=== PATIENT | female | born 1955 | race Caucasian/White ===

== ENCOUNTER 2017-10-13 14:44 | Emergency (ER) | payer MEDICARE, SELFPAY ==
[2017-10-13 14:57] VITALS: BP 151/83; PULSE 70; RESP 18; TEMP 36.2; O2SAT 100
--- NOTE | 2017-10-13 15:14 | ED.GENADUL ---
Disposition Clinical Impression: Left long finger cellulitis Disposition: HOME Condition: Good Additional Instructions: Take the Keflex that was previously prescribed to you for its entire course. Soak the left long finger in Epsom salts or kosher salt with warm water 4 times daily for the next week. Return to the emergency department for any acute concerns Medical Decision Making - Medical Decision Making 62-year-old female with early cellulitis of her left long finger. Will ask her to begin the previously prescribed Keflex. She stable for outpatient management. Discussed home management as well as return precautions with her prior to discharge per History of Present Illness - General Chief complaint: Cellulitis Stated complaint: UNKNOWN Time Seen by Provider: 10/13/17 14:58 Source: patient Mode of arrival: ambulatory Limitations: no limitations - History of Present Illness Initial comments: Left long finger infection: 62-year-old female with 3 days of achy discomfort and trace of redness at her left long fingertip where she feels she may have had a small splinter enter under the nail. She was seen in clinic yesterday and prescribed Keflex which she has not yet started. She presents for repeat evaluation. - Related Data Atorvastatin [Lipitor] 80 mg PO HS 06/04/12 Clonazepam [Klonopin] 0.5 mg PO PRN PRN 06/04/12 Levothyroxine Sodium [Synthroid] 88 mcg PO DAILY 06/04/12 Losartan [Cozaar] 100 mg PO DAILY 06/04/12 Pantoprazole [Protonix] 40 mg PO BID 06/04/12 Warfarin [Coumadin] 3 mg PO DAILY 06/04/12 Metoprolol CR [Toprol Xl] 25 mg PO DAILY 07/14/12 Aspirin [Aspir 81] 1 tab PO DAILY 12/12/13 Glipizide 1 tab PO DAILY 12/12/13 Acetaminophen [Tylenol] 1 tab PO PRN PRN 05/01/14 Sucralfate 1 gm PO QID PRN 09/22/15 Ferrous Sulfate 325 mg PO DAILY 10/04/15 Sitagliptin Phosphate [Januvia] 100 mg PO DAILY 06/26/16 Ondansetron ODT [Zofran Odt] 4 mg PO TID PRN PRN #8 tabef 12/03/16 Allergies Allergy/AdvReac Type Severity Reaction Status Date / Time metformin AdvReac Intermediate Diarrhea Unverified 10/13/17 15:02 fosinopril sodium AdvReac Unknown Coughing Unverified 10/13/17 15:02 [From Monopril] pollen Allergy Mild congestion Uncoded 10/13/17 15:02 Past Medical History - Past Medical History Medical history: cancer (Adrenal carcinoma), COPD, diabetes, GERD, hyperlipidemia, hypertension DVT Surgical history: bilateral tubal ligation, other (thyroid adrenal ca) Family history: CAD/ND (father), cancer (sister), diabetes (sister) - Social History Alcohol use: none Drug use: none General Exam - General Limitations: no limitations General appearance: alert, in no apparent distress - Respiratory Respiratory exam: Absent: respiratory distress - Extremities Exam Extremities exam: Present: normal capillary refill, other (Trace erythema at distal tip of left long finger. No foreign body seen. No fluctuance. No ascending erythema. Sensation and motor intact) - Neurological Exam Neurological exam: Present: alert - Psychiatric Psychiatric exam: Present: normal affect, normal mood - Skin Skin exam: Present: warm, dry Course Vital Signs - 24 hr 10/13/17 14:57 Temperature 36.2 C L Pulse 70 Respiratory 18 Rate Blood Pressure 151/83 Pulse Oximetry 100
== END 2017-10-13 15:18 | disposition home or self-care (01) ==
PROVIDERS: Emergency Provider Emergency Medicine; PCP Family Medicine
DX: L03.012 Cellulitis of left finger (principal); I10 Essential (primary) hypertension; J44.9 Chronic obstructive pulmonary disease, unspecified; E11.9 Type 2 diabetes mellitus without complications; Z79.84 Long term (current) use of oral hypoglycemic drugs
CPT/HCPCS: 99281 ×2

== ENCOUNTER 2017-10-19 10:48 | Emergency (ER) | payer MEDICARE, SELFPAY ==
[2017-10-19 10:54] VITALS: BP 143/90; PULSE 78; RESP 24; TEMP 36.5; O2SAT 95
--- NOTE | 2017-10-19 11:12 | ED.GENADUL ---
Disposition Clinical Impression: Compression fracture of body of thoracic vertebra Disposition: HOME Condition: Fair Additional Instructions: Your CT scan today showed compression fracture of T12. This was quite mild. However, does not fit with where your pain is today. I am concerned that this fracture may be old. Please discuss this further with her primary care physician. Please continue with physical therapy. Encourage hydration. Gentle stretching and frequent ambulation to help with discomfort. Tylenol as needed for discomfort. You may try topical patches such as Salonpas or Lidoderm patches to help with discomfort. Referrals: Jolly Wren MD [Primary Care Provider] - Medical Decision Making - Medical Decision Making Patient presents today with chief complaint of abdominal back pain after fall yesterday. Patient is anticoagulated on Coumadin for history of DVT. On exam, patient has diffuse abdominal pain. She does have a small area of ecchymosis along the right side of the abdomen. Patient has diffuse back pain is well. No AP or lateral chest wall tenderness. Lungs are clear in all [place]. Good air movement. Neuro exam is intact. I am concerned for possible bleeding. Patient does not appear in any discomfort when at rest. She appears nontoxic. Vital signs are within normal limits. Will obtain laboratory evaluation and T2 evaluate for possible bleeding. INR is 2.3. Kidney function appropriate to allow for CT with contrast Spoke with radiologist regarding CT findings. She advised that there is a mild compression fracture. Unknown age. She does report that it was not present when she had imaging completed last December. No other acute pathology noted. I reassessed the patient and discussed the findings of the CT. I reassess her back and she does not have any midline or paraspinal tenderness. She does report that she has had multiple falls which she associates with her vision difficulty. Does not believe that this is an acute fracture. States she did slip on the ice this past winter is questioning if it may be from that fall. I advised that she will follow-up with her primary care regarding her old compression fracture. We discussed new/worsening symptoms when to seek care urgently once again. Patient is currently in physical therapy to help with general weakness. I advised that she continue with this. She will contact primary care for follow-up this week. All of her questions and concerns were addressed and she is in agreement with this plan peer History of Present Illness - General Chief complaint: Orthopedic Stated complaint: BACK INJURY Time Seen by Provider: 10/19/17 10:56 Source: patient, RN notes reviewed Mode of arrival: ambulatory Limitations: no limitations - History of Present Illness Initial comments: Patient is 62-year-old female with history of DVT, presenting today with chief complaint of fall. Patient is anticoagulated on Coumadin. Has not had her INR checked in the past few weeks. States that it has been normal he takes Coumadin nightly. Has not had dosing as of yet today. Patient reports that last night she was walking out of her camper when she misstepped and fell down the 2 steps to the ground landing directly on the ground. Is endorsing low left back pain and abdominal pain. Reports the abdominal pain has increased since the fall. Denies any nausea or vomiting. Denies any change in bowel habits. Feels that her abdomen is more distended than typical. Patient is legally blind which she associates with the source of her fall. She denies striking her head. No loss of consciousness. Denies any headache. Denies any sensory deficit. Is not noted any weakness. Denies any midline tenderness, reports the pain is primarily on left side of her back. - Related Data Atorvastatin [Lipitor] 80 mg PO HS 06/04/12 Clonazepam [Klonopin] 0.5 mg PO PRN PRN 06/04/12 Levothyroxine Sodium [Synthroid] 88 mcg PO DAILY 06/04/12 Losartan [Cozaar] 100 mg PO DAILY 06/04/12 Pantoprazole [Protonix] 40 mg PO BID 06/04/12 Warfarin [Coumadin] 3 mg PO DAILY 06/04/12 Metoprolol CR [Toprol Xl] 25 mg PO DAILY 07/14/12 Aspirin [Aspir 81] 1 tab PO DAILY 12/12/13 Glipizide 1 tab PO DAILY 12/12/13 Acetaminophen [Tylenol] 2 tab PO PRN PRN 05/01/14 Sucralfate 1 gm PO QID PRN 09/22/15 Ferrous Sulfate 325 mg PO DAILY 10/04/15 Sitagliptin Phosphate [Januvia] 100 mg PO DAILY 06/26/16 Allergies Allergy/AdvReac Type Severity Reaction Status Date / Time metformin AdvReac Intermediate Diarrhea Unverified 10/19/17 11:06 fosinopril sodium AdvReac Unknown Coughing Unverified 10/19/17 11:08 [From Monopril] pollen Allergy Mild congestion Uncoded 10/19/17 11:08 Review of Systems Constitutional: no symptoms reported Eyes: as per HPI Respiratory: no symptoms reported. denies: cough, shortness of breath Cardiovascular: denies: chest pain, palpitations Gastrointestinal: as per HPI, abdominal pain. denies: nausea, vomiting, diarrhea, constipation Genitourinary: denies: urgency (Denies incontinence) Musculoskeletal: as per HPI Skin: as per HPI, change in color (Ecchymosis in the right side of the abdomen) Neurological: denies: headache, weakness, numbness, paresthesias Past Medical History - Past Medical History Medical history: cancer (Adrenal carcinoma), COPD, diabetes, GERD, hyperlipidemia, hypertension DVT Surgical history: bilateral tubal ligation, other (thyroid adrenal ca) Family history: CAD/PR (father), cancer (sister), diabetes (sister) - Social History Alcohol use: none Drug use: none General Exam - General Limitations: no limitations General appearance: alert, in no apparent distress - Eye Eye exam: Absent: normal apperance (Pupils are sluggish to respond. Patient is blind. There are equal bilaterally) - Neck Neck exam: Present: normal inspection, full ROM. Absent: tenderness - Respiratory Respiratory exam: Present: normal lung sounds bilaterally. Absent: respiratory distress, chest wall tenderness - Cardiovascular Cardiovascular Exam: Present: regular rate, normal rhythm, normal heart sounds - GI/Abdominal GI/Abdominal exam: Present: soft, tenderness (Diffuse discomfort. Patient does have an area of ecchymosis along the right side of the abdomen. It is approximately 3 cm in diameter.), normal bowel sounds. Absent: distended, guarding, rebound, organomegaly, mass - Rectal Rectal exam: Present: deferred - Extremities Exam Extremities exam: Present: normal inspection - Back Exam Back exam: Present: tenderness (Patient has discomfort fairly diffuse across the back, worse in the left side than the right. No discoloration. No palpable step-off.) - Neurological Exam Neurological exam: Present: alert. Absent: motor sensory deficit - Psychiatric Psychiatric exam: Present: normal affect, normal mood - Skin Skin exam: Present: warm, dry, normal color Course Vital Signs - 24 hr 10/19/17 10:54 Temperature 36.5 C Pulse 78 Respiratory 24 Rate Blood Pressure 143/90 Pulse Oximetry 95
[2017-10-19 11:36] LABS: Abs Immature Grans 0.03 k/cumm (0.0-0.09); Absolute Basophil Count 0.02 k/cumm (0.0-0.2); Absolute Eosinophil Count 0.11 k/cumm (0.0-0.7); Absolute Lymphocyte Count 1.52 k/cumm (1.2-3.4); Absolute Monocyte Count 0.66 k/cumm (0.11-0.7); Absolute Neutrophil Count 7.99 k/cumm (1.2-6.7); Basophils % 0.2; Eosinophils % 1.1; HCT 39.6 % (36.0-46.0); HGB 12.9 g/dL (12.0-15.5); Immature Grans % 0.3; Lymphocytes % 14.7; Mean Corp. HGB Concentration 32.6 g/dL (32.0-36.0); Mean Corpuscular Hemoglobin 26.8 pg (27.0-33.0); Mean Corpuscular Volume 82.2 fL (80-95); Mean Platelet Volume 9.5 fL (8.0-11.0); Monocytes % 6.4; Neutrophils % 77.3; Platelet Count 283 x1000/uL (130-400); RBC 4.82 m/cumm (4.00-5.20); White Blood Cell Count 10.33 k/cumm (4.4-10.8)
[2017-10-19 11:50] LABS: PTT Activated 33.3 sec (21.0-31.4); Prothrombin Time 22.2 sec (9.3-10.8)
[2017-10-19 11:54] LABS: INR 2.3 (1.0-3.5)
[2017-10-19 11:57] LABS: ALT 31 U/L (12-78); AST 18 U/L (15-37); Albumin 3.6 g/dL (3.4-5.0); Alkaline Phosphatase 100 U/L (46-116); Anion Gap 9.2 mmol/L (3-11); BUN 7 mg/dL (7-18); Bilirubin, Total 0.5 mg/dL (0.2-1.0); CO2 27.8 mmol/L (21.0-32.0); CREATININE 0.81 mg/dL (0.55-1.02); Calcium 8.7 mg/dL (8.5-10.1); Chloride 100 mmol/L (98-107); Glucose 220 mg/dL (70-100); Potassium 3.6 mmol/L (3.5-5.1); Sodium 137 mmol/L (136-145); Total Protein 8.2 g/dL (6.4-8.2)
--- NOTE | 2017-10-19 12:27 | DI.RPTCT_ITS ---
SYMPTOMS/DIAGNOSIS: ABDOMINAL PAIN AND LEFT FLANK PAIN S/P FALL, BACK INJURY, ANTICOAGULATED CT OF THE CHEST, ABDOMEN AND PELVIS: Comparison is made with abdominal and pelvic CT of December,. Images were performed from the clavicles through the ischial tuberosities after IV contrast. CHEST: The heart and great vessels appear intact. There is mild respiratory motion and mild basilar atelectasis versus scarring. There is no evidence of pneumothorax, infiltrate or effusion. There is no evidence of pneumothorax. Scoliosis is noted in the thoracic spine. No spinal fracture or rib fracture is identified. IMPRESSION: No acute abnormality. ABDOMINAL AND PELVIC CT: The liver, gallbladder, spleen and left kidney are unremarkable. Fatty density lesions are again noted in the lower pole of the right kidney. There is a retroaortic left renal vein. No free air or free fluid is seen. There is no bowel dilatation or inflammatory change. The appendix appears normal. The uterus is retroverted. The ovaries are unremarkable. The bladder appears intact. There is a mild compression fracture of the inferior endplate of T12, which was not seen on the previous exam. A hemangioma is also noted in the T12 and L5 vertebral bodies. Degenerative disc changes are seen at L5-S1. There are also degenerative changes of the right hip. There is a tiny fat-containing umbilical hernia. IMPRESSION: Mild compression fracture of the inferior endplate of T12 of indeterminate age. No other acute abnormality is seen in the abdomen or pelvis.
[2017-10-19] MEDS: Omnipaque 350 MG/ML 100 ML BTL IV (13:06)
--- NOTE | 2017-10-19 13:14 | NUR.NOTE ---
Nursing Note: 1315: Pt returns from DI and pain in her low back continues as on admission.
[2017-10-19 13:18] VITALS: BP 142/68; PULSE 71; RESP 20; TEMP 36.2; O2SAT 100
== END 2017-10-19 14:47 | disposition home or self-care (01) ==
PROVIDERS: Physician Assistant; Emergency Provider Student in an Organized Health Care Education/Training Program; PCP Family Medicine
DX: S22.080A Wedge compression fracture of T11-T12 vertebra, initial encounter for closed fracture (principal); X58.XXXA Exposure to other specified factors, initial encounter; Z79.01 Long term (current) use of anticoagulants; I10 Essential (primary) hypertension; E11.9 Type 2 diabetes mellitus without complications; Z79.84 Long term (current) use of oral hypoglycemic drugs; J44.9 Chronic obstructive pulmonary disease, unspecified
CPT/HCPCS: 71260; 74177; 99284; 99285; 80053; 83735; 84484; 85025; 85610; 85730; J3490

== ENCOUNTER 2017-11-10 13:19 | Outpatient (CLI) | payer MEDICARE, SELFPAY ==
[2017-11-10 14:08] LABS: INR 1.8 (1.0-3.5); Prothrombin Time 17.4 sec (9.3-10.8)
== END 2017-11-10 13:39 ==
PROVIDERS: PCP Family Medicine; Visit Provider Family Medicine
DX: I82.890 Acute embolism and thrombosis of other specified veins (principal); Z79.01 Long term (current) use of anticoagulants
CPT/HCPCS: 36415; 85610

== ENCOUNTER 2017-11-14 23:32 | Emergency (ER) | payer MEDICARE, SELFPAY ==
[2017-11-14 23:39] VITALS: BP 149/72; PULSE 68; RESP 16; TEMP 36.6; O2SAT 99
--- NOTE | 2017-11-14 23:49 | ED.GENADUL_ITS ---
Discharge Plan Disposition Patient Disposition: HOME Condition: Good Discharge Details Chief Complaint: Urinary Clinical Impression: Urinary tract infection Primary Care Provider: Jolly Wren V ED Provider: Seven Bradley Home Meds and New Rx's Prescriptions: New cephalexin 500 mg tablet 500 mg PO TID 7 Days Qty: 21 RF: 0 Continue atorvastatin [Lipitor] 10 MG tablet 80 mg PO HS RF: 0 clonazepam [Klonopin] 0.5 MG tablet 0.5 mg PO PRN PRNRF: 0 pantoprazole [Protonix] 20 MG tablet,delayed release (DR/EC) 40 mg PO BID RF: 0 levothyroxine [Synthroid] 88 MCG tablet 88 mcg PO DAILY RF: 0 warfarin [Coumadin] 5 MG tablet 3 mg PO DAILY RF: 0 losartan 100 MG tablet 100 mg PO DAILY RF: 0 metoprolol succinate 25 MG tablet extended release 24 hr 25 mg PO DAILY RF: 0 glipizide 10 MG tablet 1 tab PO DAILY RF: 0 aspirin [Aspir-81] 81 MG tablet,delayed release (DR/EC) 1 tab PO DAILY RF: 0 acetaminophen [Mapap Extra Strength] 500 MG tablet 2 tab PO PRN PRNRF: 0 ferrous sulfate 325 MG tablet 325 mg PO DAILY RF: 0 sucralfate 1 GM tablet 1 gm PO QID PRNRF: 0 sitagliptin [Januvia] 100 MG tablet 100 mg PO DAILY RF: 0 Discharge Instructions Instructions: Urinary Tract Infection in Women (ED) Additional Instructions: Follow-up with regular doctor if not improving in 3-5 days time. Return to the emergency department for worsening discomfort, the development of fever, abdominal pain, or any other acute concerns Medical Decision Making MDM Narrative Medical decision making narrative: This is a delightful 62-year-old female with a history of diabetes who presents with urinary urgency and burning over day and has time. She is afebrile, well-appearing, in no significant distress. Her exam is essentially reassuring. Differential diagnosis would include urinary tract infection, cystitis, a sending UTI/pyelonephritis. Patient referred for urinalysis which is consistent with acute urinary tract infection. I reviewed previous urine cultures which show gram negatives that have been prior dominantly pansensitive. I will place her on a course of Keflex. She will follow up with primary care for recheck if not improving in 3-5 days time Lab Data Lab results reviewed: Yes I reviewed the patient's lab results. HPI - General Adult General Mode of arrival: ambulatory . Date/Time Provider Initiated Documentation: 11/14/17 23:37 . Limitations to Documentation: no limitations . Information obtained by: patient . History of Present Illness 62 year old F presents to the emergency department with the chief complaint of Urinary complaint, described as moderate, Quality is described as burning and aching, and is localized to the abdomen and pelvis. Patient reports no radiation. Patient started experiencing this day(s) and it has been constant. No relieving factors improve symptom(s), No exacerbating factors reported . HPI Narrative: This is a 62-year-old female who presents from home complaining of a day and a half of the gradual onset of urinary urgency, frequency, and aching back pain.No fever or chills. She is been tolerating liquids and solids by mouth without difficulty. She states that she has otherwise been well. Related Data Home Medications Medication Instructions Recorded Confirmed atorvastatin [Lipitor] 80 mg PO HS 06/04/12 11/14/17 clonazepam [Klonopin] 0.5 mg PO PRN PRN 06/04/12 11/14/17 levothyroxine [Synthroid] 88 mcg PO DAILY 06/04/12 11/14/17 losartan 100 mg PO DAILY 06/04/12 11/14/17 pantoprazole [Protonix] 40 mg PO BID 06/04/12 11/14/17 warfarin [Coumadin] 3 mg PO DAILY 06/04/12 11/14/17 metoprolol succinate 25 mg PO DAILY 07/14/12 11/14/17 aspirin [Aspir-81] 1 tab PO DAILY 12/12/13 11/14/17 glipizide 1 tab PO DAILY 12/12/13 11/14/17 acetaminophen [Mapap Extra 2 tab PO PRN PRN 05/01/14 11/14/17 Strength] sucralfate 1 gm PO QID PRN 09/22/15 11/14/17 ferrous sulfate 325 mg PO DAILY 10/04/15 11/14/17 sitagliptin [Januvia] 100 mg PO DAILY 06/26/16 11/14/17 Previous Rx's Medication Instructions Recorded cephalexin 500 mg PO TID 7 Days #21 tab 11/14/17 Allergies Allergy/AdvReac Type Severity Reaction Status Date / Time metformin AdvReac Intermediate Diarrhea Unverified 11/14/17 23:49 fosinopril sodium AdvReac Unknown Coughing Unverified 11/14/17 23:49 [From Monopril] pollen Allergy Mild congestion Uncoded 11/14/17 23:49 General Stated Complaint: Urinary CYNTHIA: 4 Review of Systems Review of Systems 8 systems reviewed and otherwise negative PFS Medical History Anxiety Diabetes mellitus type II, non insulin dependent GERD (gastroesophageal reflux disease) Hx of deep venous thrombosis Hyperlipidemia Hypertension Peripheral vascular disease Retinitis pigmentosa of both eyes Social History Smoking/Tobacco Use Status: Never Surgical History Ligation of fallopian tube Thyroid Vascular Surgery Exam Narrative Exam Narrative: GEN: awake, alert, oriented 3. Pleasant, well groomed, interactive. HEAD: Normocephalic, atraumatic ENT: Mucous membranes moist, oropharynx unremarkable, External ear exam unremarkable EYES: PERRL, EOMI NECK: Full ROM, no FAITH, no menigismus CHEST/RESP: Nontender, clear to auscultation bilateral, no wheeze/rhonchi/rales CARDIOVASCULAR: RRR, no murmur, rub stephenie. 2+ Rad pulse bilateral ABDOMEN: Soft, minimal suprapubic tenderness, no mass. +Bowel sounds EXT: Full ROM, no edema, no rash Neuro: Grossly normal neurologic exam, conversant, interactive. Psych: Speech fluent, thoughts congruent, affect normal
[2017-11-14 23:50] LABS: Bilirubin Negative (Negative); Blood Trace-intact (Negative); Clarity Clear; Glucose Negative (Negative); Ketones Negative (Negative); Leukocyte Esterase Small (Negative); Nitrite Negative (Negative); Urobilinogen 0.2 EU/dL (Up TO 0.2); pH 6.5 (5-8)
[2017-11-15 00:03] LABS: Bacteria Moderate HPF (Negative); C & S Indicated? No/Sq. Contamination; Casts Negative LPF (Negative); Crystals Negative HPF (Negative); Epithelial Cells Many HPF (Negative); Mucus Negative (Negative); Other Cells Moderate Renal (Negative); WBC 20-50 HPF (0-5)
[2017-11-15] MEDS: Cephalexin 500 MG CAP PO ×2 (00:06→00:15)
== END 2017-11-15 00:20 | disposition home or self-care (01) ==
LOC: ER 11-15 00:28
PROVIDERS: Emergency Provider Emergency Medicine; PCP Family Medicine
DX: N39.0 Urinary tract infection, site not specified (principal); E11.9 Type 2 diabetes mellitus without complications; Z79.84 Long term (current) use of oral hypoglycemic drugs; I10 Essential (primary) hypertension
CPT/HCPCS: 99283; 81003; 81015

== ENCOUNTER 2017-11-20 13:13 | Emergency (ER) | payer MEDICARE, SELFPAY ==
[2017-11-20 13:32] VITALS: BP 148/93; PULSE 80; RESP 16; TEMP 36.9; O2SAT 100
[2017-11-20 13:40] VITALS: RESP 16
--- NOTE | 2017-11-20 13:46 | DI.US_ITS ---
SYMPTOMS/DIAGNOSIS: LEFT LEG PAIN LEFT LOWER EXTREMITY ULTRASOUND: Venous varicosities are seen in the distal thigh and calf. The femoral and popliteal veins and saphenous vein appear free of thrombus. The saphenous vein is somewhat dilated. No hematoma or Landeros's cyst is seen. IMPRESSION: Venous varicosities. No evidence of superficial or deep venous thrombosis.
--- NOTE | 2017-11-20 15:16 | ED.GENADUL_ITS ---
Discharge Plan Disposition Patient Disposition: HOME Condition: Good Discharge Details Chief Complaint: GenMedical Clinical Impression: Back pain due to injury, Varicose vein of leg Primary Care Provider: Jolly Wren V ED Provider: Quinton Gunderson Home Meds and New Rx's Prescriptions: Continue atorvastatin [Lipitor] 10 MG tablet 80 mg PO HS RF: 0 clonazepam [Klonopin] 0.5 MG tablet 0.5 mg PO PRN PRNRF: 0 pantoprazole [Protonix] 20 MG tablet,delayed release (DR/EC) 40 mg PO BID RF: 0 levothyroxine [Synthroid] 88 MCG tablet 88 mcg PO DAILY RF: 0 warfarin [Coumadin] 5 MG tablet 3 mg PO DAILY RF: 0 losartan 100 MG tablet 100 mg PO DAILY RF: 0 metoprolol succinate 25 MG tablet extended release 24 hr 25 mg PO DAILY RF: 0 glipizide 10 MG tablet 1 tab PO DAILY RF: 0 aspirin [Aspir-81] 81 MG tablet,delayed release (DR/EC) 1 tab PO DAILY RF: 0 acetaminophen [Mapap Extra Strength] 500 MG tablet 2 tab PO PRN PRNRF: 0 ferrous sulfate 325 MG tablet 325 mg PO DAILY RF: 0 sucralfate 1 GM tablet 1 gm PO QID PRNRF: 0 sitagliptin [Januvia] 100 MG tablet 100 mg PO DAILY RF: 0 Discharge Instructions Instructions: Back Pain (ED) Additional Instructions: Feel free to return to the emergency department for any new or worsening symptoms otherwise follow-up with your primary care provider for reassessment if not improving next week. Continue to use acetaminophen as needed for pain control. Also continue to take your antibiotics as you are urinary tract infection seems to be improving. Referrals: Jolly Wren MD [Primary Care Provider] - (As needed for reassessment and if not improving) Discharge Data Discharge Date/Time-TO BE ENTERED AT DEPARTURE: 11/20/17 16:38 Medical Decision Making MDM Narrative Medical decision making narrative: Patient presenting to the emergency department for complaint of back pain and left lower leg pain. Patient is legally blind and states that she did bump into something but her back pain persisted which she was seen for recently in the emergency department and they found a urinary tract infection which they thought was causing some of her flank pain. Patient states that she has not had any urinary symptoms and is taking her antibiotic as prescribed but not had any improvement in her back discomfort. Patient does state that her pain does worsen with movement. Patient also states that she has history of varicose veins and over the past couple days has noted some significant calf and posterior knee tenderness with movement and palpation. Patient denies any chest pain, syncope, shortness of breath or difficulty breathing. Physical exam for cardiac or respiratory is unremarkable and patient does have soft tissue tenderness to her back so I suspect more of a musculoskeletal nature to her discomfort but plan to check urinalysis for repeat testing to ensure clearance of previous urinary tract infection. Patient does have some significant varicose veins in the left lower extremity in areas of discomfort but with popliteal pain and calf tenderness I do feel that rule out of DVT is warranted with ultrasound. Any results patient given lidocaine patch for her back. Review of ultrasound imaging shows no DVT so I feel that patient has discomfort in her varicose veins but no signs of thrombophlebitis noted on exam or ultrasound imaging. Patient encouraged to take her medications as prescribed and follow-up with her primary care provider as needed or return to the emergency department for any new or worsening symptoms. After discussion of diagnosis and plan of care patient states no further needs, questions, or concerns at this Medical Records Medical records reviewed: Yes I reviewed the patient's medical records. Imaging Data Radiologic Study: Imaging: Ultrasound Radiologist's impression: Varicosities noted in lower extremity but no thrombus deep or superficial. Lab Data Lab results reviewed: Yes I reviewed the patient's lab results. HPI - General Adult General Date/Time Provider Initiated Documentation: 11/20/17 13:25 . Limitations to Documentation: other (Legally blind) . Information obtained by: patient . History of Present Illness 62 year old F presents to the emergency department with the chief complaint of Back pain and leg pain, described as moderate, with intensity rated at 6. Quality is described as aching, and is localized to the back and lower extremity. Patient reports no radiation. Patient started experiencing this day(s) (6) and it has been constant. No relieving factors improve symptom(s) , Movement worsens symptoms . Patient notes denies chest pain, cough, fever/ chills, syncope and weakness. Related Data Home Medications Medication Instructions Recorded Confirmed atorvastatin [Lipitor] 80 mg PO HS 06/04/12 11/14/17 clonazepam [Klonopin] 0.5 mg PO PRN PRN 06/04/12 11/14/17 levothyroxine [Synthroid] 88 mcg PO DAILY 06/04/12 11/14/17 losartan 100 mg PO DAILY 06/04/12 11/14/17 pantoprazole [Protonix] 40 mg PO BID 06/04/12 11/14/17 warfarin [Coumadin] 3 mg PO DAILY 06/04/12 11/14/17 metoprolol succinate 25 mg PO DAILY 07/14/12 11/14/17 aspirin [Aspir-81] 1 tab PO DAILY 12/12/13 11/14/17 glipizide 1 tab PO DAILY 12/12/13 11/14/17 acetaminophen [Mapap Extra 2 tab PO PRN PRN 05/01/14 11/14/17 Strength] sucralfate 1 gm PO QID PRN 09/22/15 11/14/17 ferrous sulfate 325 mg PO DAILY 10/04/15 11/14/17 sitagliptin [Januvia] 100 mg PO DAILY 06/26/16 11/14/17 Allergies Allergy/AdvReac Type Severity Reaction Status Date / Time metformin AdvReac Intermediate Diarrhea Unverified 11/14/17 23:49 fosinopril sodium AdvReac Unknown Coughing Unverified 11/14/17 23:49 [From Monopril] pollen Allergy Mild congestion Uncoded 11/14/17 23:49 General Stated Complaint: GenMedical CYNTHIA: 3 Review of Systems Constitutional Denies chills and Denies fever(s) Cardiovascular Denies chest pain and Denies dyspnea Respiratory Denies dyspnea Gastrointestinal Denies abdominal pain, Denies nausea and Denies vomiting Musculoskeletal Reports as per HPI, Reports back pain and Reports myalgias Integumentary/Breasts Denies rash Neurologic Denies confusion and Denies sensory deficit Psychiatric Denies confusion PFSH Medical History Anxiety Diabetes mellitus type II, non insulin dependent GERD (gastroesophageal reflux disease) Hx of deep venous thrombosis Hyperlipidemia Hypertension Peripheral vascular disease Retinitis pigmentosa of both eyes Social History Smoking/Tobacco Use Status: Never Surgical History Ligation of fallopian tube Thyroid Vascular Surgery Exam Const General: cooperative, no acute distress and not ill appearing Orientation: alert, awake and oriented x3 HENMT Mouth: moist mucous membranes Resp Effort & Inspection: normal respiratory effort, able to speak in complete sentences, no cough, not labored and no respiratory distress Auscultation: clear to auscultation bilaterally Cardio Rate: regular rate Rhythm: regular rhythm Heart Sounds: S1 normal and S2 normal Back/Spine/Pelvis Thoracic/Lumbar Spine: paraspinal tenderness (left lumbar) Skin General skin exam: no rashes or lesions noted Neuro General: alert, awake, oriented x3, moves all extremities and no focal motor deficits Sensory Exam: no sensory deficits noted Extrem Left lower extremity: full ROM, normal capillary refill, no joint enlargement, knee Details: tenderness Location: of the popliteal fossa; no swelling, lower leg Details: tenderness Location: of the posterior calf, no edema and other ( enlarged superfical veins); no localized swelling, ankle Details: normal to inspection and foot Details: normal capillary refill; no edema Course Vital Signs Temperature 36.9 C 11/20/17 13:32 Pulse 80 11/20/17 13:32 Respiratory Rate 16 11/20/17 13:32 Blood Pressure 148/93 H 11/20/17 13:32 Pulse Oximetry 100 11/20/17 13:32 Temperature 36.9 C 11/20/17 13:32 Pulse 80 11/20/17 13:32 Respiratory Rate 16 11/20/17 13:40 Blood Pressure 148/93 H 11/20/17 13:32 Pulse Oximetry 100 11/20/17 13:32
[2017-11-20] MEDS: Lidocaine 5% Patch 1 PATCH TP (16:07)
[2017-11-20 16:13] LABS: Bilirubin Negative (Negative); Blood Negative (Negative); Clarity Clear; Glucose Negative (Negative); Ketones Negative (Negative); Leukocyte Esterase Negative (Negative); Nitrite Negative (Negative); Urobilinogen 0.2 EU/dL (Up TO 0.2); pH 6.5 (5-8)
== END 2017-11-20 16:38 | disposition home or self-care (01) ==
LOC: ER 16:45
PROVIDERS: Emergency Provider Nurse Practitioner Family; PCP Family Medicine
DX: S39.82XA Other specified injuries of lower back, initial encounter (principal); I83.812 Varicose veins of left lower extremity with pain; X58.XXXA Exposure to other specified factors, initial encounter; I10 Essential (primary) hypertension; E11.9 Type 2 diabetes mellitus without complications; Z79.84 Long term (current) use of oral hypoglycemic drugs
CPT/HCPCS: 99284; 81003; 93971

== ENCOUNTER 2017-12-01 00:40 | Outpatient (CLI) | payer MEDICARE, SELFPAY ==
--- NOTE | 2017-12-01 15:27 | DI.DEXA_ITS ---
SYMPTOM/DIAGNOSIS: COMPRESSION FX, SPINE T14.8, POSTMENOPAUSAL Z78.0 DEXA SCAN: Routine examination. The lateral spine shows no compression deformities. Evaluation of the left hip shows a total T-score of -0.4 and a Z-score of 0.8. This is within normal limits. Evaluation of the lumbar spine shows a total T-score of -1.5 and a Z-score of 0.2. IMPRESSION: Osteopenia in the lumbar spine.
== END 2017-12-01 01:00 ==
PROVIDERS: PCP Family Medicine; Visit Provider Family Medicine
DX: M85.88 Other specified disorders of bone density and structure, other site (principal); Z78.0 Asymptomatic menopausal state; Z87.311 Personal history of (healed) other pathological fracture
CPT/HCPCS: 77080

== ENCOUNTER 2017-12-05 11:50 | Emergency (ER) | payer MEDICARE, SELFPAY ==
[2017-12-05 11:54] VITALS: BP 160/96; PULSE 82; RESP 16; TEMP 37.1; O2SAT 98
--- NOTE | 2017-12-05 12:33 | ED.GENADUL_ITS ---
Discharge Plan Disposition Patient Disposition: HOME Condition: Stable Discharge Details Chief Complaint: Orthopedic Clinical Impression: Left ankle sprain Primary Care Provider: Jolly Wren V ED Provider: Cathy Lambert Home Meds and New Rx's Prescriptions: Continue atorvastatin [Lipitor] 10 MG tablet 80 mg PO HS RF: 0 clonazepam [Klonopin] 0.5 MG tablet 0.5 mg PO PRN PRNRF: 0 pantoprazole [Protonix] 20 MG tablet,delayed release (DR/EC) 40 mg PO BID RF: 0 levothyroxine [Synthroid] 88 MCG tablet 88 mcg PO DAILY RF: 0 warfarin [Coumadin] 5 MG tablet 3 mg PO DAILY RF: 0 losartan 100 MG tablet 100 mg PO DAILY RF: 0 metoprolol succinate 25 MG tablet extended release 24 hr 25 mg PO DAILY RF: 0 glipizide 10 MG tablet 1 tab PO DAILY RF: 0 aspirin [Aspir-81] 81 MG tablet,delayed release (DR/EC) 1 tab PO DAILY RF: 0 acetaminophen [Mapap Extra Strength] 500 MG tablet 2 tab PO PRN PRNRF: 0 ferrous sulfate 325 MG tablet 325 mg PO DAILY RF: 0 sucralfate 1 GM tablet 1 gm PO QID PRNRF: 0 sitagliptin [Januvia] 100 MG tablet 100 mg PO DAILY RF: 0 Discharge Instructions Instructions: Ankle Sprain (ED) Additional Instructions: Rest, ice, elevate left lower extremity as much as possible. Use crutches for ambulation. Take Tylenol as needed and directed for pain. Take the oxycodone as needed and directed for pain not relieved with Tylenol. You should receive a call from orthopedics regarding follow-up. Return to the emergency department any worsening or new concerning symptoms. Referrals: Mc Harding MD [ [facility]FF [facility]YSICIAN] - ([phone]) Discharge Data Discharge Physician: Cathy Lambert Medical Decision Making 62-year-old female presents with left hip, left foot and left wrist pain after mechanical fall yesterday. Minimal head injury, no headache no LOC no vomiting. Chest and abdomen nontender. No C-spine/T-spine/L-spine tenderness. Patient appears in no acute distress. She has an area of ecchymosis in the left hip but states there is no pain in this region other than superficial, and has been weightbearing and range of motion without pain and declines x-ray of the left hip. Normal left wrist exam without snuffbox tenderness and she declines x-ray of the left wrist. There is moderate edema and ecchymosis to the left lateral malleolus and left dorsal foot. Will obtain left foot and ankle x-ray. No relief with Tylenol prior to arrival. We will give a dose of oxycodone. Patient cannot take NSAIDs due to Coumadin. 1330 --x-rays note soft tissue swelling over the medial lateral malleolus with mild distention of the ankle joint consistent with posttraumatic joint effusion and/or ligamentous disruption. There is a possible fracture involving the proximal shaft of the fifth toe proximal phalanx. Patient has no tenderness, trauma, ecchymosis or edema near the toes or distal foot so this is likely not a fracture. She admits to minimal relief with oxycodone here. Case discussed with orthopedics and recommend Aircast and crutches. Patient states she has chronic vision problems and cannot use crutches. She uses a cane at times but not usually at home. She does have a walker at home which she is instructed to use for ambulation to minimize weightbearing on her left lower extremity. She is instructed to rest, ice and elevate as much as possible. Will place patient on orthopedic follow-up list for reevaluation. Will send home with a few tabs of oxycodone to take as needed. Otherwise she is instructed to use Tylenol as needed and directed HPI General Mode of arrival: wheelchair . Date/Time Provider Initiated Documentation: 12/05/17 11:55 . Limitations to Documentation: no limitations . Information obtained by: patient . HPI Narrative: Patient is a 62-year-old female with multiple medical problems who presents with left foot, left hip, left wrist pain after fall at home last night. Patient states she was attempting to avoid tripping over her dog, and slipped and fell hitting her left side on a whiskey barrel as well as the ground. Patient states her left hip pain mainly hurts in the area of her bruise but otherwise does not hurt with range of motion or weightbearing she states she does not think she broke anything. She is mainly complaining of left foot pain. She has been taking Tylenol without relief, last dose prior to arrival. She does admit to a head injury but denies any loss of consciousness or vomiting, headache or dizziness. She also denies chest pain, abdominal pain , neck or back pain. Past medical history: Anxiety, hypertension, diabetes, GERD, hyperlipidemia, peripheral vascular disease, DVT, and obesity. Surgical history: Tubal ligation, thyroid surgery, cataract surgery Social history: Denies tobacco, alcohol, drugs Medications: Coumadin, see list Allergies: See list Related Data Home Medications Medication Instructions Recorded Confirmed atorvastatin [Lipitor] 80 mg PO HS 06/04/12 12/05/17 clonazepam [Klonopin] 0.5 mg PO PRN PRN 06/04/12 12/05/17 levothyroxine [Synthroid] 88 mcg PO DAILY 06/04/12 12/05/17 losartan 100 mg PO DAILY 06/04/12 12/05/17 pantoprazole [Protonix] 40 mg PO BID 06/04/12 12/05/17 warfarin [Coumadin] 3 mg PO DAILY 06/04/12 12/05/17 metoprolol succinate 25 mg PO DAILY 07/14/12 12/05/17 aspirin [Aspir-81] 1 tab PO DAILY 12/12/13 12/05/17 glipizide 1 tab PO DAILY 12/12/13 12/05/17 acetaminophen [Mapap Extra 2 tab PO PRN PRN 05/01/14 12/05/17 Strength] sucralfate 1 gm PO QID PRN 09/22/15 12/05/17 ferrous sulfate 325 mg PO DAILY 10/04/15 12/05/17 sitagliptin [Januvia] 100 mg PO DAILY 06/26/16 12/05/17 Allergies Allergy/AdvReac Type Severity Reaction Status Date / Time metformin AdvReac Intermediate Diarrhea Unverified 12/05/17 12:49 fosinopril sodium AdvReac Unknown Coughing Unverified 12/05/17 12:49 [From Monopril] pollen Allergy Mild congestion Uncoded 12/05/17 12:49 General Stated Complaint: Orthopedic CYNTHIA: 4 Review of Systems Review of Systems All systems reviewed & are unremarkable except as noted in HPI and below Constitutional Denies chills, Denies excessive sweating, Denies fatigue, Denies fever(s), Denies weakness and Denies weight loss Eyes Reports system reviewed and no additional complaints, except as docu and Denies blurry vision ENT Denies vertigo, Denies dizziness, Denies otalgia, Denies nasal congestion, Denies sore throat and Denies throat swelling Cardiovascular Denies chest pain, Denies syncope, Denies rapid heart rate and Denies dyspnea Respiratory Denies dyspnea Gastrointestinal Denies abdominal pain, Denies diarrhea and Denies vomiting Genitourinary Denies hematuria, Denies dysuria and Denies flank pain Musculoskeletal Denies back pain and Reports other (Left foot and ankle pain, left hip bruising and mild pain, left wrist pain) Integumentary/Breasts Denies lesions and Denies rash Neurologic Denies behavioral changes, Denies confusion, Denies vertigo, Denies dizziness, Denies syncope and Denies weakness Psychiatric Denies behavioral changes, Denies confusion and Denies depression Endocrine Denies excessive sweating and Denies fatigue Hematologic/Lymphatic Denies easy bruising and Denies lymphadenopathy Allergic/Immunologic Denies throat swelling PFSH Medical History Anxiety Diabetes mellitus type II, non insulin dependent GERD (gastroesophageal reflux disease) Hx of deep venous thrombosis Hyperlipidemia Hypertension Peripheral vascular disease Retinitis pigmentosa of both eyes Social History Smoking/Tobacco Use Status: Never Surgical History Ligation of fallopian tube Thyroid Vascular Surgery Exam Const General: cooperative and healthy appearing Orientation: alert and awake HENMT Head: normal to inspection Ears: hearing grossly normal bilaterally, external ears normal and TM's normal bilaterally General nose exam: external nose normal Face and sinus: normal facial exam Mouth: oral mucosae normal Teeth and gingiva: dentition normal Throat: posterior oropharynx normal Eyes General: appearance normal, both eyes and all related structures Eyelids: eyelids normal Pupils: PERRL EOM: EOM intact bilaterally Neck Neck: normal visual inspection Lymphatic: no lymphadenopathy noted Chest Chest: normal inspection of the chest, normal palpation of entire chest wall, no crepitus, no tenderness and other (No evidence of trauma noted) Resp Effort & Inspection: normal respiratory effort and able to speak in complete sentences Auscultation: clear to auscultation bilaterally Cardio Rate: regular rate Rhythm: regular rhythm GI Inspection: normal to inspection Palpation: soft, not firm, no guarding, no hepatosplenomegaly, no masses and nontender Auscultation: normal bowel sounds Back/Spine/Pelvis Cervical Spine: No cervical spinal tenderness Thoracic/Lumbar Spine: No thoracic spinal tenderness and No lumbar spinal tenderness Pelvis: no pain with anterior-posterior compression and other (There is an approximate 5 x 6 area of ecchymosis to the left lateral hip. There is no tenderness palpation of the anterior or lateral hip bone. Full range of motion of hips bilaterally without pain) Coccyx: other (There is an approximate 5 x 6 area of ecchymosis to the left lateral hip. There is no tenderness palpation of the anterior or lateral hip bone. Full range of motion of hips bilaterally without pain) Skin General skin exam: no rashes or lesions noted Neuro General: alert and awake Cognition: normal cognition Speech: speech normal Gait: normal gait Motor: muscle tone normal throughout Sensory Exam: no sensory deficits noted Extrem General: normal to inspection, full ROM and normal capillary refill Left upper extremity: wrist Left lower extremity: ankle (Moderate edema, ecchymosis noted to left posterior and inferior lateral malleolus.) and foot (Moderate edema noted to proximal dorsal foot near lateral malleolus. Left DP/PT pulse intact.) Other: Right upper extremity exam normal. Remainder of left upper extremity exam normal. Full range of motion at bilateral hips, knees and right ankle. Psych Appearance: grossly normal Mental Status: mental status grossly normal Speech and Movement: speech and movement normal Affect: normal affect Thought Process: normal Course Vital Signs Temperature 98.8 F 12/05/17 11:54 Pulse 82 12/05/17 11:54 Respiratory Rate 16 12/05/17 11:54 Blood Pressure 160/96 H 12/05/17 11:54 Pulse Oximetry 98 12/05/17 11:54 Temperature 98.8 F 12/05/17 11:54 Temperature Source Temporal Artery Scan 12/05/17 11:54 Pulse 82 12/05/17 11:54 Respiratory Rate 16 12/05/17 11:54 Respiratory Effort Non-Labored 12/05/17 11:57 Blood Pressure 160/96 H 12/05/17 11:54 Blood Pressure Position Sitting 12/05/17 11:54 Pulse Oximetry 98 12/05/17 11:54 Oxygen Delivery Method Blow by 12/05/17 11:54 Oxygen Flow Rate 0 12/05/17 11:54 Pain Level 4 12/05/17 12:05
[2017-12-05] MEDS: oxyCODONE 5 MG TAB PO ×2 (12:34→14:06)
--- NOTE | 2017-12-05 12:40 | DI.COMBO_ITS ---
SYMPTOM/DIAGNOSIS: S/P FALL, R/O ACUTE FRACTURE LEFT ANKLE, LEFT FOOT: 12/05 Three views of the ankle and 3 views of the foot were obtained. Ankle mortise appears well maintained and no fractures are identified. There is marked soft tissue swelling of the ankle. No definite fracture seen involving the bones of the foot. Question of cortical deformity of proximal phalanx of the 5th toe noted on a single view, correlation requested regarding any injury to this site but there is no additional finding to suggest an acute fracture.
--- NOTE | 2017-12-05 12:52 | DI.VRAD_ITS ---
EXAM: XR Left Ankle Complete, 3 or more Views EXAM DATE/TIME: 12/05/2017 12:25 PM CLINICAL HISTORY: 62 years old, female; Pain; Ankle; Left; Patient HX: Fall left ankle pain TECHNIQUE: XR Left ankle 3 or more views. COMPARISON: No relevant prior studies available. FINDINGS: Bones/joints: Calcaneal spur. Mild distention of the ankle joint capsule consistent with posttraumatic joint effusion and/or ligamentous disruption. Soft tissues: Soft tissue swelling over the medial and lateral malleolus. IMPRESSION: 1. Soft tissue swelling over the medial and lateral malleolus. 2. Mild distention of the ankle joint capsule consistent with posttraumatic joint effusion and/or ligamentous disruption. Dictated and Authenticated by: Otis Cabrera MD. Ordering:KIKO URIAS MD
--- NOTE | 2017-12-05 12:53 | DI.VRAD_ITS ---
EXAM: XR Left Foot Complete, 3 or more Views EXAM DATE/TIME: 12/05/2017 12:25 PM CLINICAL HISTORY: 62 years old, female; Pain; Foot; Left; Patient HX: Fall left foot pain. TECHNIQUE: XR Left foot 3 or more views. COMPARISON: No relevant prior studies available. FINDINGS: Bones/joints: Calcaneal spur. Possible fracture involving the proximal shaft of the little toe proximal phalanx. Image 1001. Soft tissues: Normal. IMPRESSION: Possible fracture involving the proximal shaft of the little toe proximal phalanx. Image 1001. Dictated and Authenticated by: Otis Cabrera MD. Ordering:KIKO URIAS MD
[2017-12-05] MEDS: oxyCODONE 5 MG TAB 10 MG (14:07)
== END 2017-12-05 14:26 | disposition home or self-care (01) ==
PROVIDERS: Emergency Provider Physician Assistant; PCP Family Medicine
DX: S93.402A Sprain of unspecified ligament of left ankle, initial encounter (principal); S70.02XA Contusion of left hip, initial encounter; M25.532 Pain in left wrist; W01.198A Fall on same level from slipping, tripping and stumbling with subsequent striking against other object, initial encounter; Z79.01 Long term (current) use of anticoagulants; Z86.718 Personal history of other venous thrombosis and embolism; E11.9 Type 2 diabetes mellitus without complications; Z79.84 Long term (current) use of oral hypoglycemic drugs; I10 Essential (primary) hypertension
CPT/HCPCS: 29515; 99284; 73610; 73630; 99285; L4350

== ENCOUNTER 2017-12-16 14:47 | Outpatient (CLI) | payer MEDICARE, SELFPAY ==
--- NOTE | 2017-12-16 14:40 | DI.RAD_ITS ---
SYMPTOM/DIAGNOSIS: LT ANKLE PAIN, SWELLING LEFT ANKLE: Three views. No acute or healing fracture or dislocation is identified. There is a small lucency at the lateral aspect of the talar dome which may represent an osteochondral injury. The articular surfaces are otherwise well maintained. There is a small calcaneal spur at the plantar surface and an enthesophyte at the insertion site of the Achilles. Mild degenerative changes are seen at the talonavicular joint. There is generalized soft tissue swelling. No radiopaque foreign bodies are seen in the soft tissues. IMPRESSION: Generalized soft tissue swelling. No evidence of an acute or healing fracture or dislocation. Tiny lucency in the talar dome. This may represent an osteochondral injury.
== END 2017-12-16 15:07 ==
PROVIDERS: PCP Family Medicine; Referring Provider Family Medicine; Visit Provider Student in an Organized Health Care Education/Training Program
DX: M25.572 Pain in left ankle and joints of left foot (principal); M79.89 Other specified soft tissue disorders; S92.155A Nondisplaced avulsion fracture (chip fracture) of left talus, initial encounter for closed fracture; W19.XXXA Unspecified fall, initial encounter
CPT/HCPCS: 99203; 99214; L4361; 73610

== ENCOUNTER 2017-12-25 15:01 | Outpatient (REF) | payer MEDICARE, SELFPAY | END 2017-12-25 15:21 | LOC: NCHCN 15:01 | PROVIDERS: PCP Family Medicine; Visit Provider Family Medicine | DX: N39.0 Urinary tract infection, site not specified (principal) | CPT/HCPCS: 87086 ==

== ENCOUNTER → 2018-01-06 13:42 | Outpatient (BNVA) | payer MEDICARE, SELFPAY | PROVIDERS: PCP Family Medicine; Visit Provider Student in an Organized Health Care Education/Training Program | DX: S92.155D Nondisplaced avulsion fracture (chip fracture) of left talus, subsequent encounter for fracture with routine healing (principal); W01.0XXD Fall on same level from slipping, tripping and stumbling without subsequent striking against object, subsequent encounter | CPT/HCPCS: 99213 ==

== ENCOUNTER 2018-01-21 15:23 | Outpatient (CLI) | payer MEDICARE, SELFPAY ==
[2018-01-21 16:05] LABS: INR 2.6 (1.0-3.5); Prothrombin Time 24.6 sec (9.3-10.8)
== END 2018-01-21 15:43 ==
PROVIDERS: PCP Family Medicine; Visit Provider Family Medicine
DX: I82.890 Acute embolism and thrombosis of other specified veins (principal); Z79.01 Long term (current) use of anticoagulants
CPT/HCPCS: 36415; 85610

== ENCOUNTER 2018-02-05 10:27 | Outpatient (CLI) | payer MEDICARE, SELFPAY ==
[2018-02-05 11:08] LABS: INR 2.7 (1.0-3.5); Prothrombin Time 25.6 sec (9.3-10.8)
== END 2018-02-05 10:47 ==
PROVIDERS: PCP Family Medicine; Visit Provider Family Medicine
DX: I82.890 Acute embolism and thrombosis of other specified veins (principal); Z79.01 Long term (current) use of anticoagulants
CPT/HCPCS: 36415; 99211; 85610

== ENCOUNTER 2018-02-05 11:30 | Outpatient (CLI) | payer MEDICARE, SELFPAY ==
--- NOTE | 2018-02-05 11:25 | DI.RAD_ITS ---
SYMPTOM/DIAGNOSIS: LT ANKLE PAIN LEFT ANKLE: Three views were obtained. The ankle mortise appears fairly well maintained. There are mild degenerative changes of the joints of the ankle. No other abnormality is seen.
== END 2018-02-05 11:50 ==
PROVIDERS: PCP Family Medicine; Visit Provider Physician Assistant
DX: M25.572 Pain in left ankle and joints of left foot (principal); M19.072 Primary osteoarthritis, left ankle and foot
CPT/HCPCS: 99213; 73610; L1902

== ENCOUNTER 2018-02-05 17:55 | Emergency (ER) | payer MEDICARE, SELFPAY ==
[2018-02-05 18:02] VITALS: BP 145/85; PULSE 72; RESP 18; TEMP 36.6; O2SAT 97
--- NOTE | 2018-02-05 18:34 | DI.CT_ITS ---
SYMPTOMS/DIAGNOSIS: HEADACHE S/P TRAUMA, HIT HEAD ON COUNTER IN FALL, ON COUMADIN CT BRAIN, NONCONTRAST: Comparison is 08/22/16. No intracranial hemorrhage, midline shift or mass effect is identified. The ventricles and sulci are consistent with the patient' s age. There is no evidence of a calvarial fracture. The visualized paranasal sinuses are clear. The mastoid air cells are well pneumatized. IMPRESSION: No acute intracranial process. MAXILLOFACIAL CT: Multiple contiguous axial images of the face were obtained. Sagittal and coronal reformatted images were reviewed on the Siemens workstation. There is slight patient motion artifact. There is also artifact from the patient's dental amalgam. No acute fracture or dislocation is seen. No significant soft tissue swelling is present. The visualized paranasal sinuses are clear. No fluid levels are present. The orbits and retroorbital soft tissues are unremarkable. IMPRESSION: No acute facial fracture.
--- NOTE | 2018-02-05 18:38 | W.ED.GENAD ---
Discharge Plan Disposition Patient Disposition: HOME Condition: Improving Discharge Details Chief Complaint: Headache Clinical Impression: Tension headache Primary Care Provider: Jolly Wren V ED Provider: Quinton Gunderson Home Meds and New Rx's Prescriptions: Continue atorvastatin [Lipitor] 10 MG tablet 80 mg PO HS RF: 0 clonazepam [Klonopin] 0.5 MG tablet 0.5 mg PO PRN PRNRF: 0 pantoprazole [Protonix] 20 MG tablet,delayed release (DR/EC) 40 mg PO BID RF: 0 levothyroxine [Synthroid] 88 MCG tablet 88 mcg PO DAILY RF: 0 warfarin [Coumadin] 5 MG tablet 3 mg PO DAILY RF: 0 losartan 100 MG tablet 100 mg PO DAILY RF: 0 metoprolol succinate 25 MG tablet extended release 24 hr 25 mg PO DAILY RF: 0 glipizide 10 MG tablet 1 tab PO DAILY RF: 0 aspirin [Aspir-81] 81 MG tablet,delayed release (DR/EC) 1 tab PO DAILY RF: 0 acetaminophen [Mapap Extra Strength] 500 MG tablet 2 tab PO PRN PRNRF: 0 ferrous sulfate 325 MG tablet 325 mg PO DAILY RF: 0 sucralfate 1 GM tablet 1 gm PO QID PRNRF: 0 sitagliptin [Januvia] 100 MG tablet 100 mg PO DAILY RF: 0 Discharge Instructions Instructions: Tension Headache (ED) Additional Instructions: For continued head pain you may take [id number] Excedrin Migraine. Return immediately to the emergency department for any new or significant worsening of your symptoms or follow-up with your primary care provider as needed for reassessment. Referrals: Jolly Wren MD [Primary Care Provider] - (As needed for reassessment or if your symptoms continue) Discharge Data Discharge Date/Time-TO BE ENTERED AT DEPARTURE: 02/05/18 20:23 Medical Decision Making Patient presenting to the emergency department for chief complaint of headache. Patient does state approximately 10 days ago she did have a minor fall where she struck her forehead against a dry sink but denies any loss of consciousness, or focal neurological deficits. Patient states intermittent mild headache since the event occurred but over the past couple days she has noticed some worsening of symptoms. Patient also does state some nasal congestion that is occurred and some increased stress causing some neck tension. Patient denies any fever chills, sore throat, difficulty breathing, or chest pain. Physical exam is unremarkable except for some mild soft tissue tenderness to the neck and to the scalp otherwise no other acute findings are noted. Given that patient is on Coumadin for history of DVT and stating head injury I do feel that head CT is warranted given headache has persisted. Pending results patient given Compazine and ibuprofen After review of imaging that shows no acute findings patient reassessed and stated improvement of symptoms. Given increased stress and muscular tension to the neck there is concern for tension migraine headache. Patient was encouraged to utilize Excedrin Migraine to see if this is more effective than her normal acetaminophen but ibuprofen was not recommended given the patient is on Coumadin but I do feel that one single dose is appropriate and has helped patient's discomfort. Patient encouraged to return for any new or significant worsening of symptoms otherwise to follow-up with primary care as needed for reassessment. After discussion of diagnosis and plan of care patient is no further needs, questions, or concerns and states clear understanding to return to the emergency department for any worsening symptoms. HPI General Mode of arrival: ambulatory. Date/Time Provider Initiated Documentation: 02/05/18 17:57. Limitations to Documentation: no limitations. Information obtained by: patient and RN notes reviewed. History of Present Illness 62 year old F presents to the emergency department with the chief complaint of headache, described as moderate, with intensity rated at 6. Quality is described as aching, and is localized to the head. Related Data Home Medications Medication Instructions Recorded Confirmed atorvastatin [Lipitor] 80 mg PO HS 06/04/12 02/05/18 clonazepam [Klonopin] 0.5 mg PO PRN PRN 06/04/12 02/05/18 levothyroxine [Synthroid] 88 mcg PO DAILY 06/04/12 02/05/18 losartan 100 mg PO DAILY 06/04/12 02/05/18 pantoprazole [Protonix] 40 mg PO BID 06/04/12 02/05/18 warfarin [Coumadin] 3 mg PO DAILY 06/04/12 02/05/18 metoprolol succinate 25 mg PO DAILY 07/14/12 02/05/18 aspirin [Aspir-81] 1 tab PO DAILY 12/12/13 02/05/18 glipizide 1 tab PO DAILY 12/12/13 02/05/18 acetaminophen [Mapap Extra 2 tab PO PRN PRN 05/01/14 02/05/18 Strength] sucralfate 1 gm PO QID PRN 09/22/15 02/05/18 ferrous sulfate 325 mg PO DAILY 10/04/15 02/05/18 sitagliptin [Januvia] 100 mg PO DAILY 06/26/16 02/05/18 Allergies Allergy/AdvReac Type Severity Reaction Status Date / Time metformin AdvReac Intermediate Diarrhea Unverified 02/05/18 18:13 fosinopril sodium AdvReac Unknown Coughing Unverified 02/05/18 18:13 [From Monopril] pollen Allergy Mild congestion Uncoded 02/05/18 18:13 General Stated Complaint: Headache CYNTHIA: 3 Review of Systems Constitutional Denies body ache(s), Denies chills, Denies fever(s) and Reports headache(s) Eyes Denies change in vision ENT Reports headache(s) Cardiovascular Denies chest pain and Denies syncope Gastrointestinal Reports nausea and Reports vomiting Neurologic Denies syncope and Reports headache(s) [facility] Social History Smoking/Tobacco Use Status: Never Exam Const General: cooperative, healthy appearing, no acute distress and well groomed Orientation: alert, awake and oriented x3 HENMT Head: normal to inspection, no palpable skull fracture, normocephalic, atraumatic and no temporal artery tenderness Ears: hearing grossly normal bilaterally and TM's normal bilaterally General nose exam: external nose normal Face and sinus: normal facial exam, sinuses nontender and face symmetric Mouth: oral mucosae normal and moist mucous membranes Throat: posterior oropharynx normal Eyes Alignment and Position: alignment normal Neck Neck: normal visual inspection, full ROM, no lymphadenopathy and no meningeal signs Resp Effort & Inspection: normal respiratory effort and able to speak in complete sentences Auscultation: clear to auscultation bilaterally Cardio Rate: regular rate Rhythm: regular rhythm Heart Sounds: S1 normal and S2 normal Back/Spine/Pelvis Cervical Spine: normal cervical lordosis, cervical ROM normal, No cervical spinal tenderness and other (Cervical muscular tension bilateral with mild tenderness to palpation of soft tissue) Neuro General: alert, awake, oriented x3, gait normal, tone normal, moves all extremities, CN's II-XI intact bilaterally and not confused Cognition: normal cognition Speech: speech normal Motor: muscle tone normal throughout, strength 5/5 throughout, no pronator drift, no movement abnormalities noted and no fasciculations Sensory Exam: no sensory deficits noted Coordination: Romberg test normal and Does not sway with eyes open Course Vital Signs Temperature 36.6 C 02/05/18 18:02 Pulse 72 02/05/18 18:02 Respiratory Rate 18 02/05/18 18:02 Blood Pressure 145/85 H 02/05/18 18:02 Pulse Oximetry 97 02/05/18 18:02 Temperature 36.6 C 02/05/18 18:02 Temperature Source Skin 02/05/18 18:02 Pulse 72 02/05/18 18:02 Respiratory Rate 18 02/05/18 18:02 Respiratory Effort 02/05/18 18:10 Blood Pressure 145/85 H 02/05/18 18:02 Blood Pressure Position Sitting 02/05/18 18:02 Pulse Oximetry 97 02/05/18 18:02 Oxygen Delivery Method Room Air 02/05/18 18:02 Oxygen Flow Rate 0 02/05/18 18:02 Pain Level 6 02/05/18 18:02 Comment 02/05/18 18:02
--- NOTE | 2018-02-05 18:41 | ED.GENADUL_ITS ---
Discharge Plan Disposition Patient Disposition: HOME Condition: Improving Discharge Details Chief Complaint: Headache Clinical Impression: Tension headache Primary Care Provider: Jolly Wren V ED Provider: Quinton Gunderson Home Meds and New Rx's Prescriptions: Continue atorvastatin [Lipitor] 10 MG tablet 80 mg PO HS RF: 0 clonazepam [Klonopin] 0.5 MG tablet 0.5 mg PO PRN PRNRF: 0 pantoprazole [Protonix] 20 MG tablet,delayed release (DR/EC) 40 mg PO BID RF: 0 levothyroxine [Synthroid] 88 MCG tablet 88 mcg PO DAILY RF: 0 warfarin [Coumadin] 5 MG tablet 3 mg PO DAILY RF: 0 losartan 100 MG tablet 100 mg PO DAILY RF: 0 metoprolol succinate 25 MG tablet extended release 24 hr 25 mg PO DAILY RF: 0 glipizide 10 MG tablet 1 tab PO DAILY RF: 0 aspirin [Aspir-81] 81 MG tablet,delayed release (DR/EC) 1 tab PO DAILY RF: 0 acetaminophen [Mapap Extra Strength] 500 MG tablet 2 tab PO PRN PRNRF: 0 ferrous sulfate 325 MG tablet 325 mg PO DAILY RF: 0 sucralfate 1 GM tablet 1 gm PO QID PRNRF: 0 sitagliptin [Januvia] 100 MG tablet 100 mg PO DAILY RF: 0 Discharge Instructions Instructions: Tension Headache (ED) Additional Instructions: For continued head pain you may take [id number] Excedrin Migraine. Return immediately to the emergency department for any new or significant worsening of your symptoms or follow-up with your primary care provider as needed for reassessment. Referrals: Jolly Wren MD [Primary Care Provider] - (As needed for reassessment or if your symptoms continue) Discharge Data Discharge Date/Time-TO BE ENTERED AT DEPARTURE: 02/05/18 20:23 Medical Decision Making Patient presenting to the emergency department for chief complaint of headache. Patient does state approximately 10 days ago she did have a minor fall where she struck her forehead against a dry sink but denies any loss of consciousness , or focal neurological deficits. Patient states intermittent mild headache since the event occurred but over the past couple days she has noticed some worsening of symptoms. Patient also does state some nasal congestion that is occurred and some increased stress causing some neck tension. Patient denies any fever chills, sore throat, difficulty breathing, or chest pain. Physical exam is unremarkable except for some mild soft tissue tenderness to the neck and to the scalp otherwise no other acute findings are noted. Given that patient is on Coumadin for history of DVT and stating head injury I do feel that head CT is warranted given headache has persisted. Pending results patient given Compazine and ibuprofen After review of imaging that shows no acute findings patient reassessed and stated improvement of symptoms. Given increased stress and muscular tension to the neck there is concern for tension migraine headache. Patient was encouraged to utilize Excedrin Migraine to see if this is more effective than her normal acetaminophen but ibuprofen was not recommended given the patient is on Coumadin but I do feel that one single dose is appropriate and has helped patient's discomfort. Patient encouraged to return for any new or significant worsening of symptoms otherwise to follow-up with primary care as needed for reassessment. After discussion of diagnosis and plan of care patient is no further needs, questions, or concerns and states clear understanding to return to the emergency department for any worsening symptoms. HPI General Mode of arrival: ambulatory . Date/Time Provider Initiated Documentation: 02/05/18 17:57 . Limitations to Documentation: no limitations . Information obtained by: patient and RN notes reviewed . History of Present Illness 62 year old F presents to the emergency department with the chief complaint of headache, described as moderate, with intensity rated at 6. Quality is described as aching, and is localized to the head. Related Data Home Medications Medication Instructions Recorded Confirmed atorvastatin [Lipitor] 80 mg PO HS 06/04/12 02/05/18 clonazepam [Klonopin] 0.5 mg PO PRN PRN 06/04/12 02/05/18 levothyroxine [Synthroid] 88 mcg PO DAILY 06/04/12 02/05/18 losartan 100 mg PO DAILY 06/04/12 02/05/18 pantoprazole [Protonix] 40 mg PO BID 06/04/12 02/05/18 warfarin [Coumadin] 3 mg PO DAILY 06/04/12 02/05/18 metoprolol succinate 25 mg PO DAILY 07/14/12 02/05/18 aspirin [Aspir-81] 1 tab PO DAILY 12/12/13 02/05/18 glipizide 1 tab PO DAILY 12/12/13 02/05/18 acetaminophen [Mapap Extra 2 tab PO PRN PRN 05/01/14 02/05/18 Strength] sucralfate 1 gm PO QID PRN 09/22/15 02/05/18 ferrous sulfate 325 mg PO DAILY 10/04/15 02/05/18 sitagliptin [Januvia] 100 mg PO DAILY 06/26/16 02/05/18 Allergies Allergy/AdvReac Type Severity Reaction Status Date / Time metformin AdvReac Intermediate Diarrhea Unverified 02/05/18 18:13 fosinopril sodium AdvReac Unknown Coughing Unverified 02/05/18 18:13 [From Monopril] pollen Allergy Mild congestion Uncoded 02/05/18 18:13 General Stated Complaint: Headache CYNTHIA: 3 Review of Systems Constitutional Denies body ache(s), Denies chills, Denies fever(s) and Reports headache(s) Eyes Denies change in vision ENT Reports headache(s) Cardiovascular Denies chest pain and Denies syncope Gastrointestinal Reports nausea and Reports vomiting Neurologic Denies syncope and Reports headache(s) [facility] Social History Smoking/Tobacco Use Status: Never Exam Const General: cooperative, healthy appearing, no acute distress and well groomed Orientation: alert, awake and oriented x3 HENMT Head: normal to inspection, no palpable skull fracture, normocephalic, atraumatic and no temporal artery tenderness Ears: hearing grossly normal bilaterally and TM's normal bilaterally General nose exam: external nose normal Face and sinus: normal facial exam, sinuses nontender and face symmetric Mouth: oral mucosae normal and moist mucous membranes Throat: posterior oropharynx normal Eyes Alignment and Position: alignment normal Neck Neck: normal visual inspection, full ROM, no lymphadenopathy and no meningeal signs Resp Effort & Inspection: normal respiratory effort and able to speak in complete sentences Auscultation: clear to auscultation bilaterally Cardio Rate: regular rate Rhythm: regular rhythm Heart Sounds: S1 normal and S2 normal Back/Spine/Pelvis Cervical Spine: normal cervical lordosis, cervical ROM normal, No cervical spinal tenderness and other (Cervical muscular tension bilateral with mild tenderness to palpation of soft tissue) Neuro General: alert, awake, oriented x3, gait normal, tone normal, moves all extremities, CN's II-XI intact bilaterally and not confused Cognition: normal cognition Speech: speech normal Motor: muscle tone normal throughout, strength 5/5 throughout, no pronator drift , no movement abnormalities noted and no fasciculations Sensory Exam: no sensory deficits noted Coordination: Romberg test normal and Does not sway with eyes open Course Vital Signs Temperature 36.6 C 02/05/18 18:02 Pulse 72 02/05/18 18:02 Respiratory Rate 18 02/05/18 18:02 Blood Pressure 145/85 H 02/05/18 18:02 Pulse Oximetry 97 02/05/18 18:02 Temperature 36.6 C 02/05/18 18:02 Temperature Source Skin 02/05/18 18:02 Pulse 72 02/05/18 18:02 Respiratory Rate 18 02/05/18 18:02 Respiratory Effort 02/05/18 18:10 Blood Pressure 145/85 H 02/05/18 18:02 Blood Pressure Position Sitting 02/05/18 18:02 Pulse Oximetry 97 02/05/18 18:02 Oxygen Delivery Method Room Air 02/05/18 18:02 Oxygen Flow Rate 0 02/05/18 18:02 Pain Level 6 02/05/18 18:02 Comment 02/05/18 18:02
[2018-02-05] MEDS: Prochlorperazine 5 MG TAB PO (19:24)
--- NOTE | 2018-02-05 19:25 | DI.VRAD_ITS ---
EXAM: CT Maxillofacial Without Intravenous Contrast EXAM DATE/TIME: 02/05/2018 6:36 PM CLINICAL HISTORY: 62 years old, female; Injury or trauma; Fall; Initial encounter; Blunt trauma (contusions or hematomas); Forehead TECHNIQUE: Axial computed tomography images of the face without intravenous contrast. Coronal and sagittal reformatted images were created and reviewed. COMPARISON: No relevant prior studies available. 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 Soft tissues: No significant facial soft tissue swelling. Orbits: No acute intraorbital abnormality. Globes are unremarkable. Sinuses: Minimal mucosal thickening within the left frontal sinus. Clear right frontal sinus. Clear ethmoid, sphenoid and maxillary sinuses. IMPRESSION: No fracture. EXAM: CT Head Without Intravenous Contrast EXAM DATE/TIME: 02/05/2018 6:36 PM CLINICAL HISTORY: 62 years old, female; Injury or trauma; Fall; Initial encounter; Blunt trauma (contusions or hematomas); Forehead TECHNIQUE: Axial computed tomography images of the head/brain without intravenous contrast. Coronal and sagittal reformatted images were created and reviewed. COMPARISON: No relevant prior studies available. FINDINGS: Brain: Mild global cerebral atrophy consistent with patient's age. Ventricles: Unremarkable. No ventriculomegaly. Bones/joints: Unremarkable. No acute fracture. Sinuses: Normal as visualized. No acute sinusitis. Mastoid air cells: Normal as visualized. No mastoid effusion. Soft tissues: Unremarkable. IMPRESSION: No acute intracranial abnormality. Dictated and Authenticated by: Dayo Pisano MD. Ordering:ROSEANN REBOLLAR MD
[2018-02-05] MEDS: Ibuprofen 600 MG TAB PO (19:59)
== END 2018-02-05 20:23 | disposition home or self-care (01) ==
PROVIDERS: Emergency Provider Nurse Practitioner Family; PCP Family Medicine
DX: G44.209 Tension-type headache, unspecified, not intractable (principal); M25.572 Pain in left ankle and joints of left foot; M19.072 Primary osteoarthritis, left ankle and foot
CPT/HCPCS: 36415; 99211; 99213; 99284; 70450; 70486; 73610; 85610; L1902

== ENCOUNTER 2018-03-05 10:57 | Outpatient (CLI) | payer MEDICARE, SELFPAY ==
[2018-03-05 12:05] LABS: INR 2.1 (1.0-3.5); Prothrombin Time 21.1 sec (9.3-11.0)
== END 2018-03-05 11:17 ==
PROVIDERS: PCP Family Medicine; Visit Provider Family Medicine
DX: I82.890 Acute embolism and thrombosis of other specified veins (principal); Z79.01 Long term (current) use of anticoagulants
CPT/HCPCS: 36415; 85610

== ENCOUNTER 2018-03-16 12:18 | Outpatient (CLI) | payer MEDICARE, SELFPAY ==
[2018-03-16 13:05] LABS: INR 2.6 (0.9-1.1); Prothrombin Time 26.3 sec (9.3-11.0)
== END 2018-03-16 12:38 ==
PROVIDERS: PCP Family Medicine; Visit Provider Family Medicine
DX: I82.890 Acute embolism and thrombosis of other specified veins (principal); Z79.01 Long term (current) use of anticoagulants
CPT/HCPCS: 36415; 85610

== ENCOUNTER 2018-04-01 13:15 | Outpatient (REF) | payer MEDICARE, SELFPAY ==
[2018-04-01 22:03] LABS: Anion Gap 8.2 mmol/L (3-11); BUN 11 mg/dL (7-18); CO2 29.8 mmol/L (21.0-32.0); CREATININE 0.77 mg/dL (0.55-1.02); Calcium 8.7 mg/dL (8.5-10.1); Chloride 98 mmol/L (98-107); Glucose 214 mg/dL (70-100); Potassium 4.2 mmol/L (3.5-5.1); Sodium 136 mmol/L (136-145); TSH (W/Ref FT4) 3.12 uIU/mL (0.358-3.74)
== END 2018-04-01 13:35 ==
LOC: NCHCN 13:15
PROVIDERS: PCP Family Medicine; Visit Provider Family Medicine
DX: E11.9 Type 2 diabetes mellitus without complications (principal); N39.0 Urinary tract infection, site not specified; E89.0 Postprocedural hypothyroidism
CPT/HCPCS: 80048; 87077; 84443; 87086; 87186

== ENCOUNTER 2018-04-09 11:32 | Outpatient (CLI) | payer MEDICARE, SELFPAY ==
[2018-04-09 12:26] LABS: INR 2.6 (0.9-1.1); Prothrombin Time 26.5 sec (9.3-11.0)
== END 2018-04-09 11:52 ==
PROVIDERS: PCP Family Medicine; Visit Provider Family Medicine
DX: I82.890 Acute embolism and thrombosis of other specified veins (principal); Z79.01 Long term (current) use of anticoagulants
CPT/HCPCS: 36415; 85610

== ENCOUNTER 2018-06-10 00:31 | Outpatient (CLI) | payer MEDICARE, SELFPAY ==
--- NOTE | 2018-06-10 15:49 | DI.RAD_ITS ---
SYMPTOM/DIAGNOSIS: COUGH, R05 PA AND LATERAL CHEST: The heart is normal in size. The lungs are clear. The mediastinal structures and pleura appear intact. CONCLUSION: Normal chest.
[2018-06-10 16:37] LABS: INR 1.6 (0.9-1.1); Prothrombin Time 16.1 sec (9.3-11.0)
== END 2018-06-10 00:51 ==
PROVIDERS: PCP Family Medicine; Visit Provider Specialist/Technologist Athletic Trainer
DX: R05 Cough (principal); I82.890 Acute embolism and thrombosis of other specified veins; Z79.01 Long term (current) use of anticoagulants
CPT/HCPCS: 36415; 71046; 85610

== ENCOUNTER 2018-07-01 16:22 | Outpatient (REF) | payer MEDICARE, SELFPAY ==
[2018-07-01 21:33] LABS: Abs Immature Grans 0.04 k/cumm (0.0-0.09); Absolute Basophil Count 0.02 k/cumm (0.0-0.2); Absolute Eosinophil Count 0.11 k/cumm (0.0-0.7); Absolute Lymphocyte Count 1.48 k/cumm (1.2-3.4); Absolute Monocyte Count 0.46 k/cumm (0.11-0.7); Absolute Neutrophil Count 5.55 k/cumm (1.2-6.7); Basophils % 0.3; Eosinophils % 1.4; HCT 39.5 % (36.0-46.0); HGB 12.6 g/dL (12.0-15.5); Immature Grans % 0.5; Lymphocytes % 19.3; Mean Corp. HGB Concentration 31.9 g/dL (32.0-36.0); Mean Corpuscular Hemoglobin 26.5 pg (27.0-33.0); Mean Corpuscular Volume 83.2 fL (80-95); Mean Platelet Volume 10.4 fL (8.0-11.0); Neutrophils % 72.5; Platelet Count 300 x1000/uL (130-400); RBC 4.75 m/cumm (4.00-5.20); RBC Distribution Width 13.7 % (11.7-14.6); White Blood Cell Count 7.66 k/cumm (4.4-10.8)
[2018-07-01 21:56] LABS: ALT 37 U/L (12-78); AST 19 U/L (15-37); Albumin 3.5 g/dL (3.4-5.0); Alkaline Phosphatase 98 U/L (46-116); Anion Gap 8.7 mmol/L (3-11); BUN 8 mg/dL (7-18); Bilirubin, Total 0.3 mg/dL (0.2-1.0); CO2 27.3 mmol/L (21.0-32.0); Calcium 8.9 mg/dL (8.5-10.1); Chloride 99 mmol/L (98-107); Glucose 219 mg/dL (70-100); Potassium 4.2 mmol/L (3.5-5.1); Sodium 135 mmol/L (136-145); Total Protein 7.4 g/dL (6.4-8.2)
== END 2018-07-01 16:42 ==
LOC: NCHCN 16:22
PROVIDERS: PCP Family Medicine; Visit Provider Family Medicine
DX: R10.9 Unspecified abdominal pain (principal)
CPT/HCPCS: 80053; 85025

== ENCOUNTER 2018-07-23 18:49 | Outpatient (REF) | payer MEDICARE, SELFPAY ==
[2018-07-27 14:37] LABS: Helicobacter pylori Ag, Feces Negative (NEGAT)
== END 2018-07-23 19:09 ==
LOC: NCHCN 18:49
PROVIDERS: PCP Family Medicine; Visit Provider Family Medicine
DX: R10.9 Unspecified abdominal pain (principal)
CPT/HCPCS: 87338

== ENCOUNTER 2018-08-29 20:05 | Emergency (ER) | payer MEDICARE, SELFPAY ==
[2018-08-29 20:10] VITALS: BP 166/97; PULSE 86; RESP 18; TEMP 36.3; O2SAT 97
--- NOTE | 2018-08-29 20:40 | DI.RAD_ITS ---
SYMPTOM/DIAGNOSIS; RULE OUT DISTAL TUFT FX LEFT 4TH FINGER: There is a fracture of the tuft of the distal phalanx of the ring finger. There is no significant displacement or angulation. No foreign bodies seen. There are mild degenerative change of the interphalangeal joints. IMPRESSION: Tuft fracture
--- NOTE | 2018-08-29 20:55 | W.ED.GENAD ---
Discharge Plan Disposition Patient Disposition: HOME Condition: Good Discharge Details Chief Complaint: Laceration Clinical Impression: Closed fracture of tuft of distal phalanx of finger Primary Care Provider: Jolly Wren V ED Provider: Eleuterio Gonsales Home Meds and New Rx's Prescriptions: New cephalexin [Keflex] 500 mg capsule 500 mg PO QID 7 Days Qty: 28 RF: 0 No Action atorvastatin [Lipitor] 10 MG tablet 80 mg PO HS RF: 0 clonazepam [Klonopin] 0.5 MG tablet 0.5 mg PO PRN PRNRF: 0 pantoprazole [Protonix] 20 MG tablet,delayed release (DR/EC) 40 mg PO BID RF: 0 levothyroxine [Synthroid] 88 MCG tablet 88 mcg PO DAILY RF: 0 warfarin [Coumadin] 5 MG tablet 3 mg PO DAILY RF: 0 losartan 100 MG tablet 100 mg PO DAILY RF: 0 metoprolol succinate 25 MG tablet extended release 24 hr 25 mg PO DAILY RF: 0 glipizide 10 MG tablet 1 tab PO DAILY RF: 0 aspirin [Aspir-81] 81 MG tablet,delayed release (DR/EC) 1 tab PO DAILY RF: 0 acetaminophen [Mapap Extra Strength] 500 MG tablet 2 tab PO PRN PRNRF: 0 ferrous sulfate 325 MG tablet 325 mg PO DAILY RF: 0 sucralfate 1 GM tablet 1 gm PO QID PRNRF: 0 sitagliptin [Januvia] 100 MG tablet 100 mg PO DAILY RF: 0 Discharge Instructions Instructions: Subungual Hematoma (ED), Finger Fracture (ED) Additional Instructions: You have a small fracture at the tip of your finger. Because of the blood clot underneath your fingernail there is concern for potential infection. We will start you on antibiotics for this as a precaution. Please keep the splint on all times for the next 1 to 2 weeks, and follow-up closely with your primary care provider. If you notice any worsening of your symptoms, or any new symptoms such as vomiting, diarrhea, fever, chills, shortness of breath, chest pain, numbness, weakness, or fainting , please return immediately to the emergency department for reevaluation. Please follow up with your primary care provider as soon as possible for reassessment and reevaluation. As always, it was a pleasure participating in your medical care today. Referrals: Jolly Wren MD [Primary Care Provider] - Medical Decision Making This is a 63-year-old female with a past medical history of Coumadin use, diabetes, and retinitis pigmentosa. She presents today for pain in the distal tip of her ring finger on her nondominant left hand. 3 days ago she crushed it in a refrigerator door. She has had pain since then but notably worsened over the last 24 hours with a sensation of pressure on the distal tip. Exam demonstrates bruising over the distal tip pulp, and a notable subungual hematoma. Cautery was used to lyse the subungual hematoma and a notable amount of blood was removed. The patient had complete relief of the pressure after this. Because of the bruising, and the difficulty flexing extending the distal tip we did get an x-ray for evaluation of fracture. X-ray does show evidence of a distal tuft fracture. With the evidence of the subungual hematoma I feel that antibiotics are reasonable especially in conjunction with her diabetes. We will give a dose of Keflex here and a prescription for home use. Patient has been splinted, sensation remains intact on the distal tip, no significant deficit. Patient will be discharged home with close follow-up with her primary care provider. We discussed red flags which return. I have extensively reviewed the treatment plan and discharge instructions with the patient. I have addressed all patient concerns at this time. The patient was made aware of what symptoms to monitor for that would warrant a return to the emergency department. Discussed the plan with the patient, they demonstrate verbal understanding and agreement with our assessment and plan at this time. HPI General Date/Time Provider Initiated Documentation: 08/29/18 20:07. HPI Narrative: This is a 63-year-old female with a past medical history of diabetes, Coumadin use for history of DVTs, and severe retinitis pigmentosa. She presents today for pain in her left nondominant hand ring finger. Patient states that 2 to 3 days ago she struck it in the refrigerator. She has had notable pain since then however over the last 24 hours she has had notable pressure-like sensation. She denies any numbness or tingling, she does admit to pain at the tip of the finger, but denies any pain anywhere else. She denies any other associated complaints. She does admit to notable bruise under the nailbed itself. She denies any recent surgeries, IV or illicit drugs, or pertinent family history. Related Data Home Medications Medication Instructions Recorded Confirmed atorvastatin [Lipitor] 80 mg PO HS 06/04/12 02/05/18 clonazepam [Klonopin] 0.5 mg PO PRN PRN 06/04/12 02/05/18 levothyroxine [Synthroid] 88 mcg PO DAILY 06/04/12 02/05/18 losartan 100 mg PO DAILY 06/04/12 02/05/18 pantoprazole [Protonix] 40 mg PO BID 06/04/12 02/05/18 warfarin [Coumadin] 3 mg PO DAILY 06/04/12 02/05/18 metoprolol succinate 25 mg PO DAILY 07/14/12 02/05/18 aspirin [Aspir-81] 1 tab PO DAILY 12/12/13 02/05/18 glipizide 1 tab PO DAILY 12/12/13 02/05/18 acetaminophen [Mapap Extra 2 tab PO PRN PRN 05/01/14 02/05/18 Strength] sucralfate 1 gm PO QID PRN 09/22/15 02/05/18 ferrous sulfate 325 mg PO DAILY 10/04/15 02/05/18 sitagliptin [Januvia] 100 mg PO DAILY 06/26/16 02/05/18 cephalexin [Keflex] 500 mg PO QID 7 Days #28 cap 08/29/18 Previous Rx's Medication Instructions Recorded cephalexin [Keflex] 500 mg PO QID 7 Days #28 cap 08/29/18 Allergies Allergy/AdvReac Type Severity Reaction Status Date / Time metformin AdvReac Intermediate Diarrhea Unverified 02/05/18 18:13 fosinopril sodium AdvReac Unknown Coughing Unverified 02/05/18 18:13 [From Monopril] pollen Allergy Mild congestion Uncoded 02/05/18 18:13 General Stated Complaint: Laceration CYNTHIA: 3 Review of Systems Review of Systems All systems reviewed & are unremarkable except as noted in HPI and below PFSH Social History Smoking/Tobacco Use Status: Never Drug use: Never Do you feel safe at home: Yes Do you feel safe in your relationship?: Yes Exam Narrative Exam Narrative: 1.Const: Well-nourished, Well-developed, appearing stated age 2.Eyes: PERRL, no conjunctival injection, and symmetrical lids. 3.ENT: Atraumatic external nose and ears. Moist MM. Neck: Symmetric, trachea midline, No thyromegaly. 4.CVS: +S1/S2, No murmurs or gallops. Peripheral pulses 2+ and equal in all extremities. Brisk capillary refill in all extremities. 5.RESP: Unlabored respiratory effort. Clear to auscultation bilaterally. No wheezes rales or rhonchi 6.GI: Soft, Nontender/Nondistended, No hepatosplenomegaly. No guarding or rebound. 7.MSK: Normocephalic,No cyanosis or clubbing, patient's ring finger demonstrates notable bruising over the fingertip on the left hand, she does have slight difficulty flexing and extending the distal tip. Flexion and extension at the interphalangeal joint and MCP joint are normal otherwise though. Notable subungual hematoma is present. Notable pain and tenderness there. No other evidence of significant laceration or open fracture. Small abrasion is noted over the ventral tip of the finger. 8.Skin: Warm, Dry. No rashes or lesions. 9.Neuro: bowling ball marker II-XII grossly intact. Sensation grossly intact, no focal neurologic deficits. 10.Psych: (AAO) x3. Appropriate mood and affect Course Vital Signs Temperature 36.3 C L 08/29/18 20:10 Pulse 86 08/29/18 20:10 Respiratory Rate 18 08/29/18 20:10 Blood Pressure 166/97 H 08/29/18 20:10 Pulse Oximetry 97 08/29/18 20:10 Temperature 36.3 C L 08/29/18 20:10 Temperature Source Tympanic 08/29/18 20:10 Pulse 86 08/29/18 20:10 Respiratory Rate 18 08/29/18 20:10 Blood Pressure 166/97 H 08/29/18 20:10 Pulse Oximetry 97 08/29/18 20:10 Oxygen Delivery Method Room Air 08/29/18 20:10 Oxygen Flow Rate 0 08/29/18 20:10 Pain Level 5 08/29/18 20:10 Comment 08/29/18 20:10
[2018-08-29 21:01] VITALS: BP 166/97; PULSE 86; RESP 18; O2SAT 97
--- NOTE | 2018-08-29 21:28 | DI.VRAD_ITS ---
EXAM: XR Left Finger(s) EXAM DATE/TIME: 08/29/2018 8:21 PM CLINICAL HISTORY: 63 years old, female; Pain; Finger(s); Left; Patient HX: L distal smashed tip TECHNIQUE: Imaging protocol: XR Left fingers. Views: Minimum 2 views. COMPARISON: CR LEFT WRIST COMPLETE + NAV[facility] 08/05/2016 10:56 AM FINDINGS: Minimally displaced fracture of the distal tuft of the ring finger. No radiopaque foreign bodies. Soft tissues unremarkable. IMPRESSION: Minimally displaced fracture of the distal tuft of the ring finger. Dictated and Authenticated by: Nate Contreras MD. Ordering:KLAUS Mcclellan MD
== END 2018-08-29 21:15 | disposition home or self-care (01) ==
PROVIDERS: Emergency Provider Student in an Organized Health Care Education/Training Program; PCP Family Medicine
DX: S62.635B Displaced fracture of distal phalanx of left ring finger, initial encounter for open fracture (principal); S60.142A Contusion of left ring finger with damage to nail, initial encounter; H35.52 Pigmentary retinal dystrophy; E11.9 Type 2 diabetes mellitus without complications; Z79.01 Long term (current) use of anticoagulants; W23.0XXA Caught, crushed, jammed, or pinched between moving objects, initial encounter
CPT/HCPCS: 11740; 99283; 73140

== ENCOUNTER 2018-09-08 21:30 | Emergency (ER) | payer MEDICARE, SELFPAY ==
[2018-09-08 21:34] VITALS: BP 150/93; PULSE 90; RESP 16; TEMP 36.1; O2SAT 96
--- NOTE | 2018-09-08 22:10 | ED.GENADUL_ITS ---
Discharge Plan Disposition Patient Disposition: HOME Condition: Good Discharge Details Chief Complaint: Recheck Clinical Impression: Closed fracture of tuft of distal phalanx of finger Primary Care Provider: Jolly Wren V ED Provider: Oumar Paulino [place] Meds and New Rx's Prescriptions: Continued atorvastatin [Lipitor] 10 MG tablet 80 mg PO HS RF: 0 clonazepam [Klonopin] 0.5 MG tablet 0.5 mg PO PRN PRNRF: 0 pantoprazole [Protonix] 20 MG tablet,delayed release (DR/EC) 40 mg PO BID RF: 0 levothyroxine [Synthroid] 88 MCG tablet 88 mcg PO DAILY RF: 0 warfarin [Coumadin] 5 MG tablet 3 mg PO DAILY RF: 0 losartan 100 MG tablet 100 mg PO DAILY RF: 0 metoprolol succinate 25 MG tablet extended release 24 hr 25 mg PO DAILY RF: 0 glipizide 10 MG tablet 1 tab PO DAILY RF: 0 aspirin [Aspir-81] 81 MG tablet,delayed release (DR/EC) 1 tab PO DAILY RF: 0 acetaminophen [Mapap Extra Strength] 500 MG tablet 2 tab PO PRN PRNRF: 0 ferrous sulfate 325 MG tablet 325 mg PO DAILY RF: 0 sucralfate 1 GM tablet 1 gm PO QID PRNRF: 0 Januvia 100 MG tablet 100 mg PO DAILY RF: 0 Discharge Instructions Additional Instructions: The finger looks good. There is no sign of infection. There is still some bruising to the pad. Continue to wear the splint for protection. Follow-up with your primary care next week for recheck of your finger in your blood pressure which was a little high today. Referrals: Jolly Wren MD [Primary Care Provider] - Discharge Data Discharge Date/Time-TO BE ENTERED AT DEPARTURE: 09/08/18 22:15 Medical Decision Making No concern for infection at this time. Nail is actually looking good and is adherent still. Some residual hematoma likely present in the pad still. No significant tenderness. Continue to wear splint for protection. Follow-up with primary care in a week or 2 for reevaluation. Blood pressure noted to be elevated. She has history of hypertension. Will need blood pressure recheck with PCP. HPI General Mode of arrival: ambulatory . Date/Time Provider Initiated Documentation: 09/08/18 21:37 . Limitations to Documentation: no limitations . Information obtained by: patient and old records reviewed . HPI Narrative: Patient presents to ED for recheck of her left finger which she crushed towards the end of August. She was seen here on the and had a subungual hematoma drained. She had an x-ray which showed a tuft fracture. She was put on Keflex. She has finished this about 3 days ago. She was concerned that the finger felt warm to her as well as a family member and came in for evaluation. She states the pain is better. She has had no fever. Related Data Home Medications Medication Instructions Recorded Confirmed atorvastatin [Lipitor] 80 mg PO HS 06/04/12 09/08/18 clonazepam [Klonopin] 0.5 mg PO PRN PRN 06/04/12 09/08/18 levothyroxine [Synthroid] 88 mcg PO DAILY 06/04/12 09/08/18 losartan 100 mg PO DAILY 06/04/12 09/08/18 pantoprazole [Protonix] 40 mg PO BID 06/04/12 09/08/18 warfarin [Coumadin] 3 mg PO DAILY 06/04/12 09/08/18 metoprolol succinate 25 mg PO DAILY 07/14/12 09/08/18 aspirin [Aspir-81] 1 tab PO DAILY 12/12/13 09/08/18 glipizide 1 tab PO DAILY 12/12/13 09/08/18 acetaminophen [Mapap Extra 2 tab PO PRN PRN 05/01/14 09/08/18 Strength] sucralfate 1 gm PO QID PRN 09/22/15 02/05/18 ferrous sulfate 325 mg PO DAILY 10/04/15 09/08/18 Januvia 100 mg PO DAILY 06/26/16 09/08/18 Allergies Allergy/AdvReac Type Severity Reaction Status Date / Time metformin AdvReac Intermediate Diarrhea Unverified 09/08/18 21:41 fosinopril sodium AdvReac Unknown Coughing Unverified 09/08/18 21:41 [From Monopril] pollen Allergy Mild congestion Uncoded 09/08/18 21:41 General Stated Complaint: Recheck CYNTHIA: 4 Review of Systems Review of Systems As documented in HPI otherwise negative as below. Const: no fever, chills, weakness Resp: no cough, SOB, pleuritic pain CV: no CP, diaphoresis, edema, syncope GI: no abdominal pain, nausea, vomiting, diarrhea Neuro: no headache, numbness, focal weakness, confusion PFSH Medical History Anxiety Diabetes mellitus type II, non insulin dependent GERD (gastroesophageal reflux disease) Hx of deep venous thrombosis Hyperlipidemia Hypertension Peripheral vascular disease Retinitis pigmentosa of both eyes Surgical History Ligation of fallopian tube Thyroid Vascular Surgery Social History Smoking/Tobacco Use Status: Never Drug use: Never Do you feel safe at home: Yes Do you feel safe in your relationship?: Yes Exam Const General: cooperative and no acute distress Orientation: alert and oriented x3 Skin General skin exam: no erythema Other: The nail is still intact and appears to be adherent to the nail bed. There is no recurrent subungual hematoma. Extrem Other: Minimal swelling with slight purplish discoloration noted in the pulp of the pad of the left ring finger. No associated erythema or swelling elsewhere. Good range of motion. Course Vital Signs Temperature 97.0 F L 09/08/18 21:34 Pulse 90 09/08/18 21:34 Respiratory Rate 16 09/08/18 21:34 Blood Pressure 150/93 H 09/08/18 21:34 Pulse Oximetry 96 09/08/18 21:34 Temperature 97.0 F L 09/08/18 21:34 Temperature Source Temporal Artery Scan 09/08/18 21:34 Pulse 90 09/08/18 21:34 Respiratory Rate 16 09/08/18 21:34 Respiratory Effort 09/08/18 21:34 Blood Pressure 150/93 H 09/08/18 21:34 Pulse Oximetry 96 09/08/18 21:34 Oxygen Delivery Method Room Air 09/08/18 21:34 Oxygen Flow Rate 0 09/08/18 21:34 Pain Level 5 09/08/18 21:34
== END 2018-09-08 22:15 | disposition home or self-care (01) ==
PROVIDERS: Emergency Provider Emergency Medicine; PCP Family Medicine
DX: S62.635D Displaced fracture of distal phalanx of left ring finger, subsequent encounter for fracture with routine healing (principal); W23.0XXD Caught, crushed, jammed, or pinched between moving objects, subsequent encounter; R20.8 Other disturbances of skin sensation; I10 Essential (primary) hypertension; E11.9 Type 2 diabetes mellitus without complications; Z79.84 Long term (current) use of oral hypoglycemic drugs
CPT/HCPCS: 99281; 99282

== ENCOUNTER 2018-09-25 14:10 | Emergency (ER) | payer MEDICARE, SELFPAY ==
[2018-09-25 14:18] VITALS: BP 163/98; PULSE 86; RESP 18; TEMP 36.5; O2SAT 95
--- NOTE | 2018-09-25 14:52 | W.ED.GENAD ---
Discharge Plan Disposition Patient Disposition: HOME Discharge Details Chief Complaint: Nausea/Vomit/Diar Clinical Impression: Generalized weakness, Chest pain, Heat exposure, Acute hyponatremia, Hypomagnesemia Primary Care Provider: Jolly Wren V ED Provider: Warren Shen Home Meds and New Rx's Prescriptions: Continued atorvastatin [Lipitor] 10 MG tablet 80 mg PO HS RF: 0 clonazepam [Klonopin] 0.5 MG tablet 0.5 mg PO PRN PRNRF: 0 pantoprazole [Protonix] 20 MG tablet,delayed release (DR/EC) 40 mg PO BID RF: 0 levothyroxine [Synthroid] 88 MCG tablet 88 mcg PO DAILY RF: 0 warfarin [Coumadin] 5 MG tablet 3 mg PO DAILY RF: 0 losartan 100 MG tablet 100 mg PO DAILY RF: 0 metoprolol succinate 25 MG tablet extended release 24 hr 25 mg PO DAILY RF: 0 glipizide 10 MG tablet 1 tab PO DAILY RF: 0 aspirin [Aspir-81] 81 MG tablet,delayed release (DR/EC) 1 tab PO DAILY RF: 0 acetaminophen [Mapap Extra Strength] 500 MG tablet 2 tab PO PRN PRNRF: 0 ferrous sulfate 325 MG tablet 325 mg PO DAILY RF: 0 sucralfate 1 GM tablet 1 gm PO QID PRNRF: 0 Januvia 100 MG tablet 100 mg PO DAILY RF: 0 Discharge Instructions Instructions: Chest Pain (ED), Heat Exhaustion (ED), Hyponatremia (ED), Hypomagnesemia (ED) Additional Instructions: You should have a stress test. I sent an order request to expedite stress testing. Please schedule as soon as possible. Please contact your primary care physician to arrange follow-up. Please stay out of the heat over the next week. Try to stay in air conditioned environment as much as possible. Drink plenty of cool fluids to stay hydrated. Wear light clothing. Return to the ER for any worsening or new concerning symptoms. Referrals: Jolly Wren MD [Primary Care Provider] - Discharge Data Discharge Date/Time-TO BE ENTERED AT DEPARTURE: 09/25/18 21:24 Medical Decision Making 15:00 --63-year-old female with history of hypertension, diabetes, hyperlipidemia, GERD, anxiety, here generally not feeling well with recent prolonged heat exposure, recent brief episode of chest pain yesterday and again today. Patient has no pain at this time. She does have some nausea. Consider ACS given risk factors. Plan to obtain ECG and troponin. Suspect heat related illness. --Screening ECG reviewed and interpreted by me sinus rhythm, 87 bpm, left axis deviation, no STEMI, nondiagnostic. -- Initial labs reviewed: Hyponatremia noted, hypomagnesemia noted, troponin negative. Patient receiving IV fluid. I will give magnesium oxide 800 mg. --Patient was reassessed and noted to be much improved with IV fluid. 20:40 --repeat troponin at 3 hours negative and unchanged. --Repeat ECG reviewed and interpreted by me: Sinus 79 bpm, low voltage in precordial leads, normal axis, no STEMI, no ischemic changes. In comparing to prior ECG today, and also in comparison to prior ECG from 08/19/2016, I am concerned that earlier ECG had abnormal lead placement resulting in abnormal axis. Despite this patient has had no changes to ST segments. Patient again assessed and notes feeling much better. Eating and drinking. Patient denies having any recurrent chest pain here. Plan for discharge with outpatient follow-up. I will order an outpatient stress test to expedite outpatient work-up. Disposition decision was made weighing the risks and benefits of hospitalization versus outpatient treatment, the risk for further decompensation, and the patient's wishes. The patient was stable and requested discharge. Prior to discharge, my usual and customary return precautions were reviewed with the patient - this included follow-up instructions and reason to return to the emergency department if condition worsens, does not improve as expected, or other new concerns arise. Lab Data Lab results reviewed: Yes I reviewed the patient's lab results. Laboratory Tests Range/Units 09/25/18 09/25/18 09/25/18 15:12 15:12 18:10 WBC (4.4-10.8) k/cumm 8.61 RBC (4.00-5.20) m/cumm 4.42 Hgb (12.0-15.5) g/dL 11.7 L Hct (36.0-46.0) % 35.8 L MCV (80-95) fL 81.0 MCH (27.0-33.0) pg 26.5 L MCHC (32.0-36.0) g/dL 32.7 RDW (11.7-14.6) % 13.5 Plt Count (130-400) x1000/uL 285 MPV (8.0-11.0) fL 9.1 Immature Gran % 0.3 Neutrophils % 77.2 Lymphocytes % 14.9 Monocytes % 6.6 Eosinophils % 0.9 Basophils % 0.1 Absolute Neutrophils (1.2-6.7) k/cumm 6.64 Absolute Lymphocytes (1.2-3.4) k/cumm 1.28 Absolute Monocytes (0.11-0.7) k/cumm 0.57 Absolute Eosinophils (0.0-0.7) k/cumm 0.08 Absolute Basophils (0.0-0.2) k/cumm 0.01 Sodium (136-145) mmol/L 129 L Potassium (3.5-5.1) mmol/L 4.0 Chloride (98-107) mmol/L 95 L Carbon Dioxide (21.0-32.0) mmol/L 26.4 Anion Gap (3-11) mmol/L 7.6 BUN (7-18) mg/dL 11 Creatinine (0.55-1.02) mg/dL 0.66 Estimated GFR/1.73 m2 (mL/min/1.73m2) >= 60.00 Glucose (70-100) mg/dL 168 H Calcium (8.5-10.1) mg/dL 8.4 L Magnesium (1.8-2.4) mg/dL 1.7 L Total Bilirubin (0.2-1.0) mg/dL 0.3 AST (15-37) U/L 15 ALT (12-78) U/L 36 Alkaline Phosphatase (46-116) U/L 101 Troponin I (0.00-0.06) ng/mL < 0.05 < 0.05 Total Protein (6.4-8.2) g/dL 7.5 Albumin (3.4-5.0) g/dL 3.4 Range/Units 09/25/18 19:45 WBC (4.4-10.8) k/cumm RBC (4.00-5.20) m/cumm Hgb (12.0-15.5) g/dL Hct (36.0-46.0) % MCV (80-95) fL MCH (27.0-33.0) pg MCHC (32.0-36.0) g/dL RDW (11.7-14.6) % Plt Count (130-400) x1000/uL MPV (8.0-11.0) fL Immature Gran % Neutrophils % Lymphocytes % Monocytes % Eosinophils % Basophils % Absolute Neutrophils (1.2-6.7) k/cumm Absolute Lymphocytes (1.2-3.4) k/cumm Absolute Monocytes (0.11-0.7) k/cumm Absolute Eosinophils (0.0-0.7) k/cumm Absolute Basophils (0.0-0.2) k/cumm Sodium (136-145) mmol/L 134 L Potassium (3.5-5.1) mmol/L 3.6 Chloride (98-107) mmol/L 99 Carbon Dioxide (21.0-32.0) mmol/L 27.6 Anion Gap (3-11) mmol/L 7.4 BUN (7-18) mg/dL 9 Creatinine (0.55-1.02) mg/dL 0.59 Estimated GFR/1.73 m2 (mL/min/1.73m2) >= 60.00 Glucose (70-100) mg/dL 120 H Calcium (8.5-10.1) mg/dL 8.8 Magnesium (1.8-2.4) mg/dL Total Bilirubin (0.2-1.0) mg/dL AST (15-37) U/L ALT (12-78) U/L Alkaline Phosphatase (46-116) U/L Troponin I (0.00-0.06) ng/mL Total Protein (6.4-8.2) g/dL Albumin (3.4-5.0) g/dL HPI General Mode of arrival: ambulatory. Date/Time Provider Initiated Documentation: 09/25/18 14:17. Limitations to Documentation: no limitations. Information obtained by: patient. HPI Narrative: 63-year-old female with multiple medical problems including history of hypertension, diabetes, GERD, hyperlipidemia, here with chief complaint of generally not feeling well. Patient notes that she does not have air conditioning at home and thinks that the excessive heat over the past couple days is starting to have an effect on her. She specifically notes that she has had some nausea. Symptoms are moderate. No vomiting. She also notes some mild headache recently. She has no headache at this time. Patient also states that she had some left-sided chest discomfort yesterday that was brief and then again today. Discomfort described as a heaviness and lasted approximately 5 minutes. Last episode occurred approximately 1 to 2 hours ago. Patient has no chest pain at this time. She has no shortness of breath. Related Data Home Medications Medication Instructions Recorded Confirmed atorvastatin [Lipitor] 80 mg PO HS 06/04/12 09/25/18 clonazepam [Klonopin] 0.5 mg PO PRN PRN 06/04/12 09/25/18 levothyroxine [Synthroid] 88 mcg PO DAILY 06/04/12 09/25/18 losartan 100 mg PO DAILY 06/04/12 09/25/18 pantoprazole [Protonix] 40 mg PO BID 06/04/12 09/25/18 warfarin [Coumadin] 3 mg PO DAILY 06/04/12 09/25/18 metoprolol succinate 25 mg PO DAILY 07/14/12 09/25/18 aspirin [Aspir-81] 1 tab PO DAILY 12/12/13 09/25/18 glipizide 1 tab PO DAILY 12/12/13 09/25/18 acetaminophen [Mapap Extra 2 tab PO PRN PRN 05/01/14 09/25/18 Strength] sucralfate 1 gm PO QID PRN 09/22/15 09/25/18 ferrous sulfate 325 mg PO DAILY 10/04/15 09/25/18 Januvia 100 mg PO DAILY 06/26/16 09/25/18 Allergies Allergy/AdvReac Type Severity Reaction Status Date / Time metformin AdvReac Intermediate Diarrhea Unverified 09/25/18 14:22 fosinopril sodium AdvReac Unknown Coughing Unverified 09/25/18 14:22 [From Monopril] pollen Allergy Mild congestion Uncoded 09/25/18 14:22 General Stated Complaint: Nausea/Vomit/Diar CYNTHIA: 3 Review of Systems Review of Systems All systems reviewed & are unremarkable except as noted in HPI and below Cardiovascular Reports as per HPI, Reports chest pain, Denies diaphoresis, Denies syncope, Denies rapid heart rate, Denies irregular heart rhythm, Reports lightheadedness, Denies radiating jaw, neck or arm pain and Denies dyspnea Respiratory Denies dyspnea Gastrointestinal Denies abdominal pain Genitourinary Denies dysuria Neurologic Denies syncope [facility] Medical History Anxiety Diabetes mellitus type II, non insulin dependent GERD (gastroesophageal reflux disease) Hx of deep venous thrombosis Hyperlipidemia Hypertension Peripheral vascular disease Retinitis pigmentosa of both eyes Surgical History Ligation of fallopian tube Thyroid Vascular Surgery Social History Smoking/Tobacco Use Status: Never Alcohol Intake: never Drug use: Never Do you feel safe at home: Yes Do you feel safe in your relationship?: Yes Exam Const General: cooperative and no acute distress HENMT Head: normocephalic Mouth: moist mucous membranes Eyes Conjunctivae: normal conjunctivae Neck Neck: trachea midline and supple Resp Auscultation: clear to auscultation bilaterally, no rales, no rhonchi and no wheezes Cardio Jugular venous pressure: no JVD Rate: regular rate and not tachycardic Rhythm: regular rhythm GI Palpation: soft, not firm, no guarding, no masses, not rigid and nontender Skin General skin exam: no rashes or lesions noted Neuro General: alert, awake, oriented x3 and tone normal Extrem General: no calf tenderness and no edema Psych Appearance: grossly normal Course Vital Signs Temperature 36.5 C 09/25/18 14:18 Pulse 86 09/25/18 14:18 Respiratory Rate 18 09/25/18 14:18 Blood Pressure 163/98 H 09/25/18 14:18 Pulse Oximetry 95 09/25/18 14:18 Temperature 36.5 C 09/25/18 14:18 Temperature Source Skin 09/25/18 14:18 Pulse 86 09/25/18 14:18 Respiratory Rate 18 09/25/18 14:18 Respiratory Effort Non-Labored 09/25/18 14:20 Blood Pressure 163/98 H 09/25/18 14:18 Pulse Oximetry 95 09/25/18 14:18 Pain Level 0 09/25/18 14:18
[2018-09-25] MEDS: Normal Saline Flush 10 ML SYR IVP (15:16)
[2018-09-25] MEDS: Normal Saline 1,000 ML 150 ML IV (15:16)
[2018-09-25 15:21] LABS: Abs Immature Grans 0.03 k/cumm (0.0-0.09); Absolute Basophil Count 0.01 k/cumm (0.0-0.2); Absolute Eosinophil Count 0.08 k/cumm (0.0-0.7); Absolute Lymphocyte Count 1.28 k/cumm (1.2-3.4); Absolute Monocyte Count 0.57 k/cumm (0.11-0.7); Absolute Neutrophil Count 6.64 k/cumm (1.2-6.7); Basophils % 0.1; Eosinophils % 0.9; HCT 35.8 % (36.0-46.0); HGB 11.7 g/dL (12.0-15.5); Immature Grans % 0.3; Lymphocytes % 14.9; Mean Corp. HGB Concentration 32.7 g/dL (32.0-36.0); Mean Corpuscular Hemoglobin 26.5 pg (27.0-33.0); Mean Platelet Volume 9.1 fL (8.0-11.0); Monocytes % 6.6; Neutrophils % 77.2; Platelet Count 285 x1000/uL (130-400); RBC 4.42 m/cumm (4.00-5.20); RBC Distribution Width 13.5 % (11.7-14.6); White Blood Cell Count 8.61 k/cumm (4.4-10.8)
[2018-09-25 15:38] LABS: ALT 36 U/L (12-78); AST 15 U/L (15-37); Albumin 3.4 g/dL (3.4-5.0); Alkaline Phosphatase 101 U/L (46-116); Anion Gap 7.6 mmol/L (3-11); BUN 11 mg/dL (7-18); Bilirubin, Total 0.3 mg/dL (0.2-1.0); CO2 26.4 mmol/L (21.0-32.0); CREATININE 0.66 mg/dL (0.55-1.02); Calcium 8.4 mg/dL (8.5-10.1); Chloride 95 mmol/L (98-107); Glucose 168 mg/dL (70-100); Magnesium 1.7 mg/dL (1.8-2.4); Sodium 129 mmol/L (136-145); Total Protein 7.5 g/dL (6.4-8.2); Troponin I < 0.05 ng/mL (0.00-0.06)
[2018-09-25] MEDS: Magnesium Oxide 400 MG TAB 800 MG PO (18:04)
[2018-09-25] MEDS: Normal Saline 500 ML 1000 ML IV (18:04)
--- NOTE | 2018-09-25 18:05 | NUR.NOTE ---
pt medicated as per mdo as per mdo Nursing Note:
--- NOTE | 2018-09-25 18:10 | NUR.NOTE ---
rpt labs drawn Nursing Note:
[2018-09-25 19:10] LABS: Troponin I < 0.05 ng/mL (0.00-0.06)
[2018-09-25 20:01] LABS: Anion Gap 7.4 mmol/L (3-11); BUN 9 mg/dL (7-18); CO2 27.6 mmol/L (21.0-32.0); CREATININE 0.59 mg/dL (0.55-1.02); Calcium 8.8 mg/dL (8.5-10.1); Chloride 99 mmol/L (98-107); Glucose 120 mg/dL (70-100); Potassium 3.6 mmol/L (3.5-5.1); Sodium 134 mmol/L (136-145)
[2018-09-25 21:23] VITALS: BP 157/83; PULSE 72; RESP 16; O2SAT 98
== END 2018-09-25 21:24 | disposition home or self-care (01) ==
PROVIDERS: Emergency Provider Student in an Organized Health Care Education/Training Program; PCP Family Medicine
DX: E87.6 Hypokalemia (principal); E83.42 Hypomagnesemia; R07.9 Chest pain, unspecified; R53.1 Weakness; T67.8XXA Other effects of heat and light, initial encounter; I10 Essential (primary) hypertension; E11.9 Type 2 diabetes mellitus without complications; Z79.84 Long term (current) use of oral hypoglycemic drugs
CPT/HCPCS: 36415; 36416; 80048; 80053; 82962; 93005; 96360; 96361; 99284; 83735; 84484; 85025; 93010

== ENCOUNTER 2018-10-08 12:01 | Outpatient (REF) | payer MEDICARE, SELFPAY ==
[2018-10-08 19:39] LABS: ALT 46 U/L (12-78); AST 24 U/L (15-37); Albumin 3.6 g/dL (3.4-5.0); Alkaline Phosphatase 95 U/L (46-116); Anion Gap 6.3 mmol/L (3-11); BUN 9 mg/dL (7-18); Bilirubin, Total 0.3 mg/dL (0.2-1.0); CO2 28.7 mmol/L (21.0-32.0); CREATININE 1.24 mg/dL (0.55-1.02); Calcium 9.1 mg/dL (8.5-10.1); Chloride 99 mmol/L (98-107); Estimated GFR 43.41 (mL/min/1.73m2); Glucose 200 mg/dL (70-100); Magnesium 1.7 mg/dL (1.8-2.4); Potassium 4.7 mmol/L (3.5-5.1); Sodium 134 mmol/L (136-145); Total Protein 7.5 g/dL (6.4-8.2)
== END 2018-10-08 12:21 ==
LOC: NCHCN 12:01
PROVIDERS: PCP Family Medicine; Visit Provider Specialist/Technologist Athletic Trainer
DX: E83.42 Hypomagnesemia (principal); E87.1 Hypo-osmolality and hyponatremia; R11.2 Nausea with vomiting, unspecified
CPT/HCPCS: 80053; 83735

== ENCOUNTER 2018-10-17 11:36 | Emergency (ER) | payer MEDICARE, SELFPAY ==
[2018-10-17] VITALS (126 sets, daily range): BP systolic 94–146; BP diastolic 66–109; PULSE 62–128; RESP 13–28; TEMP 36.7; O2SAT 91–100
--- NOTE | 2018-10-17 12:24 | ED.GENADUL_ITS ---
Discharge Plan Discharge Details Chief Complaint: Dizzy/Sync Clinical Impression: Chest pain, Dyspnea Primary Care Provider: Jolly Wren V ED Provider: Arleen Shen Home Meds and New Rx's Prescriptions: No Action atorvastatin [Lipitor] 10 MG tablet 80 mg PO HS RF: 0 clonazepam [Klonopin] 0.5 MG tablet 0.5 mg PO PRN PRNRF: 0 pantoprazole [Protonix] 20 MG tablet,delayed release (DR/EC) 40 mg PO BID RF: 0 levothyroxine [Synthroid] 88 MCG tablet 88 mcg PO DAILY RF: 0 warfarin [Coumadin] 5 MG tablet 3 mg PO DAILY RF: 0 losartan 100 MG tablet 100 mg PO DAILY RF: 0 metoprolol succinate 25 MG tablet extended release 24 hr 25 mg PO DAILY RF: 0 glipizide 10 MG tablet 1 tab PO DAILY RF: 0 aspirin [Aspir-81] 81 MG tablet,delayed release (DR/EC) 1 tab PO DAILY RF: 0 acetaminophen [Mapap Extra Strength] 500 MG tablet 2 tab PO PRN PRNRF: 0 ferrous sulfate 325 MG tablet 325 mg PO DAILY RF: 0 sucralfate 1 GM tablet 1 gm PO QID PRNRF: 0 Januvia 100 MG tablet 100 mg PO DAILY RF: 0 Medical Decision Making <FRANCISCO Smith - Last Filed: 10/17/18 16:31> This is a nontoxic-appearing 63-year-old female with concerning symptoms of exertional chest pain and dyspnea over the last several weeks however acutely worse the last 24 to 48 hours. Vitals here are stable. Lab tests including troponin unremarkable. EKG shows normal sinus rhythm. Her risk for ACS is moderate based on her calculated HEART score.. No telemetry beds here. I feel she will require transfer for continued telemetry observation along with stress testing. 3-hour troponin pending. Call placed to [facility] to discuss possibility of transfer. Patient's repeat troponin pending. Will be drawn at 1700. She is remained chest pain-free. Case discussed with hospitalist at [facility] who is checking on telemetry status for possible transfer. Case signed out to [facility] at shift change. See her note for final disposition. <Eleuterio Gonsales DO - Last Filed: 10/17/18 17:11> EKG 17: 04 Rate 67, intervals normal, sinus rhythm, no significant ST elevations or depressions, there is a single inverted T wave in lead III. No Q waves. No evidence of STEMI <FRANCISCO Shearer - Last Filed: 10/17/18 23:32> Care transitioned to myself with repeat troponin and repeat EKG pending. Repeat EKG reviewed by Dr. Gonsales, patient in NSR, no ischemic changes noted. Repeat troponin remains <0.05. Will call back hospitalist at [facility] to pass along updated information and confirm transfer. [facility] reports that they are unable ot accept the patient at this time. Request for transfer for tele bed to [facility], awaiting call from hospitalist. Heart score moderate risk. [facility] declines transfer. Will see availability at [facility]. . Spoke with Dr. Garcia who advised that they do not have cardiology, do not feel she is appropriate for their faciligy. Contacted [facility] who advised no bed available at this time. Contacted [facility] who will have heel splitter call back, feel that she is appropriate for transfer to their facility. Consulted with Dr. Osei at [facility] who agrees to transfer, feels that patient should go to their facility for cardiac catheterization. They do not have bed at this time but will have availability tomorrow. Will keep patient in the ED tonight. Discussed anticoagulation. Patient is on Coumadin with an INR of 2.9, no further was recommended. At the end of my shift, care transitioned to Dr. Bradley. Repeat troponin remains <0.05. Plan for patient to go to [facility] in the AM for catheterization. <Arleen Shen MD - Last Filed: 10/18/18 09:55> Patient was signed out to me by Dr. Bradley at time of shift change with bed assignment and transport to [facility] pending. Shortly after signout, bed assignment was obtained. Patient had no complaints, there were no issues prior to transfer from the emergency department. Patient left emergency department without incident with transfer team. HPI <FRANCISCO Smith - Last Filed: 10/17/18 16:31> General Date/Time Provider Initiated Documentation: 10/17/18 11:39 . HPI Narrative: Please patient is a 63-year-old female with a significant past medical history for diabetes, GERD, history of multiple DVTs, peripheral vascular disease, hypertension, hyperlipidemia who presents to the emergency department with somewhat acute on chronic symptoms of substernal chest pain and dyspnea on exertion. She states that the chest pain became acutely severe last night and this morning. She reports some radiation into her right elbow. She has had a lump in my throat over the last several days. She does report some shortness of breath when lying flat but more notably when she exerts herself. She does report a previous history for nuclear stress testing which was negative. She has no history of coronary artery disease. She is currently anticoagulated on warfarin Related Data Home Medications Medication Instructions Recorded Confirmed atorvastatin [Lipitor] 80 mg PO HS 06/04/12 10/17/18 clonazepam [Klonopin] 0.5 mg PO PRN PRN 06/04/12 10/17/18 levothyroxine [Synthroid] 88 mcg PO DAILY 06/04/12 10/17/18 losartan 100 mg PO DAILY 06/04/12 10/17/18 pantoprazole [Protonix] 40 mg PO BID 06/04/12 10/17/18 warfarin [Coumadin] 3 mg PO DAILY 06/04/12 10/17/18 metoprolol succinate 25 mg PO DAILY 07/14/12 10/17/18 aspirin [Aspir-81] 1 tab PO DAILY 12/12/13 10/17/18 glipizide 1 tab PO DAILY 12/12/13 10/17/18 acetaminophen [Mapap Extra 2 tab PO PRN PRN 05/01/14 10/17/18 Strength] sucralfate 1 gm PO QID PRN 09/22/15 10/17/18 ferrous sulfate 325 mg PO DAILY 10/04/15 10/17/18 Januvia 100 mg PO DAILY 06/26/16 10/17/18 Allergies Allergy/AdvReac Type Severity Reaction Status Date / Time metformin AdvReac Intermediate Diarrhea Unverified 10/17/18 12:01 fosinopril sodium AdvReac Unknown Coughing Unverified 10/17/18 12:01 [From Monopril] pollen Allergy Mild congestion Uncoded 10/17/18 12:01 General Stated Complaint: Dizzy/Sync CYNTHIA: 2 Review of Systems <FRANCISCO Smith - Last Filed: 10/17/18 16:31> Constitutional Denies anorexia, Denies body ache(s), Denies chills, Denies fatigue, Denies fever(s), Denies headache(s), Denies lethargy, Denies malaise, Denies night sweats and Denies weakness Eyes Denies blurry vision and Denies change in vision ENT Denies dizziness, Denies dry mouth and Denies headache(s) Cardiovascular Denies rapid heart rate and Denies edema Neurologic Denies dizziness, Denies headache(s) and Denies weakness Endocrine Denies fatigue PFSH <FRANCISCO Smith - Last Filed: 10/17/18 16:31> Social History Smoking/Tobacco Use Status: Never Alcohol Intake: never Drug use: Never Do you feel safe at home: Yes Do you feel safe in your relationship?: Yes Course <FRANCISCO Smith - Last Filed: 10/17/18 16:31> Vital Signs Temperature 36.7 C 10/17/18 11:54 Pulse 74 10/17/18 11:54 Respiratory Rate 15 10/17/18 11:54 Blood Pressure 136/74 10/17/18 11:54 Pulse Oximetry 97 10/17/18 11:54 Temperature 36.7 C 10/17/18 11:54 Temperature Source Temporal Artery Scan 10/17/18 11:54 Pulse 74 10/17/18 11:54 Respiratory Rate 15 10/17/18 11:54 Respiratory Effort Non-Labored 10/17/18 11:59 Blood Pressure 136/74 10/17/18 11:54 Blood Pressure Position Supine 10/17/18 11:54 Pulse Oximetry 97 10/17/18 11:54 Oxygen Delivery Method Room Air 10/17/18 11:54 Oxygen Flow Rate 0 10/17/18 11:54 Pain Level 0 10/17/18 11:54 Sign Out <FRANCISCO Smith - Last Filed: 10/17/18 16:31> Sign Out Data: Sign Out Comment: Case transition to [facility] at shift change. Repeat 4-hour troponin pending along with EKG. Patient remains chest pain-free while in the ER. Case presented to hospitalist at [facility] who will be calling back for potential transfer as patient will require continued telemetry monitoring along with stress testing. Last updated by Jaswinder Salazar PA at 10/17/18 16:30 Sign Out Comment: End of shift, care transitioned to Dr. Bradley. Patient accepted to [facility] in transfer. Transfer planned for tomorrow morning. Will need to be monitored tonight. She is on Warfarin and therapeutic with INR 2.9. Last updated by Traci Gandhi PA at 10/17/18 23:48 Sign Out Comment: Remains comfortable through night, awaits transport. Will sign out to Dr Kalina Shen Last updated by Seevn Bradley MD at 10/18/18 06:54
[2018-10-17 13:07] LABS: Abs Immature Grans 0.05 k/cumm (0.0-0.09); Absolute Basophil Count 0.04 k/cumm (0.0-0.2); Absolute Lymphocyte Count 1.65 k/cumm (1.2-3.4); Absolute Neutrophil Count 5.67 k/cumm (1.2-6.7); Basophils % 0.5; Eosinophils % 1.2; HCT 39.1 % (36.0-46.0); HGB 12.9 g/dL (12.0-15.5); Immature Grans % 0.6; Lymphocytes % 20.3; Mean Corpuscular Hemoglobin 26.9 pg (27.0-33.0); Mean Corpuscular Volume 81.6 fL (80-95); Mean Platelet Volume 9.1 fL (8.0-11.0); Monocytes % 7.4; Platelet Count 281 x1000/uL (130-400); RBC 4.79 m/cumm (4.00-5.20); RBC Distribution Width 13.7 % (11.7-14.6); White Blood Cell Count 8.11 k/cumm (4.4-10.8)
[2018-10-17 13:26] LABS: INR 2.9 (0.9-1.1); PTT Activated 34.5 sec (21.0-31.4); Prothrombin Time 29.7 sec (9.3-11.0)
[2018-10-17 13:29] LABS: ALT 33 U/L (12-78); AST 16 U/L (15-37); Albumin 3.4 g/dL (3.4-5.0); Alkaline Phosphatase 90 U/L (46-116); Anion Gap 8.3 mmol/L (3-11); BUN 8 mg/dL (7-18); Bilirubin, Total 0.3 mg/dL (0.2-1.0); CO2 27.7 mmol/L (21.0-32.0); CREATININE 0.86 mg/dL (0.55-1.02); Calcium 8.5 mg/dL (8.5-10.1); Chloride 98 mmol/L (98-107); Glucose 185 mg/dL (70-100); Magnesium 1.9 mg/dL (1.8-2.4); NT-proBNP 283 pg/mL; Potassium 3.7 mmol/L (3.5-5.1); Sodium 134 mmol/L (136-145); TSH 2.26 uIU/mL (0.36-3.74); Total Protein 7.9 g/dL (6.4-8.2)
[2018-10-17 13:40] LABS: Troponin I < 0.05 ng/mL (0.00-0.06)
[2018-10-17 13:44] LABS: D-Dimer 416 ng/mlFEU (<500)
--- NOTE | 2018-10-17 13:56 | DI.RAD_ITS ---
SYMPTOM/DIAGNOSIS: CHEST PAIN, SOB, EXERTIONAL DYSPNEA PA AND LATERAL CHEST: 10/17 The heart is normal in size. The lungs are clear. The mediastinal structures and pleura appear intact. CONCLUSION: Normal chest.
--- NOTE | 2018-10-17 14:17 | DI.VRAD_ITS ---
EXAM: XR Chest, 2 Views EXAM DATE/TIME: 10/17/2018 1:56 PM CLINICAL HISTORY: 63 years old, female; Patient HX: Chest pain, SOB, exertional dyspnea TECHNIQUE: Imaging protocol: XR of the chest, 2 views. COMPARISON: CR XR CHEST 2V PA LATERAL 06/10/2018 3:41 PM FINDINGS: Lungs: Unremarkable. No consolidation. Pleural space: Unremarkable. No pleural effusion. No pneumothorax. Heart/Mediastinum: Unremarkable. No cardiomegaly. Bones/joints: Osteopenia noted. Mild kyphosis noted. IMPRESSION: No acute findings. Dictated and Authenticated by: Basilio Bonner MD. Ordering:CHLOE San MD
[2018-10-17] MEDS: Aspirin 81 MG CHEW 324 MG CH (17:19)
[2018-10-17 17:44] LABS: Troponin I < 0.05 ng/mL (0.00-0.06)
[2018-10-17] MEDS: Acetaminophen 325 MG TAB 650 MG PO (22:06)
[2018-10-17 22:38] LABS: Troponin I < 0.05 ng/mL (0.00-0.06)
[2018-10-18] VITALS (14 sets, daily range): BP systolic 94–127; BP diastolic 60–86; PULSE 62–102; RESP 16–21; TEMP 36.7; O2SAT 92–96
--- NOTE | 2018-10-18 07:36 | NUR.NOTE ---
Nursing Note: Food tray ordered for patient. Pt awake, alert, and oriented eating at the bedside. Vitals stable. Currently waiting for transfer to [facility].
== END 2018-10-18 09:00 ==
PROVIDERS: Physician Assistant; Emergency Provider Student in an Organized Health Care Education/Training Program; PCP Family Medicine
DX: R07.9 Chest pain, unspecified (principal); R06.00 Dyspnea, unspecified; Z75.1 Person awaiting admission to adequate facility elsewhere; Z79.01 Long term (current) use of anticoagulants; Z86.711 Personal history of pulmonary embolism; I10 Essential (primary) hypertension; E11.9 Type 2 diabetes mellitus without complications; Z79.84 Long term (current) use of oral hypoglycemic drugs
CPT/HCPCS: 36415; 80053; 93005; 99285; 71046; 83735; 83880; 84443; 84484; 85025; 85379; 85610; 85730; 93010; 99281

== ENCOUNTER 2018-11-25 11:55 | Outpatient (CLI) | payer MEDICARE, SELFPAY ==
[2018-11-25 12:50] LABS: INR 3.5 (0.9-1.1); Prothrombin Time 34.4 sec (9.3-11.0)
== END 2018-11-25 12:15 ==
PROVIDERS: PCP Family Medicine; Visit Provider Family Medicine
DX: I82.890 Acute embolism and thrombosis of other specified veins (principal); Z79.01 Long term (current) use of anticoagulants
CPT/HCPCS: 36415; 85610

== ENCOUNTER 2018-11-30 16:46 | Emergency (ER) | payer MEDICARE, SELFPAY ==
[2018-11-30 16:58] VITALS: BP 176/99; PULSE 92; RESP 18; TEMP 36.1; O2SAT 97
--- NOTE | 2018-11-30 18:10 | DI.CT_ITS ---
EXAM: CT HEAD CERVICAL SPINE WO CLINICAL HISTORY: fall, on blood thinners. TECHNIQUE: The exam was performed according to the usual protocol without intravenous contrast. COMPARISON: CT HEAD FACIAL WO from 02/05/2018 CT CHEST/ABD/PEL W from 11/30/2018 FINDINGS: HEAD: Generalized atrophy is demonstrated. There is evidence of small-vessel disease. There is no ev idence of an intra or extra-axial hemorrhage. The hua-white matter differentiation is well maintain ed. There is no evidence of an acute territorial infarct. The ventricles are unremarkable. There i s no skull fracture. There is partial opacification of the left frontal sinus suggesting mild chroni c inflammatory disease. As visualized, the mastoid air cells are clear. No acute abnormality involv ing the orbital contents is demonstrated. No soft tissue abnormality is identified. The capital IAC' s are grossly normal. Sella turcica appears intact. C-spine: The vertebral bodies are intact. The occipital condyles are intact. Odontoid is well maint ained. There is mild reversal of the cervical lordosis suggesting a possible element of muscular str ain/spasm. Cervical alignment is intact. Degenerate changes are noted. Note is made of osteopenia. There is no evidence of a fracture. There is no blastic or lytic lesion. Paraspinous soft tissues ar e unremarkable. The thyroid gland is unremarkable. The lung apices are clear. IMPRESSION: No acute intracranial abnormality is apparent. No evidence of a fracture or subluxation. Mild reversal of the cervical lordosis suggesting the poss ibility of muscular spasm. Moderate degenerative changes at C5-C6. Note is also made of osteopenia.
--- NOTE | 2018-11-30 18:11 | DI.CT_ITS ---
EXAM: CT CHEST/ABD/PEL W CLINICAL HISTORY: fall, chest pain, abd bruising and left sided pain. TECHNIQUE: The exam was performed according to the usual protocol with intravenous contrast material . FINDINGS: ABDOMEN/PELVIC: The lung bases are clear. The heart size is normal. The liver is intact. There is no evidence of ductal dilatation. Granulomatous calcification is noted in the liver dome. Gallbladder is normal. There are no stones or ductal dilatation. The pancreas i s normal. There is a minimal 10 x 9 mm nodule in the right adrenal gland, unchanged when compared wit h a prior study and likely representing an adenoma. Left adrenal is absent. No acute abnormalities involving the kidneys. Note is made of a 3.5 cm fatty mass lesion arising from the lower pole of the right kidney which is unchanged when compared with study of 2015 and is consistent with an angiomyoli natacha. Another 14 mm angiomyolipoma is seen in the lateral lower pole of the right kidney and is also unchanged. A 3 mm cortical cyst in the lateral midpole of the right kidney is decreased in size fro m 2015. The left kidney and left collecting system is unremarkable. The distal esophagus and stomach appear normal. The small bowel is normal. There is no evidence of o bstruction or acute colonic abnormality. Appendix is normal. There is no evidence of free air or forrest e fluid in the intraperitoneal space. Atherosclerotic changes involving the aorta without evidence o f an aneurysm. There are mildly prominent central mesenteric lymph nodes with faint stranding suspici ous for mild chronic mesenteric adenitis. There are no associated fluid collections. There is no evid ence of a bowel abnormality. The bladder is unremarkable. The uterus is retroverted. A 12 mm left o varian cyst is identified and is unchanged when compared with the 02/27/2015 examination. No acute [place] abnormality is seen. Note is made of a small fat containing umbilical hernia. 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 Thyroid lobe a nd isthmus are normal. There is no evidence of infiltrates or edema in the lungs. There is no pulmon corina contusion. No pulmonary nodules or mass lesions are identified. There is no pleural effusion or p neumothorax. The heart size is normal. Esophagus is largely contracted without evidence of a gross a bnormality. Pulmonary arteries appear intact. There is no evidence of an aortic aneurysm or dissect ion. No lymphadenopathy is identified. There is moderate inferior endplate compression involving T1 2 of approximately 40 percent loss of the anterior vertebral height. There is no evidence of retropu lsion. A 13 mm subcutaneous nodule is noted in the midline in the upper back soft tissues likely rep resenting a small sebaceous cyst. IMPRESSION: No acute intra-abdominal or intrapelvic abnormality is demonstrated. The left adrenal gland is absen t. Minimal 10 x 9 mm area of nodularity in the right adrenal gland is unchanged when compared with i mages dating back to 2014 and probably represents a small adenoma. 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 There is a 3 mm right renal cortical cyst. Uterus is retroverted. A 12 mm cyst i n the left ovary, unchanged. Small fatty umbilical hernia is identified. There are mildly prominent central mesenteric nodes with faint mesenteric stranding could represent chronic mesenteric adenitis /mesenteritis. There are no associated fluid collections or bowel wall abnormalities. Moderate anterior wedge compression deformity of T12 inferior endplate. This finding is age indetermi rosina although it is a new finding since 10/19/2017. There is no retropulsion. 13 mm subcutaneous nodu le in the posterior midline soft tissues of the upper back most likely represents a small sebaceous c yst unchanged.
[2018-11-30] MEDS: Normal Saline 1,000 ML 1000 ML IV (18:32)
[2018-11-30 18:33] LABS: Abs Immature Grans 0.06 k/cumm (0.0-0.09); Absolute Basophil Count 0.03 k/cumm (0.0-0.2); Absolute Eosinophil Count 0.11 k/cumm (0.0-0.7); Absolute Lymphocyte Count 1.76 k/cumm (1.2-3.4); Absolute Monocyte Count 0.73 k/cumm (0.11-0.7); Absolute Neutrophil Count 7.26 k/cumm (1.2-6.7); Basophils % 0.3; Eosinophils % 1.1; HCT 37.1 % (36.0-46.0); HGB 12.2 g/dL (12.0-15.5); Immature Grans % 0.6; Lymphocytes % 17.7; Mean Corp. HGB Concentration 32.9 g/dL (32.0-36.0); Mean Corpuscular Hemoglobin 26.7 pg (27.0-33.0); Mean Corpuscular Volume 81.2 fL (80-95); Mean Platelet Volume 8.8 fL (8.0-11.0); Monocytes % 7.3; Platelet Count 284 x1000/uL (130-400); RBC 4.57 m/cumm (4.00-5.20); RBC Distribution Width 13.1 % (11.7-14.6); White Blood Cell Count 9.95 k/cumm (4.4-10.8)
[2018-11-30 18:51] LABS: ALT 26 U/L (14-59); AST 13 U/L (15-37); Albumin 3.5 g/dL (3.4-5.0); Alkaline Phosphatase 93 U/L (46-116); Anion Gap 7.3 mmol/L (3-11); BUN 12 mg/dL (7-18); Bilirubin, Total 0.3 mg/dL (0.2-1.0); CO2 26.7 mmol/L (21.0-32.0); CREATININE 0.76 mg/dL (0.55-1.02); Calcium 8.7 mg/dL (8.5-10.1); Chloride 96 mmol/L (98-107); Glucose 149 mg/dL (70-100); Potassium 4.4 mmol/L (3.5-5.1); Sodium 130 mmol/L (136-145); Total Protein 7.9 g/dL (6.4-8.2)
[2018-11-30 19:01] LABS: INR 2.7 (0.9-1.1); PTT Activated 36.2 sec (21.0-31.4); Prothrombin Time 26.9 sec (9.3-11.0)
--- NOTE | 2018-11-30 19:25 | DI.RAD_ITS ---
EXAM: XR ANKLE LT COMPLETE INDICATION: fall, pain. COMPARISON: XR ANKLE LT COMPLETE from 02/05/2018 TECHNIQUE: 2D digital imaging was performed. FINDINGS: There is no evidence of an acute fracture or dislocation. Soft tissue swelling is identified.
--- NOTE | 2018-11-30 19:30 | DI.RAD_ITS ---
EXAM: XR WRIST LT COMPLETE INDICATION: pain,fell COMPARISON: No exams were available for comparison TECHNIQUE: 2D digital imaging was performed. FINDINGS: There is no evidence of a fracture or dislocation.
--- NOTE | 2018-11-30 19:34 | DI.VRAD_ITS ---
PROCEDURE INFORMATION: Exam: XR Left Wrist Exam date and time: 11/30/2018 6:13 PM Clinical history: 63 years old, female; Wrist; Left; Patient HX: Fall with pain TECHNIQUE: Imaging protocol: XR Left wrist. Views: 3 or more views. COMPARISON: CR LEFT WRIST COMPLETE + NAVICULA 08/05/2016 10:56 AM FINDINGS: Bones/joints: No fractures. Distal radioulnar alignment is normal. No blastic or lytic lesions. No periostitis or osteolysis. Soft tissues: No gross erosive changes. No gross soft tissue abnormalities. No radiopaque foreign bodies. Other findings: Carpal relationships are normal. IMPRESSION: No acute findings. Dictated and Authenticated by: Frederic Pace MD. Ordering:JP Altman MD
--- NOTE | 2018-11-30 19:36 | DI.VRAD_ITS ---
PROCEDURE INFORMATION: Exam: XR Left Ankle Exam date and time: 11/30/2018 6:13 PM Clinical history: 63 years old, female; Ankle; Left; Patient HX: Fall 1 week ago, pain TECHNIQUE: Imaging protocol: XR Left ankle. Views: 3 or more views. COMPARISON: CR XR ANKLE LT COMPLETE 02/05/2018 11:41 AM FINDINGS: Bones/joints: Osteopenia. No fractures. No blastic or lytic lesions. No periostitis or osteolysis. The ankle mortise joint is well maintained. Lateral view limited by obliquity. Moderate dorsal talar head spurring. Mild medial and lateral talar spurring. Mild calcaneal spurring. Soft tissues: Nonspecific soft tissue swelling around the left ankle and left lower leg. No radiopaque foreign bodies. Other findings: The visualized hindfoot and midfoot are grossly well aligned. IMPRESSION: 1. No acute findings. No significant radiographic change from prior exam 02/05/2018. 2. Osteopenia and mild degenerative changes. Dictated and Authenticated by: Frederic Pace MD. Ordering:JP Altman MD
--- NOTE | 2018-11-30 19:37 | DI.VRAD_ITS ---
PROCEDURE INFORMATION: Exam: XR Left Forearm Exam date and time: 11/30/2018 6:13 PM Clinical history: 63 years old, female; Lower or forearm; Left; Patient HX: Fall 1 week ago, pain TECHNIQUE: Imaging protocol: XR Left forearm. Views: 2 views. COMPARISON: No relevant prior studies available. FINDINGS: Bones/joints: Osteopenia.. Proximal and distal radial ulnar alignment is normal. Elbow joint alignment is normal. No fractures. No blastic or lytic lesions. No elbow joint effusion. Mild olecranon spurring. No periostitis or osteolysis. Soft tissues: No gross soft tissue abnormalities. No radiopaque foreign bodies are identified. Other findings: Carpal relationships are normal. No articular erosions. IMPRESSION: No acute findings. Dictated and Authenticated by: Frederic Pace MD. Ordering:JP Altman MD
--- NOTE | 2018-11-30 19:50 | DI.RAD_ITS ---
EXAM: XR FOREARM LT INDICATION: fall, injury. COMPARISON: RIGHT FOREARM from 04/28/2013 TECHNIQUE: 2D digital imaging was performed. FINDINGS: There is no evidence of a fracture or dislocation.
--- NOTE | 2018-11-30 20:08 | DI.VRAD_ITS ---
PROCEDURE INFORMATION: Exam: CT Head Without Contrast Exam date and time: 11/30/2018 6:12 PM Clinical history: 63 years old, female; Headache not specified; Neck pain; Patient HX: Fall one week ago, on blood thiners TECHNIQUE: Imaging protocol: Computed tomography of the head without contrast. Radiation optimization: All CT scans at this facility use at least one of these dose optimization techniques: automated exposure control; mA and/or kV adjustment per patient size (includes targeted exams where dose is matched to clinical indication); or iterative reconstruction. COMPARISON: CT HEAD WITHOUT CONTRAST 08/22/2016 2:37 PM FINDINGS: Brain: Mild generalized atrophy with minimal periventricular white matter ischemic changes consistent with the patient's advanced age. No extra-axial fluid collections. No evidence of acute intracranial hemorrhage. Eng-white differentiation is well maintained. No evidence of acute or subacute intracranial ischemia/infarct. No intracranial mass lesions. Midline shift: No midline shift or herniation. Ventricles: Ventricles normal. Bones/joints: Hyperostosis frontalis interna incidentally noted. No fractures. Sinuses: Partial opacification of the left frontal sinus suggesting mild chronic sinus inflammatory disease. Mastoid air cells: Visualized mastoid air cells are clear. Orbits: Orbital contents demonstrate no evidence of acute abnormality. Soft tissues: The scalp and visualized soft tissues demonstrate no acute abnormality. Vasculature: The visualized major intracranial arterial segments demonstrate no gross abnormality by noncontrast CT. No asymmetric vascular hyperdensities are identified. Other findings: The IACs are grossly normal. The sella is grossly normal. IMPRESSION: No acute intracranial process. PROCEDURE INFORMATION: Exam: CT Cervical Spine Without Contrast Exam date and time: 11/30/2018 6:12 PM Clinical history: 63 years old, female; Headache not specified; Neck pain; Patient HX: Fall one week ago, on blood thiners TECHNIQUE: Imaging protocol: Computed tomography images of the cervical spine without contrast. Radiation optimization: All CT scans at this facility use at least one of these dose optimization techniques: automated exposure control; mA and/or kV adjustment per patient size (includes targeted exams where dose is matched to clinical indication); or iterative reconstruction. COMPARISON: CT HEAD WITHOUT CONTRAST 08/22/2016 2:37 PM FINDINGS: Vertebrae: Craniocervical alignment is normal. The occipital condyles are intact. The odontoid is intact. Mild reversal of cervical lordosis suggesting a possible element of muscular strain/spasm. Cervical alignment is otherwise well maintained. Discs/Spinal canal/Neural foramina: Mild degenerative sclerosis and spurring at the atlantodens interval. No jumped or perched facets. Moderate disc space narrowing C5-C6 with mild marginal spurring. No compressive soft disc protrusion or extrusion is evident by CT. No evidence of significant central canal stenosis. No evidence of significant neuroforaminal stenosis. Other bones/joints: Osteopenia. No fractures. No blastic or lytic lesions. Soft tissues: Paraspinous soft tissues are unremarkable without significant soft tissue swelling or soft tissue hematoma. Thyroid: The thyroid gland is unremarkable. Lungs: Visualized pulmonary apices are clear. IMPRESSION: 1. No evidence of fracture or acute traumatic subluxation. 2. Mild reversal of cervical lordosis suggesting a possible element of muscular strain/spasm. Cervical alignment is otherwise well maintained. 3. Moderate degenerative disc disease C5-C6. 4. Osteopenia Dictated and Authenticated by: Frederic Pace MD. Ordering:JP Altman MD
[2018-11-30] MEDS: Omnipaque 350 MG/ML 100 ML BTL IV (20:10)
[2018-11-30] MEDS: Normal Saline Flush 10 ML SYR IVP (20:11)
--- NOTE | 2018-11-30 20:32 | DI.VRAD_ITS ---
PROCEDURE INFORMATION: Exam: CT Chest With Contrast Exam date and time: 11/30/2018 7:56 PM Clinical history: 63 years old, female; Abdominal pain; Localized; Left-sided chest pain; Prior surgery; Surgery date: 6+ months; Surgery type: HX of adrenal CA. Surgery in 2012, ; patient HX: Fall one week ago, pain and bruising on left side TECHNIQUE: Imaging protocol: Computed tomography of the chest with intravenous contrast. Radiation optimization: All CT scans at this facility use at least one of these dose optimization techniques: automated exposure control; mA and/or kV adjustment per patient size (includes targeted exams where dose is matched to clinical indication); or iterative reconstruction. 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 Residual left thyroid lobe and isthmus normal in appearance. Lungs: No tracheobronchial abnormalities. No infiltrates or edema. No pulmonary contusions. No pulmonary nodules or mass lesions are identified. Pleural space: No pleural effusions. No pneumothorax. Heart: Heart size normal. Mediastinum: The esophagus is largely contracted without gross abnormality. Pulmonary arteries: The pulmonary arteries demonstrate no gross abnormality. Aorta: The aorta enhances appropriately without evidence of dissection or aneurysm. No mediastinal hematoma. Lymph nodes: No supraclavicular or axillary adenopathy. No mediastinal or hilar adenopathy. Bones/joints: Moderate inferior endplate compression deformity of T12 noted with about 40% loss of anterior vertebral body height. No paraspinous edema or acute fracture lines are identified. No retropulsion. This is new since 10/19/2017. Soft tissues: 13 mm subcutaneous nodule in the midline upper back soft tissues, probably a small sebaceous cyst, unchanged. IMPRESSION: 1. Moderate anterior wedge compression deformity involving the T12 inferior endplate. This is age-indeterminate, although it is a new finding since 10/19/2017. No retropulsion. 2. 13 mm a cutaneous nodule in the posterior midline soft tissues of the upper back, most likely a small sebaceous cyst, unchanged. PROCEDURE INFORMATION: Exam: CT Abdomen and Pelvis With Contrast Exam date and time: 11/30/2018 7:56 PM Clinical history: 63 years old, female; Abdominal pain; Localized; Left-sided chest pain; Prior surgery; Surgery date: 6+ months; Surgery type: HX of adrenal CA. Surgery in 2012, ; patient HX: Fall one week ago, pain and bruising on left side TECHNIQUE: Imaging protocol: Computed tomography of the abdomen and pelvis with intravenous contrast. Radiation optimization: All CT scans at this facility use at least one of these dose optimization techniques: automated exposure control; mA and/or kV adjustment per patient size (includes targeted exams where dose is matched to clinical indication); or iterative reconstruction. Contrast material: OMNIPAQUE 350; Contrast volume: 100 ml; Contrast route: IV; COMPARISON: CT Abdomen^CAP WITH (Adult) 10/19/2017 12:42 PM FINDINGS: Lungs: Visualized lung bases are clear. Heart: Heart size normal. Liver: Normal size and contour. No mass lesions. No intrahepatic biliary ductal dilatation. Granulomatous calcification in the liver dome. Gallbladder and bile ducts: Normal. No calcified stones. No ductal dilation. Pancreas: Normal. No inflammatory changes or ductal dilation. Spleen: Normal. No splenomegaly. Adrenals: Minimal 10 x 9 mm nodularity of the right adrenal gland is unchanged from 10/19/2017 and 01/01/2017 and 02/27/2015, likely a small adenoma. The left adrenal gland is absent. Kidneys and ureters: No acute abnormalities. No hydronephrosis or hydroureter. No urinary tract stones are identified. 3.5 cm fatty mass lesion arising from the lower pole of the right kidney is unchanged back to 2015 consistent with an angiomyolipoma. Another 14 mm angiomyolipoma is seen in the lateral lower pole cortex of the right kidney and is also unchanged. 3 mm cortical cyst in the lateral midpole of the right kidney is decreased in size from 2015. The left kidney and left collecting system are unremarkable. Stomach and bowel: The visualized distal esophagus and stomach are normal. The small bowel is normal with no evidence of obstruction. No acute colonic abnormalities. Appendix: The appendix is normal in caliber and demonstrates no evidence of appendicitis. Intraperitoneal space: No free fluid or air. Vasculature: Mild atherosclerotic aortoiliac calcification without aneurysm. Retroaortic left renal vein incidentally noted. Lymph nodes: Mildly prominent central mesenteric nodes with faint mesenteric stranding suspicious for mild chronic mesenteric adenitis/mesenteritis. No associated fluid collections or bowel wall abnormalities. This is unchanged. Bladder: Unremarkable as visualized. Reproductive: Retroverted uterus again noted. 12 mm cyst in the left ovary. This is unchanged back to 02/27/2015. Bones/joints: No acute osseous abnormalities. Soft tissues: Small fatty umbilical hernia . No evidence of associated bowel herniation or bowel obstruction. IMPRESSION: 1. No acute intra-abdominal/intrapelvic injuries. 2. The left adrenal gland is absent. Minimal 10 x 9 mm nodularity in the right adrenal gland is unchanged back to 2014 and probably represents a small adenoma. No further imaging assessment is required. 3. 2 angiomyolipomas are noted in the right kidney, unchanged back to 2014. 3 mm right renal cortical cyst. No further assessment of these is required. 4. Retroverted uterus a 12 mm cyst in the left ovary, unchanged back to 2014. No further imaging assessment required. 5. Small fatty umbilical hernia . No evidence of associated bowel herniation or bowel obstruction. 6. Mildly prominent central mesenteric nodes with faint mesenteric stranding suspicious for mild chronic mesenteric adenitis/mesenteritis. No associated fluid collections or bowel wall abnormalities. This is unchanged. Dictated and Authenticated by: Frederic Pace MD. Ordering:JP Altman MD
[2018-11-30 22:08] VITALS: BP 148/88; PULSE 83; RESP 16; O2SAT 96
[2018-11-30 22:11] VITALS: BP 148/88; PULSE 83; RESP 16; O2SAT 96
--- NOTE | 2018-12-01 01:27 | ED.GENADUL_ITS ---
Discharge Plan Disposition Patient Disposition: HOME Condition: Good Discharge Details Chief Complaint: Orthopedic Clinical Impression: Fall, Contusion, Sprain Primary Care Provider: Jolly Wren V ED Provider: Anupama Sims Home Meds and New Rx's Prescriptions: Continued atorvastatin [Lipitor] 10 MG tablet 80 mg PO HS RF: 0 clonazepam [Klonopin] 0.5 MG tablet 0.5 mg PO PRN PRNRF: 0 pantoprazole [Protonix] 20 MG tablet,delayed release (DR/EC) 40 mg PO BID RF: 0 levothyroxine [Synthroid] 88 MCG tablet 88 mcg PO DAILY RF: 0 warfarin [Coumadin] 5 MG tablet 3 mg PO DAILY RF: 0 losartan 100 MG tablet 100 mg PO DAILY RF: 0 metoprolol succinate 25 MG tablet extended release 24 hr 25 mg PO DAILY RF: 0 glipizide 10 MG tablet 1 tab PO DAILY RF: 0 aspirin [Aspir-81] 81 MG tablet,delayed release (DR/EC) 1 tab PO DAILY RF: 0 acetaminophen [Mapap Extra Strength] 500 MG tablet 2 tab PO PRN PRNRF: 0 ferrous sulfate 325 MG tablet 325 mg PO DAILY RF: 0 sucralfate 1 GM tablet 1 gm PO QID PRNRF: 0 Januvia 100 MG tablet 100 mg PO DAILY RF: 0 Discharge Instructions Instructions: Contusion in Adults (ED) Additional Instructions: Rest activities as tolerated. Use Ronald wrap to wrist and ankle for support. Follow-up with your primary care doctor for reevaluation within 1 week. Use Tylenol for soreness if needed. For any alarming symptoms, worsening or concerns of immediate reevaluation in the emergency room as discussed Discharge Data Discharge Date/Time-TO BE ENTERED AT DEPARTURE: 11/30/18 22:20 Medical Decision Making Very pleasant 63-year-old patient who takes Coumadin with a current INR this evening of 2.7 presents for a fall last week over a fan as she is blind and just tripped. Patient also has mild extremity injuries without deformities. Imaging ordered. Ultimately imaging does reveal a compression fracture which patient knows about and some incidental findings which patient is primarily familiar with. Patient has no identifiable intracranial emergency, no cervical spine fracture or extremity fractures. Patient CT evaluation of her abdomen shows no acute intra-abdominal emergency today. Patient made aware of these findings patient prefers Ronald wrap to manage support and discharge home at this time. Patient reports her understanding of alarming symptoms and signs which we discussed for which she should have immediate reevaluation encourage follow-up with her primary care doctor. HPI General Date/Time Provider Initiated Documentation: 11/30/18 17:13 . HPI Narrative: Patient reports trip and fall on a house fan which occurred approximately 8 days ago. Patient is on a blood thinner does take Coumadin. Patient denies striking head but does report she has not felt well since her fall. She does report a mild headache without associated dizziness. She does report she has no neck pain with range of motion. Patient also complaining of left forearm and wrist pain as well as left ankle pain. Patient does report mild left rib chest wall pain. Denies difficulty breathing shortness of breath or wheezing.. Patient reveals a large area of ecchymosis to the left flank and abdomen. She does report mild abdominal pain over the last week which is persistent and worse in the last 2 days. Patient denies nausea, vomiting or diarrhea. Patient is legal ly blind. Patient compliant with her medications. Denies sensation of syncope. Mild fatigue present. No urinary urgency, frequency or dysuria. No other concerns or complaints at this time. Related Data Home Medications Medication Instructions Recorded Confirmed atorvastatin [Lipitor] 80 mg PO HS 06/04/12 11/30/18 clonazepam [Klonopin] 0.5 mg PO PRN PRN 06/04/12 11/30/18 levothyroxine [Synthroid] 88 mcg PO DAILY 06/04/12 11/30/18 losartan 100 mg PO DAILY 06/04/12 11/30/18 pantoprazole [Protonix] 40 mg PO BID 06/04/12 11/30/18 warfarin [Coumadin] 3 mg PO DAILY 06/04/12 11/30/18 metoprolol succinate 25 mg PO DAILY 07/14/12 11/30/18 aspirin [Aspir-81] 1 tab PO DAILY 12/12/13 11/30/18 glipizide 1 tab PO DAILY 12/12/13 11/30/18 acetaminophen [Mapap Extra 2 tab PO PRN PRN 05/01/14 11/30/18 Strength] sucralfate 1 gm PO QID PRN 09/22/15 11/30/18 ferrous sulfate 325 mg PO DAILY 10/04/15 11/30/18 Januvia 100 mg PO DAILY 06/26/16 11/30/18 Allergies Allergy/AdvReac Type Severity Reaction Status Date / Time metformin AdvReac Intermediate Diarrhea Unverified 11/30/18 17:04 fosinopril sodium AdvReac Unknown Coughing Unverified 11/30/18 17:04 [From Monopril] pollen Allergy Mild congestion Uncoded 11/30/18 17:04 General Stated Complaint: Orthopedic CYNTHIA: 4 Review of Systems Review of Systems Narrative: CONSTITUTIONAL: The patient denies fevers, chills. EYES: Denies vision changes, blurry vision, or eye pain. ENT: Denies hearing changes, tinnitus, vertigo, sore throat. CARDIAC: Denies chest pain, SOB. RESPIRATORY: Denies cough, sputum. Denies difficulty breathing. GASTROINTESTINAL: Mild abdominal pain. Abdominal bruising. Denies distention changes in bowel, vomiting or nausea. GENITOURINARY: Denies dysuria, or frequency of urination. MUSCULOSKELETAL: Denies Joint pain, gait changes. Wrist and ankle pain Neck and back; neck pain. Denies back pain NEUROLOGIC: Denies headaches, Denies focal weakness. Denies numbness. INTEGUMENT: Denies rashes. PSYCHIATRIC: Denies behavior changes. Denies anxiety or depression. ENDOCRINOLOGY: Denies fatigue. PSYCHIATRY: Denies depression, agitation or anxiety ROS Unobtainable: All systems reviewed & are unremarkable except as noted in HPI and below PFSH Medical History Anxiety Diabetes mellitus type II, non insulin dependent GERD (gastroesophageal reflux disease) Hx of deep venous thrombosis Hyperlipidemia Hypertension Peripheral vascular disease Retinitis pigmentosa of both eyes Surgical History Ligation of fallopian tube Thyroid pt reports partial removal of thyroid Vascular Surgery vein stripping. Social History Smoking/Tobacco Use Status: Never Alcohol Intake: never Drug use: Never Do you feel safe at home: Yes Do you feel safe in your relationship?: Yes Exam Narrative Exam Narrative: CONST: Healthy appearing patient, in no acute distress. Well hydrated. Alert and alert. HENMT: Head nomocephalic, normal to inspection. Atraumatic. Hearing grossly normal. EYES: General normal appearance. Alignment normal. Eyelids normal. Conjunctiva normal. NECK: Normal visual inspection. FROM. Trachea midline. Mild midline tenderness. CHEST: Normal insepection of the chest. Left chest wall pain with palpation RESP: Normal respiratory effort. Speaking full sentences. No cough. No audible wheezing. No retractions. CARDIO: No JVD. Abdomen; patient with a large area of ecchymosis noted to the left anterior, lateral and posterior abdomen. Extending toward the back. Mild abdominal discomfort with palpation. No clear rebound or guarding. Abdomen is soft. Bowel sounds are present in all 4 quadrants MUSCULOSKELETAL: Normal Gait. FROM of all extremities. Patient with no shoulder pain with palpation bilaterally, full elbow pain with palpation bilaterally. Patient does have left forearm pain with palpation ecchymosis present at the site. No open wounds. Patient does also have left wrist pain with palpation both radial and ulnar. Pulses are intact distally. No hand pain with palpation. Air Conditioning Insulation Installer strength intact and equal bilaterally. Sensation intact and equal bilaterally. Lower extremities reveal full range of motion of the hips bilaterally with no significant knee pain with palpation, full range of motion of the knee. Strength intact. No alvarez pain with palpation bilaterally. Left ankle pain with palpation noted overlying the lateral malleolus. Achilles tendon intact and nontender. No foot pain with palpation bilaterally. Flexion- extension intact. SKIN: Normal. Dry. No rashes. NEURO: Alert and awake. Speech clear. PSYCH: Normal affect. Cooperative. Course Vital Signs Vital signs: Vital Signs Temperature 36.1 C L 11/30/18 16:58 Pulse 92 H 11/30/18 16:58 Respiratory Rate 18 11/30/18 16:58 Blood Pressure 176/99 H 11/30/18 16:58 Pulse Oximetry 97 11/30/18 16:58 Temperature 36.1 C L 11/30/18 16:58 Temperature Source Skin 11/30/18 16:58 Pulse 83 11/30/18 22:11 Respiratory Rate 16 11/30/18 22:11 Respiratory Effort Non-Labored 11/30/18 17:02 Blood Pressure 148/88 H 11/30/18 22:11 Blood Pressure Position Sitting 11/30/18 16:58 Pulse Oximetry 96 11/30/18 22:11 Oxygen Delivery Method Room Air 11/30/18 22:08 Oxygen Flow Rate 0 11/30/18 22:08 Pain Level 5 11/30/18 22:18 Lab/Test Results Lab/Test Results: Laboratory Tests Range/Units 11/30/18 11/30/18 11/30/18 18:25 18:25 18:25 WBC (4.4-10.8) k/cumm 9.95 RBC (4.00-5.20) m/cumm 4.57 Hgb (12.0-15.5) g/dL 12.2 Hct (36.0-46.0) % 37.1 MCV (80-95) fL 81.2 MCH (27.0-33.0) pg 26.7 L MCHC (32.0-36.0) g/dL 32.9 RDW (11.7-14.6) % 13.1 Plt Count (130-400) x1000/uL 284 MPV (8.0-11.0) fL 8.8 Immature Gran % 0.6 Neutrophils % 73.0 Lymphocytes % 17.7 Monocytes % 7.3 Eosinophils % 1.1 Basophils % 0.3 Absolute Neutrophils (1.2-6.7) k/cumm 7.26 H Absolute Lymphocytes (1.2-3.4) k/cumm 1.76 Absolute Monocytes (0.11-0.7) k/cumm 0.73 H Absolute Eosinophils (0.0-0.7) k/cumm 0.11 Absolute Basophils (0.0-0.2) k/cumm 0.03 PT (9.3-11.0) sec 26.9 H INR (0.9-1.1) 2.7 H APTT (21.0-31.4) sec 36.2 H Sodium (136-145) mmol/L 130 L Potassium (3.5-5.1) mmol/L 4.4 Chloride (98-107) mmol/L 96 L Carbon Dioxide (21.0-32.0) mmol/L 26.7 Anion Gap (3-11) mmol/L 7.3 BUN (7-18) mg/dL 12 Creatinine (0.55-1.02) mg/dL 0.76 Estimated GFR/1.73 m2 (mL/min/1.73m2) >= 60.00 Glucose (70-100) mg/dL 149 H Calcium (8.5-10.1) mg/dL 8.7 Total Bilirubin (0.2-1.0) mg/dL 0.3 AST (15-37) U/L 13 L ALT (14-59) U/L 26 Alkaline Phosphatase (46-116) U/L 93 Total Protein (6.4-8.2) g/dL 7.9 Albumin (3.4-5.0) g/dL 3.5
== END 2018-11-30 22:20 | disposition home or self-care (01) ==
PROVIDERS: Emergency Provider Physician Assistant; PCP Family Medicine
DX: S63.502A Unspecified sprain of left wrist, initial encounter (principal); S50.12XA Contusion of left forearm, initial encounter; M25.572 Pain in left ankle and joints of left foot; R51 Headache; S30.1XXA Contusion of abdominal wall, initial encounter; W18.31XA Fall on same level due to stepping on an object, initial encounter; E11.9 Type 2 diabetes mellitus without complications; Z79.01 Long term (current) use of anticoagulants; Z79.4 Long term (current) use of insulin; I10 Essential (primary) hypertension
CPT/HCPCS: 36415; 74177; 80053; 96360; 96361; 99285; 70450; 71260; 72125; 73090; 73110; 73610; 85025; 85610; 85730; 99284; J3490

== ENCOUNTER 2018-12-27 12:56 | Emergency (ER) | payer MEDICARE, SELFPAY ==
[2018-12-27 13:06] VITALS: BP 130/82; PULSE 69; RESP 16; TEMP 36.6; O2SAT 100
--- NOTE | 2018-12-27 14:23 | DI.CT_ITS ---
EXAM: CT ABDOMEN PELVIS W CLINICAL HISTORY: pain left lower abdomen TECHNIQUE: POST IV CONTRAST COMPARISON: CT CHEST/ABD/PEL W from 11/30/2018 FINDINGS: Lung bases are clear. The liver, gallbladder, pancreas, spleen and adrenals are unremarkable. Ther e is no change in fatty density lesions of the right kidney, consistent with angiomyolipomas. No uri nary tract calculi or hydronephrosis is seen. There are scattered colonic diverticula without eviden ce of diverticulitis. The there is no bowel distention. The appendix appears normal. The uterus, o varies and bladder are unremarkable. The uterus is retroflexed. There is a stable mild compression fracture T12. The aorta is normal in diameter and shows mild calcification. IMPRESSION: No acute abnormality.
--- NOTE | 2018-12-27 14:25 | W.ED.GENAD ---
Discharge Plan Disposition Patient Disposition: HOME Condition: Improving Discharge Details Chief Complaint: Orthopedic Clinical Impression: Abdominal pain, Constipation Primary Care Provider: Jolly Wren V ED Provider: Cathy Lambert Home Meds and New Rx's Prescriptions: Continued atorvastatin [Lipitor] 10 MG tablet 80 mg PO HS RF: 0 clonazepam [Klonopin] 0.5 MG tablet 0.5 mg PO PRN PRNRF: 0 pantoprazole [Protonix] 20 MG tablet,delayed release (DR/EC) 40 mg PO BID RF: 0 levothyroxine [Synthroid] 88 MCG tablet 88 mcg PO DAILY RF: 0 warfarin [Coumadin] 5 MG tablet 3 mg PO DAILY RF: 0 losartan 100 MG tablet 100 mg PO DAILY RF: 0 metoprolol succinate 25 MG tablet extended release 24 hr 25 mg PO DAILY RF: 0 glipizide 10 MG tablet 1 tab PO DAILY RF: 0 aspirin [Aspir-81] 81 MG tablet,delayed release (DR/EC) 1 tab PO DAILY RF: 0 acetaminophen [Mapap Extra Strength] 500 MG tablet 2 tab PO PRN PRNRF: 0 ferrous sulfate 325 MG tablet 325 mg PO DAILY RF: 0 sucralfate 1 GM tablet 1 gm PO QID PRNRF: 0 Januvia 100 MG tablet 100 mg PO DAILY RF: 0 Discharge Instructions Instructions: Constipation (ED) Additional Instructions: Increase your fluid intake. Continue your MiraLAX as directed. You can also add stool softeners. If no relief, you can try suppository or enema. Follow-up with your primary care doctor in the next week for reevaluation and for referral for outpatient pelvic ultrasound for further evaluation of the fluid noted in your endometrial canal on your CAT scan. Return to the emergency department if you develop any worsening or new concerning symptoms. Discharge Data Discharge Physician: Cathy Lambert Medical Decision Making <Otis Guthrie MD - Last Filed: 12/27/18 14:50> 63 yo female with hx of dvt on coumadin DM, pvd, who comes in with chief complaint of abdominal pain. She has had the pain for 2 weeks and states she's noticed incresaed constipation despite miralax. She denies chest pain, fevers or chills. She has tenderness in the left lower quadrant of her abdomen otherwise no other diandra. i did a rectal exam and has a small 1cm hemorrhoid at the 4oclock position without bleeding and no stool impacted on internal exam, brown guiac negative stool. Could be constipation but with the location of pain will obtain CT to eval for diverticulitis vs sbo and obtain lab work pt will be signed out to Dr. lambert pending imaging and lab results Differential Diagnosis Differential Diagnosis: diverticulitis, sbo, constipation <Cathy Lambert DO - Last Filed: 12/27/18 18:50> 1530 -- Please see Dr. Guthrie's note for initial presentation, exam and plan. Case endorsed to follow-up on labs and imaging. Patient's main complaint is intermittent aching left lower quadrant pain and constipation for the last week. Denies fever, vomiting, urinary symptoms. She has significant tenderness palpation to her left lower quadrant. No rigidity or guarding. She appears nontoxic. Labs and imaging reviewed. Normal white blood cell count. INR 2.3. Normal electrolytes, lipase and urinalysis. CT notes to right-sided renal angiomyolipomas without interval change as well as fluid in the central endometrial canal which may be abnormal in a patient of this age and recommend further evaluation. Otherwise no other acute abdominal abnormality. 1830 --patient feels much better and she is requesting to go home. She denies any pain at this time. Discussed with patient her results and that we do not have ultrasound available at this time and she would rather go home and follow-up with her primary care doctor for reevaluation and for referral for outpatient pelvic ultrasound. She is advised to increase her fluid intake, continue MiraLAX, add stool softeners, and suppository, mag citrate or enema as needed. She is advised to return here if she has any worsening or concerning symptoms. Medical Records Medical records reviewed: Yes I reviewed the patient's medical records. Imaging Data Radiologic Study: Radiologist's impression: CT Abdomen And Pelvis With Contrast Exam date and time: 12/27/2018 5:32 PM Clinical history: 63 years old, female; Abdominal pain; Localized; Left lower quadrant (llq); Patient HX: Pain left lower abdomen TECHNIQUE: Imaging protocol: Computed tomography of the abdomen and pelvis with intravenous contrast. COMPARISON: CT CHEST/ABD/PEL W 11/30/2018 7:52 PM FINDINGS: Liver: The liver is unremarkable. Gallbladder and bile ducts: The gallbladder is unremarkable. Pancreas: The pancreas is normal. Spleen: The spleen is normal. Adrenals: No adrenal mass is present. Kidneys and ureters: Again identified is a 4.8 x 2.3 x 3.5 cm angiomyolipoma arising from the lower pole of right kidney in addition to a second 14 mm angiomyolipoma off the lateral lower pole. 3 mm cortical cyst lateral midpole the right kidney without interval change. Left kidney is unremarkable. Stomach and bowel: There is scattered colonic diverticulosis without evidence of diverticulitis. Appendix: No evidence of appendicitis. Intraperitoneal space: Unremarkable. No free air. No significant fluid collection. Vasculature: Unremarkable. No abdominal aortic aneurysm. Lymph nodes: Unremarkable. No enlarged lymph nodes. Bladder: Unremarkable as visualized. Reproductive: 1.9 cm hypodense region in the uterus centrally. A 12 mm cyst in left ovary unchanged from 11/30/2018. Bones/joints: Degenerative changes of the lumbar spine without acute osseous abnormality. Degenerative osteoarthritis of the hips right greater than left. Soft tissues: Unremarkable. IMPRESSION: 1. No acute intra-abdominal abnormality is currently identified. 2. 4.8 x 2.3 x 3.5 cm right renal angiomyolipoma without interval change. Second smaller 14 mm right angiomyolipoma without interval change. 3. Fluid in the central endometrial canal, abnormal in a patient of this age without interval change. Further evaluation is recommended. Lab Data Lab results reviewed: Yes I reviewed the patient's lab results. Labs: Laboratory Tests Range/Units 12/27/18 12/27/18 12/27/18 16:05 16:10 16:10 WBC (4.4-10.8) k/cumm 9.21 RBC (4.00-5.20) m/cumm 4.95 Hgb (12.0-15.5) g/dL 13.0 Hct (36.0-46.0) % 40.7 MCV (80-95) fL 82.2 MCH (27.0-33.0) pg 26.3 L MCHC (32.0-36.0) g/dL 31.9 L RDW (11.7-14.6) % 13.5 Plt Count (130-400) x1000/uL 345 MPV (8.0-11.0) fL 9.5 Immature Gran % 0.2 Neutrophils % 62.8 Lymphocytes % 28.1 Monocytes % 7.3 Eosinophils % 1.3 Basophils % 0.3 Absolute Neutrophils (1.2-6.7) k/cumm 5.78 Absolute Lymphocytes (1.2-3.4) k/cumm 2.59 Absolute Monocytes (0.11-0.7) k/cumm 0.67 Absolute Eosinophils (0.0-0.7) k/cumm 0.12 Absolute Basophils (0.0-0.2) k/cumm 0.03 PT (9.3-11.0) sec INR (0.9-1.1) APTT (21.0-31.4) sec Sodium (136-145) mmol/L 135 L Potassium (3.5-5.1) mmol/L 3.7 Chloride (98-107) mmol/L 97 L Carbon Dioxide (21.0-32.0) mmol/L 29.5 Anion Gap (3-11) mmol/L 8.5 BUN (7-18) mg/dL 7 Creatinine (0.55-1.02) mg/dL 0.80 Estimated GFR/1.73 m2 (mL/min/1.73m2) >= 60.00 Glucose (70-100) mg/dL 140 H Calcium (8.5-10.1) mg/dL 8.7 Magnesium (1.8-2.4) mg/dL 1.9 Total Bilirubin (0.2-1.0) mg/dL 0.4 AST (15-37) U/L 14 L ALT (14-59) U/L 23 Alkaline Phosphatase (46-116) U/L 98 Total Protein (6.4-8.2) g/dL 8.2 Albumin (3.4-5.0) g/dL 3.6 Lipase (73-393) U/L 162 Urine Color (Yellow) Yellow Urine Clarity (Clear) Clear Urine pH (5-8) 6.5 Ur Specific [place] (1.005-1.025) <= 1.005 Urine Protein (Negative) mg/dL Negative Urine Ketones (Negative) mg/dL Negative Urine Blood (Negative) Negative Urine Nitrite (Negative) Negative Urine Bilirubin (Negative) Negative Urine Urobilinogen (Up TO 0.2) EU/dL 0.2 Ur Leukocyte Esterase (Negative) Negative Urine Glucose (Negative) mg/dL Negative Range/Units 12/27/18 16:10 WBC (4.4-10.8) k/cumm RBC (4.00-5.20) m/cumm Hgb (12.0-15.5) g/dL Hct (36.0-46.0) % MCV (80-95) fL MCH (27.0-33.0) pg MCHC (32.0-36.0) g/dL RDW (11.7-14.6) % Plt Count (130-400) x1000/uL MPV (8.0-11.0) fL Immature Gran % Neutrophils % Lymphocytes % Monocytes % Eosinophils % Basophils % Absolute Neutrophils (1.2-6.7) k/cumm Absolute Lymphocytes (1.2-3.4) k/cumm Absolute Monocytes (0.11-0.7) k/cumm Absolute Eosinophils (0.0-0.7) k/cumm Absolute Basophils (0.0-0.2) k/cumm PT (9.3-11.0) sec 22.9 H INR (0.9-1.1) 2.3 H APTT (21.0-31.4) sec 32.3 H Sodium (136-145) mmol/L Potassium (3.5-5.1) mmol/L Chloride (98-107) mmol/L Carbon Dioxide (21.0-32.0) mmol/L Anion Gap (3-11) mmol/L BUN (7-18) mg/dL Creatinine (0.55-1.02) mg/dL Estimated GFR/1.73 m2 (mL/min/1.73m2) Glucose (70-100) mg/dL Calcium (8.5-10.1) mg/dL Magnesium (1.8-2.4) mg/dL Total Bilirubin (0.2-1.0) mg/dL AST (15-37) U/L ALT (14-59) U/L Alkaline Phosphatase (46-116) U/L Total Protein (6.4-8.2) g/dL Albumin (3.4-5.0) g/dL Lipase (73-393) U/L Urine Color (Yellow) Urine Clarity (Clear) Urine pH (5-8) Ur Specific [place] (1.005-1.025) Urine Protein (Negative) mg/dL Urine Ketones (Negative) mg/dL Urine Blood (Negative) Urine Nitrite (Negative) Urine Bilirubin (Negative) Urine Urobilinogen (Up TO 0.2) EU/dL Ur Leukocyte Esterase (Negative) Urine Glucose (Negative) mg/dL HPI <Otis Guthrie MD - Last Filed: 12/27/18 14:50> General Mode of arrival: ambulatory. Date/Time Provider Initiated Documentation: 12/27/18 13:33. Limitations to Documentation: no limitations. Information obtained by: patient. History of Present Illness 63 year old F presents to the emergency department with the chief complaint of abdominal pain, described as moderate, Patient started experiencing this week(s) (2) and it has been constant. No relieving factors improve symptom(s), No exacerbating factors reported . Related Data Home Medications Medication Instructions Recorded Confirmed atorvastatin [Lipitor] 80 mg PO HS 06/04/12 12/27/18 clonazepam [Klonopin] 0.5 mg PO PRN PRN 06/04/12 12/27/18 levothyroxine [Synthroid] 88 mcg PO DAILY 06/04/12 12/27/18 losartan 100 mg PO DAILY 06/04/12 12/27/18 pantoprazole [Protonix] 40 mg PO BID 06/04/12 12/27/18 warfarin [Coumadin] 3 mg PO DAILY 06/04/12 12/27/18 metoprolol succinate 25 mg PO DAILY 07/14/12 12/27/18 aspirin [Aspir-81] 1 tab PO DAILY 12/12/13 12/27/18 glipizide 1 tab PO DAILY 12/12/13 12/27/18 acetaminophen [Mapap Extra 2 tab PO PRN PRN 05/01/14 12/27/18 Strength] sucralfate 1 gm PO QID PRN 09/22/15 12/27/18 ferrous sulfate 325 mg PO DAILY 10/04/15 12/27/18 Januvia 100 mg PO DAILY 06/26/16 12/27/18 Allergies Allergy/AdvReac Type Severity Reaction Status Date / Time metformin AdvReac Intermediate Diarrhea Unverified 12/27/18 13:10 fosinopril sodium AdvReac Unknown Coughing Unverified 12/27/18 13:10 [From Monopril] pollen Allergy Mild congestion Uncoded 12/27/18 13:10 General Stated Complaint: Orthopedic CYNTHIA: 4 Review of Systems <Otis Guthrie MD - Last Filed: 12/27/18 14:50> Review of Systems ROS Unobtainable: All systems reviewed & are unremarkable except as noted in HPI and below Constitutional Constitutional: Denies chills, Denies fever(s) and Denies weakness Cardiovascular Cardiovascular: Denies chest pain and Denies dyspnea Respiratory Respiratory: Denies cough and Denies dyspnea Gastrointestinal Gastrointestinal: Denies vomiting Musculoskeletal Musculoskeletal: Denies joint swelling Neurologic Neurologic: Denies weakness PFS <Otis Guthrie MD - Last Filed: 12/27/18 14:50> Social History Smoking/Tobacco Use Status: Never Alcohol Intake: never Drug use: Never Do you feel safe at home: Yes Do you feel safe in your relationship?: Yes Exam <Otis Guthrie MD - Last Filed: 12/27/18 14:50> Const General: no acute distress Orientation: alert [facility] Head: normal to inspection Ears: external ears normal General nose exam: external nose normal Mouth: moist mucous membranes Eyes General: appearance normal, both eyes and all related structures Neck Neck: normal visual inspection Resp Effort & Inspection: normal respiratory effort and able to speak in complete sentences Cardio Rate: regular rate GI Palpation: soft Skin General skin exam: no rashes or lesions noted Neuro General: alert and oriented x3 Extrem General: normal to inspection Psych Mental Status: mental status grossly normal Course <Otis Guthrie MD - Last Filed: 12/27/18 14:50> Vital Signs Vital signs: Vital Signs Temperature 36.6 C 12/27/18 13:06 Pulse 69 12/27/18 13:06 Respiratory Rate 16 12/27/18 13:06 Blood Pressure 130/82 12/27/18 13:06 Pulse Oximetry 100 12/27/18 13:06 Temperature 36.6 C 12/27/18 13:06 Pulse 69 12/27/18 13:06 Respiratory Rate 16 12/27/18 13:06 Respiratory Effort Non-Labored 12/27/18 13:10 Blood Pressure 130/82 12/27/18 13:06 Pulse Oximetry 100 12/27/18 13:06 Oxygen Delivery Method Room Air 12/27/18 13:06 Oxygen Flow Rate 0 12/27/18 13:06 Pain Level 3 12/27/18 13:06 Sign Out <Otis Guthrie MD - Last Filed: 12/27/18 14:50> Sign Out Data: Sign Out Comment: left lower abdominal pain, constipation, follow up on labs and imaging Last updated by Otis Guthrie MD at 12/27/18 14:48
[2018-12-27 16:09] LABS: Bilirubin Negative (Negative); Blood Negative (Negative); Clarity Clear (Clear); Glucose Negative (Negative); Ketones Negative (Negative); Leukocyte Esterase Negative (Negative); Nitrite Negative (Negative); Specific Gravity <= 1.005 (1.005-1.025); Urobilinogen 0.2 EU/dL (Up TO 0.2); pH 6.5 (5-8)
[2018-12-27 16:22] LABS: Abs Immature Grans 0.02 k/cumm (0.0-0.09); Absolute Basophil Count 0.03 k/cumm (0.0-0.2); Absolute Eosinophil Count 0.12 k/cumm (0.0-0.7); Absolute Lymphocyte Count 2.59 k/cumm (1.2-3.4); Absolute Monocyte Count 0.67 k/cumm (0.11-0.7); Absolute Neutrophil Count 5.78 k/cumm (1.2-6.7); Basophils % 0.3; Eosinophils % 1.3; HCT 40.7 % (36.0-46.0); Immature Grans % 0.2; Lymphocytes % 28.1; Mean Corp. HGB Concentration 31.9 g/dL (32.0-36.0); Mean Corpuscular Hemoglobin 26.3 pg (27.0-33.0); Mean Corpuscular Volume 82.2 fL (80-95); Mean Platelet Volume 9.5 fL (8.0-11.0); Monocytes % 7.3; Neutrophils % 62.8; Platelet Count 345 x1000/uL (130-400); RBC 4.95 m/cumm (4.00-5.20); RBC Distribution Width 13.5 % (11.7-14.6); White Blood Cell Count 9.21 k/cumm (4.4-10.8)
[2018-12-27 16:33] LABS: ALT 23 U/L (14-59); AST 14 U/L (15-37); Albumin 3.6 g/dL (3.4-5.0); Alkaline Phosphatase 98 U/L (46-116); Anion Gap 8.5 mmol/L (3-11); BUN 7 mg/dL (7-18); Bilirubin, Total 0.4 mg/dL (0.2-1.0); CO2 29.5 mmol/L (21.0-32.0); Calcium 8.7 mg/dL (8.5-10.1); Chloride 97 mmol/L (98-107); Glucose 140 mg/dL (70-100); Lipase 162 U/L (73-393); Magnesium 1.9 mg/dL (1.8-2.4); Potassium 3.7 mmol/L (3.5-5.1); Sodium 135 mmol/L (136-145); Total Protein 8.2 g/dL (6.4-8.2)
[2018-12-27 16:44] LABS: INR 2.3 (0.9-1.1); PTT Activated 32.3 sec (21.0-31.4); Prothrombin Time 22.9 sec (9.3-11.0)
[2018-12-27] MEDS: Omnipaque 350 MG/ML 100 ML BTL IJ (17:41)
--- NOTE | 2018-12-27 18:10 | DI.VRAD_ITS ---
PROCEDURE INFORMATION: Exam: CT Abdomen And Pelvis With Contrast Exam date and time: 12/27/2018 5:32 PM Clinical history: 63 years old, female; Abdominal pain; Localized; Left lower quadrant (llq); Patient HX: Pain left lower abdomen TECHNIQUE: Imaging protocol: Computed tomography of the abdomen and pelvis with intravenous contrast. COMPARISON: CT CHEST/ABD/PEL W 11/30/2018 7:52 PM FINDINGS: Liver: The liver is unremarkable. Gallbladder and bile ducts: The gallbladder is unremarkable. Pancreas: The pancreas is normal. Spleen: The spleen is normal. Adrenals: No adrenal mass is present. Kidneys and ureters: Again identified is a 4.8 x 2.3 x 3.5 cm angiomyolipoma arising from the lower pole of right kidney in addition to a second 14 mm angiomyolipoma off the lateral lower pole. 3 mm cortical cyst lateral midpole the right kidney without interval change. Left kidney is unremarkable. Stomach and bowel: There is scattered colonic diverticulosis without evidence of diverticulitis. Appendix: No evidence of appendicitis. Intraperitoneal space: Unremarkable. No free air. No significant fluid collection. Vasculature: Unremarkable. No abdominal aortic aneurysm. Lymph nodes: Unremarkable. No enlarged lymph nodes. Bladder: Unremarkable as visualized. Reproductive: 1.9 cm hypodense region in the uterus centrally. A 12 mm cyst in left ovary unchanged from 11/30/2018. Bones/joints: Degenerative changes of the lumbar spine without acute osseous abnormality. Degenerative osteoarthritis of the hips right greater than left. Soft tissues: Unremarkable. IMPRESSION: 1. No acute intra-abdominal abnormality is currently identified. 2. 4.8 x 2.3 x 3.5 cm right renal angiomyolipoma without interval change. Second smaller 14 mm right angiomyolipoma without interval change. 3. Fluid in the central endometrial canal, abnormal in a patient of this age without interval change. Further evaluation is recommended. Dictated and Authenticated by: Getachew Antonio MD. Ordering:LEONORA Berg MD
[2018-12-27 18:53] VITALS: PULSE 70; RESP 16; TEMP 36.6; O2SAT 100
== END 2018-12-27 18:50 | disposition home or self-care (01) ==
PROVIDERS: Emergency Medicine; Emergency Provider Physician Assistant; PCP Family Medicine
DX: R10.32 Left lower quadrant pain (principal); K59.00 Constipation, unspecified; E11.9 Type 2 diabetes mellitus without complications; Z79.01 Long term (current) use of anticoagulants
CPT/HCPCS: 36415; 80053; 83690; 96374; 99285; 74177; 81003; 83735; 85025; 85610; 85730; 99284; J3490

== ENCOUNTER 2019-03-10 02:08 | Outpatient (CLI) | payer MEDICARE, SELFPAY ==
--- NOTE | 2019-03-10 11:30 | DI.RAD_ITS ---
EXAM: XR KNEE RT 3V AP,LAT,GLORY CLINICAL HISTORY: RT KNEE PAIN, M25.561 TECHNIQUE: COMPARISON: XR foot LT complete from 12/05/2017 FINDINGS: Three views were obtained. There may be slight narrowing of the medial tibiofemoral cartilaginous j oint space. There is tiny enthesophyte of the quadriceps tendon attachment on the patella. No other significant bony or soft tissue abnormality seen. IMPRESSION:
== END 2019-03-10 02:28 ==
PROVIDERS: PCP Family Medicine; Visit Provider Specialist/Technologist Athletic Trainer
DX: M25.561 Pain in right knee (principal)
CPT/HCPCS: 73562

== ENCOUNTER 2019-03-10 10:54 | Outpatient (CLI) | payer MEDICARE, SELFPAY ==
[2019-03-10 11:24] LABS: INR 2.7 (0.9-1.1); Prothrombin Time 26.2 sec (9.3-11.0)
== END 2019-03-10 11:14 ==
PROVIDERS: PCP Family Medicine; Visit Provider Family Medicine
DX: I82.890 Acute embolism and thrombosis of other specified veins (principal); Z79.01 Long term (current) use of anticoagulants; M25.561 Pain in right knee
CPT/HCPCS: 36415; 73562; 85610

== ENCOUNTER 2019-03-21 13:24 | Emergency (ER) | payer MEDICARE, SELFPAY ==
[2019-03-21 13:41] VITALS: BP 137/90; PULSE 83; RESP 16; TEMP 36.4; O2SAT 100
--- NOTE | 2019-03-21 14:44 | ED.GENADUL_ITS ---
Discharge Plan Disposition Patient Disposition: HOME Condition: Stable Discharge Details Chief Complaint: GenMedical Clinical Impression: Leg pain, Urinary frequency Primary Care Provider: Jolly Wren V ED Provider: Arleen Shen Home Meds and New Rx's Prescriptions: Continued atorvastatin [Lipitor] 10 MG tablet 80 mg PO HS RF: 0 clonazepam [Klonopin] 0.5 MG tablet 0.5 mg PO PRN PRNRF: 0 pantoprazole [Protonix] 20 MG tablet,delayed release (DR/EC) 40 mg PO BID RF: 0 levothyroxine [Synthroid] 88 MCG tablet 88 mcg PO DAILY RF: 0 warfarin [Coumadin] 5 MG tablet 3 mg PO DAILY RF: 0 losartan 100 MG tablet 100 mg PO DAILY RF: 0 metoprolol succinate 25 MG tablet extended release 24 hr 25 mg PO DAILY RF: 0 glipizide 10 MG tablet 1 tab PO DAILY RF: 0 aspirin [Aspir-81] 81 MG tablet,delayed release (DR/EC) 1 tab PO DAILY RF: 0 acetaminophen [Mapap Extra Strength] 500 MG tablet 2 tab PO PRN PRNRF: 0 ferrous sulfate 325 MG tablet 325 mg PO DAILY RF: 0 sucralfate 1 GM tablet 1 gm PO QID PRNRF: 0 Januvia 100 MG tablet 100 mg PO DAILY RF: 0 Discharge Instructions Instructions: Leg Pain (ED) Additional Instructions: Please return immediately to the emergency department if you develop any new or worsening symptoms, if your condition does not improve as expected, or if you become otherwise concerned. It is extremely important that you call soon as possible to make an appointment to be seen in follow-up for this visit by your primary care doctor and with Dr. Rios. If you are having continued leg pain, please return to the emergency department for repeat ultrasound of your leg in 7 days. Referrals: Jolly Wren MD [Primary Care Provider] - Luis Antonio Rios MD [ [facility] STAFF PHYSICIAN] - Discharge Data Discharge Date/Time-TO BE ENTERED AT DEPARTURE: 03/21/19 16:59 Medical Decision Making Barbara Kruse is a 63 y/o woman with h/o DVT in the past on coumadin presenting to the emergency department with acute on chronic right leg pain, also acute on chronic worsening of urinary frequency. On exam Pt is well and non-toxic appearing, normal gait, mild TTP of the right psoterior calf, + 1 edema b/l lower legs Pt reports as chronic, DP pulses intact and symmetric, feet warm and well perfused. B/l legs neurovascularly intact. Concern for possible DVT, UTI. Exam/hx not c/w cord compression, other vascular emergency, other infectious etiology, acute emergent life/limb threatening process. Plan for UA, screening labs, US. US neg. Labs non-diagnostic. Plan for outpt f/u with PCP, urology, rpt US here in 7 days if leg pain not resolved. I had a lengthy discussion with Patient regarding return to emergency department precautions, home care, and importance of outpatient follow-up. Pt verbalizes understanding of the plan and is amenable. Patient discharged to home with clear plan for outpatient follow-up. All questions were answered. Disposition decision was made weighing the risks and benefits of hospitalization versus outpatient treatment, the risk for further decompensation, and the patient's wishes. Medical Records Medical records reviewed: Yes I reviewed the patient's medical records. Imaging Data Radiologic Study: Attestation: I personally reviewed and interpreted this imaging study as follows: Radiologist's impression: EXAM: US LOWER EXTREMITY VENOUS RT CLINICAL HISTORY: LEG PAIN. TECHNIQUE: Right lower extremity venous ultrasound performed using grayscale, color-flow, and spectral Doppler analysis. COMPARISON: US LOWER EXTREMITY VASCULAR LT from 11/20/2017 FINDINGS: The right common femoral, femoral and popliteal veins demonstrate normal compressibility, augmentation, and color Doppler. The posterior tibial veins are patent.The saphenofemoral junction is unremarkable. There is no evidence of a popliteal cyst. IMPRESSION: No DVT. Lab Data Lab results reviewed: Yes I reviewed the patient's lab results. Labs: Laboratory Tests Range/Units 03/21/19 03/21/19 03/21/19 15:00 15:00 15:00 WBC (4.4-10.8) k/cumm 8.58 RBC (4.00-5.20) m/cumm 5.16 Hgb (12.0-15.5) g/dL 13.7 Hct (36.0-46.0) % 42.0 MCV (80-95) fL 81.4 MCH (27.0-33.0) pg 26.6 L MCHC (32.0-36.0) g/dL 32.6 RDW (11.7-14.6) % 13.7 Plt Count (130-400) x1000/uL 271 MPV (8.0-11.0) fL 9.2 Immature Gran % % 0.1 Neutrophils % 75.5 Lymphocytes % 17.4 Monocytes % 6.1 Eosinophils % 0.7 Basophils % 0.2 Absolute Neutrophils (1.2-6.7) k/cumm 6.48 Absolute Lymphocytes (1.2-3.4) k/cumm 1.49 Absolute Monocytes (0.11-0.7) k/cumm 0.52 Absolute Eosinophils (0.0-0.7) k/cumm 0.06 Absolute Basophils (0.0-0.2) k/cumm 0.02 PT (9.3-11.0) sec 27.2 H INR (0.9-1.1) 2.8 H Sodium (136-145) mmol/L 132 L Potassium (3.5-5.1) mmol/L 4.3 Chloride (98-107) mmol/L 96 L Carbon Dioxide (21.0-32.0) mmol/L 28.4 Anion Gap (3-11) mmol/L 7.6 BUN (7-18) mg/dL 10 Creatinine (0.55-1.02) mg/dL 0.79 Estimated GFR/1.73 m2 (mL/min/1.73m2) >= 60.00 Glucose (74-106) mg/dL 230 H Calcium (8.5-10.1) mg/dL 9.0 Total Bilirubin (0.2-1.0) mg/dL 0.4 AST (15-37) U/L 12 L ALT (14-59) U/L 27 Alkaline Phosphatase (46-116) U/L 92 Total Protein (6.4-8.2) g/dL 8.4 H Albumin (3.4-5.0) g/dL 3.6 Urine Color (Yellow) Urine Clarity (Clear) Urine pH (5-8) Ur Specific [place] (1.005-1.025) Urine Protein (Negative) mg/dL Urine Ketones (Negative) mg/dL Urine Blood (Negative) Urine Nitrite (Negative) Urine Bilirubin (Negative) Urine Urobilinogen (Up TO 0.2) EU/dL Ur Leukocyte Esterase (Negative) Urine Glucose (Negative) mg/dL Range/Units 03/21/19 15:06 WBC (4.4-10.8) k/cumm RBC (4.00-5.20) m/cumm Hgb (12.0-15.5) g/dL Hct (36.0-46.0) % MCV (80-95) fL MCH (27.0-33.0) pg MCHC (32.0-36.0) g/dL RDW (11.7-14.6) % Plt Count (130-400) x1000/uL MPV (8.0-11.0) fL Immature Gran % % Neutrophils % Lymphocytes % Monocytes % Eosinophils % Basophils % Absolute Neutrophils (1.2-6.7) k/cumm Absolute Lymphocytes (1.2-3.4) k/cumm Absolute Monocytes (0.11-0.7) k/cumm Absolute Eosinophils (0.0-0.7) k/cumm Absolute Basophils (0.0-0.2) k/cumm PT (9.3-11.0) sec INR (0.9-1.1) Sodium (136-145) mmol/L Potassium (3.5-5.1) mmol/L Chloride (98-107) mmol/L Carbon Dioxide (21.0-32.0) mmol/L Anion Gap (3-11) mmol/L BUN (7-18) mg/dL Creatinine (0.55-1.02) mg/dL Estimated GFR/1.73 m2 (mL/min/1.73m2) Glucose (74-106) mg/dL Calcium (8.5-10.1) mg/dL Total Bilirubin (0.2-1.0) mg/dL AST (15-37) U/L ALT (14-59) U/L Alkaline Phosphatase (46-116) U/L Total Protein (6.4-8.2) g/dL Albumin (3.4-5.0) g/dL Urine Color (Yellow) Yellow Urine Clarity (Clear) Clear Urine pH (5-8) 6.5 Ur Specific [place] (1.005-1.025) 1.010 Urine Protein (Negative) mg/dL Negative Urine Ketones (Negative) mg/dL Negative Urine Blood (Negative) Negative Urine Nitrite (Negative) Negative Urine Bilirubin (Negative) Negative Urine Urobilinogen (Up TO 0.2) EU/dL 0.2 Ur Leukocyte Esterase (Negative) Negative Urine Glucose (Negative) mg/dL 250 H HPI General Mode of arrival: ambulatory . Date/Time Provider Initiated Documentation: 03/21/19 13:41 . Limitations to Documentation: no limitations . Information obtained by: patient, RN notes reviewed and old records reviewed . HPI Narrative: Barbara Kruse is a 63-year-old woman with history of [id number] diabetes, GERD, hypothyroidism, peripheral vascular disease, DVT in the past on Coumadin presenting to the emergency department with leg pain. Patient reports that she had vein stripping performed in the past, and then underwent physical therapy where a certain type of massage was performed that she was unaware should not have been performed after vein stripping. Patient reports that she has had chronic significant pain in both of her legs since that time which was 2 years ago. Pt reports that over the past few months the chronic pain in her right leg seems to be worsening gradually, and seemed more noticeable than usual in the past few days. Pt also reports that she has been having chronic lower back and lower abdominal pain over the past few months. She has been having increased frequency of urination for the past few weeks, getting up 5-6 times to urinate. No dysuria, no hematuria. Pt reports that this is also chronic but worsening. She denies any other acute pain, fever, cough, SOB, vomiting, diarrhea, leg swelling, rash, focal weakness, numbness. Related Data Home Medications Medication Instructions Recorded Confirmed atorvastatin [Lipitor] 80 mg PO HS 06/04/12 03/21/19 clonazepam [Klonopin] 0.5 mg PO PRN PRN 06/04/12 03/21/19 levothyroxine [Synthroid] 88 mcg PO DAILY 06/04/12 03/21/19 losartan 100 mg PO DAILY 06/04/12 03/21/19 pantoprazole [Protonix] 40 mg PO BID 06/04/12 03/21/19 warfarin [Coumadin] 3 mg PO DAILY 06/04/12 03/21/19 metoprolol succinate 25 mg PO DAILY 07/14/12 03/21/19 aspirin [Aspir-81] 1 tab PO DAILY 12/12/13 03/21/19 glipizide 1 tab PO DAILY 12/12/13 03/21/19 acetaminophen [Mapap Extra 2 tab PO PRN PRN 05/01/14 03/21/19 Strength] sucralfate 1 gm PO QID PRN 09/22/15 03/21/19 ferrous sulfate 325 mg PO DAILY 10/04/15 03/21/19 Januvia 100 mg PO DAILY 06/26/16 03/21/19 Allergies Allergy/AdvReac Type Severity Reaction Status Date / Time metformin AdvReac Intermediate Diarrhea Unverified 03/21/19 13:46 fosinopril sodium AdvReac Unknown Coughing Unverified 03/21/19 13:46 [From Monopril] pollen Allergy Mild congestion Uncoded 03/21/19 13:46 General Stated Complaint: GenMedical CYNTHIA: 4 Review of Systems Narrative: Constitutional: denies fevers Eyes: denies eye pain ENT: denies ear pain, dental pain, sore throat Cardiovascular: denies chest pain Respiratory: denies SOB, cough GI: denies vomiting, diarrhea, reports chronic lower abdominal pain : denies flank pain MSK: denies neck pain, arthralgias, reports chronic low back pain, chronic myalgias b/l legs now worse in right leg Skin: denies rash Neuro: denies headaches, numbness, weakness PFSH Medical History Anxiety Diabetes mellitus type II, non insulin dependent GERD (gastroesophageal reflux disease) Hx of deep venous thrombosis Hyperlipidemia Hypertension Peripheral vascular disease Retinitis pigmentosa of both eyes Social History Smoking/Tobacco Use Status: Never Alcohol Intake: never Drug use: Never Do you feel safe at home: Yes Do you feel safe in your relationship?: Yes Exam Narrative Exam Narrative: Constitutional: well and [id number]-[id number], pleasant, conversing normally HENT: head atraumatic/normocephalic/normal inspection, mucous membranes moist Eyes: conjunctiva normal, sclera normal, pupils 3mm b/l Neck: no stridor, normal ROM, trachea midline Chest: normal inspection Resp: normal work of breathing, LCTAB Cardio: normal rate, normal rhythm, no murmur appreciated GI: abdomen soft, non-tender, non-distended Back: normal inspection, no rash, no lumbar spinal or paraspinal TTP Skin: warm, dry, normal color, no rash Neuro: alert, not altered, grossly non-focal, normal tone, normal gait. Motor 5/5 b/l LEs, normal sensation b/l LEs. Ext: + 1 edema b/l ankles and lower legs, symmetric, Pt reports as chronic and unchanged. Mild TTP of the right posterior calf. No TTP left posterior calf. FROM right hip, knee, and ankle. DP pulses intact and symmetric. No erythema to b/l legs. Psych: normal mood, normal affect, normal behavior Course Vital Signs Vital signs: Vital Signs Temperature 36.4 C L 03/21/19 13:41 Pulse 83 03/21/19 13:41 Respiratory Rate 16 03/21/19 13:41 Blood Pressure 137/90 03/21/19 13:41 Pulse Oximetry 100 03/21/19 13:41 Temperature 36.4 C L 03/21/19 13:41 Temperature Source Skin 03/21/19 13:41 Pulse 83 03/21/19 13:41 Respiratory Rate 16 03/21/19 13:41 Respiratory Effort Non-Labored 03/21/19 13:50 Blood Pressure 137/90 03/21/19 13:41 Blood Pressure Position Sitting 03/21/19 13:41 Pulse Oximetry 100 03/21/19 13:41 Oxygen Delivery Method Room Air 03/21/19 13:41 Oxygen Flow Rate 0 03/21/19 13:41 Pain Level 6 03/21/19 13:41
[2019-03-21 15:06] LABS: Abs Immature Grans 0.01 k/cumm (0.0-0.09); Absolute Basophil Count 0.02 k/cumm (0.0-0.2); Absolute Eosinophil Count 0.06 k/cumm (0.0-0.7); Absolute Lymphocyte Count 1.49 k/cumm (1.2-3.4); Absolute Monocyte Count 0.52 k/cumm (0.11-0.7); Absolute Neutrophil Count 6.48 k/cumm (1.2-6.7); Basophils % 0.2; Eosinophils % 0.7; HGB 13.7 g/dL (12.0-15.5); Immature Grans % 0.1 %; Lymphocytes % 17.4; Mean Corp. HGB Concentration 32.6 g/dL (32.0-36.0); Mean Corpuscular Hemoglobin 26.6 pg (27.0-33.0); Mean Corpuscular Volume 81.4 fL (80-95); Mean Platelet Volume 9.2 fL (8.0-11.0); Monocytes % 6.1; Neutrophils % 75.5; Platelet Count 271 x1000/uL (130-400); RBC 5.16 m/cumm (4.00-5.20); RBC Distribution Width 13.7 % (11.7-14.6); White Blood Cell Count 8.58 k/cumm (4.4-10.8)
[2019-03-21 15:15] LABS: Bilirubin Negative (Negative); Blood Negative (Negative); Clarity Clear (Clear); Glucose 250 mg/dL (Negative); Ketones Negative (Negative); Leukocyte Esterase Negative (Negative); Nitrite Negative (Negative); Urobilinogen 0.2 EU/dL (Up TO 0.2); pH 6.5 (5-8)
[2019-03-21 15:16] LABS: INR 2.8 (0.9-1.1); Prothrombin Time 27.2 sec (9.3-11.0)
[2019-03-21 15:19] LABS: ALT 27 U/L (14-59); AST 12 U/L (15-37); Albumin 3.6 g/dL (3.4-5.0); Alkaline Phosphatase 92 U/L (46-116); Anion Gap 7.6 mmol/L (3-11); BUN 10 mg/dL (7-18); Bilirubin, Total 0.4 mg/dL (0.2-1.0); CO2 28.4 mmol/L (21.0-32.0); CREATININE 0.79 mg/dL (0.55-1.02); Chloride 96 mmol/L (98-107); Glucose 230 mg/dL (74-106); Potassium 4.3 mmol/L (3.5-5.1); Sodium 132 mmol/L (136-145); Total Protein 8.4 g/dL (6.4-8.2)
--- NOTE | 2019-03-21 15:30 | DI.US_ITS ---
EXAM: US LOWER EXTREMITY VENOUS RT CLINICAL HISTORY: LEG PAIN. TECHNIQUE: Right lower extremity venous ultrasound performed using grayscale, color-flow, and spectr al Doppler analysis. COMPARISON: US LOWER EXTREMITY VASCULAR LT from 11/20/2017 FINDINGS: The right common femoral, femoral and popliteal veins demonstrate normal compressibility, augmentatio n, and color Doppler. The posterior tibial veins are patent.The saphenofemoral junction is unremarkab le. There is no evidence of a popliteal cyst. IMPRESSION: No DVT.
[2019-03-21 17:01] VITALS: BP 129/75; PULSE 87; RESP 18; TEMP 36.8; O2SAT 98
--- NOTE | 2019-03-21 17:54 | NUR.NOTE ---
referral [facility], Dr. Rios.Nursing Note:
== END 2019-03-21 16:59 | disposition home or self-care (01) ==
PROVIDERS: Emergency Provider Student in an Organized Health Care Education/Training Program; PCP Family Medicine
DX: M79.604 Pain in right leg (principal); G89.29 Other chronic pain; R35.0 Frequency of micturition; E11.9 Type 2 diabetes mellitus without complications; Z79.84 Long term (current) use of oral hypoglycemic drugs; I10 Essential (primary) hypertension; Z79.01 Long term (current) use of anticoagulants; Z86.718 Personal history of other venous thrombosis and embolism
CPT/HCPCS: 36415; 80053; 99284; 81003; 85025; 85610; 93971

== ENCOUNTER 2019-03-28 01:40 | Outpatient (CLI) | payer MEDICARE, SELFPAY ==
--- NOTE | 2019-03-28 10:53 | DI.MAMMO_ITS ---
EXAM: MAMMO SCREENING CLINICAL HISTORY: SCREENING, [facility], Z00.00 TECHNIQUE: Mammograms were interpreted according to the usual protocol including computer analysis w [employer] CAD system, tomosynthesis and C-view imaging. COMPARISON: July 2017 FINDINGS: The breasts are of moderate density with fairly symmetrical distribution of fibroglandular tissue. N o dominant mass or clumped microcalcification is identified in either breast. Current examination is compared with previous examinations including July 2017 and there has been no gross interval change i n appearance in comparison with the previous studies. IMPRESSION: No specific evidence of malignancy at this time. Routine screening examinations are suggested at year ly intervals in this age group according to the ACS/ACR guidelines. Category 1, breast density catego ry B. BI-RADS Cat 1 - Negative Breast Density - Category B - Scattered areas of fibroglandular density
== END 2019-03-28 02:00 ==
PROVIDERS: PCP Family Medicine; Visit Provider Family Medicine
DX: Z12.31 Encounter for screening mammogram for malignant neoplasm of breast (principal)
CPT/HCPCS: 77063; 77067

== ENCOUNTER 2019-09-07 13:55 | Outpatient (REF) | payer MEDICARE, SELFPAY | END 2019-09-07 14:15 | LOC: NCHCN 13:55 | PROVIDERS: PCP Family Medicine; Visit Provider Physician Assistant Medical | DX: R31.9 Hematuria, unspecified (principal) | CPT/HCPCS: 87077; 87086; 87186 ==

== ENCOUNTER 2019-09-12 14:41 | Outpatient (REF) | payer MEDICARE, SELFPAY | END 2019-09-12 15:01 | LOC: NCHCN 14:41 | PROVIDERS: PCP Family Medicine; Visit Provider Physician Assistant Medical | DX: N39.0 Urinary tract infection, site not specified (principal) | CPT/HCPCS: 87077; 87086; 87186 ==

== ENCOUNTER 2019-10-08 13:11 | Emergency (ER) | payer MEDICARE, SELFPAY ==
--- NOTE | 2019-10-08 13:15 | RT.EKG_ITS ---
APPROVED REPORT Exam: Resting ECG Patient Location: E HR:73 bpm ECG Measurements Heart Rate 73 AXIS NC 212 P 42 QRSd 85 QRS 18 QT 383 T 45 QTc 421 <Conclusion> Sinus rhythm, rate 73, qrs narrow, no st elev..
[2019-10-08 13:17] VITALS: BP 166/82; PULSE 79; TEMP 37; O2SAT 96
--- NOTE | 2019-10-08 13:35 | W.ED.GENAD ---
Discharge Plan Disposition Patient Disposition: HOME Condition: Improving Discharge Details Chief Complaint: GenMedical Clinical Impression: Acute UTI Primary Care Provider: Jolly Wren V ED Provider: Seven Bradley Home Meds and New Rx's Prescriptions: New cephalexin 500 mg capsule 500 mg PO TID 7 Days Qty: 21 RF: 0 Continued atorvastatin [Lipitor] 10 MG tablet 80 mg PO HS RF: 0 clonazepam [Klonopin] 0.5 MG tablet 0.5 mg PO PRN PRNRF: 0 pantoprazole [Protonix] 20 MG tablet,delayed release (DR/EC) 40 mg PO BID RF: 0 levothyroxine [Synthroid] 88 MCG tablet 88 mcg PO DAILY RF: 0 warfarin [Coumadin] 5 MG tablet 3 mg PO DAILY RF: 0 losartan 100 MG tablet 100 mg PO DAILY RF: 0 metoprolol succinate 25 MG tablet extended release 24 hr 50 mg PO DAILY RF: 0 glipizide 10 MG tablet 1 tab PO DAILY RF: 0 aspirin [Aspir-81] 81 MG tablet,delayed release (DR/EC) 1 tab PO DAILY RF: 0 acetaminophen [Mapap Extra Strength] 500 MG tablet 2 tab PO PRN PRNRF: 0 ferrous sulfate 325 MG tablet 325 mg PO DAILY RF: 0 Januvia 100 MG tablet 100 mg PO DAILY RF: 0 fluticasone propionate [Flonase Allergy Relief] 50 mcg/actuation [place],Suspension 1 spray INTRANASAL BID RF: 0 Discharge Instructions Instructions: Urinary Tract Infection in Women (ED) Additional Instructions: Please stop the previously prescribed amoxicillin. We will start Keflex beginning now initially take this medication 3 times daily. Prescription will start tomorrow. We will ask care management to make you a follow-up appointment at [facility] for recheck. Home to rest today. Continue normal routine and activities. Medical Decision Making 64-year-old female presents from home with a number of complaints. She states she had a recent urinary tract infection for which she required 2 rounds of antibiotics that she did finish this week. I reviewed her clinic records which notes that she has a Proteus UTI that was not sensitive to nitrofurantoin and was subsequently changed to amoxicillin (also sensitive to cephalosporins). She has now had 2 days of nausea, lightheadedness, mild malaise with associated headache at home that she states is now improved. She also states she contused her right foot by dropping pet/baby gate on it. She was not injured in any other way. Blood pressure 166/82, pulse 79, afebrile. She is alert and interactive in no acute distress. Her exam is reassuring. There is minimal tenderness along the right lateral foot border. Differential diagnosis includes dehydration, electrolyte abnormalities, recurrent urinary tract infection. Must exclude underlying bony foot injury. Patient IV access established, given small fluid bolus and antiemetic. She was referred for laboratory testing and right foot x-ray. Given her anticoagulation and complaint of mild headache she also was referred for CT scan of the head. Laboratories reviewed. INR is 3.0, she has chronic hyponatremia and today her sodium is 129. Remainder of chemistries essentially reassuring with a negative troponin. Urinalysis: Positive leuk esterase, micro urinalysis with 10-20 white blood cells, few epithelial cells. CT scan of the head unremarkable. X-ray of the foot without evidence of bony abnormality. Consistent with persistent UTI. Given the increase of the INR to 3.0 while on amoxicillin I will switch her to Keflex as the previous urine culture is sensitive to cephalosporins. Discussed with her plan of care and anticipated course of resolution. She is stable for discharge home at this time and we will ask care management to arrange outpatient follow-up in clinic at [facility] for her. Lab Data Lab results reviewed: Yes I reviewed the patient's lab results. Labs: Laboratory Results - last 24 hr 10/08/19 10/08/19 10/08/19 13:35 13:35 13:35 WBC 8.68 RBC 4.68 Hgb 12.6 Hct 38.5 MCV 82.3 MCH 26.9 L MCHC 32.7 RDW 12.8 Plt Count 274 MPV 9.3 Immature Gran % 0.5 Neutrophils % 79.9 Lymphocytes % 12.9 Monocytes % 5.5 Eosinophils % 1.0 Basophils % 0.2 Absolute Neutrophils 6.93 H Absolute Lymphocytes 1.12 L Absolute Monocytes 0.48 Absolute Eosinophils 0.09 Absolute Basophils 0.02 PT 29.5 H INR 3.0 H Sodium 129 L Potassium 4.2 Chloride 94 L Carbon Dioxide 26.8 Anion Gap 8.2 BUN 14 Creatinine 0.85 Estimated GFR/1.73 m2 >= 60.00 Glucose 213 H Calcium 8.7 Total Bilirubin 0.4 AST 16 ALT 26 Alkaline Phosphatase 85 Troponin I Total Protein 7.8 Albumin 3.5 10/08/19 13:35 WBC RBC Hgb Hct MCV MCH MCHC RDW Plt Count MPV Immature Gran % Neutrophils % Lymphocytes % Monocytes % Eosinophils % Basophils % Absolute Neutrophils Absolute Lymphocytes Absolute Monocytes Absolute Eosinophils Absolute Basophils PT INR Sodium Potassium Chloride Carbon Dioxide Anion Gap BUN Creatinine Estimated GFR/1.73 m2 Glucose Calcium Total Bilirubin AST ALT Alkaline Phosphatase Troponin I < 0.05 Total Protein Albumin HPI General Mode of arrival: ambulatory. Date/Time Provider Initiated Documentation: 10/08/19 13:21. Limitations to Documentation: no limitations. Information obtained by: patient. History of Present Illness 64 year old F presents to the emergency department with the chief complaint of Nausea, lightheadedness, mild headache, right foot pain, described as moderate, Quality is described as dull, and is localized to the right and lower extremity. Patient started experiencing this day(s) and it has been intermittent. No relieving factors improve symptom(s), No exacerbating factors reported . Patient notes loss of appetite and other (No vomiting. No fever. No chest pain. Mild headache that is now resolved. Denies fall or weakness.). Patient did receive the following treatments prior to arrival, none Related Data Home Medications Medication Instructions Recorded Confirmed atorvastatin [Lipitor] 80 mg PO HS 06/04/12 10/08/19 clonazepam [Klonopin] 0.5 mg PO PRN PRN 06/04/12 10/08/19 levothyroxine [Synthroid] 88 mcg PO DAILY 06/04/12 10/08/19 losartan 100 mg PO DAILY 06/04/12 10/08/19 pantoprazole [Protonix] 40 mg PO BID 06/04/12 10/08/19 warfarin [Coumadin] 3 mg PO DAILY 06/04/12 10/08/19 metoprolol succinate 50 mg PO DAILY 07/14/12 10/08/19 aspirin [Aspir-81] 1 tab PO DAILY 12/12/13 10/08/19 glipizide 1 tab PO DAILY 12/12/13 10/08/19 acetaminophen [Mapap Extra 2 tab PO PRN PRN 05/01/14 10/08/19 Strength] ferrous sulfate 325 mg PO DAILY 10/04/15 10/08/19 Januvia 100 mg PO DAILY 04/20/17 08/01/20 cephalexin 500 mg PO TID 7 Days #21 cap 10/08/19 fluticasone propionate [Flonase 1 spray INTRANASAL BID 10/08/19 10/08/19 Allergy Relief] Previous Rx's Medication Instructions Recorded cephalexin 500 mg PO TID 7 Days #21 cap 10/08/19 Allergies Allergy/AdvReac Type Severity Reaction Status Date / Time metformin AdvReac Intermediate Diarrhea Unverified 10/08/19 13:27 fosinopril sodium AdvReac Unknown Coughing Unverified 10/08/19 13:27 [From Monopril] pollen Allergy Mild congestion Uncoded 10/08/19 13:27 General Stated Complaint: GenMedical CYNTHIA: 3 Review of Systems Narrative: Completed antibiotics for urinary tract infection this week. No fever, chills, vomiting. Positive nausea. Denies fall or injury. Mild headache that she states now improved. 8 systems reviewed and otherwise negative [facility] Medical History Anxiety Diabetes mellitus type II, non insulin dependent GERD (gastroesophageal reflux disease) Hx of deep venous thrombosis Hyperlipidemia Hypertension Peripheral vascular disease Retinitis pigmentosa of both eyes Surgical History Ligation of fallopian tube Thyroid pt reports partial removal of thyroid Vascular Surgery vein stripping. Social History Smoking/Tobacco Use Status: Never Alcohol Intake: never Drug use: Never Substance use type: does not use Do you feel safe at home: Yes Do you feel safe in your relationship?: Yes Exam Narrative Exam Narrative: GEN: awake, alert, oriented 3. Pleasant, well groomed, interactive. HEAD: Normocephalic, atraumatic ENT: Mucous membranes moist, oropharynx unremarkable, External ear exam unremarkable EYES: PERRL, EOMI NECK: Full ROM, no FAITH, no menigismus CHEST/RESP: Nontender, clear to auscultation bilateral, no wheeze/rhonchi/rales CARDIOVASCULAR: RRR, no murmur, rub stephenie. 2+ Rad pulse bilateral ABDOMEN: Soft, nontender, no mass. +Bowel sounds EXT: Full ROM, no edema, no rash. Mild tenderness right lateral foot. Neuro: Grossly normal neurologic exam, conversant, interactive. Psych: Speech fluent, thoughts congruent, affect normal Course Vital Signs Vital signs: Vital Signs Temperature 37.0 C 10/08/19 13:17 Pulse 79 10/08/19 13:17 Blood Pressure 166/82 H 10/08/19 13:17 Pulse Oximetry 96 10/08/19 13:17 Temperature 37.0 C 10/08/19 13:17 Temperature Source Temporal Artery Scan 10/08/19 13:17 Pulse 79 10/08/19 13:17 Respiratory Effort Non-Labored 10/08/19 13:25 Blood Pressure 166/82 H 10/08/19 13:17 Blood Pressure Position Supine 10/08/19 13:17 Pulse Oximetry 96 10/08/19 13:17 Oxygen Delivery Method Room Air 10/08/19 13:17 Oxygen Flow Rate 0 10/08/19 13:17 Pain Level 8 10/08/19 13:17 Procedures Abscess I/D Amount of anesthesia used (mL): 1 Amount of fluid expressed (mL): 1.5
[2019-10-08 13:46] LABS: Abs Immature Grans 0.04 10^3/uL (0.0-0.06); Absolute Basophil Count 0.02 10^3/uL (0.0-0.2); Absolute Eosinophil Count 0.09 10^3/uL (0.0-0.7); Absolute Lymphocyte Count 1.12 10^3/uL (1.2-3.4); Absolute Monocyte Count 0.48 10^3/uL (0.1-0.8); Absolute Neutrophil Count 6.93 10^3/uL (1.2-6.7); Basophils % 0.2; HCT 38.5 % (36.0-46.0); HGB 12.6 g/dL (11.2-15.7); Immature Grans % 0.5; Lymphocytes % 12.9; MCH 26.9 pg (27.0-33.0); MCHC 32.7 % (32.0-36.0); MCV 82.3 fL (80-95); MPV 9.3 fL (8.0-11.0); Monocytes % 5.5; Neutrophils % 79.9; Platelet Count 274 10^3/uL (130-400); RBC 4.68 10^6/uL (3.93-5.22); RDW 12.8 % (11.7-14.6); RDW-SD 38.5 fL; WBC 8.68 10^3/uL (4.4-10.8)
[2019-10-08] MEDS: Normal Saline 500 ML IV (13:46)
[2019-10-08 13:56] LABS: Prothrombin Time 29.5 sec (9.3-11.0)
[2019-10-08 14:01] LABS: ALT 26 U/L (14-59); AST 16 U/L (15-37); Albumin 3.5 g/dL (3.4-5.0); Alkaline Phosphatase 85 U/L (46-116); Anion Gap 8.2 mmol/L (3-11); BUN 14 mg/dL (7-18); Bilirubin, Total 0.4 mg/dL (0.2-1.0); CO2 26.8 mmol/L (21.0-32.0); CREATININE 0.85 mg/dL (0.55-1.02); Calcium 8.7 mg/dL (8.5-10.1); Chloride 94 mmol/L (98-107); Glucose 213 mg/dL (74-106); Potassium 4.2 mmol/L (3.5-5.1); Sodium 129 mmol/L (136-145); Total Protein 7.8 g/dL (6.4-8.2)
[2019-10-08 14:04] LABS: Troponin I < 0.05 ng/mL (<0.06)
--- NOTE | 2019-10-08 14:05 | DI.RAD_ITS ---
EXAM: XR FOOT RT COMPLETE CLINICAL HISTORY: lateral pain after blunt trauma TECHNIQUE: COMPARISON: CR XR foot LT complete from 12/05/2017 FINDINGS: Three views were obtained. There is no evidence of fracture or dislocation. IMPRESSION:
--- NOTE | 2019-10-08 14:05 | DI.CT_ITS ---
EXAM: CT HEAD WO CLINICAL HISTORY: anticoagulated, + headache. TECHNIQUE: Imaging Protocol: Axial computed tomography images with coronal and sagittal reformatted images were created and reviewed COMPARISON: CT CT HEAD CERVICAL SPINE WO from 11/30/2018 FINDINGS: The ventricular system is normal in appearance. No evidence of acute intracranial hemorrhage, mass effect, or midline shift. The orbital structures are unremarkable. The temporal bone structures appear intact. Calvarium: Normal. Visualized Paranasal sinuses/Mastoids: Clear. IMPRESSION: Normal cranial CT. RADIATION DOSE DELIVERED: 706.47mGy.cm Total DLP DATA REPOSITORY: All CT scans at this facility are submitted to the National Radiology Data Registry (NRDR) Dose Index Registry (DIR) with the [employer] (ACR). RADIATION OPTIMIZATION: All CT scans at this facility use at least one of these dose optimization te chniques: automated exposure control; mA and/or kV adjustment per patient size (includes targeted exa ms where dose is matched to clinical indication); or iterative reconstruction.
--- NOTE | 2019-10-08 14:13 | DI.VRAD_ITS ---
PROCEDURE INFORMATION: Exam: XR Right Foot Complete Exam date and time: 10/08/2019 2:02 PM Age: 64 years old Clinical indication: Patient HX: Lateral pain after blunt trauma to right foot. TECHNIQUE: Imaging protocol: XR Right foot. Views: 3 or more views. COMPARISON: No relevant prior studies available. FINDINGS: The bony structures are in anatomic alignment. No fracture is present. No radiopaque foreign body is identified. The joint spaces are well maintained. IMPRESSION: No evidence of acute bony abnormality. Dictated and Authenticated by: Nate Contreras MD. Ordering:PILAR Amezcua MD
--- NOTE | 2019-10-08 14:17 | DI.VRAD_ITS ---
PROCEDURE INFORMATION: Exam: CT Head Without Contrast Exam date and time: 10/08/2019 1:57 PM Age: 64 years old Clinical indication: Injury or trauma; Initial encounter; Blunt trauma (contusions or hematomas); Consciousness not specified; Injury date: Unknown; Injury details: Fall, headache, on anticoagulants. TECHNIQUE: Imaging protocol: Computed tomography of the head without contrast. Radiation optimization: All CT scans at this facility use at least one of these dose optimization techniques: automated exposure control; mA and/or kV adjustment per patient size (includes targeted exams where dose is matched to clinical indication); or iterative reconstruction. COMPARISON: CT HEAD CERVICAL SPINE WO 11/30/2018 7:38 PM FINDINGS: No evidence of hemorrhage. No mass effect. No acute intracranial abnormality. No evidence of acute fracture. IMPRESSION: No evidence of acute intracranial process. Dictated and Authenticated by: Nate Contreras MD. Ordering:PILAR Amezcua MD
[2019-10-08 14:50] LABS: Bilirubin Negative (Negative); Blood Negative (Negative); Clarity Clear (Clear); Glucose Negative (Negative); Ketones Negative (Negative); Leukocyte Esterase Trace (Negative); Nitrite Negative (Negative); Specific Gravity 1.015 (1.005-1.025); Urobilinogen 0.2 EU/dL (Up TO 0.2)
[2019-10-08 15:01] LABS: Bacteria Rare HPF (Negative); C & S Indicated? Yes; Casts Negative LPF (Negative); Crystals Negative HPF (Negative); Epithelial Cells Few HPF (Negative); Mucus Negative (Negative); Other Cells Rare Renal (Negative); RBC Negative HPF (0-2)
--- NOTE | 2019-10-08 15:43 | NUR.NOTE ---
Referral faxed to [facility], Dr Wren PCP. Nursing Note:
[2019-10-08 15:56] VITALS: RESP 18
[2019-10-08] MEDS: Cephalexin 500 MG CAP, 4 CAPS/BTL PO (15:56)
== END 2019-10-08 15:53 | disposition home or self-care (01) ==
PROVIDERS: Emergency Provider Emergency Medicine; PCP Family Medicine
DX: N39.0 Urinary tract infection, site not specified (principal); R11.0 Nausea; R42 Dizziness and giddiness; R51 Headache; S90.31XA Contusion of right foot, initial encounter; W20.8XXA Other cause of strike by thrown, projected or falling object, initial encounter; Z79.01 Long term (current) use of anticoagulants; Z86.718 Personal history of other venous thrombosis and embolism; Z87.440 Personal history of urinary (tract) infections; E11.9 Type 2 diabetes mellitus without complications; Z79.84 Long term (current) use of oral hypoglycemic drugs; I10 Essential (primary) hypertension
CPT/HCPCS: 36415; 36416; 80053; 82962; 93005; 96360; 99285; 70450; 73630; 81003; 81015; 84484; 85025; 85610; 87070; 87086; 87205; 93010

== ENCOUNTER 2019-10-12 11:11 | Outpatient (REF) | payer MEDICARE, SELFPAY | END 2019-10-12 11:31 | LOC: NCHCN 11:11 | PROVIDERS: PCP Family Medicine; Visit Provider Family Medicine | DX: R30.0 Dysuria (principal) | CPT/HCPCS: 87086 ==

== ENCOUNTER 2019-12-01 13:15 | Outpatient (REF) | payer MEDICARE, SELFPAY ==
[2019-12-03 18:08] LABS: Patient Race White; SARS-CoV-2 RNA Undetected (Undetected); SARS-CoV-2 Specimen Source Nasal
== END 2019-12-01 13:35 ==
LOC: NCHCN 13:15
PROVIDERS: PCP Family Medicine; Visit Provider Nurse Practitioner Family
DX: Z20.828 Contact with and (suspected) exposure to other viral communicable diseases (principal)
CPT/HCPCS: U0003

== ENCOUNTER 2019-12-05 18:56 | Outpatient (REF) | payer MEDICARE, SELFPAY | END 2019-12-05 19:16 | LOC: NCHCN 18:56 | PROVIDERS: PCP Family Medicine; Visit Provider Family Medicine | DX: N39.0 Urinary tract infection, site not specified (principal) | CPT/HCPCS: 87086 ==

== ENCOUNTER 2019-12-15 15:16 | Outpatient (REF) | payer MEDICARE, SELFPAY | END 2019-12-15 15:36 | LOC: NCHCN 15:16 | PROVIDERS: PCP Family Medicine; Visit Provider Family Medicine | DX: N39.0 Urinary tract infection, site not specified (principal); N32.81 Overactive bladder | CPT/HCPCS: 87086 ==

== ENCOUNTER 2020-01-08 11:16 | Emergency (ER) | payer MEDICARE, SELFPAY ==
--- NOTE | 2020-01-08 11:20 | ED.GENADUL_ITS ---
Discharge Plan Disposition Patient Disposition: HOME Condition: Good Discharge Details Clinical Impression: PND (post-nasal drip) Primary Care Provider: Jolly Wren V ED Provider: Traci Gandhi Home Meds and New Rx's Prescriptions: Continued atorvastatin [Lipitor] 10 MG tablet 80 mg PO HS RF: 0 clonazepam [Klonopin] 0.5 MG tablet 0.5 mg PO PRN PRNRF: 0 pantoprazole [Protonix] 20 MG tablet,delayed release (DR/EC) 40 mg PO BID RF: 0 levothyroxine [Synthroid] 88 MCG tablet 88 mcg PO DAILY RF: 0 warfarin [Coumadin] 5 MG tablet 3 mg PO DAILY RF: 0 losartan 100 MG tablet 100 mg PO DAILY RF: 0 metoprolol succinate 25 MG tablet extended release 24 hr 50 mg PO DAILY RF: 0 glipizide 10 MG tablet 1 tab PO DAILY RF: 0 aspirin [Aspir-81] 81 MG tablet,delayed release (DR/EC) 1 tab PO DAILY RF: 0 acetaminophen [Mapap Extra Strength] 500 MG tablet 2 tab PO PRN PRNRF: 0 ferrous sulfate 325 MG tablet 325 mg PO DAILY RF: 0 Januvia 100 MG tablet 100 mg PO DAILY RF: 0 fluticasone propionate [Flonase Allergy Relief] 50 mcg/actuation [place],Suspension 1 spray INTRANASAL BID RF: 0 Discharge Instructions Instructions: Postnasal Drip (DC) Additional Instructions: Please increase your water intake. You may continue with Tylenol as needed discomfort. Your exam is most consistent with postnasal drip. Please continue with your allergy medication. You may also use nasal saline to help with symptomatic management. Your exam is not consistent with a bacterial infection and is otherwise reassuring. Please follow-up with your primary care if not improved in the next 1 to 2 weeks. If you develop fever/chills, increased pain, inability to hydrate or other new/worsening symptom please seek care urgently once again. Covid testing is pending. Please quarantine until these results are back. Stand Alone Forms: PENDING COVID-19 TESTING Referrals: Jolly Wren MD [Primary Care Provider] - Medical Decision Making Patient is a pleasant 64-year-old female presented with chief complaint of sore throat. She reports this began several days ago. Describes this as burning sensation with something dripping down my throat. States that she has had postnasal drip in the past but this feels quite similar. She denies fevers or chills. No sinus discomfort. States that she has been clearing her throat frequently but no true cough or chest congestion. No GI upset. On exam, patient is resting comfortably. She is notably hypertensive and has not taken her antihypertensive medication this morning. She has some cobblestoning the posterior pharynx exam is otherwise unremarkable. No evidence to suggest a bacterial infection. Patient I discussed [id number] home remedies that may help with symptomatic management. Encourage follow-up with primary care. She does have a sore throat concerned she would not be able to be seen by her primary without Covid testing, we will obtain COVID-19 testing today. She will quarantine until results are back. Return precautions were discussed. All of her questions and concerns were addressed and she is in agreement with this plan. HPI General Mode of arrival: ambulatory . Date/Time Provider Initiated Documentation: 01/08/20 11:18 . Limitations to Documentation: no limitations . Information obtained by: patient and RN notes reviewed . History of Present Illness 64 year old F presents to the emergency department with the chief co mplaint of sore throat, feels like she is having something running down her throat, described as moderate, with intensity rated at 5. Quality is described as burning, and is localized to the mouth (throat). Patient reports no radiation. Patient started experiencing this day(s) and it has been constant. No relieving factors improve symptom(s), No exacerbating factors reported . Patient notes no other symptoms.. Patient did receive the following treatments prior to arrival, none Related Data Home Medications Medication Instructions Recorded Confirmed atorvastatin [Lipitor] 80 mg PO HS 06/04/12 01/08/20 clonazepam [Klonopin] 0.5 mg PO PRN PRN 06/04/12 01/08/20 levothyroxine [Synthroid] 88 mcg PO DAILY 06/04/12 01/08/20 losartan 100 mg PO DAILY 06/04/12 01/08/20 pantoprazole [Protonix] 40 mg PO BID 06/04/12 01/08/20 warfarin [Coumadin] 3 mg PO DAILY 06/04/12 01/08/20 metoprolol succinate 50 mg PO DAILY 07/14/12 01/08/20 aspirin [Aspir-81] 1 tab PO DAILY 12/12/13 01/08/20 glipizide 1 tab PO DAILY 12/12/13 01/08/20 acetaminophen [Mapap Extra 2 tab PO PRN PRN 05/01/14 01/08/20 Strength] ferrous sulfate 325 mg PO DAILY 10/04/15 01/08/20 Januvia 100 mg PO DAILY 06/26/16 01/08/20 fluticasone propionate [Flonase 1 spray INTRANASAL BID 10/08/19 01/08/20 Allergy Relief] Allergies Allergy/AdvReac Type Severity Reaction Status Date / Time metformin AdvReac Intermediate Diarrhea Unverified 01/08/20 11:29 fosinopril sodium AdvReac Unknown Coughing Unverified 01/08/20 11:29 [From Monopril] pollen Allergy Mild congestion Uncoded 01/08/20 11:29 General CYNTHIA: 3 Review of Systems Constitutional Constitutional: Reports as per HPI, Denies chills, Denies fever(s) and Denies headache(s) Eyes Eyes: Reports as per HPI, Denies eye discharge and Denies irritation ENT Ears, Nose, Mouth, and Throat: Reports as per HPI and Denies headache(s) Cardiovascular Cardiovascular: Reports as per HPI, Denies chest pain and Denies dyspnea Respiratory Respiratory: Reports as per HPI, Denies chest congestion, Reports cough (states she clears her throat b/c of her PND) and Denies dyspnea Gastrointestinal Gastrointestinal: Reports as per HPI, Denies abdominal pain, Denies change in bowel habits, Denies nausea and Denies vomiting Integumentary/Breasts Skin/Breast: Reports as per HPI and Denies rash Neurologic Neurologic: Reports as per HPI and Denies headache(s) [facility] Medical History (Updated 01/08/20 @ 11:52 by FRANCISCO Shearer) Anxiety Diabetes mellitus type II, non insulin dependent GERD (gastroesophageal reflux disease) Hx of deep venous thrombosis Hyperlipidemia Hypertension Peripheral vascular disease Retinitis pigmentosa of both eyes Surgical History Ligation of fallopian tube Thyroid pt reports partial removal of thyroid Vascular Surgery vein stripping. Social History Smoking/Tobacco Use Status: Never Smoking risk assessment performed?: Yes Alcohol Intake: never Drug use: Never Substance use type: does not use Do you feel safe at home: Yes Do you feel safe in your relationship?: Yes Exam Const General: cooperative, healthy appearing, comfortable, no acute distress, well developed and well groomed Nutritional Appearance: well nourished and obese Orientation: alert and awake [facility] Head: normal to inspection, normocephalic and atraumatic Ears: hearing grossly normal bilaterally, external ears normal and TM's normal bilaterally General nose exam: external nose normal and nares normal Face and sinus: normal facial exam, sinuses nontender and face symmetric Mouth: oral mucosae normal, lip normal, tongue normal, oropharynx normal and moist mucous membranes Teeth and gingiva: dentition normal Throat: posterior oropharynx abnormal (cobblestoning noted, no erythema or swelling), uvula midline and tonsils absent Eyes General: appearance normal, both eyes and all related structures (patient is blind) Neck Neck: normal visual inspection, full ROM, no lymphadenopathy, no meningeal signs, trachea midline, supple and no lymphadenopathy noted Resp Effort & Inspection: normal respiratory effort, able to speak in complete sentences and no respiratory distress Auscultation: clear to auscultation bilaterally, no rales, no rhonchi and no wheezes Cardio Rate: regular rate Rhythm: regular rhythm Heart Sounds: S1 normal and S2 normal Skin General skin exam: no rashes or lesions noted Neuro General: patient alert and patient awake Cognition: normal cognition Speech: speech normal Gait: normal gait Psych Appearance: grossly normal and well kempt Mental Status: mental status grossly normal Speech and Movement: speech and movement normal
[2020-01-08 11:24] VITALS: BP 165/87; PULSE 94; RESP 16; TEMP 36.3; O2SAT 97
[2020-01-08 12:00] VITALS: BP 145/92; PULSE 81; RESP 18; O2SAT 98
[2020-01-08 12:03] VITALS: BP 145/92; PULSE 81; RESP 18; O2SAT 98
[2020-01-11 04:58] LABS: Patient Race White; SARS-CoV-2 RNA Undetected (Undetected); SARS-CoV-2 Specimen Source Nasal
--- NOTE | 2020-01-11 13:06 | NUR.NOTE ---
Pt called with negative Covid result--pt verbalizes understanding.Nursing Note:
== END 2020-01-08 12:06 | disposition home or self-care (01) ==
PROVIDERS: Emergency Provider Physician Assistant; PCP Family Medicine
DX: R09.82 Postnasal drip (principal); Z03.818 Encounter for observation for suspected exposure to other biological agents ruled out; I10 Essential (primary) hypertension; E11.9 Type 2 diabetes mellitus without complications; Z79.84 Long term (current) use of oral hypoglycemic drugs
CPT/HCPCS: 99282; U0003

== ENCOUNTER 2020-02-10 15:53 | Emergency (ER) | payer MEDICARE, SELFPAY ==
[2020-02-10 16:01] VITALS: BP 176/100; PULSE 77; RESP 16; TEMP 36.6; O2SAT 99
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
--- NOTE | 2020-02-10 16:18 | ED.GENADUL_ITS ---
Discharge Plan Disposition Patient Disposition: HOME Condition: Stable Discharge Details Clinical Impression: Acute head trauma Primary Care Provider: Jolly Wren V ED Provider: Warren Shen Home Meds and New Rx's Prescriptions: Continued atorvastatin [Lipitor] 10 MG tablet 80 mg PO HS RF: 0 clonazepam [Klonopin] 0.5 MG tablet 0.5 mg PO PRN PRNRF: 0 pantoprazole [Protonix] 20 MG tablet,delayed release (DR/EC) 40 mg PO BID RF: 0 levothyroxine [Synthroid] 88 MCG tablet 88 mcg PO DAILY RF: 0 warfarin [Coumadin] 5 MG tablet 3 mg PO QHS RF: 0 losartan 100 MG tablet 100 mg PO DAILY RF: 0 metoprolol succinate 25 MG tablet extended release 24 hr 50 mg PO DAILY RF: 0 glipizide 10 MG tablet 1 tab PO DAILY RF: 0 acetaminophen [Mapap Extra Strength] 500 MG tablet 2 tab PO PRN PRNRF: 0 ferrous sulfate 325 MG tablet 325 mg PO DAILY RF: 0 Januvia 100 MG tablet 100 mg PO DAILY RF: 0 fluticasone propionate [Flonase Allergy Relief] 50 mcg/actuation [place],Suspension 1 spray INTRANASAL BID RF: 0 Discharge Instructions Instructions: Head Injury (ED) Additional Instructions: Please contact your primary care physician to arrange follow-up. Return to the ER for any worsening or new concerning symptoms. Referrals: Jolly Wren MD [Primary Care Provider] - Discharge Data Discharge Date/Time-TO BE ENTERED AT DEPARTURE: 02/10/20 17:45 Medical Decision Making 64-year-old female on Coumadin here 3 days after head injury with headache. Consider acute life-threatening intracranial traumatic hemorrhage. Will obtain CT of the head. Patient notes recent therapeutic INR. CT head interpreted by radiology: negative. Medical screening exam was performed and patient stable. Usual and customary discharge instructions were reviewed with the patient. HPI General Mode of arrival: ambulatory . Date/Time Provider Initiated Documentation: 02/10/20 16:05 . Limitations to Documentation: no limitations . Information obtained by: patient . HPI Narrative: 64-year-old female with multiple medical problems, on Coumadin, here with frontal headache 3 days after impacting forehead on door. Patient notes she accidentally walked into the door. Significant impact. Pain is moderate and described as a throbbing with no modifiers. No visual changes. No other injury. Patient went to primary care physician yesterday and had an INR checked in the office was 2.9. Related Data Home Medications Medication Instructions Recorded Confirmed atorvastatin [Lipitor] 80 mg PO HS 06/04/12 02/15/20 clonazepam [Klonopin] 0.5 mg PO PRN PRN 06/04/12 02/15/20 levothyroxine [Synthroid] 88 mcg PO DAILY 06/04/12 02/15/20 losartan 100 mg PO DAILY 06/04/12 02/15/20 pantoprazole [Protonix] 40 mg PO BID 06/04/12 02/15/20 warfarin [Coumadin] 3 mg PO QHS 06/04/12 02/15/20 metoprolol succinate 50 mg PO DAILY 07/14/12 02/15/20 glipizide 1 tab PO DAILY 12/12/13 02/15/20 acetaminophen [Mapap Extra 2 tab PO PRN PRN 05/01/14 02/15/20 Strength] ferrous sulfate 325 mg PO DAILY 10/04/15 02/15/20 Januvia 100 mg PO DAILY 06/26/16 02/15/20 fluticasone propionate [Flonase 1 spray INTRANASAL BID 10/08/19 02/15/20 Allergy Relief] Allergies Allergy/AdvReac Type Severity Reaction Status Date / Time metformin AdvReac Intermediate Diarrhea Unverified 01/08/20 11:29 fosinopril sodium AdvReac Unknown Coughing Unverified 01/08/20 11:29 [From Monopril] pollen Allergy Mild congestion Uncoded 01/08/20 11:29 General Stated Complaint: HeadInjury CYNTHIA: 4 Review of Systems All systems reviewed & are unremarkable except as noted in HPI and below Constitutional Constitutional: Denies fever(s) and Reports headache(s) Eyes Eyes: Reports as per HPI and Denies loss of vision ENT Ears, Nose, Mouth, and Throat: Reports headache(s) Neurologic Neurologic: Reports headache(s) and Denies loss of vision [facility] Medical History (Updated 02/15/20 @ 06:52 by Oits Guthrie MD) Anxiety Diabetes mellitus type II, non insulin dependent GERD (gastroesophageal reflux disease) Hx of deep venous thrombosis Hyperlipidemia Hypertension Peripheral vascular disease Retinitis pigmentosa of both eyes Surgical History Ligation of fallopian tube Thyroid pt reports partial removal of thyroid Vascular Surgery vein stripping. Social History Smoking/Tobacco Use Status: Never Smoking risk assessment performed?: Yes Alcohol Intake: never Drug use: Never Substance use type: does not use Do you feel safe at home: Yes Do you feel safe in your relationship?: Yes Exam Const General: cooperative and no acute distress HENMT Head: normocephalic and atraumatic Mouth: moist mucous membranes Eyes Periorbital: periorbital findings normal Conjunctivae: normal conjunctivae Sclera: normal sclerae Pupils: PERRL EOM: EOM intact bilaterally Neck Neck: trachea midline and supple Resp Auscultation: clear to auscultation bilaterally, no rales, no rhonchi and no wheezes Cardio Rate: regular rate and not tachycardic Rhythm: regular rhythm Skin General skin exam: no rashes or lesions noted Neuro General: patient alert, patient awake, patient oriented x3 and tone normal Course Vital Signs Vital signs: Vital Signs Temperature 36.6 C 02/10/20 16:01 Pulse 77 02/10/20 16:01 Respiratory Rate 16 02/10/20 16:01 Blood Pressure 176/100 H 02/10/20 16:01 Pulse Oximetry 99 02/10/20 16:01 Temperature 36.6 C 02/10/20 16:01 Pulse 77 02/10/20 16:01 Respiratory Rate 16 02/10/20 16:01 Blood Pressure 176/100 H 02/10/20 16:01 Blood Pressure Position Sitting 02/10/20 16:01 Pulse Oximetry 99 02/10/20 16:01 Oxygen Delivery Method Room Air 02/10/20 16:01 Oxygen Flow Rate 0 02/10/20 16:01 Pain Level 6 02/10/20 16:01
--- NOTE | 2020-02-10 17:21 | DI.VRAD_ITS ---
PROCEDURE INFORMATION: Exam: CT Head Without Contrast Exam date and time: 02/10/2020 4:20 PM Age: 64 years old Clinical indication: Other: Hit face/head with door 3 days ago TECHNIQUE: Imaging protocol: Computed tomography of the head without contrast. COMPARISON: CT HEAD WO 10/08/2019 1:54 PM FINDINGS: Brain: Normal. No hemorrhage. Unremarkable white matter. No mass effect. Cerebral ventricles: No ventriculomegaly. Bones/joints: Unremarkable. No acute fracture. Paranasal sinuses: Visualized sinuses are unremarkable. No fluid levels. Mastoid air cells: Visualized mastoid air cells are well aerated. Soft tissues: Unremarkable. IMPRESSION: No evidence for acute intracranial abnormality. Dictated and Authenticated by: Jennifer Humphries MD. Ordering:ALYSSIA Kelley MD
[2020-02-10 17:46] VITALS: BP 149/77; PULSE 74; RESP 16; TEMP 36.2; O2SAT 97
== END 2020-02-10 17:45 | disposition home or self-care (01) ==
PROVIDERS: Emergency Provider Student in an Organized Health Care Education/Training Program; PCP Family Medicine
DX: S09.8XXA Other specified injuries of head, initial encounter (principal); W22.09XA Striking against other stationary object, initial encounter; Z79.01 Long term (current) use of anticoagulants; E11.9 Type 2 diabetes mellitus without complications; I10 Essential (primary) hypertension
CPT/HCPCS: 99284; 70450

== ENCOUNTER 2020-02-14 18:28 | Outpatient (REF) | payer MEDICARE, SELFPAY ==
[2020-02-14 19:16] LABS: Abs Immature Grans 0.04 10^3/uL (0.0-0.06); Absolute Basophil Count 0.02 10^3/uL (0.0-0.2); Absolute Eosinophil Count 0.06 10^3/uL (0.0-0.7); Absolute Lymphocyte Count 1.38 10^3/uL (1.2-3.4); Absolute Monocyte Count 0.46 10^3/uL (0.1-0.8); Absolute Neutrophil Count 6.95 10^3/uL (1.2-6.7); Basophils % 0.2; Eosinophils % 0.7; HCT 40.3 % (36.0-46.0); HGB 12.9 g/dL (11.2-15.7); Immature Grans % 0.4; Lymphocytes % 15.5; MCH 26.6 pg (27.0-33.0); MCV 83.1 fL (80-95); MPV 10.2 fL (8.0-11.0); Monocytes % 5.2; Nucleated RBC 0 %; Platelet Count 319 10^3/uL (130-400); RBC 4.85 10^6/uL (3.93-5.22); RDW-SD 39.1 fL; WBC 8.91 10^3/uL (4.4-10.8)
[2020-02-16 19:20] LABS: COVID-19 RT-PCR UVMMC Result Negative (Negative)
== END 2020-02-14 18:48 ==
LOC: NCHCN 18:28
PROVIDERS: PCP Family Medicine; Visit Provider Nurse Practitioner Family
DX: R11.0 Nausea (principal); R19.7 Diarrhea, unspecified
CPT/HCPCS: U0003; 85025

== ENCOUNTER 2020-02-15 06:34 | Emergency (ER) | payer MEDICARE, SELFPAY ==
--- NOTE | 2020-02-15 06:30 | DI.CT_ITS ---
EXAM: CT HEAD CERVICAL SPINE WO CLINICAL HISTORY: PAIN S/P trauma. TECHNIQUE: Imaging Protocol: Axial computed tomography images with coronal and sagittal reformatted images were created and reviewed COMPARISON: No exams were available for comparison FINDINGS: BRAIN: There are no skull fractures nor fluid in the visualized paranasal sinuses. There is no evidence of intracranial hemorrhage, mass effect, or shift of midline structures. There are no extra-axial fluid collections. The ventricles are not enlarged or shifted and there is no blo od within the ventricular system nor within the basal cisterns. CERVICAL SPINE: There is no evidence of fracture nor listhesis. No significant prevertebral soft tissue swelling. N o facet malalignment evident. No significant osseous lesions evident. IMPRESSION: No acute intracranial findings on this noninfused CT scan of the brain. No evidence of cervical spine fracture, malalignment, nor acute compromise of the cervical spinal can al. RADIATION DOSE DELIVERED: 1,078.52mGy.cm Total DLP DATA REPOSITORY: All CT scans at this facility are submitted to the National Radiology Data Registry (NRDR) Dose Index Registry (DIR) with the [employer] (A[employer]). RADIATION OPTIMIZATION: All CT scans at this facility use at least one of these dose optimization te chniques: automated exposure control; mA and/or kV adjustment per patient size (includes targeted exa ms where dose is matched to clinical indication); or iterative reconstruction.
--- NOTE | 2020-02-15 06:38 | W.ED.GENAD ---
Discharge Plan Disposition Patient Disposition: HOME Condition: Stable Discharge Details Clinical Impression: Blunt head trauma, Cervical strain Primary Care Provider: Jolly Wren V ED Provider: Otis Guthrie Home Meds and New Rx's Prescriptions: Continued atorvastatin [Lipitor] 10 MG tablet 80 mg PO HS RF: 0 clonazepam [Klonopin] 0.5 MG tablet 0.5 mg PO PRN PRNRF: 0 pantoprazole [Protonix] 20 MG tablet,delayed release (DR/EC) 40 mg PO BID RF: 0 levothyroxine [Synthroid] 88 MCG tablet 88 mcg PO DAILY RF: 0 warfarin [Coumadin] 5 MG tablet 3 mg PO QHS RF: 0 losartan 100 MG tablet 100 mg PO DAILY RF: 0 metoprolol succinate 25 MG tablet extended release 24 hr 50 mg PO DAILY RF: 0 glipizide 10 MG tablet 1 tab PO DAILY RF: 0 acetaminophen [Mapap Extra Strength] 500 MG tablet 2 tab PO PRN PRNRF: 0 ferrous sulfate 325 MG tablet 325 mg PO DAILY RF: 0 Januvia 100 MG tablet 100 mg PO DAILY RF: 0 fluticasone propionate [Flonase Allergy Relief] 50 mcg/actuation [place],Suspension 1 spray INTRANASAL BID RF: 0 Discharge Instructions Instructions: Cervical Strain (ED) Additional Instructions: follow up with your primary care provider within 1 week you can take 1000mg tylenol every 6 hours as needed if severe worsening pain or weakness return to the emergency department Medical Decision Making 64 yo female on coumadin with hx of dvt comes in after she walked into a door last night around 9pm with no loc and has head pain and left lateral neck pain and left lower back pain, denies falling after hitting her head on the door. No chest pain or abdominal pain. HAs a contusion on left forehead otherwise no traumatic findings, speaking in clear sentences. No midline t/l/or c spine pain. Has mid left lateral neck pain and left lower lumbar region, no saddle anesthesia. He pain in the lower back seems like a strain and given not midline do not feel xray or ct indicated and no findings to suggest spinal cord injury. Suspect cercial strain but will obtain CT. Discussed with her CT of the head and she would prefer to have one to rule out TBI after discussing pros and cons of repeat imaging. imaging unremarkable and she remains stable with no new symptoms or midline c spine pain. Suspect strain and contusion, will d/c home with return precautions Differential Diagnosis Differential Diagnosis: tbi, concussion, contusion, strain Medical Records Medical records reviewed: Yes I reviewed the patient's medical records. Imaging Data Radiologic Study: Attestation: I personally reviewed and interpreted this imaging study as follows: Imaging: CT Scan Radiologist's impression: no acute findings on head ct or c spine ct HPI General Mode of arrival: ambulatory. Date/Time Provider Initiated Documentation: 02/15/20 06:37. Limitations to Documentation: no limitations. Information obtained by: patient. History of Present Illness 64 year old F presents to the emergency department with the chief complaint of hit head, described as moderate, Patient started experiencing this hour(s) (1) and it has been constant. No relieving factors improve symptom(s), No exacerbating factors reported . Patient did receive the following treatments prior to arrival, none Related Data Home Medications Medication Instructions Recorded Confirmed atorvastatin [Lipitor] 80 mg PO HS 06/04/12 02/15/20 clonazepam [Klonopin] 0.5 mg PO PRN PRN 06/04/12 02/15/20 levothyroxine [Synthroid] 88 mcg PO DAILY 06/04/12 02/15/20 losartan 100 mg PO DAILY 06/04/12 02/15/20 pantoprazole [Protonix] 40 mg PO BID 06/04/12 02/15/20 warfarin [Coumadin] 3 mg PO QHS 06/04/12 02/15/20 metoprolol succinate 50 mg PO DAILY 07/14/12 02/15/20 glipizide 1 tab PO DAILY 12/12/13 02/15/20 acetaminophen [Mapap Extra 2 tab PO PRN PRN 05/01/14 02/15/20 Strength] ferrous sulfate 325 mg PO DAILY 10/04/15 02/15/20 Januvia 100 mg PO DAILY 06/26/16 02/15/20 fluticasone propionate [Flonase 1 spray INTRANASAL BID 10/08/19 02/15/20 Allergy Relief] Allergies Allergy/AdvReac Type Severity Reaction Status Date / Time metformin AdvReac Intermediate Diarrhea Unverified 01/08/20 11:29 fosinopril sodium AdvReac Unknown Coughing Unverified 01/08/20 11:29 [From Monopril] pollen Allergy Mild congestion Uncoded 01/08/20 11:29 General CYNTHIA: 4 Review of Systems All systems reviewed & are unremarkable except as noted in HPI and below Constitutional Constitutional: Denies chills, Denies fever(s) and Denies weakness Cardiovascular Cardiovascular: Denies chest pain and Denies dyspnea Respiratory Respiratory: Denies dyspnea Gastrointestinal Gastrointestinal: Denies abdominal pain, Denies nausea and Denies vomiting Musculoskeletal Musculoskeletal: Denies joint swelling Integumentary/Breasts Skin/Breast: Denies rash Neurologic Neurologic: Denies weakness Psychiatric Psychiatric: Denies depression [facility] Medical History (Updated 02/15/20 @ 06:52 by Otis Guthrie MD) Anxiety Diabetes mellitus type II, non insulin dependent GERD (gastroesophageal reflux disease) Hx of deep venous thrombosis Hyperlipidemia Hypertension Peripheral vascular disease Retinitis pigmentosa of both eyes Surgical History Ligation of fallopian tube Thyroid pt reports partial removal of thyroid Vascular Surgery vein stripping. Social History Smoking/Tobacco Use Status: Never Smoking risk assessment performed?: Yes Alcohol Intake: never Drug use: Never Substance use type: does not use Do you feel safe at home: Yes Do you feel safe in your relationship?: Yes Exam Const General: no acute distress Orientation: alert HENMT Head: no palpable skull fracture Ears: external ears normal General nose exam: external nose normal Mouth: moist mucous membranes Eyes General: appearance normal, both eyes and all related structures Neck Neck: normal visual inspection Resp Effort & Inspection: normal respiratory effort and able to speak in complete sentences Cardio Rate: regular rate Back/Spine/Pelvis Back: no CVA tenderness Skin General skin exam: no rashes or lesions noted Neuro General: patient alert and patient oriented x3 Extrem General: normal to inspection Psych Mental Status: mental status grossly normal
[2020-02-15 06:39] VITALS: BP 160/99; PULSE 72; RESP 18; TEMP 36.6; O2SAT 98
--- NOTE | 2020-02-15 07:17 | DI.VRAD_ITS ---
PROCEDURE INFORMATION: Exam: CT Head Without Contrast Exam date and time: 02/15/2020 7:01 AM Age: 64 years old Clinical indication: Injury or trauma; Blunt trauma (contusions or hematomas); Consciousness not specified; Injury date: 02/15/20; Injury details: Ran into door, head and neck pain TECHNIQUE: Imaging protocol: Computed tomography of the head without contrast. Radiation optimization: All CT scans at this facility use at least one of these dose optimization techniques: automated exposure control; mA and/or kV adjustment per patient size (includes targeted exams where dose is matched to clinical indication); or iterative reconstruction. COMPARISON: CT HEAD WO 02/10/2020 4:45 PM FINDINGS: Brain: Normal. No hemorrhage. Unremarkable white matter. No mass effect. Cerebral ventricles: No ventriculomegaly. Bones/joints: Unremarkable. No acute fracture. Paranasal sinuses: Visualized sinuses are unremarkable. No fluid levels. Mastoid air cells: Visualized mastoid air cells are well aerated. Soft tissues: Unremarkable. IMPRESSION: No acute intracranial abnormality. PROCEDURE INFORMATION: Exam: CT Cervical Spine Without Contrast Exam date and time: 02/15/2020 7:01 AM Age: 64 years old Clinical indication: Injury or trauma; Blunt trauma (contusions or hematomas); Consciousness not specified; Injury date: 02/15/20; Injury details: Ran into door, head and neck pain TECHNIQUE: Imaging protocol: Computed tomography images of the cervical spine without contrast. Radiation optimization: All CT scans at this facility use at least one of these dose optimization techniques: automated exposure control; mA and/or kV adjustment per patient size (includes targeted exams where dose is matched to clinical indication); or iterative reconstruction. COMPARISON: CT HEAD WO 02/10/2020 4:45 PM FINDINGS: Vertebrae: No acute fracture. Normal alignment. C2-C3: No significant disc protrusion. No severe spinal canal stenosis. No significant neural foraminal narrowing. C3-C4: No significant disc protrusion. No severe spinal canal stenosis. No significant neural foraminal narrowing. C4-C5: No significant disc protrusion. No severe spinal canal stenosis. No significant neural foraminal narrowing. C5-C6: No significant disc protrusion. No severe spinal canal stenosis. No significant neural foraminal narrowing. C6-C7: No significant disc protrusion. No severe spinal canal stenosis. No significant neural foraminal narrowing. C7-T1: No significant disc protrusion. No severe spinal canal stenosis. No significant neural foraminal narrowing. Soft tissues: Unremarkable. Lungs: Lung apices are normal. IMPRESSION: No acute findings. Dictated and Authenticated by: Paramjit Bingham MD. Ordering:LEONORA Berg MD
== END 2020-02-15 07:45 | disposition home or self-care (01) ==
LOC: ER 06:54
PROVIDERS: Emergency Provider Emergency Medicine; PCP Family Medicine
DX: S16.1XXA Strain of muscle, fascia and tendon at neck level, initial encounter (principal); S00.83XA Contusion of other part of head, initial encounter; M54.5 Low back pain; W22.09XA Striking against other stationary object, initial encounter; Z79.01 Long term (current) use of anticoagulants; E11.9 Type 2 diabetes mellitus without complications; Z79.84 Long term (current) use of oral hypoglycemic drugs; I10 Essential (primary) hypertension
CPT/HCPCS: 99285; 70450; 72125; 99284

== ENCOUNTER 2020-04-05 06:24 | Emergency (ER) | payer MEDICARE, SELFPAY ==
[2020-04-05 06:28] VITALS: BP 172/97; PULSE 86; RESP 16; TEMP 36.9; O2SAT 99
--- NOTE | 2020-04-05 06:28 | ED.GENADUL_ITS ---
Discharge Plan Disposition Patient Disposition: HOME Condition: Good Discharge Details Clinical Impression: External hemorrhoid Primary Care Provider: Jolly Wren V ED Provider: Oumar Paulino [place] Meds and New Rx's Prescriptions: New hydrocortisone [Proctosol HC] 2.5 % cream with perineal applicator 1 applic [place] BID-QID PRNQty: 30 RF: 0 Continued atorvastatin [Lipitor] 10 MG tablet 80 mg PO HS RF: 0 clonazepam [Klonopin] 0.5 MG tablet 0.5 mg PO PRN PRNRF: 0 pantoprazole [Protonix] 20 MG tablet,delayed release (DR/EC) 40 mg PO BID RF: 0 levothyroxine [Synthroid] 88 MCG tablet 88 mcg PO DAILY RF: 0 warfarin [Coumadin] 5 MG tablet 3 mg PO QHS RF: 0 losartan 100 MG tablet 100 mg PO DAILY RF: 0 metoprolol succinate 25 MG tablet extended release 24 hr 50 mg PO DAILY RF: 0 glipizide 10 MG tablet 1 tab PO DAILY RF: 0 acetaminophen [Mapap Extra Strength] 500 MG tablet 2 tab PO PRN PRNRF: 0 ferrous sulfate 325 MG tablet 325 mg PO DAILY RF: 0 Januvia 100 MG tablet 100 mg PO DAILY RF: 0 fluticasone propionate [Flonase Allergy Relief] 50 mcg/actuation [place],Suspension 1 spray INTRANASAL BID PRNRF: 0 Discharge Instructions Instructions: Hemorrhoids (ED), Sitz Bath (DC) Additional Instructions: You have a hemorrhoid which is causing your discomfort. You should be sure to avoid constipation and increase your fiber and water intake as well as use a stool softener. Sitz bath 3-4 times a day will help with the discomfort. Use the Proctosol as directed to help treat the hemorrhoid. Follow-up with primary care next week if not doing better. Return to ED for significantly worse pain, heavy bleeding, other concerns. Referrals: Jolly Wren MD [Primary Care Provider] - Medical Decision Making Patient has fairly large external hemorrhoid with small partial area of thrombo sis. No need for incision. Should respond to sitz bath and Proctosol. Discussed avoiding constipation. Follow-up with primary care next week if not better. Return to ED if worse. HPI General Mode of arrival: ambulatory . Date/Time Provider Initiated Documentation: 04/05/20 06:28 . Limitations to Documentation: no limitations . Information obtained by: patient, RN notes reviewed and old records reviewed . HPI Narrative: Patient presents to ED with rectal swelling and discomfort. Patient reports straining to have a bowel movement yesterday. Since then she has had swelling and discomfort in the rectal area. She denies any abdominal pain. She denies any bleeding. She denies any urinary or vaginal complaints. Related Data Home Medications Medication Instructions Recorded Confirmed atorvastatin [Lipitor] 80 mg PO HS 06/04/12 04/05/20 clonazepam [Klonopin] 0.5 mg PO PRN PRN 06/04/12 04/05/20 levothyroxine [Synthroid] 88 mcg PO DAILY 06/04/12 04/05/20 losartan 100 mg PO DAILY 06/04/12 04/05/20 pantoprazole [Protonix] 40 mg PO BID 06/04/12 04/05/20 warfarin [Coumadin] 3 mg PO QHS 06/04/12 04/05/20 metoprolol succinate 50 mg PO DAILY 07/14/12 04/05/20 glipizide 1 tab PO DAILY 12/12/13 04/05/20 acetaminophen [Mapap Extra 2 tab PO PRN PRN 05/01/14 04/05/20 Strength] ferrous sulfate 325 mg PO DAILY 10/04/15 04/05/20 Januvia 100 mg PO DAILY 06/26/16 04/05/20 fluticasone propionate [Flonase 1 spray INTRANASAL BID PRN 10/08/19 04/05/20 Allergy Relief] hydrocortisone [Proctosol HC] 1 applic [place] BID-QID PRN #30 g 04/05/20 Previous Rx's Medication Instructions Recorded hydrocortisone [Proctosol HC] 1 applic [place] BID-QID PRN #30 g 04/05/20 Allergies Allergy/AdvReac Type Severity Reaction Status Date / Time metformin AdvReac Intermediate Diarrhea Unverified 04/05/20 06:32 fosinopril sodium AdvReac Unknown Coughing Unverified 04/05/20 06:32 [From Monopril] pollen Allergy Mild congestion Uncoded 04/05/20 06:32 General CYNTHIA: 4 Review of Systems Narrative: As documented in HPI otherwise negative as below. Const: no fever Resp: no cough, SOB GI: no abdominal pain, nausea, vomiting, diarrhea PFSH Medical History (Updated 04/05/20 @ 06:44 by Oumar Paulino MD) Anxiety Diabetes mellitus type II, non insulin dependent GERD (gastroesophageal reflux disease) Hx of deep venous thrombosis Hyperlipidemia Hypertension Peripheral vascular disease Retinitis pigmentosa of both eyes Surgical History Ligation of fallopian tube Thyroid pt reports partial removal of thyroid Vascular Surgery vein stripping. Social History Smoking/Tobacco Use Status: Never Smoking risk assessment performed?: Yes Alcohol Intake: never Drug use: Never Substance use type: does not use Do you feel safe at home: Yes Do you feel safe in your relationship?: Yes Exam Narrative Exam Narrative: Const: Obese female in NAD. HEENT: NC/AT. Normal facial exam. Neck: Supple. Trachea midline. Lungs: Normal respiratory effort. GI: Soft. NT/ND. Rectal: Performed with female nurse present. Large external hemorrhoid present. No bleeding. Small area of hemorrhoid partially thrombosed. Neuro: A+O x 3. Normal speech, mentation. No gross motor or sensory deficit.
[2020-04-05 06:40] VITALS: RESP 22
== END 2020-04-05 06:55 | disposition home or self-care (01) ==
PROVIDERS: Emergency Provider Emergency Medicine; PCP Family Medicine
DX: K64.5 Perianal venous thrombosis (principal); E11.9 Type 2 diabetes mellitus without complications; Z79.84 Long term (current) use of oral hypoglycemic drugs; I10 Essential (primary) hypertension
CPT/HCPCS: 99283

== ENCOUNTER 2020-04-27 19:14 | Outpatient (REF) | payer MEDICARE, SELFPAY ==
[2020-04-27 18:58] LABS: Bilirubin Negative (Negative); Blood Trace-intact (Negative); Clarity Sl Cloudy (Clear); Glucose Negative (Negative); Ketones Negative (Negative); Leukocyte Esterase Small (Negative); Nitrite Negative (Negative); Urobilinogen 0.2 EU/dL (Up TO 0.2); pH 5.5 (5-8)
[2020-04-27 19:12] LABS: Bacteria Many HPF (Negative); C & S Indicated? No/Sq. Contamination; Casts Negative LPF (Negative); Crystals Negative HPF (Negative); Epithelial Cells Many HPF (Negative); Mucus Negative (Negative); RBC 0-2 HPF (0-2); WBC 20-50 HPF (0-5)
== END 2020-04-27 19:15 | disposition home or self-care (01) ==
LOC: NCHCN 19:14
PROVIDERS: PCP Family Medicine; Visit Provider Family Medicine
DX: N39.0 Urinary tract infection, site not specified (principal)
CPT/HCPCS: 81003; 81015

== ENCOUNTER 2020-06-09 16:29 | Observation (INO) | payer MEDICARE, SELFPAY ==
[2020-06-09] VITALS (33 sets, daily range): BP systolic 106–156; BP diastolic 54–82; PULSE 60–79; RESP 15–25; TEMP 36.5; O2SAT 95–99
--- NOTE | 2020-06-09 16:30 | DI.RAD_ITS ---
EXAM: XR CHEST 2V PA LATERAL CLINICAL HISTORY: chest pain TECHNIQUE: 2D digital imaging was performed. COMPARISON: CR XR CHEST 2V PA LATERAL from 10/17/2018 FINDINGS: The heart is not enlarged. The lungs are clear and well expanded. No pleural effusion seen. Mediastin al contours appear intact. IMPRESSION: Normal chest. RADIATION DOSE DELIVERED: Total DLP
--- NOTE | 2020-06-09 16:30 | RT.EKG_ITS ---
APPROVED REPORT Exam: Resting ECG Patient Location: E HR:67 bpm ECG Measurements Heart Rate 67 AXIS SD 203 P 16 QRSd 84 QRS 19 QT 384 T 34 QTc 407 Conclusion Sinus rhythm...normal P axis, V-rate 60- 99
[2020-06-09 16:55] LABS: Abs Immature Grans 0.04 10^3/uL (0.0-0.06); Absolute Basophil Count 0.04 10^3/uL (0.0-0.2); Absolute Eosinophil Count 0.21 10^3/uL (0.0-0.7); Absolute Lymphocyte Count 2.47 10^3/uL (1.2-3.4); Absolute Monocyte Count 0.77 10^3/uL (0.1-0.8); Basophils % 0.4; Eosinophils % 2.2; HCT 41.9 % (36.0-46.0); HGB 13.5 g/dL (11.2-15.7); Immature Grans % 0.4; Lymphocytes % 25.6; MCH 27.3 pg (27.0-33.0); MCHC 32.2 % (32.0-36.0); MCV 84.6 fL (80-95); MPV 9.6 fL (8.0-11.0); Neutrophils % 63.4; Nucleated RBC 0 %; Platelet Count 297 10^3/uL (130-400); RBC 4.95 10^6/uL (3.93-5.22); RDW 12.8 % (11.7-14.6); RDW-SD 39.3 fL; WBC 9.63 10^3/uL (4.4-10.8)
[2020-06-09 17:03] LABS: Prothrombin Time 19.6 sec (9.3-11.0)
--- NOTE | 2020-06-09 17:04 | W.ED.GENAD ---
Discharge Plan Discharge Details Chief Complaint: Chest Pain Admit Date/Time: 06/09/20 21:00 Admit Provider: Ander Marroquin Attending Provider: Ander Marroquin Primary Care Provider: Jolly Wren V ED Provider: Dominga Luna Medical Decision Making Patient is a heart score of 5, negative EKG, however given her comorbidities I think it is reasonable to admit overnight for observation and stress test Patient is agreeable to this plan She was administered her Coumadin and a 81 mg of aspirin prior to admission Case was discussed with Dr. Marroquin who is agreeable to admitting patient CTA chest does not show acute pathology per radiology interpretation of my review EKG without evidence of acute AK, initial troponin negative, 3-hour troponin negative Pain-free throughout evaluation Differential Diagnosis Differential Diagnosis: Pulmonary embolism, angina, musculoskeletal chest pain, myocardial infarcti Lab Data Lab results reviewed: Yes I reviewed the patient's lab results. HPI This 64-year-old female with past medical history of DVT, diabetes, hyperlipidemia, hypertension, peripheral vascular disease, presents with report of left arm pain for the past few weeks and with chest pain. Patient denies any current chest pain or shortness of breath. She states that she had an episode of chest pain last evening and approximately 10 PM with some vague epigastric discomfort. Patient denies any nausea or vomiting. She states that she shortly developed chest pain. She states that lasted about several seconds. She states the pain resolved and she went to her daughter's house today and was seated. She developed pain again to her left chest. Patient denies any calf pain or swelling. Patient denies fever or chills. General Date/Time Provider Initiated Documentation: 06/09/20 16:30. Related Data Home Medications Medication Instructions Recorded Confirmed atorvastatin [Lipitor] 80 mg PO HS 06/04/12 06/09/20 clonazepam [Klonopin] 0.5 mg PO PRN PRN 06/04/12 06/09/20 levothyroxine [Synthroid] 88 mcg PO DAILY 06/04/12 06/09/20 losartan 100 mg PO DAILY 06/04/12 06/09/20 pantoprazole [Protonix] 40 mg PO BID 06/04/12 06/09/20 warfarin [Coumadin] 3 mg PO QHS 06/04/12 06/09/20 metoprolol succinate 50 mg PO DAILY 07/14/12 06/09/20 glipizide 1 tab PO DAILY 12/12/13 06/09/20 acetaminophen [Mapap Extra 2 tab PO PRN PRN 05/01/14 06/09/20 Strength] ferrous sulfate 325 mg PO DAILY 10/04/15 06/09/20 Januvia 100 mg PO DAILY 06/26/16 06/09/20 fluticasone propionate [Flonase 1 spray INTRANASAL BID PRN 10/08/19 06/09/20 Allergy Relief] hydrocortisone [Proctosol HC] 1 applic AR BID-QID PRN #30 g 04/05/20 06/09/20 Previous Rx's Medication Instructions Recorded hydrocortisone [Proctosol HC] 1 applic AR BID-QID PRN #30 g 04/05/20 Allergies Allergy/AdvReac Type Severity Reaction Status Date / Time metformin AdvReac Intermediate Diarrhea Unverified 06/09/20 16:40 fosinopril sodium AdvReac Unknown Coughing Unverified 06/09/20 16:40 [From Monopril] pollen Allergy Mild congestion Uncoded 06/09/20 16:40 General Stated Complaint: Chest Pain CYNTHIA: 2 Review of Systems Narrative: Review of systems obtained x7 aside from where indicated in HPI [facility] Medical History (Updated 05/06/20 @ 00:02 by EMERY ALTAMIRANO) Anxiety Diabetes mellitus type II, non insulin dependent GERD (gastroesophageal reflux disease) Hx of deep venous thrombosis Hyperlipidemia Hypertension Peripheral vascular disease Retinitis pigmentosa of both eyes Surgical History Ligation of fallopian tube Thyroid pt reports partial removal of thyroid Vascular Surgery vein stripping. Social History Smoking/Tobacco Use Status: Never Smoking risk assessment performed?: Yes Alcohol Intake: never Drug use: Never Substance use type: does not use Do you feel safe at home: Yes Do you feel safe in your relationship?: Yes Exam Const General: cooperative and comfortable Chest Chest: normal inspection of the chest Resp Effort & Inspection: normal respiratory effort Auscultation: clear to auscultation bilaterally Cardio Rate: regular rate Rhythm: regular rhythm GI Auscultation: normal bowel sounds Skin General skin exam: no rashes or lesions noted Neuro General: patient alert and patient oriented x3 Extrem Other: No calf tenderness or swelling appreciated Distal pulses intact Course Vital Signs Vital signs: Vital Signs Temperature 36.5 C 06/09/20 16:34 Pulse 77 06/09/20 16:34 Respiratory Rate 16 06/09/20 16:34 Pulse Oximetry 98 06/09/20 16:34 Temperature 36.5 C 06/09/20 16:34 Temperature Source Tympanic 06/09/20 16:34 Pulse 66 06/09/20 16:46 Pulse 69 06/09/20 16:50 Respiratory Rate 18 06/09/20 16:50 Respiratory Effort Non-Labored 06/09/20 16:34 Blood Pressure 138/76 06/09/20 16:46 Blood Pressure Mean 90 06/09/20 16:46 Blood Pressure Position Sitting 06/09/20 16:34 Pulse Oximetry 98 06/09/20 16:50 Oxygen Delivery Method Room Air 06/09/20 16:34 Oxygen Flow Rate 0 06/09/20 16:34 Pain Level 5 06/09/20 16:34
[2020-06-09 17:13] LABS: ALT 42 U/L (14-59); AST 18 U/L (15-37); Albumin 3.7 g/dL (3.4-5.0); Alkaline Phosphatase 112 U/L (46-116); BUN 15 mg/dL (7-18); Bilirubin, Total 0.4 mg/dL (0.2-1.0); CREATININE 0.8 mg/dL (0.55-1.02); Chloride 99 mmol/L (98-107); Glucose 146 mg/dL (74-106); NT-proBNP 148 pg/mL (<300); Potassium 3.8 mmol/L (3.5-5.1); Sodium 134 mmol/L (136-145); Total Protein 8.5 g/dL (6.4-8.2)
--- NOTE | 2020-06-09 17:15 | DI.CT_ITS ---
EXAM: CT CHEST PE CTA CLINICAL HISTORY: chest pain, boderline INR, hx of dvt. TECHNIQUE: Imaging Protocol: Axial CT angiography was performed with multi-slice acquisition and mu lti-planar and/or 3D reconstructions. CONTRAST MATERIAL: Intravenous: Omnipaque 350 Contrast volume:structured data in ml COMPARISON: CT CT ABDOMEN PELVIS W from 12/27/2018 FINDINGS: CT angiography of the chest was performed with intravenous infusion of 77 cc of Omnipaque 350. The examination is somewhat motion limited. Subsegmental pulmonary arterial vasculature not well vis ualized. The lungs are clear. No pleural effusion. Tracheobronchial tree appears intact. No evidence of pulmonary embolic disease. Thoracic aorta is of normal diameter, no thoracic aortic an eurysm or dissection, major branch vessels appear intact. No mediastinal or hilar adenopathy. Images obtained through the upper abdomen show unremarkable appearance of the visualized portions of the liver, spleen, pancreas, adrenals, and kidneys. IMPRESSION: Negative CT angiogram of the chest. No evidence of pulmonary embolic disease. RADIATION DOSE DELIVERED: 435.5mGy.cm Total DLP 435.5mGy.cm Total DLP DATA REPOSITORY: All CT scans at this facility are submitted to the National Radiology Data Registry (NRDR) Dose Index Registry (DIR) with the [employer] ([employer]). RADIATION OPTIMIZATION: All CT scans at this facility use at least one of these dose optimization te chniques: automated exposure control; mA and/or kV adjustment per patient size (includes targeted exa ms where dose is matched to clinical indication); or iterative reconstruction.
[2020-06-09 17:16] LABS: Troponin I < 0.05 ng/mL (<0.06)
--- NOTE | 2020-06-09 17:25 | DI.VRAD_ITS ---
PROCEDURE INFORMATION: Exam: XR Chest Exam date and time: 06/09/2020 5:09 PM Age: 64 years old Clinical indication: Chest pain TECHNIQUE: Imaging protocol: XR of the chest Views: 2 views. Total images: 2 COMPARISON: CT CHEST/ABD/PEL W 11/30/2018 7:52 PM FINDINGS: Lungs: Lungs are clear without consolidation. Pulmonary phi: Unremarkable contours. Pleural spaces: No pleural effusion. No pneumothorax. Heart/Mediastinum: Mediastinal contours notable for a tortuous aorta. Bones/joints: Unremarkable. Intraperitoneal space: Visualized upper abdomen is unremarkable. IMPRESSION: No acute findings. Dictated and Authenticated by: Seven Givens MD. Ordering:ORIANA Orr MD
[2020-06-09] MEDS: Normal Saline - Diluent 50 ML VIAL IV (18:02)
[2020-06-09] MEDS: Omnipaque 350 MG/ML 100 ML BTL 77 ML IJ (18:02)
--- NOTE | 2020-06-09 18:54 | DI.VRAD_ITS ---
PROCEDURE INFORMATION: Exam: CTA Chest With Contrast Exam date and time: 06/09/2020 5:56 PM Age: 64 years old Clinical indication: Pain and abnormal findings; Abnormal diagnostic tests; Other: Borderling inr; Chest pain; Patient HX: HX dvt TECHNIQUE: Imaging protocol: Computed tomographic angiography of the chest with contrast. 3D rendering (Not supervised by radiologist): MIP and/or 3D reconstructed images were created by the technologist. Total images: 1564 Contrast material: OMNI 350; Contrast volume: 77 ml; Contrast route: INTRAVENOUS (IV); COMPARISON: CT CHEST/ABD/PEL W 11/30/2018 7:52 PM FINDINGS: Pulmonary arteries: No filling defect in the pulmonary arterial tree. Segmental branches are limited by respiratory motion. Aorta: No aortic aneurysm. No aortic dissection. 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 Lungs: No consolidation or ground-glass disease. Pleural spaces: No pneumothorax. No pleural effusion. Heart: No pericardial effusion. Lymph nodes: No mediastinal, hilar or axillary adenopathy. Liver: There is a calcified granuloma in the right hepatic dome. Bones/joints: There is a mild old compression deformity of T12. Soft tissues: Extrathoracic soft tissues are unremarkable. IMPRESSION: No acute findings. No PE. Dictated and Authenticated by: Seven Givens MD. Ordering:ORIANA Orr MD
--- NOTE | 2020-06-09 19:30 | RT.EKG_ITS ---
APPROVED REPORT Exam: Resting ECG Patient Location: E HR:62 bpm ECG Measurements Heart Rate 62 AXIS [place] 213 P 12 QRSd 85 QRS 7 QT 416 T 14 QTc 424 Conclusion Sinus rhythm...normal P axis, V-rate 60- 99 Borderline prolonged NY interval...NY >212, V-rate 50- 90
[2020-06-09 19:37] LABS: Source Nasal/Nares
[2020-06-09 20:18] LABS: Troponin I < 0.05 ng/mL (<0.06)
[2020-06-09] MEDS: Aspirin 81 MG CHEW PO (20:30)
[2020-06-09] MEDS: Aspirin 81 MG CHEW (21:09)
[2020-06-09 22:23] LABS: COVID-19 PCR Negative (Negative)
--- NOTE | 2020-06-09 22:30 | W.PM.HP.N ---
Date of service: 06/09/20 Time of Service: 22:40 Assessment and Plan Assessment and plan (1) Atypical chest pain: Start date: 06/09/20 Status: Acute Assessment and plan: This is a 64-year-old lady who has had stuttering atypical chest pain at rest with a history of GERD on treatment and no associated symptoms other than left arm discomfort which may be more musculoskeletal. She had negative EKG for acute ischemic changes and negative troponins with patient to be observed overnight with telemetry and trending troponins. No other specific treatment will be initiated. (2) Hypertension: Status: Chronic Assessment and plan: Patient does have high blood pressure on 2 agents including metoprolol and losartan with no verbal history given of atrial fibrillation on Coumadin for DVT. She will be continued on her usual medical regimen with monitoring her blood pressure. Qualifiers: Hypertension type: essential hypertension Qualified Code(s): I10 - Essential (primary) hypertension (3) Hyperlipidemia: Status: Chronic Assessment and plan: Continue high-dose atorvastatin. Qualifiers: Hyperlipidemia type: mixed hyperlipidemia Qualified Code(s): E78.2 - Mixed hyperlipidemia (4) Diabetes: Status: Chronic Assessment and plan: Hold oral therapy and do before meals and at bedtime glucometers with short acting insulin coverage while hospitalized. Qualifiers: Diabetes mellitus type: type 2 Diabetes mellitus custodial insulin use: without parts counterman use Diabetes mellitus complication status: with circulatory complication Diabetes mellitus complication detail: with other circulatory complications Qualified Code(s): E11.59 - Type 2 diabetes mellitus with other circulatory complications (5) DVT (deep venous thrombosis): Status: Chronic Assessment and plan: On therapeutic Coumadin with continuation of same and monitor daily PT/INRs. Adjust Coumadin therapy to therapeutic range with INR between 2 and 3. Qualifiers: DVT location: lower extremity Affected thrombotic vein of extremity: unspecified vein of extremity Laterality: unspecified laterality Chronicity: chronic Qualified Code(s): I82.509 - Chronic embolism and thrombosis of unspecified deep veins of unspecified lower extremity History of Present Illness History of Present Illness Chief Complaint: Chest pain. Narrative: This is a 64-year-old female patient with history of hypertension and previous DVT but no history of atrial fibrillation or previous CAD or interventions on chronic medical therapy for both of these including metoprolol, losartan and Coumadin. She also is on high-dose atorvastatin. The patient has been having left arm pain with chest discomfort for a few weeks prior to admission and on the evening prior to mission had chest discomfort that lasted for seconds with this occurring at rest and being retrosternal. She went to her daughter's house and once again at rest had recurrent retrosternal chest pressure over her left chest with no radiation no associated diaphoresis, nausea or vomiting. This did self resolve and she reported to the ED for evaluation. She had evaluation with normal EKG, and normal initial troponin and delta troponin. Because the patient's risk factors and new symptoms it was determined that she would be best served to be observed overnight for rhythm evaluation and to trend troponins. She was not hypoxic and had no inspiratory chest discomfort. She is therapeutic on Coumadin and PE was unlikely with negative CT of the chest for PE. Review of Systems Narrative: 13 point review of systems otherwise unrevealing or stable. [facility] Medical History (Updated 06/10/20 @ 12:51 by Ander Marroquin) Anxiety Diabetes mellitus type II, non insulin dependent GERD (gastroesophageal reflux disease) Hx of deep venous thrombosis Hyperlipidemia Hypertension Peripheral vascular disease Retinitis pigmentosa of both eyes Surgical History Ligation of fallopian tube Thyroid pt reports partial removal of thyroid Vascular Surgery vein stripping. Social History Smoking/Tobacco Use Status: Never Smoking risk assessment performed?: Yes Alcohol Intake: never Drug use: Never Substance use type: does not use Do you feel safe at home: Yes Do you feel safe in your relationship?: Yes Meds Home Medications and Allergies Allergies Allergy/AdvReac Type Severity Reaction Status Date / Time metformin AdvReac Intermediate Diarrhea Unverified 06/09/20 16:40 fosinopril sodium AdvReac Unknown Coughing Unverified 06/09/20 16:40 [From Monopril] pollen Allergy Mild congestion Uncoded 06/09/20 16:40 Home Medications Medication Instructions Recorded Confirmed Type atorvastatin [Lipitor] 80 mg PO HS 06/04/12 06/09/20 History clonazepam [Klonopin] 0.5 mg PO PRN PRN 06/04/12 06/09/20 History levothyroxine [Synthroid] 88 mcg PO DAILY 06/04/12 06/09/20 History losartan 100 mg PO DAILY 06/04/12 06/09/20 History pantoprazole [Protonix] 40 mg PO BID 06/04/12 06/09/20 History warfarin [Coumadin] 3 mg PO QHS 06/04/12 06/09/20 History metoprolol succinate 50 mg PO DAILY 07/14/12 06/09/20 History glipizide 1 tab PO DAILY 12/12/13 06/09/20 History acetaminophen [Mapap Extra 2 tab PO PRN PRN 05/01/14 06/09/20 History Strength] ferrous sulfate 325 mg PO DAILY 10/04/15 06/09/20 History Januvia 100 mg PO DAILY 06/26/16 06/09/20 History fluticasone propionate [Flonase 1 spray INTRANASAL BID PRN 10/08/19 06/09/20 History Allergy Relief] hydrocortisone [Proctosol HC] 1 applic [place] BID-QID PRN #30 g 04/05/20 06/09/20 Rx Exam Narrative Exam Narrative: General: Patient appears older than stated age, 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 She is in no acute distress. HEENT: Normocephalic, facial features are slightly coarsened but no edema. Eyes with pupils equal and reactive to light symmetrically, extraocular movement intact and sclera anicteric. Oropharynx with moist mucosa. Neck: Supple without JVD. Lungs: Fair aeration and clear to auscultation percussion. Back: Stooped posture without CVA tenderness. Breast: Exam deferred. Heart: Regular rate and rhythm with no murmurs gallops appreciated. Abdomen: Obese contour, soft and nontender to palpation, no guarding and no palpable hepatosplenomegaly. Bowel sounds positive all quadrants. Genitalia/rectal: Exam deferred. Extremities: Without clubbing, cyanosis or pitting edema with patient having moderate nonpitting edema with chronic skin changes over both legs with hyperpigmentation, loss of hair and atrophic skin without ulcerations. Peripheral pulses are decreased but intact. Good capillary refill. Skin: Pale, warm and dry. Chronic changes over the extremities as mentioned. 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 Psych: Normal mood and affect with good coping and attitude toward her progressive visual loss, no abnormal thought processes. Patient is a vague historian but remote and recent memory appear to be grossly intact. Results Imaging Imaging Studies: Exam: CTA Chest With Contrast Exam date and time: 06/09/2020 5:56 PM Age: 64 years old Clinical indication: Pain and abnormal findings; Abnormal diagnostic tests; Other: Borderling inr; Chest pain; Patient HX: HX dvt TECHNIQUE: Imaging protocol: Computed tomographic angiography of the chest with contrast. 3D rendering (Not supervised by radiologist): MIP and/or 3D reconstructed images were created by the technologist. Total images: 1564 Contrast material: OMNI 350; Contrast volume: 77 ml; Contrast route: INTRAVENOUS (IV); COMPARISON: CT CHEST/ABD/PEL W 11/30/2018 7:52 PM FINDINGS: Pulmonary arteries: No filling defect in the pulmonary arterial tree. Segmental branches are limited by respiratory motion. Aorta: No aortic aneurysm. No aortic dissection. 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 Lungs: No consolidation or ground-glass disease. Pleural spaces: No pneumothorax. No pleural effusion. Heart: No pericardial effusion. Lymph nodes: No mediastinal, hilar or axillary adenopathy. Liver: There is a calcified granuloma in the right hepatic dome. Bones/joints: There is a mild old compression deformity of T12. Soft tissues: Extrathoracic soft tissues are unremarkable. IMPRESSION: No acute findings. No PE. Exam: XR Chest Exam date and time: 06/09/2020 5:09 PM Age: 64 years old Clinical indication: Chest pain TECHNIQUE: Imaging protocol: XR of the chest Views: 2 views. Total images: 2 COMPARISON: CT CHEST/ABD/PEL W 11/30/2018 7:52 PM FINDINGS: Lungs: Lungs are clear without consolidation. Pulmonary hpi: Unremarkable contours. Pleural spaces: No pleural effusion. No pneumothorax. Heart/Mediastinum: Mediastinal contours notable for a tortuous aorta. Bones/joints: Unremarkable. Intraperitoneal space: Visualized upper abdomen is unremarkable. IMPRESSION: No acute findings. Labs Result diagrams: 06/10/20 07:00 06/10/20 07:00 Labs: Laboratory Results - last 24 hr 06/09/20 06/09/20 06/09/20 16:40 16:40 16:40 WBC 9.63 RBC 4.95 Hgb 13.5 Hct 41.9 MCV 84.6 MCH 27.3 MCHC 32.2 RDW 12.8 Plt Count 297 MPV 9.6 Immature Gran % 0.4 Neutrophils % 63.4 Lymphocytes % 25.6 Monocytes % 8.0 Eosinophils % 2.2 Basophils % 0.4 Nucleated RBC % 0 Absolute Neutrophils 6.10 Absolute Lymphocytes 2.47 Absolute Monocytes 0.77 Absolute Eosinophils 0.21 Absolute Basophils 0.04 PT 19.6 H INR 2.0 H Sodium 134 L Potassium 3.8 Chloride 99 Carbon Dioxide 28.0 Anion Gap 7.0 BUN 15 Creatinine 0.8 Estimated GFR/1.73 m2 >= 60.00 Glucose 146 H Calcium 9.0 Total Bilirubin 0.4 AST 18 ALT 42 Alkaline Phosphatase 112 Troponin I < 0.05 NT-Pro-B Natriuret Pep 148 Total Protein 8.5 H Albumin 3.7 COVID-19 Source SARS-CoV-2 (PCR) 06/09/20 06/09/20 19:25 19:30 WBC RBC Hgb Hct MCV MCH MCHC RDW Plt Count MPV Immature Gran % Neutrophils % Lymphocytes % Monocytes % Eosinophils % Basophils % Nucleated RBC % Absolute Neutrophils Absolute Lymphocytes Absolute Monocytes Absolute Eosinophils Absolute Basophils PT INR Sodium Potassium Chloride Carbon Dioxide Anion Gap BUN Creatinine Estimated GFR/1.73 m2 Glucose Calcium Total Bilirubin AST ALT Alkaline Phosphatase Troponin I < 0.05 NT-Pro-B Natriuret Pep Total Protein Albumin COVID-19 Source Nasal/nares SARS-CoV-2 (PCR) Negative Last Vital Signs Temp 36.5 C 06/09/20 21:27 Pulse 62 06/09/20 21:27 Resp 17 06/09/20 21:27 BP 132/80 06/09/20 21:27 Pulse Ox 97 06/09/20 21:27 COVID-19 Screening Have you, or household traveled for leisure in last 14 days?: No Had IN PERSON contact w/suspected or confirmed C-19 person: No
[2020-06-09 23:54] LABS: Troponin I < 0.05 ng/mL (<0.06)
[2020-06-09 23:56] LABS: TSH (W/Ref FT4) 3.89 uIU/mL (0.36-3.74)
[2020-06-09] MEDS: clonazePAM 0.5 MG TAB PO (23:56)
[2020-06-09] MEDS: Acetaminophen 325 MG TAB 650 MG PO (23:56)
[2020-06-09] MEDS: Normal Saline Flush 10 ML SYR IVP (23:57)
[2020-06-10 00:35] LABS: FREE T4 1.04 ng/dL (0.76-1.46)
[2020-06-10 03:35] VITALS: BP 105/62; PULSE 63; RESP 18; TEMP 36.3; O2SAT 95
[2020-06-10 06:00] LABS: Troponin I < 0.05 ng/mL (<0.06)
[2020-06-10] MEDS: Levothyroxine 88 MCG TAB PO (06:11)
[2020-06-10 07:00] VITALS: PULSE 61
[2020-06-10 07:23] LABS: Abs Immature Grans 0.02 10^3/uL (0.0-0.06); Absolute Basophil Count 0.03 10^3/uL (0.0-0.2); Absolute Eosinophil Count 0.19 10^3/uL (0.0-0.7); Absolute Lymphocyte Count 2.49 10^3/uL (1.2-3.4); Absolute Monocyte Count 0.65 10^3/uL (0.1-0.8); Absolute Neutrophil Count 4.65 10^3/uL (1.2-6.7); Basophils % 0.4; Eosinophils % 2.4; HGB 11.7 g/dL (11.2-15.7); Immature Grans % 0.2; MCHC 31.6 % (32.0-36.0); MCV 85.3 fL (80-95); MPV 9.4 fL (8.0-11.0); Monocytes % 8.1; Neutrophils % 57.9; Nucleated RBC 0 %; Platelet Count 252 10^3/uL (130-400); RBC 4.34 10^6/uL (3.93-5.22); RDW 13.1 % (11.7-14.6); RDW-SD 40.3 fL; WBC 8.03 10^3/uL (4.4-10.8)
[2020-06-10 07:33] LABS: Prothrombin Time 20.1 sec (9.3-11.0)
[2020-06-10 07:52] LABS: ALT 36 U/L (14-59); AST 15 U/L (15-37); Alkaline Phosphatase 86 U/L (46-116); BUN 13 mg/dL (7-18); Bilirubin, Total 0.4 mg/dL (0.2-1.0); CREATININE 0.8 mg/dL (0.55-1.02); Calcium 8.6 mg/dL (8.5-10.1); Chloride 103 mmol/L (98-107); Glucose 110 mg/dL (74-106); Potassium 3.9 mmol/L (3.5-5.1); Sodium 138 mmol/L (136-145); Total Protein 6.9 g/dL (6.4-8.2)
[2020-06-10 08:27] VITALS: BP 124/73; PULSE 60; RESP 18; TEMP 36.6; O2SAT 97
[2020-06-10] MEDS: Metoprolol CR 25 MG TABCR 50 MG PO (08:47)
[2020-06-10] MEDS: Pantoprazole 20 MG TABCR 40 MG PO (08:48)
[2020-06-10] MEDS: Losartan 50 MG TAB 100 MG PO (08:48)
[2020-06-10] MEDS: Ferrous Sulfate 325 MG TAB PO (08:48)
[2020-06-10 11:23] VITALS: PULSE 71
--- NOTE | 2020-06-10 11:30 | RT.EKG_ITS ---
APPROVED REPORT Exam: Resting ECG Patient Location: I HR:63 bpm ECG Measurements Heart Rate 63 AXIS [place] [id number] P [id number] QRSd 81 QRS 9 QT 411 T 28 QTc 422 Conclusion NSR Low voltage, precordial leads...precordial leads <1.0mV
[2020-06-10 11:39] VITALS: BP 146/77; PULSE 65; RESP 18; TEMP 36.3; O2SAT 99
[2020-06-10] MEDS: Insulin Aspart 300 UNITS/3 ML PEN SC (11:55)
--- NOTE | 2020-06-10 13:11 | W.PM.DS.N ---
Date of service: 06/10/20 Time of Service: 13:11 DS: Diagnosis Discharge Diagnosis (1) Hypertension: Status: Chronic (2) Hyperlipidemia: Status: Chronic (3) Diabetes: Status: Chronic (4) GERD (gastroesophageal reflux disease): Status: Chronic (5) Musculoskeletal chest pain: Status: Acute Asessment and Plan: trauma to chest area 1 1/2 weeks ago (6) Atrial flutter: Status: Acute Asessment and Plan: rate controlled (7) COVID-19 ruled out by laboratory testing: Status: Ruled-out Discharge Plan Disposition Patient Disposition: HOME Condition: Stable Discharge Details Reason For Visit: ATYPICAL CHEST PAIN Admit Date/Time: 06/09/20 21:00 Admit Provider: Ander Marroquin Attending Provider: Ander Marroquin Primary Care Provider: Jolly Wren V Hospital Course Hospital Course: Ms Kruse is a 64 year old female with PMHx of NIDDM2, hypertension, hyperlipidemia, and GERD, who was observed on [facility] hospitalist service from 06/09/20 until 06/10/20 for Left sided chest pain. She ruled out for acute coronary syndrome by troponins and EKG, but she was noted to have atrial flutter (rate controlled) on telemetry without any symptoms. The patient is already on metoprolol and coumadin prior to admission for her h/o VTE and hypertension. She was not aware of the diagnosis of atrial flutter prior to this admission. The patient states she had an injury to her L chest wall 1 1/2 weeks ago and her pain can be reproducible by palpation, indicating it is musculoskeletal. There is no evidence of rib fractures on her imaging. We recommend tylenol and lidocaine patches for pain control. At the same time, as atrial flutter is new, outpatient MPI, echo, and a cardiac event recorder are being ordered on discharge. PCP also to consider sleep study as outpatient workup for possible obstructive sleep apnea. Patient is medically stable for discharge home today with follow up for above studies. She should follow up with her PCP in 1-2 weeks. Home Meds and New Rx's Prescriptions: New aspirin 81 mg Tablet,Chewable 81 mg PO DAILY Qty: 30 RF: 0 acetaminophen [Tylenol Extra Strength] 500 mg tablet 1,000 mg PO Q8H PRN PRNQty: 30 RF: 0 lidocaine [Lidoderm] 5 % adhesive patch,medicated 1 patch topical DAILY Qty: 30 RF: 0 Continued atorvastatin [Lipitor] 10 MG tablet 80 mg PO HS RF: 0 clonazepam [Klonopin] 0.5 MG tablet 0.5 mg PO PRN PRNRF: 0 pantoprazole [Protonix] 20 MG tablet,delayed release (DR/EC) 40 mg PO BID RF: 0 levothyroxine [Synthroid] 88 MCG tablet 88 mcg PO DAILY RF: 0 warfarin [Coumadin] 5 MG tablet 3 mg PO QHS RF: 0 losartan 100 MG tablet 100 mg PO DAILY RF: 0 metoprolol succinate 25 MG tablet extended release 24 hr 50 mg PO DAILY RF: 0 glipizide 10 MG tablet 1 tab PO DAILY RF: 0 ferrous sulfate 325 MG tablet 325 mg PO DAILY RF: 0 hydrocortisone [Proctosol HC] 2.5 % cream with perineal applicator 1 applic [place] BID-QID PRNQty: 30 RF: 0 Januvia 100 MG tablet 100 mg PO DAILY RF: 0 fluticasone propionate [Flonase Allergy Relief] 50 mcg/actuation [place],Suspension 1 spray INTRANASAL BID PRNRF: 0 Discontinued acetaminophen [Mapap Extra Strength] 500 MG tablet 2 tab PO PRN PRNRF: 0 Discharge Instructions Instructions: Lidocaine Patch (On the skin), Atrial Flutter (DC), Chest Pain (DC), Nuclear Stress Test (DC), Transthoracic Echocardiogram (GEN) Additional Instructions: Return to the hospital with any fever, bleeding, worsening chest pain, or shortness of breath. Use tylenol and lidocaine patches for pain management. Follow up for your cardiac imaging (stress test, echocardiogram). Follow up with your PCP in 1-2 weeks. Referrals: Jolly Wren MD [Primary Care Provider] - Activity:: Activity as Tolerated Equipment/Supplies:: cardiac event recorder Diet:: As Tolerated Discharge Orders Discharge Orders: Discharge Order (Routine); Ordered 06/10/20 Ordered By: Stacey Louise Other Ambulatory Orders: Cardiac Event Recorder (Routine) Timeframe: 1 Day Facility: [facility] - Location: Respiratory Therapy Ordered By: Stacey Louise US echocardiogram (Routine) Timeframe: 2 Weeks Location: Determined by Patient Ordered By: Stacey Louise HI MPI rest & stress grp (Routine) Timeframe: 2 Weeks Facility: [facility] - Location: DIAGNOSTIC IMAGING Ordered By: Stacey Louise DS: Summary Time Spent with Patient providing and/or coordinating discharge services: Greater than 30 minutes Status at Discharge Functional status at discharge: independent ambulation Overall status at discharge: patient is back to baseline Mental Status: mental status grossly normal Speech and Movement: speech and movement normal Mood: congruent mood Affect: normal affect Exam Narrative Exam Narrative: General: Pleasant obese female who has a hard time seeing me, A&Ox3 HEENT: EOMI, MMM Heart: RRR, no m/r/g Lungs: CTAB Abdomen: soft, nontender, nondistended Extremities: no edema BLE's, tender to touch Psych Mental Status: mental status grossly normal Speech and Movement: speech and movement normal Mood: congruent mood Affect: normal affect DS: Data Vitals/I&O Vitals and I&O: Vital Signs Temperature 36.3 C L 06/10/20 11:39 Temperature Source Temporal Artery Scan 06/10/20 11:39 Pulse 65 06/10/20 11:39 Pulse Rhythm Regular 06/10/20 10:04 Pulse 63 06/09/20 19:31 Respiratory Rate 18 06/10/20 11:39 Respiratory Effort Non-Labored 06/10/20 10:04 Respiratory Depth Normal 06/10/20 10:04 Respiratory Pattern Normal 06/10/20 10:04 Blood Pressure 146/77 H 06/10/20 11:39 Blood Pressure Mean 95 06/09/20 19:31 Blood Pressure Position Sitting 06/09/20 16:34 Pulse Oximetry 99 06/10/20 11:39 Oxygen Delivery Method Room Air 06/10/20 11:39 Oxygen Flow Rate 0 06/10/20 11:39 Pain Level 0 06/10/20 11:39 Comment 06/10/20 11:39 Intake & Output 06/09/20 06/10/20 06/10/20 23:59 11:59 23:59 Intake Total 700 / 700 Output Total 100 / 100 575 / 575 Balance -90 / -90 125 / 125 Weight 103.3 kg Intake: IV Oral 700 / 700 Output: Urine 100 / 100 575 / 575 Other: Urine Color Yellow Yellow Urine Appearance Clear Clear Urine Odor Normal Voiding Methods Toilet Toilet Data Completed and Pending Completed studies during hospitalization [Text1]: CXR: Normal chest. CTA chest: Negative CT angiogram of the chest. No evidence of pulmonary embolic disease. Labs on day of discharge: Labs from last 24 hours 06/10/20 06/10/20 06/10/20 07:00 07:00 07:00 WBC 8.03 RBC 4.34 Hgb 11.7 Hct 37.0 MCV 85.3 MCH 27.0 MCHC 31.6 L RDW 13.1 Plt Count 252 MPV 9.4 Immature Gran % 0.2 Neutrophils % 57.9 Lymphocytes % 31.0 Monocytes % 8.1 Eosinophils % 2.4 Basophils % 0.4 Nucleated RBC % 0 Absolute Neutrophils 4.65 Absolute Lymphocytes 2.49 Absolute Monocytes 0.65 Absolute Eosinophils 0.19 Absolute Basophils 0.03 PT 20.1 H INR 2.0 H Sodium 138 Potassium 3.9 Chloride 103 Carbon Dioxide 28.0 Anion Gap 7.0 BUN 13 Creatinine 0.8 Estimated GFR/1.73 m2 >= 60.00 Glucose 110 H Calcium 8.6 Total Bilirubin 0.4 AST 15 ALT 36 Alkaline Phosphatase 86 Troponin I NT-Pro-B Natriuret Pep Total Protein 6.9 Albumin 3.0 L TSH Free T4 COVID-19 Source SARS-CoV-2 (PCR) 06/10/20 06/09/20 06/09/20 05:33 23:25 23:25 WBC RBC Hgb Hct MCV MCH MCHC RDW Plt Count MPV Immature Gran % Neutrophils % Lymphocytes % Monocytes % Eosinophils % Basophils % Nucleated RBC % Absolute Neutrophils Absolute Lymphocytes Absolute Monocytes Absolute Eosinophils Absolute Basophils PT INR Sodium Potassium Chloride Carbon Dioxide Anion Gap BUN Creatinine Estimated GFR/1.73 m2 Glucose Calcium Total Bilirubin AST ALT Alkaline Phosphatase Troponin I < 0.05 < 0.05 NT-Pro-B Natriuret Pep Total Protein Albumin TSH 3.89 H Free T4 1.04 COVID-19 Source SARS-CoV-2 (PCR) 06/09/20 06/09/20 06/09/20 19:30 19:25 16:40 WBC RBC Hgb Hct MCV MCH MCHC RDW Plt Count MPV Immature Gran % Neutrophils % Lymphocytes % Monocytes % Eosinophils % Basophils % Nucleated RBC % Absolute Neutrophils Absolute Lymphocytes Absolute Monocytes Absolute Eosinophils Absolute Basophils PT 19.6 H INR 2.0 H Sodium Potassium Chloride Carbon Dioxide Anion Gap BUN Creatinine Estimated GFR/1.73 m2 Glucose Calcium Total Bilirubin AST ALT Alkaline Phosphatase Troponin I < 0.05 NT-Pro-B Natriuret Pep Total Protein Albumin TSH Free T4 COVID-19 Source Nasal/nares SARS-CoV-2 (PCR) Negative 06/09/20 06/09/20 16:40 16:40 WBC 9.63 RBC 4.95 Hgb 13.5 Hct 41.9 MCV 84.6 MCH 27.3 MCHC 32.2 RDW 12.8 Plt Count 297 MPV 9.6 Immature Gran % 0.4 Neutrophils % 63.4 Lymphocytes % 25.6 Monocytes % 8.0 Eosinophils % 2.2 Basophils % 0.4 Nucleated RBC % 0 Absolute Neutrophils 6.10 Absolute Lymphocytes 2.47 Absolute Monocytes 0.77 Absolute Eosinophils 0.21 Absolute Basophils 0.04 PT INR Sodium 134 L Potassium 3.8 Chloride 99 Carbon Dioxide 28.0 Anion Gap 7.0 BUN 15 Creatinine 0.8 Estimated GFR/1.73 m2 >= 60.00 Glucose 146 H Calcium 9.0 Total Bilirubin 0.4 AST 18 ALT 42 Alkaline Phosphatase 112 Troponin I < 0.05 NT-Pro-B Natriuret Pep 148 Total Protein 8.5 H Albumin 3.7 TSH Free T4 COVID-19 Source SARS-CoV-2 (PCR) [facility] Medical History (Updated 06/10/20 @ 13:13 by Stacey Louise MD) Anxiety Diabetes mellitus type II, non insulin dependent GERD (gastroesophageal reflux disease) Hx of deep venous thrombosis Hyperlipidemia Hypertension Peripheral vascular disease Retinitis pigmentosa of both eyes Surgical History Ligation of fallopian tube Thyroid pt reports partial removal of thyroid Vascular Surgery vein stripping. Social History Smoking/Tobacco Use Status: Never Smoking risk assessment performed?: Yes Alcohol Intake: never Drug use: Never Substance use type: does not use Do you feel safe at home: Yes Do you feel safe in your relationship?: Yes
--- NOTE | 2020-06-10 14:12 | CMPROGNOTE_ITS ---
- If Service Date Differs Date of service: 06/10/20 Time of Service: 14:12 Care Management Progress Note Barbara is a 64 year old woman admitted to [facility] on 06/09/20 with atypical chest pain. She ruled out for an acute cardiac event and was discharged home with follow up with orders for cardiac imaging (stress test and ECHO) as well as an appointment with her PCP. She will transport with family. Barbara left before was able to meet with her.
--- NOTE | 2020-06-10 14:17 | PDOC.CMDIS ---
- If Service Date Differs Date of service: 06/10/20 Time of Service: 14:17 LACE Index Scoring Tool - Questions: Length of Stay (in days): 1 Acuity (Admit via E.D.?): Yes Comorbidities: PVD, Diabetes w/o Complication E.D. Visits: 6 - Answers: Total Score: 10 Risk of Readmission: High Risk Care Management Discharge Reason for Hospitalization: atypical chest pain Discharge Plan: Babs will be discharged home with no new services. She will follow up with her PCP and discharge plan of care including an OP stress test and Echocardiogram and transport with family. Patient/Family Education Needs: Review of discharge instructions and follow up plan.
== END 2020-06-10 14:05 | disposition home or self-care (01) ==
LOC: ER 20:39 → MS 21:46
PROVIDERS: Admitting Provider Family Medicine; Emergency Provider Physician Assistant; PCP Family Medicine; Visit Provider Family Medicine
DX: R07.89 Other chest pain (principal); I48.92 Unspecified atrial flutter; I10 Essential (primary) hypertension; E11.59 Type 2 diabetes mellitus with other circulatory complications; K21.9 Gastro-esophageal reflux disease without esophagitis; I73.9 Peripheral vascular disease, unspecified; H35.52 Pigmentary retinal dystrophy; E78.2 Mixed hyperlipidemia; I82.599 Chronic embolism and thrombosis of other specified deep vein of unspecified lower extremity; Z20.822 Contact with and (suspected) exposure to COVID-19; Z79.01 Long term (current) use of anticoagulants
CPT/HCPCS: 36415; 71275; 80053; 87635; 93005; 93270; 99217; 99220; 99285; 71046; 83880; 84439; 84443; 84484; 85025; 85610; 93010; G0378; J3490

== ENCOUNTER → 2020-06-26 00:55 | Outpatient (CLI) | payer MEDICARE, SELFPAY ==
--- NOTE | 2020-06-26 07:00 | DI.NM_ITS ---
APPROVED REPORT Exam: Pharmacologic Patient Location: Out-Patient Room/Bed: Stress Nurse: Estrella Dee RN Ordering Provider:MERCY GREGG, Contact Number: BMI: 37.88 Baseline Rhythm: 1st Degree AV Block Indications: CHEST PAIN Medical History Medical History: DM II, Anxiety, GERD, DVT, HTN, HLD, PVD, Atrial Flutter, Atypical chest pain, Retin itis pigmentosa of both eyes Cardiac Medications: Warfarin, Pantoprazole, Metoprolol succinate, Losartan, Glipizide, Ferrous sulfa te, Atorvastatin, Aspirin, Allergies: Metformin, Fosinopril sodium Cardiac Risk Factors: FHX of CAD, Diabetes (non-insulin), HTN, Hyperlipidemia, PVD, Obesity Previous Cardiac Procedures: None Pretest Chest Pain Characteristics: No chest pain Exercise History: Sedentary Physical Disabilities: Legally blind Lung Sounds: Clear to auscultation, diminished left lower lobe Heart Sounds: Regular Stress Test Details Test: Pharmacologic stress testing performed using 0.4 mg of regadenoson per 5 mL given IV over 10 s econds. Reason for pharmacologic stress test: physical limitation. Nuclear Acquisition: Rest Tc-99m/Stress Tc-99m 1 day Rest Isotope: Tc-99m Sestamibi. Dose: 12.1 Date: 06/26/20 Injection Time: 0930 Stress Isotope: Tc-99m Sestamibi. Dose: 36.0 Date: 06/26/20 Injection Time: 1145 HR Resting HR Supine: 78 bpm Max Heart Rate (APMHR): 154.980251 bpm Target HR (85% APMHR): 130.542931 bpm Max HR Achieved: 110 bpm % of APMHR: 71.43 Recovery HR: 97 bpm BP Resting BP Supine: 138/90 mmHg Max BP: 140/82 mmHg Recovery BP: 140/82 mmHg ECG Resting ECst degree AV block Ectopy: None Stress ECG: Sinus Tachycardia ST Change: No significant ST segment changes noted Arrhythmia: None Recovery ECG: Sinus Rhythm Recovery ST Change: No significant ST segment changes noted Recovery Arrhythmia: None Clinical Stress Symptoms: Dyspnea Rate Pressure Product: [id number] Stress ECG Conclusion 1. The resting electrocardiogram showed first-degree AV block 2. Patient underwent pharmacologic stress with regadenoson. Peak heart rate was 71% of predicted 3. Electrocardiographically the test was nondiagnostic due to inadequate heart rate Stress Test Summary STAGE HR BP Symptoms NOTES Supine 78 138/90 1 min post Lexiscan injection 108 132/84 Dyspnea 3 min post Lexiscan injection 105 136/84 6 min post Lexiscan injection 97 140/82 MPI Conclusion Normal myocardial perfusion without evidence of ischemia or prior infarction EF is 69% Radiologist Interpretation Radiologist agrees with Finance Professional's Interpretation. Radiologist Interpretation by: Linda Atkinson MD Interpretation Date/Time: 06/29/2020 11:59:04
[2020-06-26] MEDS: Regadenoson 0.4 MG/5 ML SYR IVP (11:32)
== END ==
PROVIDERS: PCP Family Medicine; Visit Provider Internal Medicine
DX: R07.9 Chest pain, unspecified (principal); I44.0 Atrioventricular block, first degree; Z82.49 Family history of ischemic heart disease and other diseases of the circulatory system; E11.51 Type 2 diabetes mellitus with diabetic peripheral angiopathy without gangrene; I10 Essential (primary) hypertension; E78.5 Hyperlipidemia, unspecified; I73.9 Peripheral vascular disease, unspecified; E66.9 Obesity, unspecified
CPT/HCPCS: 78452; 93016; 93018; 93017; J2785

== ENCOUNTER → 2020-06-28 06:31 | Outpatient (CLI) | payer MEDICARE, SELFPAY ==
--- NOTE | 2020-06-28 13:29 | DI.US_ITS ---
APPROVED REPORT EXAM: Comprehensive 2D, Doppler, and color-flow Echocardiogram Patient Location: Out-Patient Cotton Puller: Karina Li RDCS (AE) Indications: New Atrial flutter Other Information Study Quality: Adequate Conclusion Normal left ventricular wall thickness and chamber size. Estimated ejection fraction is 60%. Wall m otion is normal Normal right ventricular size and systolic function Both atria are normal in size There is no significant valvular disease Wall motion Left Ventricle The left ventricle is normal size. The left ventricular systolic function is normal. The left ventric ular ejection fraction is within the normal range. There is normal left ventricular wall thickness. T here is normal LV segmental wall motion. There is no ventricular septal defect visualized. LVEF is 58 %. Right Ventricle The right ventricle is normal size. The right ventricular systolic function is normal. The RVSP is 19 .9mmHg. Atria The left atrium size is normal. The right atrium size is normal. The interatrial septum is intact wit h no evidence for an atrial septal defect. Aortic Valve The aortic valve is normal in structure. Aortic valve is trileaflet. There is no aortic valvular sten osis. No aortic regurgitation is present. Mitral Valve The mitral valve is normal in structure. No evidence of mitral valve stenosis. Trace mitral regurgita tion. Tricuspid Valve The tricuspid valve is normal in structure. There is no tricuspid valve stenosis. Trace tricuspid reg urgitation. Pulmonic Valve The pulmonary valve is normal in structure. There is no pulmonic valvular stenosis. Trace to mild pul shin regurgitation. Great Vessels The aortic root is normal in size. The ascending aorta is normal in size. Aortic arch is normal in ca liber. IVC is normal in size and collapses >50% with inspiration. Pericardium There is no pericardial effusion. 2D Dimensions IVSD d PLAX 0.72 cm F: 0.6-1.0 LV Vol A2C d MOD 67.4 mL LVPW d PLAX 0.74 cm F: 0.6 - 1.0 LV Vol A4C d MOD 85.0 mL LVID d PLAX 4.26 cm F: 3.8 - 5.2 LA vol/ BSA A4C s A-L 25.5 mL/m2 LVDs 2.95 cm F: 2.2 - 3.5 LA Area A4C s MOD 17.40 cm2 Ao Root d 2.80 cm F: 2.7 - 3.3 LV EF A4C MOD 58.8 % RA Area A4C 10.38 cm2 LV EF A2C MOD 57.2 % RA Vol/ BSA A4C s A-L 11.6 mL/m2 LV EF Biplane MOD 59.1 % Ao Asc Diam d 3.11 cm F: 2.3 - 3.1 SV 46.83 mL LV EF Teichholz 58.3 % SV Index 25.42 mL/m2 LVEF ([employer]) 59.09 % F: 54 - 74 LV Volume 61.13 mL F: 46 - 106 LV Volume Index 33.22 mL/m2 F: 29 - 61 LV Vol Biplane MOD 79.2 mL FS 30.50 % M-Mode TAPSE 2.37 cm (M/F) >1.7 LV Diastology MV E' medial 0.086 (>0.07 m/s) E/A Ratio 1.2 LV E/e MED 9.35 (<14) MV E Vmax 0.80 (0.4-1.3 m/s) MV E' lateral 0.076 (>0.1 m/s) MV A Vmax 0.65 (0.4-1.3 m/s) LV E/e LAT 10.55 (<14) MV E/A Ratio 1.21 MV E/E' medial 9.37 MV E/E' lateral 10.58 Aortic Valve LVOT Area 3.02 cm2 AoV Area Vmax 2.40 cm2 LVOT Vmax 0.85 m/s AoV Area/ BSA (Vmax) 1.30 cm2/m2 LVOT Mean Enrique. 0.52 m/s RYAN Mean Enrique. 2.11 cm2 LVOT Peak Grad 2.9 mmHg RYAN Mean Enrique. Index 1.14 cm2/m2 LVOT Mean Grad 1.3 mmHg LVOT VTI 0.189 m LVOT Diam s 1.95 cm AoV Vmax 1.07 m/s Velocity Ratio 0.79 AoV Mean Enrique. 0.75 m/s AoV Peak Grad 4.6 mmHg LVOT SV 57.13 mL AoV Mean Grad 2.5 mmHg AoV VTI 0.245 m AoV Area VTI 2.33 cm2 AoV Area/ BSA (VTI) 1.27 cm/m2 Mitral Valve MV DT 218 (160-240 msec) MV PHT 63 msec MV Area PHT 3.48 cm2 MV VTI 0.302 m MV VTI Annulus 0.313 m MV Area VTI 1.96 (4.0-6.0 cm2) Pulmonary Valve PV Vmax 1.14 (0.5-1.5 m/s) RVOT Peak Gr. 1.85 mmHg PV Peak Grad 5.2 mmHg RVOT Mean Gr. 0.95 mmHg PV Mean Grad 2.5 mmHg RVOT VTI 0.141 m PV VTI 0.236 m RVOT Vmax 0.68 m/s Tricuspid Valve TR Peak Grad 16.8 mmHg TR Vmax 2.05 m/s RA Pressure 3.00 mmHg RVSP (TR) 19.9 mmHg
--- NOTE | 2020-07-23 13:33 | W.CARDEVENT ---
Date of service: 07/23/20 Time of Service: 13:33 Cardiac Event Recorder Referring Provider:: Damari Indications:: AF Cardiac Event Note: There is a 30-day monitor ordered for indication of atrial flutter. The patient was in normal sinus rhythm for the majority of the recording with an average heart rate of 69 bpm. There were 2 episodes marked as atrial fibrillation one was artifact and one was normal sinus rhythm. There were occasional PVCs. There were 3 patient triggered events all associated with sinus rhythm. There are no episodes of ventricular tachycardia no pauses greater than 3 seconds and no evidence of high degree heart block.
== END ==
PROVIDERS: PCP Family Medicine; Visit Provider Internal Medicine
DX: I48.3 Typical atrial flutter (principal)
CPT/HCPCS: 93306

== ENCOUNTER 2020-07-23 15:00 | Outpatient (CLI) | payer MEDICARE, SELFPAY | END 2020-07-23 15:01 | LOC: CARDO 07-25 16:17 | PROVIDERS: PCP Family Medicine; Referring Provider Internal Medicine; Visit Provider Internal Medicine Cardiovascular Disease | DX: I48.3 Typical atrial flutter (principal); I49.3 Ventricular premature depolarization | CPT/HCPCS: 93272 ==

== ENCOUNTER 2020-08-14 21:57 | Emergency (ER) | payer MEDICARE, SELFPAY ==
[2020-08-14 22:07] VITALS: BP 145/75; PULSE 90; RESP 19; TEMP 36.4; O2SAT 96
--- NOTE | 2020-08-14 22:45 | DI.CT_ITS ---
Exam(s) CT HEAD CERVICAL SPINE WO EXAM: CT HEAD CERVICAL SPINE WO CLINICAL HISTORY: HI on coumadin. TECHNIQUE: Imaging Protocol: Axial computed tomography images with coronal and sagittal reformatted images were created and reviewed COMPARISON: CT CT HEAD CERVICAL SPINE WO from 02/15/2020 FINDINGS: CT Head: Ventricles and Extra axial spaces: Normal in size and morphology for the patient's age. Hemorrhage: None. Cerebral parenchyma: No acute territorial infarct. Midline shift: None. Brainstem/Cerebellum: Normal. Calvarium: Normal. Visualized Paranasal sinuses/Mastoids: Clear. Soft Tissues: Unremarkable. CT Cervical Spine: Bones: No acute fracture or subluxation. Soft Tissues: Unremarkable. Lung Apices: Clear. IMPRESSION: 1. No acute intracranial process. 2. No acute fracture or subluxation in the cervical spine. RADIATION DOSE DELIVERED: 1,121.5mGy.cm Total DLP DATA REPOSITORY: All CT scans at this facility are submitted to the National Radiology Data Registry (NRDR) Dose Index Registry (DIR) with the [employer] (A[employer]). RADIATION OPTIMIZATION: All CT scans at this facility use at least one of these dose optimization te chniques: automated exposure control; mA and/or kV adjustment per patient size (includes targeted exa ms where dose is matched to clinical indication); or iterative reconstruction.
--- NOTE | 2020-08-14 22:45 | DI.CT_ITS ---
Exam(s) CT CHEST/ABD/PEL W EXAM: CT CHEST/ABD/PEL W CLINICAL HISTORY: epigastric hematoma, tenderness on coumadin TECHNIQUE: Imaging Protocol: Axial computed tomography images with coronal and sagittal reformatted images were created and reviewed CONTRAST MATERIAL: Intravenous: Omnipaque 350 Contrast volume:100 mL Oral: No COMPARISON: CT CT ABDOMEN PELVIS W from 12/27/[address] CHEST PE CTA from 06/09/2020 FINDINGS: CHEST: Tracheobronchial tree: Patent where visualized. Pulmonary parenchyma: No consolidation or dominant measurable mass. No architectural distortion. Visualized thyroid gland: The left lobe of the thyroid gland is unremarkable. The right lobe is not visualized. Mediastinum and Genesis: No dominant adenopathy or fluid collection. Pleura: No effusion or pneumothorax. Heart: The heart is not dilated. Mild coronary artery calcification. No pericardial effusion. Aorta: Thoracic aorta non-dilated. Mild atherosclerosis. Lymph nodes: Within normal limits. Soft tissues: Unremarkable. Bones:No acute abnormality. Stable wedging deformity of the T12 vertebral body. Degenerative change s in the thoracic spine. ABDOMEN: Liver: Normal density. No measurable mass. The liver measures 20 cm in length. Portal, Superior Mesenteric, and Splenic Veins: Unremarkable. Gallbladder and Biliary Tract: No radiodense calculus or dilation. Pancreas: Normal density, no abnormal calcifications or inflammatory process. Spleen: Normal. Adrenals: The right adrenal gland is unremarkable. The left adrenal gland is not visualized. Kidneys: Normal size, contour and axis. No radiodense stones or obstructive uropathy. There are stabl e fat density lesions in the right kidney consistent with angiomyolipoma. Note is again made of a re troaortic left renal vein. Abdominal Aorta: Abdominal portion non-dilated. Mild atherosclerosis. Bowel: No obstruction or bowel wall thickening. No evidence of appendicitis. Peritoneal Cavity: No ascites, collection or mesenteric inflammatory response. No free air. Lymph Nodes: Within normal limits. Bones: Within normal limits for the patient's age. Soft Tissues: Small fat containing umbilical hernia. Mild infiltration in the subcutaneous tissues o f the anterior abdominal wall which may represent contusion. PELVIS: Bladder: Symmetric distention, no gross wall thickening. There is a small focus of air in the depende nt portion of the urinary bladder. This can be seen following catheterization. Please correlate cli nically. Reproductive Organs: Endometrial stripe may be thickened up to 8 mm. There is again seen prominence of the pelvic vasculature including the gonadal veins bilaterally. This may represent pelvic congest ion syndrome. Lymph Nodes: Within normal limits. Bones: Within normal limits. IMPRESSION: 1. Subcutaneous edema in the anterior abdominal wall which may reflect contusion. 2. No acute traumatic findings in the abdomen or pelvis. 3. Tiny focus of air in the anterior aspect of the urinary bladder. This may reflect recent catheter ization. Please correlate clinically. 4. Endometrial thickened up to 8 mm. Pelvic ultrasound may be obtained when clinically appropriate. 5. No acute pulmonary process. RADIATION DOSE DELIVERED: 1,648.45mGy.cm Total DLP DATA REPOSITORY: All CT scans at this facility are submitted to the National Radiology Data Registry (NRDR) Dose Index Registry (DIR) with the [employer] (ACR). RADIATION OPTIMIZATION: All CT scans at this facility use at least one of these dose optimization te chniques: automated exposure control; mA and/or kV adjustment per patient size (includes targeted exa ms where dose is matched to clinical indication); or iterative reconstruction.
--- NOTE | 2020-08-14 22:45 | DI.RAD_ITS ---
Exam(s) XR HUMERUS LT EXAM: XR HUMERUS LT CLINICAL HISTORY: fall on coumadin. TECHNIQUE: 2D digital imaging was performed. COMPARISON: No exams were available for comparison FINDINGS: BONES: No acute fracture is present. No bony destructive lesion is seen. Visualized portion of elbow and shoulder joints are unremarkable. SOFT TISSUE: Normal. IMPRESSION: Unremarkable radiographs of the left humerus. DATA REPOSITORY: RADIATION DOSE DELIVERED:
[2020-08-14 23:14] LABS: Abs Immature Grans 0.03 10^3/uL (0.0-0.06); Absolute Basophil Count 0.05 10^3/uL (0.0-0.2); Absolute Eosinophil Count 0.15 10^3/uL (0.0-0.7); Absolute Lymphocyte Count 2.73 10^3/uL (1.2-3.4); Absolute Monocyte Count 0.83 10^3/uL (0.1-0.8); Absolute Neutrophil Count 8.46 10^3/uL (1.2-6.7); Basophils % 0.4; Eosinophils % 1.2; HGB 11.9 g/dL (11.2-15.7); Immature Grans % 0.2; Lymphocytes % 22.3; MCH 27.3 pg (27.0-33.0); MCHC 33.1 % (32.0-36.0); MCV 82.6 fL (80-95); MPV 9.3 fL (8.0-11.0); Monocytes % 6.8; Neutrophils % 69.1; Nucleated RBC 0 %; Platelet Count 269 10^3/uL (130-400); RBC 4.36 10^6/uL (3.93-5.22); RDW 12.4 % (11.7-14.6); RDW-SD 37.7 fL; WBC 12.25 10^3/uL (4.4-10.8)
[2020-08-14 23:24] LABS: INR 1.9 (0.9-1.1); Prothrombin Time 18.8 sec (9.3-11.0)
[2020-08-14 23:26] LABS: ALT 25 U/L (14-59); AST 17 U/L (15-37); Albumin 3.5 g/dL (3.4-5.0); Alkaline Phosphatase 94 U/L (46-116); Anion Gap 9.1 mmol/L (3-11); BUN 11 mg/dL (7-18); Bilirubin, Total 0.5 mg/dL (0.2-1.0); CO2 25.9 mmol/L (21.0-32.0); Calcium 8.5 mg/dL (8.5-10.1); Chloride 95 mmol/L (98-107); Glucose 166 mg/dL (74-106); Lipase 113 U/L (73-393); Potassium 3.6 mmol/L (3.5-5.1); Sodium 130 mmol/L (136-145); Total Protein 7.7 g/dL (6.4-8.2)
[2020-08-14 23:27] LABS: CREATININE 0.8 mg/dL (0.55-1.02)
[2020-08-14] MEDS: Omnipaque 350 MG/ML 100 ML BTL IJ (23:42)
--- NOTE | 2020-08-14 23:46 | ED.GENADUL_ITS ---
Discharge Plan Disposition Patient Disposition: HOME Condition: Stable Discharge Details Clinical Impression: Superficial bruising of abdominal wall, Arm injury, Acute whiplash injury Primary Care Provider: Jolly Wren V ED Provider: Dominga Luna Home Meds and New Rx's Prescriptions: No Action atorvastatin [Lipitor] 10 MG tablet 80 mg PO HS RF: 0 clonazepam [Klonopin] 0.5 MG tablet 0.5 mg PO PRN PRNRF: 0 pantoprazole [Protonix] 20 MG tablet,delayed release (DR/EC) 40 mg PO BID RF: 0 levothyroxine [Synthroid] 88 MCG tablet 88 mcg PO DAILY RF: 0 warfarin [Coumadin] 5 MG tablet 3 mg PO QHS RF: 0 losartan 100 MG tablet 100 mg PO DAILY RF: 0 metoprolol succinate 25 MG tablet extended release 24 hr 50 mg PO DAILY RF: 0 glipizide 10 MG tablet 1 tab PO DAILY RF: 0 ferrous sulfate 325 MG tablet 325 mg PO DAILY RF: 0 Januvia 100 MG tablet 100 mg PO DAILY RF: 0 fluticasone propionate [Flonase Allergy Relief] 50 mcg/actuation [place],Suspension 1 spray INTRANASAL BID PRNRF: 0 aspirin 81 mg Tablet,Chewable 81 mg PO DAILY Qty: 30 RF: 0 Discharge Instructions Instructions: Contusion in Adults (ED) Additional Instructions: Take Tylenol as needed for pain You will likely need to change your Coumadin dosing, talk to your doctor tomorrow, your level is slightly low this evening Call your doctor first thing in the morning Return earlier should you have new or worsening complaints including vomiting, worsening pain Discharge Data Discharge Date/Time-TO BE ENTERED AT DEPARTURE: 08/15/20 01:53 Medical Decision Making <FRANCISCO Mejia - Last Filed: 08/15/20 10:31> INR 1.9, reassuring Remainder of diagnostic labs do not show acute pathology pt will need pcp f/u regarding subtherapeutic inr Patient will likely be stable for discharge home, she has pending CT imaging. At this time will be signed out to Dr Paulino pending virtual radiologist interpretation of CT imaging and xray imaging at 2353 Differential Diagnosis Differential Diagnosis: Subdural hematoma, cervical spine fracture, abdominal wall hematoma, liver Medical Records Medical records reviewed: Yes I reviewed the patient's medical records. Lab Data Lab results reviewed: Yes I reviewed the patient's lab results. <Oumar Paulino MD - Last Filed: 08/15/20 01:49> Patient signed out to me pending return CT scans and x-ray. X-ray of humerus negative. CT head and cervical spine negative for traumatic injury. CT of chest abdomen pelvis shows evidence of some soft tissue bruising of the abdominal wall. Otherwise no acute traumatic injury. Evidence of tiny amount of air in the bladder. Urinalysis negative for infection. Unclear etiology but patient asymptomatic with no urinary complaints. Also noted thickened endometrial stripe with recommendation of outpatient ultrasound. Patient ambulatory in department. Discharged home. HPI <FRANCISCO Mejia - Last Filed: 08/15/20 10:31> General Mode of arrival: ambulatory . Date/Time Provider Initiated Documentation: 08/14/20 22:41 . Limitations to Documentation: no limitations . Information obtained by: patient . HPI Narrative: This 65-year-old female anticoagulated on Coumadin for past medical history of atrial flutter and DVT, peripheral vascular disease, hypertension, hyperlipidemia presents status post trip and fall which were mechanical per patient. She tripped over a trash bag, falling directly forward onto the ground. She did not lose consciousness but does report headache and some neck pain. She is unsure as to whether or not she hit her head. She states she has some bruising to her upper abdomen. She is also complaining of some left upper arm pain. She did take her Coumadin today. She is unsure of her last INR. She denies any shortness of breath. Pain exacerbated with movement. Denies any vomiting. Related Data Home Medications Medication Instructions Recorded Confirmed atorvastatin [Lipitor] 80 mg PO HS 06/04/12 08/14/20 clonazepam [Klonopin] 0.5 mg PO PRN PRN 06/04/12 08/14/20 levothyroxine [Synthroid] 88 mcg PO DAILY 06/04/12 08/14/20 losartan 100 mg PO DAILY 06/04/12 08/14/20 pantoprazole [Protonix] 40 mg PO BID 06/04/12 08/14/20 warfarin [Coumadin] 3 mg PO QHS 06/04/12 08/14/20 metoprolol succinate 50 mg PO DAILY 07/14/12 08/14/20 glipizide 1 tab PO DAILY 12/12/13 08/14/20 ferrous sulfate 325 mg PO DAILY 10/04/15 08/14/20 Januvia 100 mg PO DAILY 06/26/16 08/14/20 fluticasone propionate [Flonase 1 spray INTRANASAL BID PRN 10/08/19 08/14/20 Allergy Relief] aspirin 81 mg PO DAILY #30 tab 06/10/20 08/14/20 Previous Rx's Medication Instructions Recorded aspirin 81 mg PO DAILY #30 tab 06/10/20 Allergies Allergy/AdvReac Type Severity Reaction Status Date / Time metformin AdvReac Intermediate Diarrhea Unverified 08/14/20 22:12 fosinopril sodium AdvReac Unknown Coughing Unverified 08/14/20 22:12 [From Monopril] pollen Allergy Mild congestion Uncoded 08/14/20 22:12 General Stated Complaint: Trauma CYNTHIA: 3 Review of Systems <FRANCISCO Mejia - Last Filed: 08/15/20 10:31> Narrative: Review of systems obtained x7 aside from where indicated in HPI PFSH <FRANCISCO Mejia - Last Filed: 08/15/20 10:31> Medical History (Updated 08/14/20 @ 23:55 by FRANCISCO Mejia) Anxiety Diabetes mellitus type II, non insulin dependent GERD (gastroesophageal reflux disease) Hx of deep venous thrombosis Hyperlipidemia Hypertension Peripheral vascular disease Retinitis pigmentosa of both eyes Surgical History Ligation of fallopian tube Thyroid pt reports partial removal of thyroid Vascular Surgery vein stripping. Social History Smoking/Tobacco Use Status: Never Smoking risk assessment performed?: Yes Alcohol Intake: never Drug use: Never Substance use type: does not use Do you feel safe at home: Yes Do you feel safe in your relationship?: Yes Exam <FRANCISCO Mejia - Last Filed: 08/15/20 10:31> Const Orientation: alert and oriented x3 Eyes Pupils: PERRL Other: No hemotympanum Neck Other: No midline tenderness, paraspinal muscle tenderness Chest Other: No chest wall tenderness, tenderness to epigastrium and ecchymosis noted, no bony step-off or crepitance, lungs clear to auscultation bilaterally Resp Effort & Inspection: normal respiratory effort Auscultation: clear to auscultation bilaterally Cardio Rate: regular rate Rhythm: regular rhythm GI Other: Ecchymosis to epigastrium, no flank hematoma, mild tenderness to right upper quadrant and left upper quadrant Neuro General: patient alert and patient oriented x3 Cranial Nerves: CN's II-XI intact bilaterally Sensory Exam: no sensory deficits noted Other: GCS 15 Extrem Other: Left humerus with tenderness, no visible sign of trauma, mild bruising to bilateral upper extremities only, nontender Course <FRANCISCO Mejia - Last Filed: 08/15/20 10:31> Vital Signs Vital signs: Vital Signs Temperature 36.4 C L 08/14/20 22:07 Pulse 90 08/14/20 22:07 Respiratory Rate 19 08/14/20 22:07 Blood Pressure 145/75 H 08/14/20 22:07 Pulse Oximetry 96 08/14/20 22:07 Temperature 36.4 C L 08/14/20 22:07 Pulse 90 08/14/20 22:07 Respiratory Rate 19 08/14/20 22:07 Respiratory Effort 08/14/20 23:08 Blood Pressure 145/75 H 08/14/20 22:07 Pulse Oximetry 96 08/14/20 22:07 Pain Level 7 08/14/20 22:07 Lab/Test Results Lab/Test Results: Laboratory Tests Range/Units 08/14/20 08/14/20 08/14/20 23:03 23:03 23:03 WBC (4.4-10.8) 10^3/uL 12.25 H RBC (3.93-5.22) 10^6/uL 4.36 Hgb (11.2-15.7) g/dL 11.9 Hct (36.0-46.0) % 36.0 MCV (80-95) fL 82.6 MCH (27.0-33.0) pg 27.3 MCHC (32.0-36.0) % 33.1 RDW (11.7-14.6) % 12.4 Plt Count (130-400) 10^3/uL 269 MPV (8.0-11.0) fL 9.3 Immature Gran % 0.2 Neutrophils % 69.1 Lymphocytes % 22.3 Monocytes % 6.8 Eosinophils % 1.2 Basophils % 0.4 Nucleated RBC % % 0 Absolute Neutrophils (1.2-6.7) 10^3/uL 8.46 H Absolute Lymphocytes (1.2-3.4) 10^3/uL 2.73 Absolute Monocytes (0.1-0.8) 10^3/uL 0.83 H Absolute Eosinophils (0.0-0.7) 10^3/uL 0.15 Absolute Basophils (0.0-0.2) 10^3/uL 0.05 PT (9.3-11.0) sec 18.8 H INR (0.9-1.1) 1.9 H Sodium (136-145) mmol/L 130 L Potassium (3.5-5.1) mmol/L 3.6 Chloride (98-107) mmol/L 95 L Carbon Dioxide (21.0-32.0) mmol/L 25.9 Anion Gap (3-11) mmol/L 9.1 BUN (7-18) mg/dL 11 Creatinine (0.55-1.02) mg/dL 0.8 Estimated GFR/1.73 m2 (mL/min/1.73m2) >= 60.00 Glucose (74-106) mg/dL 166 H Calcium (8.5-10.1) mg/dL 8.5 Total Bilirubin (0.2-1.0) mg/dL 0.5 AST (15-37) U/L 17 ALT (14-59) U/L 25 Alkaline Phosphatase (46-116) U/L 94 Total Protein (6.4-8.2) g/dL 7.7 Albumin (3.4-5.0) g/dL 3.5 Lipase (73-393) U/L 113
[2020-08-15] VITALS: BP 139/81; PULSE 80; RESP 20; O2SAT 98
[2020-08-15] MEDS: Normal Saline - Diluent 50 ML VIAL IV (00:03)
[2020-08-15] MEDS: Normal Saline Flush 10 ML SYR IVP (00:04)
--- NOTE | 2020-08-15 00:32 | DI.VRAD_ITS ---
PROCEDURE INFORMATION: Exam: CT Head Without Contrast Exam date and time: 08/14/2020 10:49 PM Age: 65 years old Clinical indication: Injury or trauma; Blunt trauma (contusions or hematomas); Injury date: 08/14/20; Injury details: Fall, hi on coumadin; Prior surgery; Surgery date: 6+ months; Surgery type: Thyroid TECHNIQUE: Imaging protocol: Computed tomography of the head without contrast. Radiation optimization: All CT scans at this facility use at least one of these dose optimization techniques: automated exposure control; mA and/or kV adjustment per patient size (includes targeted exams where dose is matched to clinical indication); or iterative reconstruction. COMPARISON: CT HEAD CERVICAL SPINE WO 02/15/2020 6:52 AM FINDINGS: Brain: Normal. No hemorrhage. Unremarkable white matter. No mass effect. Cerebral ventricles: No ventriculomegaly. Paranasal sinuses: Visualized sinuses are unremarkable. No fluid levels. Mastoid air cells: Visualized mastoid air cells are well aerated. Bones/joints: Unremarkable. No acute fracture. Soft tissues: Unremarkable. IMPRESSION: No acute intracranial abnormality. PROCEDURE INFORMATION: Exam: CT Cervical Spine Without Contrast Exam date and time: 08/14/2020 10:49 PM Age: 65 years old Clinical indication: Injury or trauma; Blunt trauma (contusions or hematomas); Injury date: 08/14/20; Injury details: Fall, hi on coumadin; Prior surgery; Surgery date: 6+ months; Surgery type: Thyroid TECHNIQUE: Imaging protocol: Computed tomography images of the cervical spine without contrast. Radiation optimization: All CT scans at this facility use at least one of these dose optimization techniques: automated exposure control; mA and/or kV adjustment per patient size (includes targeted exams where dose is matched to clinical indication); or iterative reconstruction. COMPARISON: CT HEAD CERVICAL SPINE WO 02/15/2020 6:52 AM FINDINGS: Vertebrae: No acute fracture. Normal alignment. C2-C3: No significant disc protrusion. No severe spinal canal stenosis. No significant neural foraminal narrowing. C3-C4: No significant disc protrusion. No severe spinal canal stenosis. No significant neural foraminal narrowing. C4-C5: No significant disc protrusion. No severe spinal canal stenosis. No significant neural foraminal narrowing. C5-C6: No significant disc protrusion. No severe spinal canal stenosis. No significant neural foraminal narrowing. C6-C7: No significant disc protrusion. No severe spinal canal stenosis. No significant neural foraminal narrowing. C7-T1: No significant disc protrusion. No severe spinal canal stenosis. No significant neural foraminal narrowing. Soft tissues: Unremarkable. Lungs: Lung apices are normal. IMPRESSION: No acute findings. Dictated and Authenticated by: Paramjit Bingham MD. Ordering:ORIANA Orr MD
--- NOTE | 2020-08-15 00:35 | DI.VRAD_ITS ---
PROCEDURE INFORMATION: Exam: XR Left Humerus Exam date and time: 08/14/2020 10:51 PM Age: 65 years old Clinical indication: Injury or trauma; Blunt trauma (contusions or hematomas); Arm, upper; Left; Injury date: 08/14/20; Injury details: Fall, pain TECHNIQUE: Imaging protocol: XR Left humerus. Views: 2 or more views. COMPARISON: CR XR FOREARM LT 11/30/2018 7:16 PM FINDINGS: Bones/joints: No acute fracture or dislocation. Soft tissues: Unremarkable. IMPRESSION: No acute fracture of dislocation. Dictated and Authenticated by: Otoniel Vanegas MD. Ordering:ORIANA Orr MD
[2020-08-15 00:46] VITALS: BP 141/86; PULSE 78; PULSE 81; RESP 19; O2SAT 94
--- NOTE | 2020-08-15 01:03 | DI.VRAD_ITS ---
PROCEDURE INFORMATION: Exam: CT Chest With Contrast; Diagnostic Exam date and time: 08/14/2020 10:49 PM Age: 65 years old Clinical indication: Injury or trauma; Fall; Blunt trauma (contusions or hematomas); Injury date: 08/14/20; Injury details: Epigastric hematoma, tenderness, on coumadin TECHNIQUE: Imaging protocol: Diagnostic computed tomography of the chest with contrast. Radiation optimization: All CT scans at this facility use at least one of these dose optimization techniques: automated exposure control; mA and/or kV adjustment per patient size (includes targeted exams where dose is matched to clinical indication); or iterative reconstruction. Contrast material: OMNIPAQUE 350; Contrast volume: 100 ml; Contrast route: INTRAVENOUS (IV); COMPARISON: CT CHEST PE CTA 06/09/2020 6:00 PM FINDINGS: Thyroid: Evidence of prior partial thyroidectomy. Right thyroid lobe not definitively seen. Lungs: Clear central airways. Limited evaluation lung parenchyma secondary to areas of motion. No consolidation. Pleural spaces: No pneumothorax. No sizable pleural effusion. Heart: Heart normal size. Pulmonary arteries: Normal caliber main pulmonary artery. Aorta: Normal caliber aorta. Lymph nodes: No suspicious lymphadenopathy. Bones/joints: Bony degenerative changes. No acute fracture or dislocation. Similar wedging/height loss of T12. Soft tissues: Dependent soft tissue edema. IMPRESSION: No acute traumatic findings to the chest. PROCEDURE INFORMATION: Exam: CT Abdomen And Pelvis With Contrast Exam date and time: 08/14/2020 10:49 PM Age: 65 years old Clinical indication: Injury or trauma; Fall; Blunt trauma (contusions or hematomas); Injury date: 08/14/20; Injury details: Epigastric hematoma, tenderness, on coumadin TECHNIQUE: Imaging protocol: Computed tomography of the abdomen and pelvis with contrast. Radiation optimization: All CT scans at this facility use at least one of these dose optimization techniques: automated exposure control; mA and/or kV adjustment per patient size (includes targeted exams where dose is matched to clinical indication); or iterative reconstruction. Contrast material: OMNIPAQUE 350; Contrast volume: 100 ml; Contrast route: INTRAVENOUS (IV); COMPARISON: CT CHEST PE CTA 06/09/2020 6:[address] 11/30/2018 FINDINGS: Liver: Granulomatous changes of the liver. Hepatomegaly. Unremarkable liver otherwise. Gallbladder and bile ducts: Unremarkable gallbladder. Pancreas: Unremarkable pancreas. Spleen: Unremarkable spleen. Adrenal glands: Left adrenal gland not identified. Unremarkable right adrenal. Kidneys and ureters: Redemonstrated fatty lesion right kidney. Unremarkable left kidney. Visualized bilateral ureters unremarkable. Stomach and bowel: Nonobstructive appearance of the bowel. Appendix: Unremarkable appendix. Intraperitoneal space: See Lymph nodes finding. Vasculature: Patent portal veins. Vascular calcifications. Normal caliber aorta. Redemonstrated prominent pelvic vasculature including bilateral gonadal veins. Suggestive of pelvic congestion syndrome. Lymph nodes: No suspicious lymphadenopathy. Very mild central mesenteric stranding with prominent associated lymph nodes. Please see image 68 series 4 as an example. Similar to slightly increased in prominence compared to prior CT from 11/30/2018. This is suggestive of mesenteric panniculitis. Urinary bladder: Tiny focus of gas seen within the bladder. Image 100 series 4. Bladder poorly distended and poorly evaluated. Grossly unremarkable. Reproductive: Endometrium thickened measuring up to 7-8 mm. Otherwise unremarkable uterus for age. Unremarkable adnexa for age. Bones/joints: Bony degenerative changes. No acute fracture or dislocation. Soft tissues: Patchy areas of edema anterior abdominal wall. Images 53 and 62 series 4 as examples. Small fat containing umbilical hernia without evidence of acute complication. IMPRESSION: 1. Patchy areas of soft tissue edema along the anterior abdominal wall which could be traumatic in nature. Please correlate with physical exam. 2. No other acute traumatic findings to the abdomen or pelvis. 3. Tiny focus of gas along the anterior aspect of the bladder. Possibly postprocedural. Please correlate for any history of recent catheterization and also with urinalysis to exclude presence of cystitis. 4. Endometrium thickened measuring up to 7-8 mm. Pelvic ultrasound recommended when clinically appropriate. 5. Additional findings as above. Dictated and Authenticated by: Otoniel Vanegas MD. Ordering:ORIANA Orr MD
[2020-08-15 01:26] LABS: Bilirubin Negative (Negative); Blood Negative (Negative); Clarity Clear (Clear); Glucose Negative (Negative); Ketones Negative (Negative); Leukocyte Esterase Small (Negative); Nitrite Negative (Negative); Urobilinogen 0.2 EU/dL (Up TO 0.2)
[2020-08-15 01:35] LABS: Bacteria Few HPF (Negative); C & S Indicated? Yes; Casts Negative LPF (Negative); Crystals Negative HPF (Negative); Epithelial Cells Few HPF (Negative); Mucus Negative (Negative); RBC Negative HPF (0-2)
== END 2020-08-15 01:53 | disposition home or self-care (01) ==
PROVIDERS: Emergency Medicine; Emergency Provider Physician Assistant; PCP Family Medicine
DX: S30.1XXA Contusion of abdominal wall, initial encounter (principal); S13.4XXA Sprain of ligaments of cervical spine, initial encounter; S49.92XA Unspecified injury of left shoulder and upper arm, initial encounter; W01.0XXA Fall on same level from slipping, tripping and stumbling without subsequent striking against object, initial encounter; R79.1 Abnormal coagulation profile; T45.515A Adverse effect of anticoagulants, initial encounter; Z79.01 Long term (current) use of anticoagulants; H54.8 Legal blindness, as defined in USA; R93.5 Abnormal findings on diagnostic imaging of other abdominal regions, including retroperitoneum
CPT/HCPCS: 36415; 74177; 80053; 83690; 99285; 70450; 71260; 72125; 73060; 81003; 81015; 85025; 85610; 87086; 99284; J3490

== ENCOUNTER 2020-09-10 12:45 | Emergency (ER) | payer MEDICARE, SELFPAY ==
[2020-09-10] VITALS (14 sets, daily range): BP systolic 132–156; BP diastolic 71–84; PULSE 63–82; RESP 16; TEMP 36.4; O2SAT 93–100
--- NOTE | 2020-09-10 13:00 | RT.EKG_ITS ---
APPROVED REPORT Exam: Resting ECG Reason for Exam: shortness of breath Patient Location: E HR:71 bpm ECG Measurements Heart Rate 71 AXIS AK 218 P 19 QRSd 87 QRS -5 QT 393 T [id number] QTc 427 Conclusion Sinus rhythm...normal P axis, V-rate 60- 99 Borderline prolonged AK interval...AK >212, V-rate 50- 90 Nonspecific T abnormalities, inferior leads...T <-0.10mV, II III aVF. No STEMI. I have reviewed and interpreted ECG and agree with software generated interpretation.
--- NOTE | 2020-09-10 13:13 | DI.RAD_ITS ---
Exam(s) XR PORTABLE CHEST AP EXAM: XR PORTABLE CHEST AP CLINICAL HISTORY: cough, shortness of breath TECHNIQUE: 2D digital imaging was performed. COMPARISON: CT CT CHEST/ABD/PEL W from 08/14/2020 FINDINGS: LUNGS: Clear. No pleural abnormality seen. HEART: Normal. MEDIASTINUM: Normal. BONES: Unremarkable. IMPRESSION: No acute pulmonary findings. DATA REPOSITORY: RADIATION DOSE DELIVERED:
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
[2020-09-10 13:35] LABS: Source Nasal/Nares
[2020-09-10 13:36] LABS: Abs Immature Grans 0.04 10^3/uL (0.0-0.06); Absolute Basophil Count 0.02 10^3/uL (0.0-0.2); Absolute Lymphocyte Count 1.34 10^3/uL (1.2-3.4); Absolute Monocyte Count 0.54 10^3/uL (0.1-0.8); Absolute Neutrophil Count 5.38 10^3/uL (1.2-6.7); Basophils % 0.3; Eosinophils % 3.9; HCT 39.6 % (36.0-46.0); HGB 12.6 g/dL (11.2-15.7); Immature Grans % 0.5; Lymphocytes % 17.6; MCH 26.9 pg (27.0-33.0); MCHC 31.8 % (32.0-36.0); MCV 84.6 fL (80-95); MPV 9.1 fL (8.0-11.0); Monocytes % 7.1; Neutrophils % 70.6; Nucleated RBC 0 %; Platelet Count 270 10^3/uL (130-400); RBC 4.68 10^6/uL (3.93-5.22); RDW 12.6 % (11.7-14.6); RDW-SD 38.4 fL; WBC 7.62 10^3/uL (4.4-10.8)
[2020-09-10 13:46] LABS: INR 1.6 (0.9-1.1); Prothrombin Time 16.1 sec (9.3-11.0)
[2020-09-10 13:56] LABS: ALT 34 U/L (14-59); AST 14 U/L (15-37); Albumin 3.4 g/dL (3.4-5.0); Alkaline Phosphatase 114 U/L (46-116); Anion Gap 8.7 mmol/L (3-11); BUN 8 mg/dL (7-18); Bilirubin, Total 0.4 mg/dL (0.2-1.0); CO2 27.3 mmol/L (21.0-32.0); CREATININE 0.9 mg/dL (0.55-1.02); Calcium 8.7 mg/dL (8.5-10.1); Chloride 98 mmol/L (98-107); Glucose 241 mg/dL (74-106); NT-proBNP 300 pg/mL (<300); Potassium 3.6 mmol/L (3.5-5.1); Sodium 134 mmol/L (136-145); Total Protein 7.8 g/dL (6.4-8.2)
[2020-09-10 13:58] LABS: Troponin I < 0.05 ng/mL (<0.06)
[2020-09-10 14:30] LABS: COVID-19 PCR Negative (Negative)
[2020-09-10] MEDS: Albuterol 2.5 MG/3 ML INH SOLN VIAL UPD (14:41)
[2020-09-10] MEDS: predniSONE 20 MG TAB 40 MG PO (14:41)
--- NOTE | 2020-09-10 15:52 | DI.VRAD_ITS ---
PROCEDURE INFORMATION: Exam: XR Chest Exam date and time: 09/10/2020 2:00 PM Age: 65 years old Clinical indication: Shortness of breath TECHNIQUE: Imaging protocol: XR of the chest. Views: 1 view. COMPARISON: CT CHEST/ABD/PEL W 08/14/2020 11:55 PM FINDINGS: Lungs: Unremarkable. No consolidation. Pleural spaces: Unremarkable. No pleural effusion. No pneumothorax. Heart/Mediastinum: Unremarkable. No cardiomegaly. Bones/joints: Unremarkable. IMPRESSION: No acute findings. Dictated and Authenticated by: Ander Watson MD. Ordering:ORIANA Orr MD
== END 2020-09-10 15:59 | disposition home or self-care (01) ==
PROVIDERS: Emergency Provider Physician Assistant; PCP Family Medicine
DX: R05 Cough (principal); J06.9 Acute upper respiratory infection, unspecified; Z20.822 Contact with and (suspected) exposure to COVID-19; Z03.818 Encounter for observation for suspected exposure to other biological agents ruled out
CPT/HCPCS: 36415; 80053; 87635; 93005; 94640; 99285; 71045; 83880; 84484; 85025; 85610; 93010; 99284; J7512; J7613

== ENCOUNTER 2020-10-02 14:04 | Outpatient (REF) | payer MEDICARE, SELFPAY ==
[2020-10-04 15:24] LABS: Albumin 52.4 % (55.8-66.1); Total Protein 7.3 g/dL (6.3-8.2)
== END 2020-10-02 14:05 | disposition home or self-care (01) ==
LOC: NCHCN 14:04
PROVIDERS: PCP Family Medicine; Visit Provider Nurse Practitioner Family
DX: R93.7 Abnormal findings on diagnostic imaging of other parts of musculoskeletal system (principal); M25.571 Pain in right ankle and joints of right foot; I48.92 Unspecified atrial flutter; Z79.01 Long term (current) use of anticoagulants
CPT/HCPCS: 84156; 84166; 86335; 84165

== ENCOUNTER 2020-10-25 12:16 | Emergency (ER) | payer MEDICARE, SELFPAY ==
[2020-10-25] VITALS (7 sets, daily range): BP systolic 122–163; BP diastolic 73–114; PULSE 73–89; RESP 18; TEMP 36.6; O2SAT 96–99
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
--- NOTE | 2020-10-25 12:45 | DI.US_ITS ---
Exam(s) US LOWER EXTREMITY VENOUS LT EXAM: US LOWER EXTREMITY VENOUS LT CLINICAL HISTORY: pain, hx of dvt TECHNIQUE: Grayscale, color, and doppler imaging of the deep venous system of the left lower extremi ty was performed. COMPARISON: US US ECHOCARDIOGRAM from 06/28/2020 FINDINGS: There is no evidence of DVT but this study is positive for clot in the greater saphenous vein in the thigh. DEEP VEINS: There is no evidence of intraluminal thrombus and there is normal compression and augmentation demons trated within the common femoral vein, femoral vein, and popliteal vein. In the ipsilateral calf the interrogated veins also exhibit normal compression/ augmentation properti es SUPERFICIAL VEINS: THERE IS THROMBUS WITHIN THE GREATER SAPHENOUS VEIN IN THE CALF OVER 4.3 CM LENGTH , THIS BEING OVER 5 CM AWAY FROM SAPHENOFEMORAL JUNCTION. The ipsilateral saphenofemoral junction is patent. IMPRESSION: 1. No evidence of acute DVT in the left lower extremity. 2. However, there is thrombus within the ipsilateral greater saphenous vein, this being over 5 cm aw ay from the saphenofemoral junction. DATA REPOSITORY:
[2020-10-25 13:08] LABS: Abs Immature Grans 0.03 10^3/uL (0.0-0.06); Absolute Basophil Count 0.04 10^3/uL (0.0-0.2); Absolute Lymphocyte Count 1.43 10^3/uL (1.2-3.4); Absolute Monocyte Count 0.57 10^3/uL (0.1-0.8); Absolute Neutrophil Count 6.47 10^3/uL (1.2-6.7); Basophils % 0.5; Eosinophils % 1.2; HCT 41.1 % (36.0-46.0); Immature Grans % 0.3; Lymphocytes % 16.6; MCH 26.6 pg (27.0-33.0); MCHC 31.6 % (32.0-36.0); MCV 84.2 fL (80-95); MPV 9.5 fL (8.0-11.0); Monocytes % 6.6; Neutrophils % 74.8; Nucleated RBC 0 %; Platelet Count 255 10^3/uL (130-400); RBC 4.88 10^6/uL (3.93-5.22); RDW 12.7 % (11.7-14.6); WBC 8.64 10^3/uL (4.4-10.8)
[2020-10-25 13:28] LABS: ALT 21 U/L (14-59); AST 13 U/L (15-37); Albumin 3.6 g/dL (3.4-5.0); Alkaline Phosphatase 118 U/L (46-116); Anion Gap 7.4 mmol/L (3-11); BUN 10 mg/dL (7-18); Bilirubin, Total 0.5 mg/dL (0.2-1.0); CO2 28.6 mmol/L (21.0-32.0); CREATININE 0.9 mg/dL (0.55-1.02); Chloride 96 mmol/L (98-107); Glucose 240 mg/dL (74-106); Lipase 160 U/L (73-393); Potassium 4.2 mmol/L (3.5-5.1); Sodium 132 mmol/L (136-145); Total Protein 8.2 g/dL (6.4-8.2)
[2020-10-25 13:39] LABS: Bilirubin Negative (Negative); Blood Trace-intact (Negative); Clarity Sl Cloudy (Clear); Glucose 100 mg/dL (Negative); Ketones Negative (Negative); Leukocyte Esterase Small (Negative); Nitrite Negative (Negative); Specific Gravity 1.015 (1.005-1.025); Urobilinogen 0.2 EU/dL (Up TO 0.2)
[2020-10-25 13:50] LABS: Bacteria Few HPF (Negative); C & S Indicated? Yes; Casts 0-2 Hyaline LPF (Negative); Crystals Negative HPF (Negative); Epithelial Cells Few HPF (Negative); Mucus Trace (Negative)
[2020-10-25 15:22] LABS: INR 2.3 (0.9-1.1); Prothrombin Time 22.3 sec (9.3-11.0)
[2020-10-25] MEDS: Cephalexin 500 MG CAP PO (16:20)
== END 2020-10-25 16:14 | disposition home or self-care (01) ==
PROVIDERS: Emergency Provider Physician Assistant; PCP Family Medicine
DX: I82.812 Embolism and thrombosis of superficial veins of left lower extremity (principal); N39.0 Urinary tract infection, site not specified; B96.89 Other specified bacterial agents as the cause of diseases classified elsewhere; M79.662 Pain in left lower leg; E11.9 Type 2 diabetes mellitus without complications
CPT/HCPCS: 36415; 36416; 80053; 82962; 83690; 99284; 81003; 81015; 85025; 85610; 87086; 93971

== ENCOUNTER → 2020-10-31 01:25 | Outpatient (CLI) | payer MEDICARE, SELFPAY ==
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
--- NOTE | 2020-10-31 | DI.US_ITS ---
Exam(s) US PELVIS TRANSVAGINAL EXAM: US PELVIS TRANSVAGINAL CLINICAL HISTORY: ENDOMETRIAL THICKENING, R93.89 TECHNIQUE: Ultrasound of the pelvis was performed both transabdominal and transvaginal. COMPARISON: US US LOWER EXTREMITY VENOUS LT from 10/25/2020 FINDINGS: UTERUS: Uterus is retroverted. Measures 6.5 cm length x 2.3 cm AP x 0.4 cm wide. There are no uterine fibroids.. There is small amount of fluid in the lower endometrial canal. Endometrial thickness measures 3.4 mm. There are dilated bilateral adnexal veins, right more prominent than left. Probably indicates an janny ment of pelvic congestion syndrome. No free fluid. CERVIX: Few small nabothian cysts. RIGHT OVARY: Measures 1.6 x 1.7 x 1.2 cm No significant cysts nor masses evident in the right ovary. LEFT OVARY: Measures 0.3 x 1.4 x 1.3 cm No significant cysts nor masses evident in the left ovary. CUL-DE-SAC: No free fluid evident. IMPRESSION: 1. Retroverted uterus. There is some fluid evident in the endometrial canal. This requires appropri ate follow-up. 2. No abnormal ovarian findings. 3. Bilateral prominent adnexal veins, right greater than left. Probably indicates an element of pelv ic congestion syndrome. DATA REPOSITORY:
== END ==
PROVIDERS: PCP Family Medicine; Visit Provider Nurse Practitioner Family
DX: R93.89 Abnormal findings on diagnostic imaging of other specified body structures (principal); N85.4 Malposition of uterus; M77.31 Calcaneal spur, right foot
CPT/HCPCS: 73610; 76830; 76856

== ENCOUNTER → 2020-11-02 02:50 | Outpatient (CLI) | payer MEDICARE, SELFPAY ==
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
== END ==
PROVIDERS: PCP Family Medicine; Visit Provider Nurse Practitioner Family
DX: R93.7 Abnormal findings on diagnostic imaging of other parts of musculoskeletal system (principal)
CPT/HCPCS: 78306

== ENCOUNTER 2020-11-27 15:39 | Outpatient (REF) | payer MEDICARE, SELFPAY ==
[2020-11-29 11:56] LABS: COVID-19 RT-PCR UVMMC Result Negative (Negative)
== END 2020-11-27 15:40 | disposition home or self-care (01) ==
LOC: NCHCN 15:39
PROVIDERS: PCP Family Medicine; Visit Provider Nurse Practitioner Family
DX: Z20.822 Contact with and (suspected) exposure to COVID-19 (principal); J06.9 Acute upper respiratory infection, unspecified
CPT/HCPCS: U0003; U0005

== ENCOUNTER → 2020-11-30 04:12 | Outpatient (CLI) | payer MEDICARE, SELFPAY ==
--- NOTE | 2020-11-30 | DI.RAD_ITS ---
Exam(s) XR THORACIC SPINE COMPLETE EXAM: XR THORACIC SPINE COMPLETE CLINICAL HISTORY: ABNL FINDINGS ON DIAGNOSTIC IMAGING, R93.89, UNEXPLAINED UPTAKE T9/10. TECHNIQUE: 2D digital imaging was performed of the thoracic spine. Views were obtained. AP, swimm er's and lateral views were obtained. COMPARISON: CR,XR XR PORTABLE CHEST AP from 09/10/2020 CR,XR XR PORTABLE CHEST AP from 09/10/[address] CHEST W/ CNTRST from 09/22/[address] CHEST W/ CNTRST from 09/22/2020 NM NM BONE SCAN WHOLE BODY GRP from 11/02/2020 NM NM BONE SCAN WHOLE BODY GRP from 11/02/2020 FINDINGS: BONES: There is an old T12 compression deformity which appears stable. There is mild compression of the T8 vertebral body is noted. This appears to correspond to the increased uptake in the bone scan from 11/02/2020. The vertebral bodies and posterior elements are otherwise unremarkable. DISKS:Alignment is within normal limits. Interverebral disc spaces are maintained. SOFT TISSUE: Visualized lungs are clear. IMPRESSION: Acute to subacute mild compression of the T8 vertebral body. This was not present on the CT scan fro m 09/22/2020. This appears to correspond to the increased radiotracer uptake on the nuclear medicine b one scan from 11/02/2020. DATA REPOSITORY: RADIATION DOSE DELIVERED:
== END ==
PROVIDERS: PCP Family Medicine; Visit Provider Nurse Practitioner Family
DX: R93.89 Abnormal findings on diagnostic imaging of other specified body structures (principal); M47.894 Other spondylosis, thoracic region
CPT/HCPCS: 72072

== ENCOUNTER 2021-03-06 19:57 | Emergency (ER) | payer MEDICARE, SELFPAY ==
[2021-03-06 20:24] VITALS: BP 161/92; PULSE 85; RESP 16; TEMP 36.6; O2SAT 97
--- NOTE | 2021-03-06 21:25 | ED.GENADUL_ITS ---
Discharge Plan Disposition Patient Disposition: HOME Condition: Improving Discharge Details Clinical Impression: Folliculitis Primary Care Provider: Jolly Wren V ED Provider: Seven Bradley Home Meds and New Rx's Prescriptions: New cephalexin 500 mg tablet 500 mg PO TID 5 Days Qty: 15 RF: 0 Continued atorvastatin [Lipitor] 10 MG tablet 80 mg PO HS RF: 0 clonazepam [Klonopin] 0.5 MG tablet 0.5 mg PO PRN PRNRF: 0 pantoprazole [Protonix] 20 MG tablet,delayed release (DR/EC) 40 mg PO BID RF: 0 levothyroxine [Synthroid] 88 MCG tablet 88 mcg PO DAILY RF: 0 losartan 100 MG tablet 100 mg PO DAILY RF: 0 metoprolol succinate 25 MG tablet extended release 24 hr 50 mg PO DAILY RF: 0 glipizide 10 MG tablet 1 tab PO DAILY RF: 0 ferrous sulfate 325 MG tablet 325 mg PO DAILY RF: 0 Januvia 100 MG tablet 100 mg PO DAILY RF: 0 fluticasone propionate [Flonase Allergy Relief] 50 mcg/actuation [place],Suspension 1 spray INTRANASAL BID PRNRF: 0 aspirin 81 mg Tablet,Chewable 81 mg PO DAILY Qty: 30 RF: 0 albuterol sulfate [Ventolin HFA] 90 mcg/actuation HFA aerosol inhaler 2 puff inhalation Q6H PRNQty: 6.7 RF: 0 guaifenesin [Mucinex] 600 mg tablet extended release 12hr 600 mg PO BID Qty: 10 RF: 0 Discharge Instructions Instructions: Folliculitis (ED) Additional Instructions: Continue to apply warm, moist heat to area 3-4 times a day. Apply bacitracin to area topically 2-3 times per day. Take Keflex as directed every 6 hours for the first 24 hours and then you may startthe prescription which was sent to your pharmacy electronically this evening Return to the emergency room for any acute concerns. Medical Decision Making 65-year-old female presents with area of irritation on her ischium over 2 to 3 days time. She has a small folliculitis. No indication to incise. Will place her on topical bacitracin as well as oral Keflex. She will apply heat to the area to speed healing. Have evidence patient may have an early urinary tract infection. Keflex will add a cover this. Patient is improved, she understands homecare as well as indications to return for repeat evaluation. HPI General Mode of arrival: ambulatory . Date/Time Provider Initiated Documentation: 03/06/21 19:58 . Limitations to Documentation: no limitations . Information obtained by: patient . History of Present Illness 65 year old F presents to the emergency department with the chief complaint of Small abscess on ischium, described as mild, Quality is described as dull and constant, and is localized to the pelvis and left. Patient reports no radiation. Pa maya started experiencing this day(s) and it has been intermittent. No relieving factors improve symptom(s), No exacerbating factors reported . Patient notes denies fever/chills. Patient did receive the following treatments prior to arrival, none Related Data Home Medications Medication Instructions Recorded Confirmed atorvastatin [Lipitor] 80 mg PO HS 06/04/12 03/06/21 clonazepam [Klonopin] 0.5 mg PO PRN PRN 06/04/12 03/06/21 levothyroxine [Synthroid] 88 mcg PO DAILY 06/04/12 03/06/21 losartan 100 mg PO DAILY 06/04/12 03/06/21 pantoprazole [Protonix] 40 mg PO BID 06/04/12 03/06/21 metoprolol succinate 50 mg PO DAILY 07/14/12 03/06/21 glipizide 1 tab PO DAILY 12/12/13 03/06/21 ferrous sulfate 325 mg PO DAILY 10/04/15 03/06/21 Januvia 100 mg PO DAILY 06/26/16 03/06/21 fluticasone propionate [Flonase 1 spray INTRANASAL BID PRN 10/08/19 03/06/21 Allergy Relief] aspirin 81 mg PO DAILY #30 tab 06/10/20 03/06/21 albuterol sulfate [Ventolin HFA] 2 puff INHALATION Q6H PRN #6.7 g 09/10/20 03/06/21 guaifenesin [Mucinex] 600 mg PO BID #10 tab 09/10/20 03/06/21 cephalexin 500 mg PO TID 5 Days #15 tab 03/06/21 Previous Rx's Medication Instructions Recorded aspirin 81 mg PO DAILY #30 tab 06/10/20 albuterol sulfate [Ventolin HFA] 2 puff INHALATION Q6H PRN #6.7 g 09/10/20 guaifenesin [Mucinex] 600 mg PO BID #10 tab 09/10/20 cephalexin 500 mg PO TID 5 Days #15 tab 03/06/21 Allergies Allergy/AdvReac Type Severity Reaction Status Date / Time metformin AdvReac Intermediate Diarrhea Unverified 03/06/21 20:29 fosinopril sodium AdvReac Unknown Coughing Unverified 03/06/21 20:29 [From Monopril] pollen Allergy Mild congestion Uncoded 03/06/21 20:29 General Stated Complaint: GenMedical CYNTHIA: 3 Review of Systems Narrative: No fever, chills, nausea or vomiting. 6 systems were reviewed and otherwise negative PFSH All Active Problems (Updated 03/06/21 @ 21:28 by Seven Bradley MD) Folliculitis (Acute) Recurrent UTI (Acute) Superficial bruising of abdominal wall (Acute) Arm injury (Acute) Acute whiplash injury (Acute) Acute upper respiratory infection (Acute) Acute superficial venous thrombosis of left lower extremity (Acute) Acute UTI (Acute) Leg pain (Acute) Musculoskeletal chest pain (Acute) Atypical chest pain (Acute) Atrial flutter (Acute) Fracture of left talus (Acute) Skin abscess (Acute 07/28/14) 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 Pt given samples of Hibiclens to wash vulva daily x1 week then twice weekly. Retinitis pigmentosa of both eyes (Acute 07/28/14) Peripheral vascular disease (Acute 07/28/14) Hypertension (Chronic 07/28/14) Hyperlipidemia (Chronic 07/28/14) GERD (gastroesophageal reflux disease) (Chronic 07/28/14) Diabetes (Chronic 07/28/14) DVT (deep venous thrombosis) (Chronic 07/28/14) Anxiety (Acute 07/28/14) Medical History (Updated 03/06/21 @ 21:28 by Seven Bradley MD) Anxiety Diabetes mellitus type II, non insulin dependent GERD (gastroesophageal reflux disease) Hx of deep venous thrombosis Hyperlipidemia Hypertension Peripheral vascular disease Retinitis pigmentosa of both eyes Surgical History Ligation of fallopian tube Thyroid pt reports partial removal of thyroid Vascular Surgery vein stripping. Social History Smoking/Tobacco Use Status: Never Smoking risk assessment performed?: Yes Alcohol Intake: never Drug use: Never Substance use type: does not use Household members: spouse and other Details: Grandson (Senior at [employer]) Do you feel safe at home: Yes Do you feel safe in your relationship?: Yes Exam Narrative Exam Narrative: GEN: awake, alert, oriented 3. Pleasant, well groomed, interactive. HEAD: Normocephalic, atraumatic ENT: Mucous membranes moist, oropharynx unremarkable, External ear exam unremarkable EYES: PERRL, EOMI NECK: Full ROM, no FAITH, no menigismus CHEST/RESP: Nontender, clear to auscultation bilateral, no wheeze/rhonchi/rales CARDIOVASCULAR: RRR, no murmur, rub stephenie. 2+ Rad pulse bilateral ABDOMEN: Soft, nontender, no mass. +Bowel sounds. On the patient's left ischium there is a small follicular area of raised tender erythema measuring approximately 1 cm. EXT: Full ROM, no edema, no rash Neuro: Grossly normal neurologic exam, conversant, interactive. Psych: Speech fluent, thoughts congruent, affect normal Course Vital Signs Vital signs: Vital Signs Temperature 36.6 C 03/06/21 20:24 Pulse 85 03/06/21 20:24 Respiratory Rate 16 03/06/21 20:24 Blood Pressure 161/92 H 03/06/21 20:24 Pulse Oximetry 97 03/06/21 20:24 Temperature 36.6 C 03/06/21 20:24 Temperature Source Tympanic 03/06/21 20:24 Pulse 85 03/06/21 20:24 Respiratory Rate 16 03/06/21 20:24 Respiratory Effort 03/06/21 21:14 Respiratory Depth Normal 03/06/21 21:14 Respiratory Pattern Normal 03/06/21 21:14 Blood Pressure 161/92 H 03/06/21 20:24 Blood Pressure Position Sitting 03/06/21 20:24 Pulse Oximetry 97 03/06/21 20:24 Oxygen Delivery Method Room Air 03/06/21 20:24 Oxygen Flow Rate 0 03/06/21 20:24 Pain Level 0 03/06/21 20:24
[2021-03-06 21:32] LABS: Bilirubin Negative (Negative); Blood Trace-lysed (Negative); Clarity Sl Cloudy (Clear); Glucose Negative (Negative); Ketones Negative (Negative); Leukocyte Esterase Small (Negative); Nitrite Negative (Negative); Urobilinogen 0.2 EU/dL (Up TO 0.2); pH 5.5 (5-8)
[2021-03-06] MEDS: Cephalexin 500 MG CAP, 4 CAPS/BTL PO (21:33)
[2021-03-06 21:39] LABS: Bacteria Few HPF (Negative); Epithelial Cells Many HPF (Negative); WBC >50 HPF (0-5)
[2021-03-06 21:40] LABS: C & S Indicated? No/Sq. Contamination; Casts Negative LPF (Negative); Crystals Negative HPF (Negative); Mucus Negative (Negative)
== END 2021-03-06 21:44 | disposition home or self-care (01) ==
PROVIDERS: Emergency Provider Emergency Medicine; PCP Family Medicine
DX: L73.8 Other specified follicular disorders (principal)
CPT/HCPCS: 99283; 81003; 81015

== ENCOUNTER 2021-03-27 10:35 | Outpatient (CLI) | payer MEDICARE, SELFPAY ==
[2021-03-27 11:40] VITALS: BP 136/94; PULSE 96; RESP 24; TEMP 36.9; O2SAT 99
[2021-03-27 13:45] VITALS: BP 135/64; PULSE 84; RESP 20; TEMP 35.6; O2SAT 97
== END 2021-03-27 10:36 | disposition home or self-care (01) ==
PROVIDERS: PCP Family Medicine; Visit Provider Family Medicine
DX: U07.1 COVID-19 (principal)
CPT/HCPCS: 96365; Q0047

== ENCOUNTER 2021-05-02 11:57 | Outpatient (REF) | payer MEDICARE, SELFPAY | END 2021-05-02 11:58 | disposition home or self-care (01) | LOC: NCHCN 11:57 | PROVIDERS: PCP Family Medicine; Visit Provider Nurse Practitioner Family | DX: R35.0 Frequency of micturition (principal) | CPT/HCPCS: 87086 ==

== ENCOUNTER 2021-05-09 18:33 | Outpatient (REF) | payer MEDICARE, SELFPAY ==
[2021-05-09 19:19] LABS: HCT 40.1 % (36.0-46.0); HGB 12.8 g/dL (11.2-15.7); MCH 27.2 pg (27.0-33.0); MCHC 31.9 % (32.0-36.0); MCV 85.1 fL (80-95); MPV 10.4 fL (8.0-11.0); Platelet Count 301 10^3/uL (130-400); RBC 4.71 10^6/uL (3.93-5.22); RDW 12.4 % (11.7-14.6); RDW-SD 38.5 fL; WBC 8.63 10^3/uL (4.4-10.8)
[2021-05-09 19:53] LABS: Anion Gap 9.3 mmol/L (3-11); BUN 14 mg/dL (7-18); CO2 26.7 mmol/L (21.0-32.0); CREATININE 0.8 mg/dL (0.55-1.02); Calcium 9.1 mg/dL (8.5-10.1); Chloride 100 mmol/L (98-107); Glucose 234 mg/dL (74-106); Potassium 4.2 mmol/L (3.5-5.1); Sodium 136 mmol/L (136-145); TSH (W/Ref FT4) 1.57 uIU/mL (0.36-3.74)
== END 2021-05-09 18:34 | disposition home or self-care (01) ==
LOC: NCHCN 18:33
PROVIDERS: PCP Family Medicine; Visit Provider Family Medicine
DX: E89.0 Postprocedural hypothyroidism (principal)
CPT/HCPCS: 80048; 85027; 84443

== ENCOUNTER → 2021-07-08 00:58 | Outpatient (CLI) | payer MEDICARE, SELFPAY | PROVIDERS: PCP Family Medicine; Visit Provider Nurse Practitioner Family ==

== ENCOUNTER 2021-10-11 15:28 | Outpatient (REF) | payer MEDICARE, SELFPAY | END 2021-10-11 15:29 | disposition home or self-care (01) | LOC: NCHCN 15:28 | PROVIDERS: PCP Family Medicine; Visit Provider Nurse Practitioner Family | DX: N39.0 Urinary tract infection, site not specified (principal); R35.0 Frequency of micturition | CPT/HCPCS: 87077; 87086; 87186 ==

== ENCOUNTER → 2021-10-21 01:29 | Outpatient (CLI) | payer MEDICARE, SELFPAY ==
--- NOTE | 2021-10-21 | DI.MAMMO_ITS ---
Exam(s) MG MAMMO SCREENING 60 MIN DUR EXAM: MG MAMMO SCREENING 60 MIN DUR CLINICAL HISTORY: SCREENING, Z12.31. TECHNIQUE: Bilateral full field digital CC and MLO mammographic images were obtained with 3D tomosyn thesis and utilizing computer aided detection (CAD). COMPARISON: Prior mammograms were reviewed, the most recent being March 2019. FINDINGS: There are no new spiculated masses nor malignant appearing microcalcification groups. Benign microcalcifications again noted There is no significant architectural distortion nor skin thickening-retraction. IMPRESSION: No radiographic evidence of malignancy. BI-RADS Category 1 - Negative Breast Density - Category A - Almost entirely fatty Breast density Category C or D implies that the patient has dense breast tissue. Dense breast tissue can make it harder to find cancer on a mammogram. Dense breast tissue is also associated with an incr eased risk of breast cancer. This information about the result of the mammogram report was provided to the patient to raise their awareness. Use this report when you speak with the patient about their risks for breast cancer, which includes their family history. At that time, you may recommend additional screening tests (Ultrasoun d or MRI) as these tests may add significant information. A negative radiographic report should not delay biopsy if a dominant or clinically suspicious mass is present. Up to ten percent of cancers are not identified on mammography. A negative report may reinforce clinical impression. Adenosis and dense breasts may obscure an underlying neoplasm. False positive reports average 6 to 10%. Patient will receive a letter notifying them of these results.
== END ==
PROVIDERS: PCP Family Medicine; Visit Provider Nurse Practitioner Family
DX: Z12.31 Encounter for screening mammogram for malignant neoplasm of breast (principal)
CPT/HCPCS: 77063; 77067

== ENCOUNTER 2021-11-20 22:20 | Outpatient (REF) | payer MEDICARE, SELFPAY ==
[2021-11-20 21:12] LABS: Bilirubin Negative (Negative); Blood Negative (Negative); Clarity Clear (Clear); Glucose Negative (Negative); Ketones Negative (Negative); Leukocyte Esterase Negative (Negative); Nitrite Negative (Negative); Urobilinogen 0.2 EU/dL (Up TO 0.2)
== END 2021-11-20 22:21 | disposition home or self-care (01) ==
LOC: LBN 22:20
PROVIDERS: PCP Family Medicine; Visit Provider Physician Assistant Medical
DX: N89.8 Other specified noninflammatory disorders of vagina; B37.49 Other urogenital candidiasis
CPT/HCPCS: 81003; 87480; 87510; 87660

== ENCOUNTER 2022-04-06 12:23 | Emergency (ER) | payer MEDICARE, SELFPAY ==
[2022-04-06] VITALS (16 sets, daily range): BP systolic 130–174; BP diastolic 77–81; PULSE 63–78; RESP 17–20; TEMP 36.7; O2SAT 94–98
--- NOTE | 2022-04-06 12:15 | RT.EKG_ITS ---
APPROVED REPORT Exam: Resting ECG Reason for Exam: chest pain Patient Location: E HR:74 bpm ECG Measurements Heart Rate 74 AXIS NV 65 P 0 QRSd 89 QRS 19 QT 389 T 27 QTc 431 Conclusion Sinus rhythm Lateral Q>35mS, T neg, V5-V6 I aVL No significant change from previous
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
--- NOTE | 2022-04-06 13:15 | DI.RAD_ITS ---
Exam(s) XR CHEST 2V PA LATERAL EXAM: XR CHEST 2V PA LATERAL CLINICAL HISTORY: L anterior chest pain TECHNIQUE: 2D digital imaging was performed. COMPARISON: CT CT CHEST W/ CNTRST from 09/22/2020 CR XR THORACIC SPINE COMPLETE from 11/30/2020 FINDINGS: HEART: Upper limits of normal. Aorta: Not dilated. Mildly tortuous. PULMONARY VASCULATURE: Normal. LUNGS: Clear. PLEURAL SPACE: No pleural effusion or pneumothorax. BONE:Degenerative changes. Small small mild thumb T12 compression fracture, stable. Minimal T8 comp ression fracture, stable. IMPRESSION: No acute abnormality. DATA REPOSITORY: RADIATION DOSE DELIVERED:
[2022-04-06 13:33] LABS: Abs Immature Grans 0.05 10^3/uL (0.0-0.06); Absolute Basophil Count 0.02 10^3/uL (0.0-0.2); Absolute Eosinophil Count 0.02 10^3/uL (0.0-0.7); Absolute Lymphocyte Count 1.31 10^3/uL (1.2-3.4); Absolute Monocyte Count 0.58 10^3/uL (0.1-0.8); Basophils % 0.2; Eosinophils % 0.2; HCT 39.3 % (36.0-46.0); HGB 12.6 g/dL (11.2-15.7); Immature Grans % 0.5; Lymphocytes % 12.7; MCHC 32.1 % (32.0-36.0); MCV 84 fL (80-95); MPV 9.9 fL (8.0-11.0); Monocytes % 5.6; Neutrophils % 80.8; Platelet Count 292 10^3/uL (130-400); RBC 4.67 10^6/uL (3.93-5.22); RDW-SD 36.4 fL; WBC 10.28 10^3/uL (4.4-10.8)
[2022-04-06 13:44] LABS: PTT Activated 27.4 sec (21.0-27.5); Prothrombin Time 10.5 sec (9.3-11.0)
--- NOTE | 2022-04-06 13:45 | NUR.NOTE ---
Nursing Note: pt was worried about blood sugar getting low, states it was okay to give her robert nilsa and some lokesh crackers.
[2022-04-06 13:51] LABS: ALT 27 U/L (14-59); AST 19 U/L (15-37); Albumin 3.8 g/dL (3.4-5.0); Alkaline Phosphatase 100 U/L (46-116); Anion Gap 9.5 mmol/L (3-11); BUN 10 mg/dL (7-18); Bilirubin, Total 0.6 mg/dL (0.2-1.0); CO2 27.5 mmol/L (21.0-32.0); CREATININE 0.8 mg/dL (0.55-1.02); Calcium 9.1 mg/dL (8.5-10.1); Chloride 92 mmol/L (98-107); Estimated GFR 80.21 (mL/min/1.73m2); Glucose 227 mg/dL (74-106); Magnesium 1.7 mg/dL (1.8-2.4); Potassium 4.1 mmol/L (3.5-5.1); Sodium 129 mmol/L (136-145); Total Protein 8.3 g/dL (6.4-8.2); Troponin I < 50 ng/L (<or=60)
[2022-04-06 14:02] LABS: D-Dimer 489 ng/mlFEU (<500)
--- NOTE | 2022-04-06 14:11 | DI.VRAD_ITS ---
PROCEDURE INFORMATION: Exam: XR Chest Exam date and time: 04/06/2022 1:52 PM Age: 66 years old Clinical indication: Other: L anterior chest pain TECHNIQUE: Imaging protocol: Radiologic exam of the chest. 2image(s) are provided. Views: 2 views. COMPARISON: CT CHEST W/ CNTRST 09/22/2020 3:08 PM with no report currently available. Chest radiograph report of 09/10/2020. FINDINGS: Lungs: The lung volumes are slightly increased overall which may be effort related versus mild air trapping. Lung volume and aeration appearance does appear overall improved in the interval. There appears to be some minimal apical scarring similar overall.No lobar consolidation is appreciated. Pleural spaces: No pneumothorax or pleural effusion is appreciated. Heart/Mediastinum: The cardiomediastinal silhouette is upper normal in size.This can be seen with central averaging as well as hallie enlargement. Diaphragm: The hemidiaphragms are symmetric. Bones/joints: There is slightly decreased bone mineralization overall.Osseous alignment is maintained.No interval displaced fracture or dislocation is appreciated. There is a chronic appearing left clavicular shaft deformity. Soft tissues: No radiopaque foreign body or subcutaneous emphysema is appreciated. Other findings: There is some motion penetration artifact. The patient is slightly rotated. No other significant interval changes are appreciated. IMPRESSION: There is improved lung volume and aeration overall as compared to the previous study. No lobar consolidation or cardiac decompensation is appreciated. Dictated and Authenticated by: Yandel Torrez MD. Ordering:PILAR Amezcua MD
[2022-04-06 16:15] LABS: Troponin I < 50 ng/L (<or=60)
[2022-04-06] MEDS: Lidocaine 5% Patch 1 PATCH TP (16:34)
== END 2022-04-06 16:40 | disposition home or self-care (01) ==
PROVIDERS: Emergency Provider Emergency Medicine; PCP Family Medicine
DX: S16.1XXA Strain of muscle, fascia and tendon at neck level, initial encounter (principal); I24.9 Acute ischemic heart disease, unspecified; I26.99 Other pulmonary embolism without acute cor pulmonale; I10 Essential (primary) hypertension; E11.9 Type 2 diabetes mellitus without complications; I25.10 Atherosclerotic heart disease of native coronary artery without angina pectoris; Z86.718 Personal history of other venous thrombosis and embolism; Z79.82 Long term (current) use of aspirin; X58.XXXA Exposure to other specified factors, initial encounter
CPT/HCPCS: 36415; 80053; 93005; 99283; 71046; 83735; 84484; 85025; 85379; 85610; 85730; 93010; 99285

== ENCOUNTER 2022-04-25 13:43 | Outpatient (REF) | payer MEDICARE, SELFPAY | END 2022-04-25 13:44 | disposition home or self-care (01) | LOC: NCHCN 13:43 | PROVIDERS: PCP Family Medicine; Visit Provider Family Medicine | DX: N39.0 Urinary tract infection, site not specified (principal) | CPT/HCPCS: 87077; 87086; 87186 ==

== ENCOUNTER 2022-05-22 16:44 | Emergency (ER) | payer MEDICARE, SELFPAY ==
[2022-05-22 16:51] VITALS: PULSE 81; RESP 20; TEMP 37; O2SAT 98
--- NOTE | 2022-05-26 08:55 | ED.GENADUL_ITS ---
Discharge Plan Disposition Patient Disposition: Left Without Being Seen Discharge Details Primary Care Provider: Jolly Wren V ED Provider: Dominga Luna Discharge Data Discharge Date/Time-TO BE ENTERED AT DEPARTURE: 05/22/22 17:45 HPI General Date/Time Provider Initiated Documentation: 05/22/22 16:44 . HPI Narrative: 66-year-old female presents with report of nausea, vomiting, chills, recent bladder infection within the last 2 weeks and headache. Related Data Home Medications Medication Instructions Recorded Confirmed atorvastatin 10 mg tablet (Lipitor) 80 mg PO HS 06/04/12 04/06/22 levothyroxine 88 mcg tablet 88 mcg PO DAILY 06/04/12 04/06/22 (Synthroid) losartan 100 mg tablet 100 mg PO DAILY 06/04/12 04/06/22 pantoprazole 20 mg tablet,delayed 40 mg PO BID 06/04/12 04/06/22 release (Protonix) metoprolol succinate 25 mg 50 mg PO DAILY 07/14/12 04/06/22 tablet,extended release 24 hr glipizide 10 mg tablet 1 tab PO DAILY 12/12/13 04/06/22 ferrous sulfate 325 mg (65 mg 325 mg PO DAILY 10/04/15 04/06/22 iron) tablet sitagliptin phosphate 100 mg 100 mg PO DAILY 06/26/16 04/06/22 tablet (Januvia) fluticasone propionate 50 1 spray intranasal BID PRN 10/08/19 04/06/22 mcg/actuation nasal spray,suspension (Flonase Allergy Relief) albuterol sulfate 90 mcg/actuation 2 puff inhalation Q6H PRN #6.7 09/10/20 04/06/22 aerosol inhaler (Ventolin HFA) grams acetaminophen 500 mg tablet 1,000 mg PO Q8H PRN 05/23/22 apixaban 5 mg tablet 5 mg PO BID 05/23/22 05/23/22 calcium carbonate 500 mg-vitamin 1 tab PO .COMPLEX 05/23/22 D3 10 mcg (400 unit) tablet (Oyster Shell Calcium-Vitamin D3) clonazepam 0.5 mg tablet (Klonopin) 0.25 mg PO PRN PRN 05/23/22 diphenhydramine HCl 25 mg tablet 25 mg PO DAILY 05/23/22 (Benadryl Allergy) hydroxyzine HCl 25 mg tablet 25 mg PO Q8H PRN 05/23/22 metoprolol succinate 25 mg 25 mg PO DAILY 05/23/22 tablet,extended release 24 hr Previous Rx's Medication Instructions Recorded albuterol sulfate 90 mcg/actuation 2 puff inhalation Q6H PRN #6.7 09/10/20 aerosol inhaler (Ventolin HFA) grams Allergies Allergy/AdvReac Type Severity Reaction Status Date / Time metformin AdvReac Intermediate Diarrhea Unverified 05/23/22 10:17 fosinopril sodium AdvReac Unknown Coughing Unverified 05/23/22 10:17 [From Monopril] pollen Allergy Mild congestion Uncoded 05/23/22 10:17 General Stated Complaint: Abd Prob CYNTHIA: 3 PFSH All Active Problems (Updated 05/23/22 @ 11:04 by Charlotte Shields) Trigger thumb, left thumb (Acute) 40 mg Depo-medrol injection: 05/23/22 Osteoarthritis of carpometacarpal joint of left thumb (Acute) Recurrent UTI (Acute) Superficial bruising of abdominal wall (Acute) Arm injury (Acute) Acute whiplash injury (Acute) Acute upper respiratory infection (Acute) Acute superficial venous thrombosis of left lower extremity (Acute) Acute UTI (Acute) Leg pain (Acute) Musculoskeletal chest pain (Acute) Atypical chest pain (Acute) Atrial flutter (Acute) Fracture of left talus (Acute) Skin abscess (Acute 07/28/14) 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 Pt given samples of Hibiclens to wash vulva daily x1 week then twice weekly. Retinitis pigmentosa of both eyes (Acute 07/28/14) Peripheral vascular disease (Acute 07/28/14) Hypertension (Chronic 07/28/14) Hyperlipidemia (Chronic 07/28/14) GERD (gastroesophageal reflux disease) (Chronic 07/28/14) Diabetes (Chronic 07/28/14) DVT (deep venous thrombosis) (Chronic 07/28/14) Anxiety (Acute 07/28/14) Medical History (Updated 05/23/22 @ 11:04 by Charlotte Shields) Anxiety Diabetes mellitus type II, non insulin dependent GERD (gastroesophageal reflux disease) Hx of deep venous thrombosis Hyperlipidemia Hypertension Peripheral vascular disease Retinitis pigmentosa of both eyes Surgical History Ligation of fallopian tube Thyroid pt reports partial removal of thyroid Vascular Surgery vein stripping. Social History Smoking/Tobacco Use Status: Never Smoking risk assessment performed?: Yes Alcohol Intake: never Drug use: Never Substance use type: does not use Household members: spouse and other Details: Grandson (Senior at the [employer]) Current gender identity: female Do you feel safe at home: Yes Do you feel safe in your relationship?: Yes Course Vital Signs Vital signs: Vital Signs Temperature 37.0 C 05/22/22 16:51 Pulse 81 05/22/22 16:51 Respiratory Rate 20 05/22/22 16:51 Pulse Oximetry 98 05/22/22 16:51 Temperature 37.0 C 05/22/22 16:51 Temperature Source Oral 05/22/22 16:51 Pulse 81 05/22/22 16:51 Respiratory Rate 20 05/22/22 16:51 Blood Pressure Position Sitting 05/22/22 16:51 Pulse Oximetry 98 05/22/22 16:51 Oxygen Delivery Method Room Air 05/22/22 16:51 Oxygen Flow Rate 0 05/22/22 16:51 Pain Level 0 05/22/22 16:51
== END 2022-05-22 17:45 | disposition left against medical advice (07) ==
PROVIDERS: Emergency Provider Physician Assistant; PCP Family Medicine
DX: Z53.21 Procedure and treatment not carried out due to patient leaving prior to being seen by health care provider (principal)

== ENCOUNTER 2022-05-23 10:51 | Outpatient (CLI) | payer MEDICARE, SELFPAY ==
--- NOTE | 2022-05-23 10:30 | DI.RAD_ITS ---
Exam(s) XR HAND LT COMPLETE EXAM: XR HAND LT COMPLETE CLINICAL HISTORY: left thumb pain. TECHNIQUE: 2D digital imaging was performed of the left hand. Three views were obtained. AP, later al and oblique views were obtained. COMPARISON: CR XR finger LT ring from 08/29/2018 FINDINGS: BONES: No acute fracture is present. No bony destructive lesion is seen. JOINTS: No dislocation present. There are degenerative changes seen in the left hand with joint space narrowing and periarticular spurring involving the interphalangeal joints of the fingers. The findi ngs are most marked in the 2nd, 3rd and 4th fingers. There are mild degenerative changes seen in the interphalangeal joint of the thumb. The 1st MCP and 1st CMC joints are unremarkable. SOFT TISSUE: Normal. IMPRESSION: Degenerative changes in the hand. DATA REPOSITORY: RADIATION DOSE DELIVERED:
== END 2022-05-23 10:52 | disposition home or self-care (01) ==
LOC: DIORS 10:51
PROVIDERS: PCP Family Medicine; Referring Provider Family Medicine; Visit Provider Student in an Organized Health Care Education/Training Program
DX: M18.12 Unilateral primary osteoarthritis of first carpometacarpal joint, left hand (principal); M65.312 Trigger thumb, left thumb
CPT/HCPCS: 20550; 99213; 73130; J1030

== ENCOUNTER 2022-05-23 19:17 | Outpatient (REF) | payer MEDICARE, SELFPAY ==
[2022-05-25 13:47] LABS: COVID-19 RT-PCR UVMMC Result Negative (Negative)
== END 2022-05-23 19:18 | disposition home or self-care (01) ==
LOC: LBN 19:17
PROVIDERS: PCP Family Medicine; Visit Provider Physician Assistant Medical
DX: J02.9 Acute pharyngitis, unspecified (principal); Z20.822 Contact with and (suspected) exposure to COVID-19
CPT/HCPCS: U0003; 87081

== ENCOUNTER 2022-09-25 17:50 | Outpatient (REF) | payer MEDICARE, SELFPAY ==
[2022-09-25 16:04] LABS: HCT 37.8 % (36.0-46.0); HGB 12.2 g/dL (11.2-15.7); MCH 27.4 pg (27.0-33.0); MCHC 32.3 % (32.0-36.0); MCV 85 fL (80-95); MPV 9.5 fL (8.0-11.0); Platelet Count 312 10^3/uL (130-400); RBC 4.45 10^6/uL (3.93-5.22); RDW 12.3 % (11.7-14.6); WBC 7.69 10^3/uL (4.4-10.8)
[2022-09-25 16:33] LABS: ALT 22 U/L (14-59); AST 18 U/L (15-37); Albumin 3.7 g/dL (3.4-5.0); Alkaline Phosphatase 99 U/L (46-116); Anion Gap 4.2 mmol/L (3-11); BUN 7 mg/dL (7-18); Bilirubin, Total 0.5 mg/dL (0.2-1.0); CO2 30.8 mmol/L (21.0-32.0); CREATININE 0.7 mg/dL (0.55-1.02); Chloride 99 mmol/L (98-107); Estimated GFR 93.56 (mL/min/1.73m2); Glucose 116 mg/dL (74-106); Potassium 4.4 mmol/L (3.5-5.1); Sodium 134 mmol/L (136-145); TSH (W/Ref FT4) 3.15 uIU/mL (0.36-3.74); Total Protein 7.8 g/dL (6.4-8.2)
== END 2022-09-25 17:51 | disposition home or self-care (01) ==
LOC: NCHCN 17:50
PROVIDERS: PCP Family Medicine; Visit Provider Family Medicine
DX: I10 Essential (primary) hypertension (principal); E78.5 Hyperlipidemia, unspecified; E89.0 Postprocedural hypothyroidism; E87.1 Hypo-osmolality and hyponatremia; Z86.2 Personal history of diseases of the blood and blood-forming organs and certain disorders involving the immune mechanism
CPT/HCPCS: 80053; 85027; 84443

== ENCOUNTER 2023-01-24 10:39 | Emergency (ER) | payer MEDICARE, SELFPAY ==
[2023-01-24 10:46] VITALS: BP 193/90; PULSE 80; RESP 20; TEMP 36.7; O2SAT 98
--- NOTE | 2023-01-24 11:08 | DI.CT_ITS ---
Exam(s) CT HEAD CERVICAL SPINE WO EXAM: CT HEAD CERVICAL SPINE WO CLINICAL HISTORY: fall, midline neck pain. TECHNIQUE: Imaging Protocol: Axial computed tomography images with coronal and sagittal reformatted images were created and reviewed COMPARISON: CT CT HEAD WO CNTRST from 09/22/2020 FINDINGS: Head CT Ventricles and Extra axial spaces: Normal in size and morphology for the patient's age. Hemorrhage: None. Cerebral parenchyma: No evidence of mass or acute infarct. Midline shift: None. Brainstem/Cerebellum: Normal. Calvarium: Normal. Visualized Paranasal sinuses/Mastoids: Clear. Soft tissues: Unremarkable. Cervical Spine CT BONES: Vertebral body heights are maintained. Alignment is normal. There is no evidence of acute frac ture. Mild degenerative disc changes and facet degenerative changes are seen . SOFT TISSUES: No paraspinal hematoma. The airway appears intact. No pneumothorax is seen at the lung apices. IMPRESSION: Head CT: No acute abnormality. C-spine CT: Degenerative changes, no acute abnormality. RADIATION DOSE DELIVERED: Total DLP DATA REPOSITORY: All CT scans at this facility are submitted to the National Radiology Data Registry (NRDR) Dose Index Registry (DIR) with the [employer] (A[employer]). RADIATION OPTIMIZATION: All CT scans at this facility use at least one of these dose optimization te chniques: automated exposure control; mA and/or kV adjustment per patient size (includes targeted exa ms where dose is matched to clinical indication); or iterative reconstruction.
--- NOTE | 2023-01-24 11:13 | W.ED.GENAD ---
Discharge Plan Disposition Patient Disposition: Home Condition: Improving Discharge Details Clinical Impression: Neck pain Primary Care Provider: Jolly Wren V ED Provider: Sanju Zuñiga Home Meds and New Rx's Prescriptions: New lidocaine [Lidoderm] 5 % adhesive patch,medicated 1 patch topical DAILY Qty: 15 0RF Rx Instructions: leave on most painful area for up to 12 hrs No Action apixaban 5 mg tablet 5 mg PO BID acetaminophen 500 mg tablet 1,000 mg PO Q8H PRN diphenhydramine HCl [Benadryl Allergy] 25 mg tablet 25 mg PO DAILY calcium carbonate-vitamin D3 [Oyster Shell Calcium-Vit D3] 500 mg-10 mcg (400 unit) tablet 1 tab PO .COMPLEX Rx Instructions: 1 tab orally EVERY THREE DAYS; hydroxyzine HCl 25 mg tablet 25 mg PO Q8H PRN metoprolol succinate 25 mg tablet extended release 24 hr 25 mg PO DAILY clonazepam [Klonopin] 0.5 mg tablet 0.25 mg PO PRN PRN atorvastatin [Lipitor] 10 MG tablet 80 mg PO HS pantoprazole [Protonix] 20 MG tablet,delayed release (DR/EC) 40 mg PO BID levothyroxine [Synthroid] 88 MCG tablet 88 mcg PO DAILY losartan 100 MG tablet 100 mg PO DAILY metoprolol succinate 25 MG tablet extended release 24 hr 50 mg PO DAILY glipizide 10 MG tablet 1 tab PO DAILY ferrous sulfate 325 MG tablet 325 mg PO DAILY Patient Comments: pt has not taken in a while 10/02/16. On 10/19/17 patient reports taking iron only once or twice a week due to constipation Rx Instructions: takes a few days a week Januvia 100 MG tablet 100 mg PO DAILY fluticasone propionate [Flonase Allergy Relief] 50 mcg/actuation [place],Suspension 1 spray INTRANASAL BID PRN albuterol sulfate [Ventolin HFA] 90 mcg/actuation HFA aerosol inhaler 2 puff inhalation Q6H PRNQty: 6.7 0RF Discharge Instructions Instructions: Neck Pain (ED) Additional Instructions: Continue with ibuprofen and acetaminophen ice heat Lidoderm patch and rest. Please return to the emergency department for any worsening symptoms Medical Decision Making 67-year-old female presents 10 days post fall from stool, patient is clinically blind tripped coming off of a stool, initially asymptomatic over the last couple days she has developed neck discomfort and occipital headache. Mild nausea. No vomiting. No loss of conscious during initial event. Full range of motion of all extremities no focal deficits, cranial nerves intact, sensation intact ambulatory without assistance. Likely contusion versus mild concussion however given age and anticoagulant use must consider intracerebral hemorrhage lower suspicion for spinal fracture however given midline cervical tenderness will obtain CT C-spine CT head. Analgesia Lidoderm patch close reassess 13: 52 no evidence of fracture or intracranial injury. Patient feeling better after Lidoderm patch HPI General Date/Time Provider Initiated Documentation: 01/24/23 11:04. HPI Narrative: 67-year-old female clinically blind presents after mechanical fall from stool approximately 10 days ago, initially asymptomatic however has developed neck discomfort and occipital headache. Feeling slightly nauseous. No issues walking currently. No weakness or numbness. Patient is on apixaban Related Data Home Medications Medication Instructions Recorded Confirmed atorvastatin 10 mg tablet (Lipitor) 80 mg PO HS 06/04/12 01/24/23 levothyroxine 88 mcg tablet 88 mcg PO DAILY 06/04/12 01/24/23 (Synthroid) losartan 100 mg tablet 100 mg PO DAILY 06/04/12 01/24/23 pantoprazole 20 mg tablet,delayed 40 mg PO BID 06/04/12 01/24/23 release (Protonix) metoprolol succinate 25 mg 50 mg PO DAILY 07/14/12 01/24/23 tablet,extended release 24 hr glipizide 10 mg tablet 1 tab PO DAILY 12/12/13 01/24/23 ferrous sulfate 325 mg (65 mg 325 mg PO DAILY 10/04/15 01/24/23 iron) tablet sitagliptin phosphate 100 mg 100 mg PO DAILY 06/26/16 01/24/23 tablet (Januvia) fluticasone propionate 50 1 spray intranasal BID PRN 10/08/19 01/24/23 mcg/actuation nasal spray,suspension (Flonase Allergy Relief) albuterol sulfate 90 mcg/actuation 2 puff inhalation Q6H PRN #6.7 09/10/20 01/24/23 aerosol inhaler (Ventolin HFA) grams acetaminophen 500 mg tablet 1,000 mg PO Q8H PRN 05/23/22 01/24/23 apixaban 5 mg tablet 5 mg PO BID 05/23/22 01/24/23 calcium carbonate 500 mg-vitamin 1 tab PO .COMPLEX 05/23/22 01/24/23 D3 10 mcg (400 unit) tablet (Oyster Shell Calcium-Vitamin D3) clonazepam 0.5 mg tablet (Klonopin) 0.25 mg PO PRN PRN 05/23/22 01/24/23 diphenhydramine HCl 25 mg tablet 25 mg PO DAILY 05/23/22 01/24/23 (Benadryl Allergy) hydroxyzine HCl 25 mg tablet 25 mg PO Q8H PRN 05/23/22 01/24/23 metoprolol succinate 25 mg 25 mg PO DAILY 05/23/22 01/24/23 tablet,extended release 24 hr lidocaine 5 % topical patch 1 patch topical DAILY #15 ea 01/24/23 (Lidoderm) Previous Rx's Medication Instructions Recorded albuterol sulfate 90 mcg/actuation 2 puff inhalation Q6H PRN #6.7 09/10/20 aerosol inhaler (Ventolin HFA) grams lidocaine 5 % topical patch 1 patch topical DAILY #15 ea 01/24/23 (Lidoderm) Allergies Allergy/AdvReac Type Severity Reaction Status Date / Time metformin AdvReac Intermediate Diarrhea Unverified 01/24/23 10:54 fosinopril sodium AdvReac Unknown Coughing Unverified 01/24/23 10:54 [From Monopril] pollen Allergy Mild congestion Uncoded 01/24/23 10:54 General Stated Complaint: Nk/Back Pain CYNTHIA: 3 Review of Systems Narrative: Review of Systems Constitutional: negative Eyes: negative ENT: negative Cardiovascular: negative Respiratory: negative Gastrointestinal: negative : negative Musculoskeletal: Neck pain Skin: negative Neurologic: Headache Psych: negative PFSH All Active Problems (Updated 01/24/23 @ 13:53 by Sanju Zuñiga MD) Neck pain (Acute) Trigger thumb, left thumb (Acute) 40 mg Depo-medrol injection: 05/23/22 Osteoarthritis of carpometacarpal joint of left thumb (Acute) Recurrent UTI (Acute) Superficial bruising of abdominal wall (Acute) Arm injury (Acute) Acute whiplash injury (Acute) Acute upper respiratory infection (Acute) Acute superficial venous thrombosis of left lower extremity (Acute) Acute UTI (Acute) Leg pain (Acute) Musculoskeletal chest pain (Acute) Atypical chest pain (Acute) Atrial flutter (Acute) Fracture of left talus (Acute) Skin abscess (Acute 07/28/14) 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 Pt given samples of Hibiclens to wash vulva daily x1 week then twice weekly. Retinitis pigmentosa of both eyes (Acute 07/28/14) Peripheral vascular disease (Acute 07/28/14) Hypertension (Chronic 07/28/14) Hyperlipidemia (Chronic 07/28/14) GERD (gastroesophageal reflux disease) (Chronic 07/28/14) Diabetes (Chronic 07/28/14) DVT (deep venous thrombosis) (Chronic 07/28/14) Anxiety (Acute 07/28/14) Medical History (Updated 01/24/23 @ 13:53 by Sanju Zuñiga MD) Hypertension Diabetes mellitus type II, non insulin dependent Retinitis pigmentosa of both eyes GERD (gastroesophageal reflux disease) Peripheral vascular disease Hyperlipidemia Anxiety Hx of deep venous thrombosis Surgical History Vascular Surgery vein stripping. Ligation of fallopian tube Thyroid pt reports partial removal of thyroid Social History Smoking/Tobacco Use Status: Never Smoking risk assessment performed?: Yes Alcohol Intake: never Drug use: Never Substance use type: does not use Household members: spouse and other Details: Grandson (Senior at the [employer]) Housing: house Current gender identity: female Do you feel safe at home: Yes Do you feel safe in your relationship?: Yes Exam Narrative Exam Narrative: Physical Examination General: alert, awake, cooperative, resting comfortably, no acute distress HEENT: normocephalic, atraumatic; PERRL, EOM intact, conjunctiva normal; no nasal discharge; moist mucous membranes, oral and pharyngeal mucosa normal, tolerating secretions Neck: supple, trachea midline, mild midline tenderness without crepitus or deformity Chest: normal to inspection Respiratory: normal respiratory effort, speaking in full sentences Back: Midline and paraspinal cervical tenderness without crepitus step-off or deformity Skin: no lesions, rashes or trauma appreciated Neuro: AAOx3, normal speech, moving all extremities; 5-5 strength upper and lower extremities cranial nerves intact, no ataxia Extremities: No signs of trauma Psych: Appropriate mood and affect Course Vital Signs Vital signs: Vital Signs Temperature 36.7 C 01/24/23 10:46 Pulse 80 01/24/23 10:46 Respiratory Rate 20 01/24/23 10:46 Blood Pressure 193/90 H 01/24/23 10:46 Pulse Oximetry 98 01/24/23 10:46 Temperature 36.7 C 01/24/23 10:46 Pulse 80 01/24/23 10:46 Respiratory Rate 20 01/24/23 10:46 Respiratory Effort Normal 01/24/23 10:51 Blood Pressure 193/90 H 01/24/23 10:46 Blood Pressure Position Sitting 01/24/23 10:46 Pulse Oximetry 98 01/24/23 10:46 Oxygen Delivery Method Room Air 01/24/23 10:46 Oxygen Flow Rate 0 01/24/23 10:46 Pain Level 8 01/24/23 10:51
[2023-01-24] MEDS: Lidocaine 5% Patch 1 PATCH TP (11:16)
[2023-01-24] MEDS: Acetaminophen 325 MG TAB 650 MG PO (11:16)
--- NOTE | 2023-01-24 12:01 | DI.VRAD_ITS ---
PROCEDURE INFORMATION: Exam: CT Head Without Contrast Exam date and time: 01/24/2023 11:29 AM Age: 67 years old Clinical indication: Injury or trauma; Other: Fall, midline neck pain/midline neck apin TECHNIQUE: Imaging protocol: Computed tomography of the head without contrast. COMPARISON: CT HEAD WO CNTRST 09/22/2020 3:08 PM FINDINGS: Brain: Ventricles, sulci are within normal limits. There is no evidence of acute hemorrhage, mass or shift. There is no evidence of an acute cortical or major vascular territory infarct. No abnormal extra-axial collections are identified. Cerebral ventricles: No significant ventricular enlargement/hydrocephalus. Paranasal sinuses: No significant sinus opacification or fluid level Mastoid air cells: No significant mastoid opacification Bones/joints: There is no acute bony abnormality Soft tissues: Subcutaneous soft tissues are unremarkable Other findings: Exam mildly degraded by motion IMPRESSION: No acute findings. PROCEDURE INFORMATION: Exam: CT Cervical Spine Without Contrast Exam date and time: 01/24/2023 11:29 AM Age: 67 years old Clinical indication: Injury or trauma; Other: Fall, midline neck pain/midline neck apin TECHNIQUE: Imaging protocol: Computed tomography of the cervical spine without contrast. COMPARISON: CT HEAD CERVICAL SPINE WO 08/14/2020 11:25 PM FINDINGS: Bones/joints: Alignment is unremarkable. Bony mineralization is within normal limits. There is no evidence of an acute fracture in the cervical spine. There is no decrease of vertebral body height. No acute or destructive bony abnormality identified. There is mild disc space narrowing. There are mild disc osteophyte complexes spondylitic changes of the endplates, uncovertebral and facet arthropathy. There is no high-grade spinal stenosis or cord compression identified. Lungs: No significant consolidation at the lung apices. Soft tissues: The exam was not tailored to evaluate the soft tissues of the neck. No significant abnormality is identified at this field of view Other findings: Exam mildly degraded by motion IMPRESSION: No acute findings. Dictated and Authenticated by: Comfort Damico MD. Ordering:LUIS Bills MD
[2023-01-24 14:45] VITALS: BP 166/96; PULSE 71
== END 2023-01-24 15:43 | disposition home or self-care (01) ==
PROVIDERS: Emergency Provider Emergency Medicine; PCP Family Medicine
DX: M54.2 Cervicalgia (principal); M54.6 Pain in thoracic spine; I10 Essential (primary) hypertension; H35.52 Pigmentary retinal dystrophy; E11.319 Type 2 diabetes mellitus with unspecified diabetic retinopathy without macular edema; H54.8 Legal blindness, as defined in USA; W07.XXXA Fall from chair, initial encounter; Y93.89 Activity, other specified; Y92.010 Kitchen of single-family (private) house as the place of occurrence of the external cause; Z79.01 Long term (current) use of anticoagulants; Z79.84 Long term (current) use of oral hypoglycemic drugs
CPT/HCPCS: 99283; 99284; 70450; 72125

== ENCOUNTER 2023-05-19 21:09 | Outpatient (REF) | payer MEDICARE, SELFPAY | END 2023-05-19 21:10 | disposition home or self-care (01) | LOC: LBN 21:09 | PROVIDERS: PCP Family Medicine; Visit Provider Nurse Practitioner Family | DX: N30.01 Acute cystitis with hematuria (principal) | CPT/HCPCS: 87086 ==

== ENCOUNTER 2023-09-07 17:05 | Emergency (ER) | payer MEDICARE, SELFPAY ==
[2023-09-07 17:09] VITALS: BP 179/93; PULSE 73; RESP 18; TEMP 36.4; O2SAT 99
--- NOTE | 2023-09-07 18:12 | DI.RAD_ITS ---
Exam(s) XR HAND LT COMPLETE EXAM: XR HAND LT COMPLETE CLINICAL HISTORY: L 4th finger injury. TECHNIQUE: 2D digital imaging was performed of the left hand. Three views were obtained. AP, later al and oblique views were obtained. COMPARISON: CR XR HAND LT COMPLETE from 05/23/2022 FINDINGS: BONES: There is an acute nondisplaced fracture of the dorsal aspect of the base of the middle phalanx of the 4th finger. There is associated soft tissue swelling. On the lateral view there is a cortic al step-off at the posterior aspect of the distal forearm. This may represent a nondisplaced fractur e of either the distal radius or ulna. Please correlate clinically. There is no significant soft ti ssue swelling. No bony destructive lesion is seen. JOINTS: Marked degenerative changes are seen in the hand characterized by joint space narrowing and o steophytes. 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 SOFT TISSUE: Normal. IMPRESSION: 1. Nondisplaced fracture of the dorsal aspect of the base of the middle phalanx of the 4th finger wit h associated soft tissue swelling. 2. Cortical step-off seen posteriorly of the at the distal forearm on the lateral view. This may be artifactual as there is no overlying soft tissue swelling. Nondisplaced fracture should be considere d. Please correlate with physical exam. DATA REPOSITORY: RADIATION DOSE DELIVERED:
--- NOTE | 2023-09-07 18:31 | W.ED.GENAD ---
Discharge Plan Disposition Patient Disposition: Home Condition: Stable Discharge Details Clinical Impression: Fracture of phalanx of left ring finger Primary Care Provider: Jolly Wren V ED Provider: Eleuterio Painting Home Meds and New Rx's Prescriptions: Continued apixaban 5 mg tablet 5 mg PO BID acetaminophen 500 mg tablet 1,000 mg PO Q8H PRN diphenhydramine HCl [Benadryl Allergy] 25 mg tablet 25 mg PO DAILY calcium carbonate-vitamin D3 [Oyster Shell Calcium-Vit D3] 500 mg-10 mcg (400 unit) tablet 1 tab PO .COMPLEX Rx Instructions: 1 tab orally EVERY THREE DAYS; hydroxyzine HCl 25 mg tablet 25 mg PO Q8H PRN metoprolol succinate 25 mg tablet extended release 24 hr 25 mg PO DAILY clonazepam [Klonopin] 0.5 mg tablet 0.25 mg PO PRN PRN atorvastatin [Lipitor] 10 MG tablet 80 mg PO HS pantoprazole [Protonix] 20 MG tablet,delayed release (DR/EC) 40 mg PO BID levothyroxine [Synthroid] 88 MCG tablet 88 mcg PO DAILY losartan 100 MG tablet 100 mg PO DAILY metoprolol succinate 25 MG tablet extended release 24 hr 50 mg PO DAILY glipizide 10 MG tablet 1 tab PO DAILY ferrous sulfate 325 MG tablet 325 mg PO DAILY PRN Patient Comments: pt has not taken in a while 10/02/16. On 10/19/17 patient reports taking iron only once or twice a week due to constipation Rx Instructions: takes a few days a week Januvia 100 MG tablet 100 mg PO DAILY fluticasone propionate [Flonase Allergy Relief] 50 mcg/actuation Morgan,Suspension 1 spray INTRANASAL BID PRN albuterol sulfate [Ventolin HFA] 90 mcg/actuation HFA aerosol inhaler 2 puff inhalation Q6H PRNQty: 6.7 0RF Discharge Instructions Instructions: Finger Fracture ED, How to care for a splint Additional Instructions: You were seen in the emergency department for your fracture of the proximal phalanx of the left fourth finger, the fracture is not grossly out of place. I provided you with 2 splints, tried to change these out after showering to the dry 1. You may adjust the splint for comfort but try to maintain the finger in as much extension as you can tolerate, please follow-up with your primary care provider for routine x-ray of the left fourth finger in 2 to 3 weeks to ensure routine healing, you may need to follow-up with the hand orthopedic surgeon for failure to improve. Please take Tylenol for pain, rest, ice, compress and elevate often over the next few days. Please return to the emergency department for any severe increase in pain despite treatment, complete loss of sensation of the left hand though this is unlikely. Referrals: Jolly Wren MD [Primary Care Provider] - Discharge Data Discharge Date/Time-TO BE ENTERED AT DEPARTURE: 09/07/23 19:45 HPI General Date/Time Provider Initiated Documentation: 09/07/23 17:20. HPI Narrative: 68 year-old female presents to ED today by POV/ambulating with her daughter with a chief complaint of trip & fall at home over her dog today- with injury to L 4th finger- patient is R-hand dominant. Patient is blind. Quality described as L finger throbbing/aching, daughter endorses some bruising- patient is able to move the finger, no radiation to complete numbness, open wound, proximal hand pain, arm pain, LOC, headstrike, nausea/vomiting. Severity is described as mild. Palliating factors include nothing specific. Provoking factors include nothing specific. Patient is anticoagulated. Related Data Home Medications Medication Instructions Recorded Confirmed atorvastatin 10 mg tablet (Lipitor) 80 mg PO HS 06/04/12 09/07/23 levothyroxine 88 mcg tablet 88 mcg PO DAILY 06/04/12 09/07/23 (Synthroid) losartan 100 mg tablet 100 mg PO DAILY 06/04/12 09/07/23 pantoprazole 20 mg tablet,delayed 40 mg PO BID 06/04/12 09/07/23 release (Protonix) metoprolol succinate 25 mg 50 mg PO DAILY 07/14/12 09/07/23 tablet,extended release 24 hr glipizide 10 mg tablet 1 tab PO DAILY 12/12/13 09/07/23 ferrous sulfate 325 mg (65 mg 325 mg PO DAILY PRN 10/04/15 09/07/23 iron) tablet sitagliptin phosphate 100 mg 100 mg PO DAILY 06/26/16 09/07/23 tablet (Januvia) fluticasone propionate 50 1 spray intranasal BID PRN 10/08/19 09/07/23 mcg/actuation nasal spray,suspension (Flonase Allergy Relief) albuterol sulfate 90 mcg/actuation 2 puff inhalation Q6H PRN #6.7 09/10/20 09/07/23 aerosol inhaler (Ventolin HFA) grams acetaminophen 500 mg tablet 1,000 mg PO Q8H PRN 05/23/22 09/07/23 apixaban 5 mg tablet 5 mg PO BID 05/23/22 09/07/23 calcium carbonate 500 mg-vitamin 1 tab PO .COMPLEX 05/23/22 09/07/23 D3 10 mcg (400 unit) tablet (Oyster Shell Calcium-Vitamin D3) clonazepam 0.5 mg tablet (Klonopin) 0.25 mg PO PRN PRN 05/23/22 09/07/23 diphenhydramine HCl 25 mg tablet 25 mg PO DAILY 05/23/22 09/07/23 (Benadryl Allergy) hydroxyzine HCl 25 mg tablet 25 mg PO Q8H PRN 05/23/22 09/07/23 metoprolol succinate 25 mg 25 mg PO DAILY 05/23/22 09/07/23 tablet,extended release 24 hr Previous Rx's Medication Instructions Recorded albuterol sulfate 90 mcg/actuation 2 puff inhalation Q6H PRN #6.7 09/10/20 aerosol inhaler (Ventolin HFA) grams Allergies Allergy/AdvReac Type Severity Reaction Status Date / Time metformin AdvReac Intermediate Diarrhea Unverified 09/07/23 17:11 fosinopril sodium AdvReac Unknown Coughing Unverified 09/07/23 17:11 [From Monopril] pollen Allergy Mild congestion Uncoded 09/07/23 17:11 General Stated Complaint: Orthopedic CYNTHIA: 4 Review of Systems All systems reviewed & are unremarkable except as noted in HPI and below Exam Narrative Exam Narrative: GENERAL APPEARANCE: Well-nourished, non-toxic, awake and alert, atraumatic, no acute distress. SKIN: Warm, pink, dry, intact, without rashes/lesions/ulcerations. HEAD: Normocephalic, atraumatic, normal hair distribution for gender/age. EYES: Pupils PERRLA, EOMs intact without nystagmus, normal conjunctiva, no exudates on lids/lashes. ENT: Nares patent, no circumoral cyanosis, no facial swelling NECK: Supple, trachea midline, painless cervical ROM. LUNGS/CHEST: Lungs CTA bilaterally, non-labored respirations, normal A/P diameter, symmetrical expansion, no chest wall deformity HEART (CV/PV): Regular rate and rhythm without murmur, no peripheral edema, no JVD. ABDOMEN: Soft, non-distended, no guarding. MSK: Normal ROM, no swelling/deformity to bilateral UEs or LEs, moving all extremities without weakness, no cyanosis, spine midline without tenderness, normal curvature. L UE: Tenderness to palpation without overt crepitus in the proximal phalanx of the left ring finger, sensation intact in the distal left ring finger, brisk capillary refill, left radial pulse 2+, no anatomical snuffbox tenderness, reduced range of motion of the left fourth finger due to pain, no carpal tenderness or crepitus NEURO: Mental Status AAOx4 - alert to person, place, time, events No facial droop, no forehead involvement. Motor: No focal weakness - strength 5/5 in bilateral UEs and LEs, proximal and distal, symmetric. Sensory: sensation intact to light touch globally. Gait normal: patient ambulated without ataxia into ED room. PSYCH: euthymic, cooperative, pleasant, appropriate speech Course Vital Signs Vital signs: Vital Signs Temperature 36.4 C L 09/07/23 17:09 Pulse 73 09/07/23 17:09 Respiratory Rate 18 09/07/23 17:09 Blood Pressure 179/93 H 09/07/23 17:09 Pulse Oximetry 99 09/07/23 17:09 Temperature 36.4 C L 09/07/23 17:09 Pulse 73 09/07/23 17:09 Respiratory Rate 18 09/07/23 17:09 Respiratory Effort Normal, Non-Labored 09/07/23 17:14 Blood Pressure 179/93 H 09/07/23 17:09 Blood Pressure Position Supine 09/07/23 17:09 Pulse Oximetry 99 09/07/23 17:09 Oxygen Delivery Method Room Air 09/07/23 17:09 Oxygen Flow Rate 0 09/07/23 17:09 Medical Decision Making This dictation utilizes [id number] dictation software and may contain unedited grammatical errors. 68 year-old female presents to ED today by POV/ambulating with her daughter with a chief complaint of trip & fall at home over her dog today- with injury to L 4th finger- patient is R-hand dominant. Patient is blind. Quality described as L finger throbbing/aching, daughter endorses some bruising- patient is able to move the finger, no radiation to complete numbness, open wound, proximal hand pain, arm pain, LOC, headstrike, nausea/vomiting. Severity is described as mild. Palliating factors include nothing specific. Provoking factors include nothing specific. Patients' medical history: blindness. Family and social history: noncontributory. Pertinent exam findings / vital signs include L UE: Tenderness to palpation without overt crepitus in the proximal phalanx of the left ring finger, sensation intact in the distal left ring finger, brisk capillary refill, left radial pulse 2+, no anatomical snuffbox tenderness, reduced range of motion of the left fourth finger due to pain, no carpal tenderness or crepitus. Differential / pathologies of concern include fracture, contusion, sprain/strain. Diagnostic studies of: -XR L Hand - shows small nondisplaced fracture of prox phalanx of L fourth finger. Interventions of: -Splinted, counseled on possible need for hand follow-up if failure to improve with immobilization/RICE/APAP therapy. ED Course/Assessment/Plan: 68-year-old blind female had a trip and fall at home over her dog landing on her left hand causing swelling and bruising to the proximal phalanx area of the left fourth finger-she is neurovascular intact distal to this and has no proximal hand tenderness/crepitus or deformity, no anatomical snuffbox tenderness, was given finger splint and recommend RICE therapy as well as therapeutic doses of Tylenol and possible need for follow-up with orthopedics or hand specialist if failure to improve, strict return criteria for any signs of neurovascular compromise. Findings not consistent with unstable fracture, neurovascular compromise. Disposition of fracture of phalanx of left ring finger. Patient verbalized understanding of the plan and return to ED criteria and engaged in shared decision making. Medical Records Medical records reviewed: Yes I reviewed the patient's medical records. Imaging Data Radiologic Study: Attestation: I personally reviewed and interpreted this imaging study as follows: Imaging: X-Ray Radiologist's impression: EXAM: XR HAND LT COMPLETE CLINICAL HISTORY: L 4th finger injury. TECHNIQUE: 2D digital imaging was performed of the left hand. Three views were obtained. AP, lateral and oblique views were obtained. COMPARISON: CR XR HAND LT COMPLETE from 05/23/2022 FINDINGS: BONES: There is an acute nondisplaced fracture of the dorsal aspect of the base of the middle phalanx of the 4th finger. There is associated soft tissue swelling. On the lateral view there is a cortical step-off at the posterior aspect of the distal forearm. This may represent a nondisplaced fracture of either the distal radius or ulna. Please correlate clinically. There is no significant soft tissue swelling. No bony destructive lesion is seen. JOINTS: Marked degenerative changes are seen in the hand characterized by joint space narrowing and osteophytes. 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 SOFT TISSUE: Normal. IMPRESSION: 1. Nondisplaced fracture of the dorsal aspect of the base of the middle phalanx of the 4th finger with associated soft tissue swelling. 2. Cortical step-off seen posteriorly of the at the distal forearm on the lateral view. This may be artifactual as there is no overlying soft tissue swelling. Nondisplaced fracture should be considered. Please correlate with physical exam. Quality:[facility] Health Related Social Needs: No Data to Display PFSH All Active Problems (Updated 09/07/23 @ 19:40 by FRANCISCO Hoskins) Fracture of phalanx of left ring finger (Acute) Trigger thumb, left thumb (Acute) 40 mg Depo-medrol injection: 05/23/22 Osteoarthritis of carpometacarpal joint of left thumb (Acute) Recurrent UTI (Acute) Superficial bruising of abdominal wall (Acute) Arm injury (Acute) Acute whiplash injury (Acute) Acute upper respiratory infection (Acute) Acute superficial venous thrombosis of left lower extremity (Acute) Acute UTI (Acute) Leg pain (Acute) Musculoskeletal chest pain (Acute) Atypical chest pain (Acute) Atrial flutter (Acute) Fracture of left talus (Acute) Skin abscess (Acute 07/28/14) 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 Pt given samples of Hibiclens to wash vulva daily x1 week then twice weekly. Retinitis pigmentosa of both eyes (Acute 07/28/14) Peripheral vascular disease (Acute 07/28/14) Hypertension (Chronic 07/28/14) Hyperlipidemia (Chronic 07/28/14) GERD (gastroesophageal reflux disease) (Chronic 07/28/14) Diabetes (Chronic 07/28/14) DVT (deep venous thrombosis) (Chronic 07/28/14) Anxiety (Acute 07/28/14) Medical History (Updated 09/07/23 @ 19:40 by FRANCISCO Hoskins) Hypertension Diabetes mellitus type II, non insulin dependent Retinitis pigmentosa of both eyes GERD (gastroesophageal reflux disease) Peripheral vascular disease Hyperlipidemia Anxiety Hx of deep venous thrombosis Surgical History Vascular Surgery vein stripping. Ligation of fallopian tube Thyroid pt reports partial removal of thyroid Social History Smoking/Tobacco Use Status: Never Smoking risk assessment performed?: Yes Alcohol Intake: never Drug use: Never Substance use type: does not use Household members: spouse and other Details: Grandson (Senior at the [employer]) Housing: house Current gender identity: female Do you feel safe at home: Yes Do you feel safe in your relationship?: Yes
[2023-09-07 19:45] VITALS: BP 160/90; PULSE 72; RESP 16; O2SAT 99
== END 2023-09-07 19:45 | disposition home or self-care (01) ==
PROVIDERS: Emergency Provider Physician Assistant; PCP Family Medicine
DX: S62.615A Displaced fracture of proximal phalanx of left ring finger, initial encounter for closed fracture (principal); W19.XXXA Unspecified fall, initial encounter
CPT/HCPCS: 99283; 73130

== ENCOUNTER 2023-11-05 04:14 | Outpatient (CLI) | payer MEDICARE, SELFPAY ==
[2023-11-05 16:09] LABS: HCT 40.8 % (36.0-46.0); HGB 13.4 g/dL (11.2-15.7); MCH 28.2 pg (27.0-33.0); MCHC 32.8 % (32.0-36.0); MCV 86 fL (80-95); MPV 8.8 fL (8.0-11.0); Platelet Count 307 10^3/uL (130-400); RBC 4.75 10^6/uL (3.93-5.22); RDW 12.2 % (11.7-14.6); RDW-SD 38.7 fL
[2023-11-05 16:40] LABS: Hemoglobin A1C 6.5 % (<5.7)
[2023-11-05 17:19] LABS: ALT 26 U/L (14-59); AST 16 U/L (15-37); Albumin 3.6 g/dL (3.4-5.0); Alkaline Phosphatase 94 U/L (46-116); Anion Gap 7.6 mmol/L (3-11); BUN 12 mg/dL (7-18); CO2 28.4 mmol/L (21.0-32.0); CREATININE 0.8 mg/dL (0.55-1.02); Calcium 9.1 mg/dL (8.5-10.1); Chloride 98 mmol/L (98-107); Estimated GFR 79.22 (mL/min/1.73m2); Glucose 88 mg/dL (74-106); Potassium 4.1 mmol/L (3.5-5.1); Sodium 134 mmol/L (136-145); TSH (W/Ref FT4) 3.06 uIU/mL (0.36-3.74); Total Protein 8.1 g/dL (6.4-8.2)
== END 2023-11-05 04:15 | disposition home or self-care (01) ==
LOC: LBO 04:14
PROVIDERS: PCP Family Medicine; Visit Provider Family Medicine
DX: E11.9 Type 2 diabetes mellitus without complications (principal); E03.9 Hypothyroidism, unspecified; I10 Essential (primary) hypertension
CPT/HCPCS: 36415; 80053; 85027; 83036; 84443

== ENCOUNTER 2024-02-02 18:33 | Outpatient (REF) | payer MEDICARE, SELFPAY ==
[2024-02-02 19:22] LABS: Anion Gap 7.9 mmol/L (3-11); BUN 11 mg/dL (7-18); CO2 30.1 mmol/L (21.0-32.0); CREATININE 0.9 mg/dL (0.55-1.02); Calcium 8.7 mg/dL (8.5-10.1); Chloride 97 mmol/L (98-107); Estimated GFR 68.77 (mL/min/1.73m2); Glucose 124 mg/dL (74-106); Potassium 4.1 mmol/L (3.5-5.1); Sodium 135 mmol/L (136-145)
[2024-02-02 19:23] LABS: Hemoglobin A1C 6.7 % (<5.7)
== END 2024-02-02 18:34 | disposition home or self-care (01) ==
LOC: NCHCN 18:33
PROVIDERS: PCP Family Medicine; Visit Provider Family Medicine
DX: E11.9 Type 2 diabetes mellitus without complications (principal)
CPT/HCPCS: 80048; 83036

== ENCOUNTER 2024-05-11 02:29 | Outpatient (CLI) | payer MEDICARE, SELFPAY ==
--- NOTE | 2024-05-11 | DI.MAMMO_ITS ---
Exam(s) MG MAMMO SCREENING 60 MIN DUR EXAM: MG MAMMO SCREENING 60 MIN DUR CLINICAL HISTORY: Screening, Z12.31. TECHNIQUE: Bilateral full field digital CC and MLO mammographic images were obtained with 3D tomosyn thesis and utilizing computer aided detection (CAD). COMPARISON: Prior mammograms were reviewed. FINDINGS: There has been no significant change in the appearance and distribution of the fibroglandular tissue. There are no new spiculated masses nor malignant appearing microcalcification groups. There is no significant architectural distortion nor skin thickening-retraction. IMPRESSION: No radiographic evidence of malignancy. BI-RADS Category 1 - Negative Breast Density - Category A - Almost entirely fatty Breast density Category C or D implies that the patient has dense breast tissue. Dense breast tissue can make it harder to find cancer on a mammogram. Dense breast tissue is also associated with an incr eased risk of breast cancer. This information about the result of the mammogram report was provided to the patient to raise their awareness. Use this report when you speak with the patient about their risks for breast cancer, which includes their family history. At that time, you may recommend additional screening tests (Ultrasoun d or MRI) as these tests may add significant information. A negative radiographic report should not delay biopsy if a dominant or clinically suspicious mass is present. Up to ten percent of cancers are not identified on mammography. A negative report may reinforce clinical impression. Adenosis and dense breasts may obscure an underlying neoplasm. False positive reports average 6 to 10%. Patient will receive a letter notifying them of these results.
== END 2024-05-11 02:49 ==
LOC: DI 02:29
PROVIDERS: PCP Family Medicine; Visit Provider Family Medicine
DX: Z12.31 Encounter for screening mammogram for malignant neoplasm of breast (principal); R92.313 Mammographic fatty tissue density, bilateral breasts
CPT/HCPCS: 77063; 77067

== ENCOUNTER 2024-06-17 15:18 | Outpatient (REF) | payer MEDICARE, SELFPAY | END 2024-06-17 15:19 | disposition home or self-care (01) | LOC: NCHCN 15:18 | PROVIDERS: PCP Family Medicine; Visit Provider Family Medicine | DX: N39.0 Urinary tract infection, site not specified (principal); R82.89 Other abnormal findings on cytological and histological examination of urine | CPT/HCPCS: 87086 ==

== ENCOUNTER 2025-01-20 16:01 | Outpatient (REF) | payer MEDICARE, SELFPAY ==
[2025-01-20 19:11] LABS: HCT 37.9 % (36.0-46.0); HGB 12.8 g/dL (11.2-15.7); MCH 28.4 pg (27.0-33.0); MCHC 33.8 % (32.0-36.0); MCV 84 fL (80-95); MPV 9.5 fL (8.0-11.0); Platelet Count 322 10^3/uL (130-400); RBC 4.51 10^6/uL (3.93-5.22); RDW 11.9 % (11.7-14.6); RDW-SD 35.8 fL; WBC 8.90 10^3/uL (4.4-10.8)
[2025-01-20 19:28] LABS: Hemoglobin A1C 6.5 % (<5.7)
[2025-01-20 19:29] LABS: TSH (W/Ref FT4) 2.59 uIU/mL (0.55-4.78)
[2025-01-20 19:30] LABS: ALT 23 U/L (10-49); AST 21 U/L (<34); Albumin 4.3 g/dL (3.4-5.0); Alkaline Phosphatase 90 U/L (46-116); Anion Gap 8.8 mmol/L (3-11); BUN 9 mg/dL (9-23); Bilirubin, Total 0.40 mg/dL (0.2-1.2); CO2 25.8 mmol/L (20.0-31.0); Calcium 9.0 mg/dL (8.3-10.6); Chloride 96 mmol/L (98-107); Cholesterol 158 mg/dL (<200); Glucose 184 mg/dL (74-106); HDL Cholesterol 54 mg/dL (>40); Potassium 3.8 mmol/L (3.5-5.1); Sodium 131 mmol/L (136-145); Total Protein 7.4 g/dL (5.7-8.2)
== END 2025-01-20 16:02 | disposition home or self-care (01) ==
LOC: NCHCN 16:01
PROVIDERS: PCP Family Medicine; Visit Provider Family Medicine
DX: C74.00 Malignant neoplasm of cortex of unspecified adrenal gland (principal); I10 Essential (primary) hypertension; E03.9 Hypothyroidism, unspecified; E11.9 Type 2 diabetes mellitus without complications; E78.5 Hyperlipidemia, unspecified; Z86.2 Personal history of diseases of the blood and blood-forming organs and certain disorders involving the immune mechanism
CPT/HCPCS: 80053; 80061; 82533; 85027; 83036; 84443